=== PATIENT | female | born 1950 | race Caucasian/White ===

== ENCOUNTER 2021-07-14 11:27 | Outpatient (REF) | payer BC, SELFPAY ==
[2021-07-14 13:23] LABS: INTERNATIONAL NORM RATIO 1.2 (0.9-1.1); Prothrombin Time 13.7 SEC (9.9-13.0)
== END 2021-07-14 11:28 | disposition home or self-care (01) ==
LOC: HO.WFDLDS 11:27
PROVIDERS: Visit Provider Hospitalist
DX: D68.9 Coagulation defect, unspecified (principal)
CPT/HCPCS: 36415; 85610

== ENCOUNTER 2021-07-23 07:20 | Outpatient (REF) | payer BC, SELFPAY ==
[2021-07-23 11:43] LABS: INTERNATIONAL NORM RATIO 2.6 (0.9-1.1); Prothrombin Time 29.8 SEC (9.9-13.0)
== END 2021-07-23 07:21 | disposition home or self-care (01) ==
LOC: HO.WFDLDS 07:20
PROVIDERS: Visit Provider Hospitalist
DX: D68.9 Coagulation defect, unspecified (principal)
CPT/HCPCS: 36415; 85610

== ENCOUNTER → 2021-08-04 14:01 | Outpatient (BNVA) | payer MEDICARE, SELFPAY | PROVIDERS: PCP Hospitalist; Visit Provider Internal Medicine | DX: D68.9 Coagulation defect, unspecified (principal); Z79.01 Long term (current) use of anticoagulants; Z51.81 Encounter for therapeutic drug level monitoring | CPT/HCPCS: 85610; 99202 ==

== ENCOUNTER → 2021-08-07 10:29 | Outpatient (BNVA) | payer MEDICARE, SELFPAY | PROVIDERS: PCP Hospitalist; Visit Provider Internal Medicine | DX: D68.9 Coagulation defect, unspecified (principal); Z79.01 Long term (current) use of anticoagulants; Z51.81 Encounter for therapeutic drug level monitoring | CPT/HCPCS: 85610; 99211 ==

== ENCOUNTER → 2021-08-17 13:04 | Outpatient (BNVA) | payer MEDICARE, SELFPAY | PROVIDERS: PCP Hospitalist; Visit Provider Internal Medicine | DX: D68.9 Coagulation defect, unspecified (principal); Z79.01 Long term (current) use of anticoagulants; Z51.81 Encounter for therapeutic drug level monitoring | CPT/HCPCS: 85610; 99211 ==

== ENCOUNTER → 2021-08-28 13:07 | Outpatient (BNVA) | payer MEDICARE, SELFPAY | PROVIDERS: PCP Hospitalist; Visit Provider Internal Medicine | DX: D68.9 Coagulation defect, unspecified (principal); I74.10 Embolism and thrombosis of unspecified parts of aorta; Z79.01 Long term (current) use of anticoagulants; Z51.81 Encounter for therapeutic drug level monitoring | CPT/HCPCS: 85610; 99211 ==

== ENCOUNTER → 2021-09-11 13:04 | Outpatient (BNVA) | payer MEDICARE, SELFPAY | PROVIDERS: PCP Hospitalist; Visit Provider Internal Medicine | DX: D68.9 Coagulation defect, unspecified (principal); I74.10 Embolism and thrombosis of unspecified parts of aorta; Z79.01 Long term (current) use of anticoagulants; Z51.81 Encounter for therapeutic drug level monitoring | CPT/HCPCS: 85610; 99211 ==

== ENCOUNTER 2021-09-30 10:53 | Outpatient (REF) | payer MEDICARE, SELFPAY ==
[2021-09-30 12:44] LABS: Hematocrit 41.6 % (37.0-47.0); Hemoglobin 13.4 g/dl (12.0-16.0); Mean Corpuscular HGB Conc 32.2 g/dl (31.0-35.0); Mean Corpuscular Hemoglobin 27.5 pg (27.0-33.0); Mean Corpuscular Volume 85.4 fL (80.0-98.0); Mean Platelet Volume 11.8 fL (9.4-12.3); Platelet Count 414 X10*3/uL (160-400); Red Blood Count 4.87 X10*6/uL (4.20-5.50); Red Cell Distribution Width 14.6 % (11.0-16.0); White Blood Count 8.9 X10*3/uL (4.8-10.8)
[2021-09-30 12:49] LABS: Estimated Average Glucose 134 mg/dL; Hemoglobin A1c % 6.3 %
[2021-09-30 12:50] LABS: Alanine Aminotransferase 18 U/L (0-31); Albumin Level 4.2 g/dL (3.5-5.0); Alkaline Phosphatase 71 U/L (39-117); Anion Gap 15 (12-20); Aspartate Amino Transferase 17 U/L (5-31); Bilirubin Total 0.5 mg/dL (0.0-1.0); Blood Urea Nitrogen 13 mg/dL (9-16); Calcium 10.1 mg/dL (8.4-10.2); Carbon Dioxide 29 mmol/L (22-29); Chloride 100 mmol/L (96-108); Cholesterol 126 mg/dL; Estimated Glomerular Filt Rate > 60; Glucose Fasting 93 mg/dL (60-99); HDL Cholesterol 38 mg/dL; LDL Cholesterol Calculated 68 mg/dl; Potassium 3.8 mmol/L (3.3-5.1); Sodium 140 mmol/L (135-145); Total Protein 6.5 g/dL (6.5-8.0); Triglycerides 103 mg/dL
[2021-09-30 13:10] LABS: TSH reflex Free T4 1.54 uIU/mL (0.32-4.0)
== END 2021-09-30 10:54 | disposition home or self-care (01) ==
LOC: HO.WFDLDS 10:53
PROVIDERS: Visit Provider Hospitalist
DX: Z00.00 Encounter for general adult medical examination without abnormal findings (principal); E11.9 Type 2 diabetes mellitus without complications
CPT/HCPCS: 36415; 80053; 80061; 83036; 84443; 85027

== ENCOUNTER → 2021-10-02 13:03 | Outpatient (BNVA) | payer MEDICARE, SELFPAY | PROVIDERS: PCP Hospitalist; Visit Provider Internal Medicine | DX: D68.9 Coagulation defect, unspecified (principal); I74.10 Embolism and thrombosis of unspecified parts of aorta; Z51.81 Encounter for therapeutic drug level monitoring; Z79.01 Long term (current) use of anticoagulants | CPT/HCPCS: 85610; 99211 ==

== ENCOUNTER → 2021-10-16 13:01 | Outpatient (BNVA) | payer MEDICARE, SELFPAY | PROVIDERS: PCP Hospitalist; Visit Provider Internal Medicine | DX: D68.9 Coagulation defect, unspecified (principal); I74.10 Embolism and thrombosis of unspecified parts of aorta; Z51.81 Encounter for therapeutic drug level monitoring; Z79.01 Long term (current) use of anticoagulants | CPT/HCPCS: 85610; 99211 ==

== ENCOUNTER → 2021-10-30 13:03 | Outpatient (BNVA) | payer MEDICARE, SELFPAY | PROVIDERS: PCP Hospitalist; Visit Provider Internal Medicine | DX: I74.10 Embolism and thrombosis of unspecified parts of aorta (principal); D68.9 Coagulation defect, unspecified; Z79.01 Long term (current) use of anticoagulants; Z51.81 Encounter for therapeutic drug level monitoring | CPT/HCPCS: 85610; 99211 ==

== ENCOUNTER → 2021-11-20 12:24 | Outpatient (BNVA) | payer MEDICARE, SELFPAY | PROVIDERS: PCP Hospitalist; Visit Provider Internal Medicine | DX: D68.9 Coagulation defect, unspecified (principal); I74.10 Embolism and thrombosis of unspecified parts of aorta; Z79.01 Long term (current) use of anticoagulants; Z51.81 Encounter for therapeutic drug level monitoring | CPT/HCPCS: 85610; 99211 ==

== ENCOUNTER → 2021-12-09 13:07 | Outpatient (BNVA) | payer MEDICARE, SELFPAY | PROVIDERS: PCP Hospitalist; Visit Provider Internal Medicine | DX: D68.9 Coagulation defect, unspecified (principal); I74.10 Embolism and thrombosis of unspecified parts of aorta; Z51.81 Encounter for therapeutic drug level monitoring; Z79.01 Long term (current) use of anticoagulants | CPT/HCPCS: 85610; 99211 ==

== ENCOUNTER → 2021-12-25 13:05 | Outpatient (BNVA) | payer MEDICARE, SELFPAY | PROVIDERS: PCP Hospitalist; Visit Provider Internal Medicine | DX: I26.99 Other pulmonary embolism without acute cor pulmonale (principal); Z79.01 Long term (current) use of anticoagulants; Z51.81 Encounter for therapeutic drug level monitoring | CPT/HCPCS: 85610; 99211 ==

== ENCOUNTER 2021-12-31 08:12 | Outpatient (REF) | payer MEDICARE, SELFPAY ==
--- NOTE | ~2021-12-31 | US_ITS ---
EXAMINATION: MM DIAGNOSTIC DIGITAL BREAST TOMOSYNTHESIS, BILATERAL US DIAGNOSTIC ULTRASOUND BREAST, RIGHT CLINICAL INFORMATION: 71-year-old with palpable area lateral right breast noted by patient. Prior mammography 2010. TC score 3%. COMPARISON: Outside mammography 06/02/2010, 11/18/2008 ([facility]). TECHNIQUE: Digital breast tomosynthesis is performed in both the craniocaudal and mediolateral oblique views along with computer-aided detection (CAD). Synthesized 2D images are generated from the tomosynthesis. Additional spot right CC x2 and spot right ML views are obtained. Ultrasound right breast is targeted to the area of clinical concern outer right breast. Patient is able to point to the area at time of imaging. Grayscale imaging and color Doppler are performed without and with harmonics. FINDINGS: There are scattered areas of fibroglandular density (ACR BI-RADS breast composition Category b). There is fibronodular parenchymal pattern similar to prior studies. Left breast shows no interval mass or architectural abnormality. There are scattered bilateral benign round and coarse and a few ductal secretory and vascular calcifications. The bilateral axilla are unremarkable in the skin contours are smooth. The palpable area on right corresponds to a superficial oval mixed equal attenuation and fatty attenuation area approximately 1.5 cm in length. There is no skin thickening or retraction. No associated calcification. Ultrasound right breast targeted to the palpable concern demonstrates circumscribed oval hyperechoic lesion 1.6 x 0.9 x 1.1 cm. There is some irregular central internal hypoechogenicity. There is no skin thickening. No surrounding hyperemia or internal color flow. There is a focal area of marrow shadowing related to a benign coarse calcification and unrelated to the palpable concern. Results are discussed with the patient at time of visit. The features of the palpable concern on both mammography and ultrasound are most suggestive of benign fat necrosis. Patient does not recall prior injury or ecchymosis in this area. No other prior mammography since 2010. Management options were discussed including confirmation of benignity with ultrasound-guided core biopsy. Patient prefers serial follow-up at this time. US/US breast RT limited IMPRESSION: Right: -Suspect fat necrosis at site of palpable concern outer right breast 1.6 cm in greatest dimension. Left: -No mammographic evidence of malignancy. ASSESSMENT: BI-RADS 3: Probably Benign RECOMMENDATION: Diagnostic right mammography and right ultrasound in 6 months. This patient's information was entered into a reminder system with a target due date for their next mammogram.
== END 2021-12-31 08:13 | disposition home or self-care (01) ==
LOC: HO.MAMMO 08:12
PROVIDERS: PCP Hospitalist; Visit Provider Nurse Practitioner Family
DX: N63.15 Unspecified lump in the right breast, overlapping quadrants (principal)
CPT/HCPCS: 76642; 77062; 77066

== ENCOUNTER → 2022-01-12 13:03 | Outpatient (BNVA) | payer MEDICARE, SELFPAY | PROVIDERS: PCP Hospitalist; Visit Provider Internal Medicine | DX: D68.9 Coagulation defect, unspecified (principal); I74.10 Embolism and thrombosis of unspecified parts of aorta; Z79.01 Long term (current) use of anticoagulants; Z51.81 Encounter for therapeutic drug level monitoring | CPT/HCPCS: 85610; 99211 ==

== ENCOUNTER → 2022-01-26 13:03 | Outpatient (BNVA) | payer MEDICARE, SELFPAY | PROVIDERS: PCP Hospitalist; Visit Provider Internal Medicine | DX: I74.10 Embolism and thrombosis of unspecified parts of aorta (principal); D68.9 Coagulation defect, unspecified; Z79.01 Long term (current) use of anticoagulants; Z51.81 Encounter for therapeutic drug level monitoring | CPT/HCPCS: 85610; 99211 ==

== ENCOUNTER → 2022-02-04 13:05 | Outpatient (BNVA) | payer MEDICARE, SELFPAY | PROVIDERS: PCP Hospitalist; Visit Provider Internal Medicine | DX: I74.10 Embolism and thrombosis of unspecified parts of aorta (principal); D68.9 Coagulation defect, unspecified; Z79.01 Long term (current) use of anticoagulants; Z51.81 Encounter for therapeutic drug level monitoring | CPT/HCPCS: 85610; 99211 ==

== ENCOUNTER → 2022-02-09 11:25 | Outpatient (BNVA) | payer MEDICARE, SELFPAY | PROVIDERS: PCP Hospitalist; Visit Provider Physician Assistant | DX: K21.9 Gastro-esophageal reflux disease without esophagitis (principal); R06.6 Hiccough; R05.9 Cough, unspecified; R13.10 Dysphagia, unspecified; Z79.01 Long term (current) use of anticoagulants | CPT/HCPCS: 99202 ==

== ENCOUNTER → 2022-02-18 13:09 | Outpatient (BNVA) | payer MEDICARE, SELFPAY | PROVIDERS: PCP Hospitalist; Visit Provider Internal Medicine | DX: I74.10 Embolism and thrombosis of unspecified parts of aorta (principal); D68.9 Coagulation defect, unspecified; Z79.01 Long term (current) use of anticoagulants; Z51.81 Encounter for therapeutic drug level monitoring | CPT/HCPCS: 85610; 99211 ==

== ENCOUNTER → 2022-03-18 13:03 | Outpatient (BNVA) | payer MEDICARE, SELFPAY | PROVIDERS: PCP Hospitalist; Visit Provider Internal Medicine | DX: D68.9 Coagulation defect, unspecified (principal); I74.10 Embolism and thrombosis of unspecified parts of aorta; Z79.01 Long term (current) use of anticoagulants; Z51.81 Encounter for therapeutic drug level monitoring | CPT/HCPCS: 85610; 99211 ==

== ENCOUNTER → 2022-04-16 10:28 | Outpatient (BNVA) | payer MEDICARE, SELFPAY | PROVIDERS: PCP Hospitalist; Visit Provider Internal Medicine | DX: D68.9 Coagulation defect, unspecified (principal); I74.10 Embolism and thrombosis of unspecified parts of aorta; Z79.01 Long term (current) use of anticoagulants; Z51.81 Encounter for therapeutic drug level monitoring | CPT/HCPCS: 85610; 99211 ==

== ENCOUNTER 2022-04-20 10:30 | Outpatient (REF) | payer MEDICARE, SELFPAY ==
--- NOTE | ~2022-04-20 | FL_ITS ---
EXAMINATION: FL BARIUM SWALLOW CLINICAL INFORMATION: HICCUPS COMPARISON: None TECHNIQUE: Barium swallow examination is performed using fluoroscopic evaluation in addition to multiple fluoroscopic spot views. The patient is imaged both upright and prone and using both thick and thin sulfate along with effervescent granules. Fluoroscopy time: 1.7 minutes DAP: 11.456 Gycm2 Images: 21 FINDINGS: The patient initiated swallowing normally. There is ineffective primary peristalsis with occasional tertiary contractions. No fixed esophageal mucosal abnormality to suggest fracture or mass. No hiatal hernia. No gastroesophageal reflux observed spontaneously or elicited with provocative maneuvers. FL/FL barium swallow IMPRESSION: Ineffective primary peristalsis with occasional tertiary contractions, most notable with prone swallowing. Presbyesophagus can give this appearance.
== END 2022-04-20 10:31 | disposition home or self-care (01) ==
LOC: HO.XRAY 10:30
PROVIDERS: PCP Hospitalist; Visit Provider Physician Assistant
DX: R13.10 Dysphagia, unspecified (principal); K21.9 Gastro-esophageal reflux disease without esophagitis; R05.9 Cough, unspecified; R06.6 Hiccough; Z79.01 Long term (current) use of anticoagulants
CPT/HCPCS: 74220

== ENCOUNTER → 2022-05-18 13:01 | Outpatient (BNVA) | payer MEDICARE, SELFPAY | PROVIDERS: PCP Hospitalist; Visit Provider Internal Medicine | DX: I74.10 Embolism and thrombosis of unspecified parts of aorta (principal); D68.9 Coagulation defect, unspecified; Z51.81 Encounter for therapeutic drug level monitoring; Z79.01 Long term (current) use of anticoagulants | CPT/HCPCS: 85610; 99211 ==

== ENCOUNTER → 2022-06-07 12:59 | Outpatient (BNVA) | payer MEDICARE, SELFPAY | PROVIDERS: PCP Hospitalist; Visit Provider Internal Medicine | DX: I74.10 Embolism and thrombosis of unspecified parts of aorta (principal); Z79.01 Long term (current) use of anticoagulants; Z51.81 Encounter for therapeutic drug level monitoring | CPT/HCPCS: 85610; 99211 ==

== ENCOUNTER 2022-06-17 11:37 | Outpatient (REF) | payer MEDICARE, SELFPAY ==
[2022-06-17 14:32] LABS: Hematocrit 42.9 % (37.0-47.0); Hemoglobin 13.5 g/dl (12.0-16.0); Mean Corpuscular HGB Conc 31.5 g/dl (31.0-35.0); Mean Corpuscular Hemoglobin 27.4 pg (27.0-33.0); Mean Platelet Volume 11.9 fL (9.4-12.3); Platelet Count 465 X10*3/uL (160-400); Red Blood Count 4.93 X10*6/uL (4.20-5.50); Red Cell Distribution Width 14.5 % (11.0-16.0); White Blood Count 9.6 X10*3/uL (4.8-10.8)
[2022-06-17 15:07] LABS: Alanine Aminotransferase 14 U/L (0-31); Albumin Level 3.9 g/dL (3.5-5.0); Alkaline Phosphatase 67 U/L (39-117); Anion Gap 15 (12-20); Aspartate Amino Transferase 16 U/L (5-31); Bilirubin Total 0.5 mg/dL (0.0-1.0); Blood Urea Nitrogen 12 mg/dL (9-16); Calcium 9.6 mg/dL (8.4-10.2); Carbon Dioxide 29 mmol/L (22-29); Chloride 100 mmol/L (96-108); Cholesterol 129 mg/dL; Estimated Glomerular Filt Rate > 60; Glucose Fasting 111 mg/dL (60-99); HDL Cholesterol 39 mg/dL; LDL Cholesterol Calculated 72 mg/dl; Potassium 3.4 mmol/L (3.3-5.1); Sodium 141 mmol/L (135-145); Total Protein 6.1 g/dL (6.5-8.0); Triglycerides 94 mg/dL
[2022-06-17 15:11] LABS: TSH reflex Free T4 1.76 uIU/mL (0.32-4.0)
== END 2022-06-17 11:38 | disposition home or self-care (01) ==
LOC: HO.WFDLDS 11:37
PROVIDERS: Visit Provider Hospitalist
DX: Z00.00 Encounter for general adult medical examination without abnormal findings (principal); E66.9 Obesity, unspecified; Z79.01 Long term (current) use of anticoagulants; Z79.899 Other long term (current) drug therapy
CPT/HCPCS: 36415; 80053; 80061; 84443; 85027

== ENCOUNTER → 2022-07-05 13:12 | Outpatient (BNVA) | payer MEDICARE, SELFPAY | PROVIDERS: PCP Hospitalist; Visit Provider Internal Medicine | DX: I74.10 Embolism and thrombosis of unspecified parts of aorta (principal); Z79.01 Long term (current) use of anticoagulants; Z51.81 Encounter for therapeutic drug level monitoring | CPT/HCPCS: 85610; 99211 ==

== ENCOUNTER → 2022-07-27 14:09 | Outpatient (BNVA) | payer MEDICARE, SELFPAY | PROVIDERS: PCP Hospitalist; Visit Provider Surgery Vascular Surgery | DX: I73.9 Peripheral vascular disease, unspecified (principal); I65.23 Occlusion and stenosis of bilateral carotid arteries | CPT/HCPCS: 99202 ==

== ENCOUNTER → 2022-07-28 13:22 | Outpatient (BNVA) | payer MEDICARE, SELFPAY | PROVIDERS: PCP Hospitalist; Visit Provider Internal Medicine | DX: I74.10 Embolism and thrombosis of unspecified parts of aorta (principal); Z79.01 Long term (current) use of anticoagulants; Z51.81 Encounter for therapeutic drug level monitoring | CPT/HCPCS: 85610; 99211 ==

== ENCOUNTER → 2022-07-30 12:09 | Outpatient (BNVA) | payer MEDICARE, SELFPAY | PROVIDERS: PCP Hospitalist; Visit Provider Internal Medicine ==

== ENCOUNTER 2022-08-05 09:01 | Day surgery (SDC) | payer MEDICARE, SELFPAY ==
[2022-08-03 11:43] VITALS: BMI 31.1
[2022-08-03 12:14] VITALS: BMI 31.1
--- NOTE | 2022-08-04 09:47 | HO.ANESPROP2 ---
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) Current use of anticoagulant therapy (Acute) Normal physical exam (Acute) Hypothyroidism (acquired) (Acute) Breast lump on right side at 9 o'clock position (Acute) Chronic hiccups (Acute) Chronic GERD (Acute) Unintended weight loss (Acute) Cough (Acute) Dysphagia (Acute) Abnormal bone density screening (Acute) Peripheral arterial disease (Acute) Elevated platelet count (Acute) Bilateral carotid artery stenosis (Acute) Arthritis (Acute) Asthma (Acute) Type II diabetes mellitus (Acute) Past Medical History Medical History Arthritis Asthma Depression Essential tremor Hypertension Iron deficiency Osteoarthritis PND (post-nasal drip) Seasonal allergies Tremors of nervous system Type II diabetes mellitus Surgical History Surgical History H/O: hysterectomy History of cataract removal with insertion of prosthetic lens History of esophagogastroduodenoscopy (EGD) Hx laparoscopic cholecystectomy Social History Social History Household Members: Family Household Members Other:: brother Both parents involved: No Caregiver staying overnight: No Housing: House Housing Other:: mobile home 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 at 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: Yes (brother s/p CVA) Do you presently have visiting nurse or other home services: No (brother has services VNA,PT) Alcohol intake: never Patient Tobacco Use Status: Never used Tobacco e-Cigarette/Vaping Use: Never Used Second Hand Smoke Exposure: No service: No Current occupational status: retired Current occupational exposures/hazards: Yes Cognitive needs: No Hearing needs: No Vision needs: Yes Meds Allergies Allergy/AdvReac Type Severity Reaction Status Date / Time zolpidem [From Ambien] AdvReac Severe Hallucinati Verified 08/09/22 13:11 ons Home Medications Medication Instructions Recorded Confirmed Last Taken Type blood sugar diagnostic 07/02/21 07/30/22 Unknown History Exam Exam Date and Time: August 04, 2022 0947 Height,Weight and Vital Signs: Height 5 ft 5 in Weight 84.822 kg Pertinent Lab Results Pertinent Lab Results: Laboratory Tests 06/17/22 06/17/22 11:40 11:40 WBC 9.6 Hgb 13.5 Hct 42.9 Plt Count 465 H Sodium 141 Potassium 3.4 Chloride 100 Carbon Dioxide 29 BUN 12 Creatinine 0.77 Assessment and Plan Assessment Anesthesia Assessment: Chart Reviewed
--- NOTE | 2022-08-05 09:36 | P.HPSUR_ITS ---
Pre-Procedural Eval Section A Date of Service: 08/05/22 Section B Chief Complaint: Gastro-esophageal reflux disease without esophagit Details of Present Illness: dysphagia Relevant Family History (Specify if Yes): No Relevant Social History: None Present Medications: see Short Stay Collaborative assessment Medical History: Significant History (Arthritis Asthma Depression Hypertension Iron deficiency Osteoarthritis Tremors of nervous system Type II diabetes mellitus) History of Previous Operations: Relevant previous surgery/procedure and date(s) (H/O: hysterectomy History of cataract removal with insertion of prosthetic lens History of esophagogastroduodenoscopy (EGD) Hx laparoscopic cholecystectomy) Allergies: Allergies Allergy/AdvReac Type Severity Reaction Status Date / Time zolpidem [From Ambien] AdvReac Severe Hallucinati Verified 07/28/22 13:34 ons Review of Systems Sugical H&P ROS: Negative: Constitution, Cardiovascular, Respiratory, Neurological, Psychiatric, Hem-Onc, Allergic/Immunologic, Gastrointestinal, G enitourinary, Musculoskeletal, Integumentary, Endocrine and Eyes/Ears/Nose/Throat Exam Surgical H&P Exam: Normal: HEENT, Normal: Heart, Normal: Lungs, Normal: Extremities, Normal: Abdomen, Normal: Skin and Normal: Neurological Plan Diagnosis/Plan: Unchanged I have reviewed the history and physical and performed a pertinent physical examination on my patient. No changes have occurred unless specified. Time Spent With Patient Time: Total time managing care of this patient today ____ minutes.
[2022-08-05 10:04] LABS: Prothrombin Time 11.2 SEC (10.0-13.1)
--- NOTE | 2022-08-05 10:06 | HO.ANESPROP2 ---
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 (Acute) Current use of anticoagulant therapy (Acute) Normal physical exam (Acute) Hypothyroidism (acquired) (Acute) Breast lump on right side at 9 o'clock position (Acute) Chronic hiccups (Acute) Chronic GERD (Acute) Unintended weight loss (Acute) Cough (Acute) Dysphagia (Acute) Abnormal bone density screening (Acute) Peripheral arterial disease (Acute) Elevated platelet count (Acute) Bilateral carotid artery stenosis (Acute) Arthritis (Acute) Asthma (Acute) Type II diabetes mellitus (Acute) Past Medical History Medical History Arthritis Asthma Depression Essential tremor Hypertension Iron deficiency Osteoarthritis PND (post-nasal drip) Seasonal allergies Tremors of nervous system Type II diabetes mellitus Surgical History Surgical History H/O: hysterectomy History of cataract removal with insertion of prosthetic lens History of esophagogastroduodenoscopy (EGD) Hx laparoscopic cholecystectomy Social History Social History Household Members: Family Household Members Other:: brother Housing: House Housing Other:: mobile home 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 If so, by whom?: No Are you DNR?: No Advance Directives: No (will bring dos) Advance Directives Information Provided: Yes Advance Directives on File: No Nutrition Risks: No Nutritional Risk Poor oral hygiene: No service: No Current occupational status: retired Current occupational exposures/hazards: Yes Cognitive needs: No Hearing needs: No Vision needs: Yes Meds Allergies Allergy/AdvReac Type Severity Reaction Status Date / Time zolpidem [From Ambien] AdvReac Severe Hallucinati Verified 07/28/22 13:34 ons Active Medications: Current Medications Albuterol Sulfate (Albuterol Sulfate (0.083%) 2.5 Mg/3 Ml Vial.Neb) 2.5 mg INHALE ONCE PRN PRN Reason: Shortness of Breath/Wheezing Lactated Ringer's (Lr) 1,000 mls @ 100 mls/hr IVCONT .Q10H [facility] Home Medications Medication Instructions Recorded Confirmed Last Taken Type blood sugar diagnostic 07/02/21 07/30/22 Unknown History Exam Exam Date and Time: August 05, 2022 1006 Height,Weight and Vital Signs: Height 5 ft 5 in Weight 84.822 kg Pertinent Lab Results Pertinent Lab Results: Laboratory Tests 08/05/22 09:55 PT 11.2 INR 1.0 Airway Mallampati Class: II TM Dist: >3cm Neck ROM: Full Heart: RRR Lungs: CTA Assessment and Plan Final Anesthetic Review ASA Class: III Final Preanesthetic Review: Meds/Allgs Chart Reviewed, Consent Obtained/Reviewed and Anes Risks/Benef Reviewed Patient Risk: Intermediate Procedure Risk: Low Anesthetic Plan Anesthetic Plan: MAC: Disposition: Standard PACU
[2022-08-05 10:14] LABS: Glucose, Whole Blood 138 mg/dL (60-115)
[2022-08-05 10:25] VITALS: BP 143/83; PULSE 82; RESP 18; TEMP 36.3; O2SAT 98
[2022-08-05] MEDS: Lactated Ringers 1,000 ML 100 ML IVCONT (10:31)
--- NOTE | 2022-08-05 10:40 | W.PM.OPN ---
Operative Note Operative Note Date of Service: 08/05/22 Narrative: Procedure Description: EGD Indication: dysphagia Anesthesia: MAC FLEXIBLE TRANSORAL UPPER GASTROINTESTINAL ENDOSCOPY UPPER ENDOSCOPY Consent: Indications for the procedure and potential complications of bleeding, perforation, reaction to medications and missed diagnosis were discussed with the patient and informed consent was obtained. Instrument: Olympus GIF H 190 J mid size upper endoscope Monitoring: Vital signs and clinical assessment, continuous EKG monitoring, Pulse oximetry, Carbon Dioxide monitoring and blood pressure monitoring were done throughout the procedure. Procedure: The patient was placed in the left lateral decubitis position and pre-procedure medications were administered and a bite block was placed. The endoscope was inserted into the mouth and advanced under direct vision to the third part of duodenum. A careful inspection was made as the upper endoscope was withdrawn including a retroflexed examination of the proximal stomach; Findings and interventions are described below. Findings: Larynx:normal Esophagus: GE junction at 32 cm, diaphragm hiatus at 36 cm, consistent with 4 cm hiatal hernia. within the hiatal sac an inflammed pedunculated polyp lesion about 12 mm was noted and removed with cold snare and retrieved with a net. Bx taken from distal and proximal esophagus Stomach: Patchy gastric erythema. Biopsies were obtained. Grade 2 flap valve on retroflexed examination of the cardia. A 10 mm sessile polyp noted in antrum and removed with cold snare Duodenum: Normal bulb and descending duodenum, Intervention: Biopsies as noted above, cold snare polypectomy Impression/Findings: gastritis hiatal hernia gastric polyps PLAN: await pathology might consider manometry, may benefit from hiatal hernia repair and acid control with PPI restart coumadin today and lovenox tomorrow morning
[2022-08-05 11:04] VITALS: BP 86/47; PULSE 85; RESP 16; TEMP 36.4; O2SAT 95
[2022-08-05 11:10] VITALS: BP 103/58; PULSE 78; RESP 16; O2SAT 96
[2022-08-05 11:20] VITALS: BP 115/61; PULSE 76; RESP 16; TEMP 36.3; O2SAT 95
[2022-08-05 11:34] VITALS: BP 135/82; PULSE 76; RESP 16; TEMP 36.6; O2SAT 96
--- NOTE | 2022-08-05 12:22 | HO.POSTANES ---
Post Anesthesia Evaluation Post Anesthesia Evaluation Vital Signs: Vital Signs Temp Pulse Resp BP Pulse Ox O2 Del Method O2 Flow Rate 08/05/22 11:34 97.8 F 76 16 135/82 96 Room Air 08/05/22 11:20 97.3 F 76 16 115/61 95 Room Air 08/05/22 11:10 78 16 103/58 L 96 Simple Mask 5 08/05/22 11:04 97.5 F 85 16 86/47 L 95 Simple Mask 5 08/05/22 10:25 97.3 F 82 18 143/83 H 98 Room Air Anesthesia: Monitored Mental Status: Awake Pain Control: Satisfactory Nausea/Vomiting: None Hydration: Adequate Anesthesia-Related Issues: No Anes. Related Issues
== END 2022-08-05 12:03 | disposition home or self-care (01) ==
PROVIDERS: Nurse Practitioner; PCP Hospitalist; Visit Provider Internal Medicine Gastroenterology
PROC: 0DJ08ZZ Inspection of Upper Intestinal Tract, Via Natural or Artificial Opening Endoscopic (ICD-10-PCS; CPT 43235; principal; 2022-08-05 10:50)
DX: R13.10 Dysphagia, unspecified (principal); K21.9 Gastro-esophageal reflux disease without esophagitis; K44.9 Diaphragmatic hernia without obstruction or gangrene; K31.7 Polyp of stomach and duodenum; K29.50 Unspecified chronic gastritis without bleeding; I10 Essential (primary) hypertension; E61.1 Iron deficiency; G25.0 Essential tremor; J45.909 Unspecified asthma, uncomplicated; M19.90 Unspecified osteoarthritis, unspecified site; E11.9 Type 2 diabetes mellitus without complications; Z79.01 Long term (current) use of anticoagulants; Z79.82 Long term (current) use of aspirin; Z79.4 Long term (current) use of insulin; Z79.899 Other long term (current) drug therapy; Z88.8 Allergy status to other drugs, medicaments and biological substances; Z90.49 Acquired absence of other specified parts of digestive tract
CPT/HCPCS: 43251; 43239; 36415; 82947; 85610; 88305; 88342; C1726

== ENCOUNTER → 2022-08-09 13:07 | Outpatient (BNVA) | payer MEDICARE, SELFPAY | PROVIDERS: PCP Hospitalist; Visit Provider Internal Medicine | DX: I74.10 Embolism and thrombosis of unspecified parts of aorta (principal); Z79.01 Long term (current) use of anticoagulants; Z51.81 Encounter for therapeutic drug level monitoring | CPT/HCPCS: 85610; 99212 ==

== ENCOUNTER 2022-08-12 13:05 | Outpatient (REF) | payer MEDICARE, SELFPAY ==
--- NOTE | ~2022-08-12 | US_ITS ---
EXAMINATION: US EXTRACRANIAL CAROTID DUPLEX, BILATERAL CLINICAL INFORMATION: Carotid stenosis COMPARISON: None available. TECHNIQUE: Real-time ultrasound and Doppler techniques (integrating B-mode 2-D vascular images, Doppler spectral analysis and color-flow Doppler imaging) were utilized to interrogate the extracranial carotid arteries, the vertebral arteries and proximal subclavian arteries bilaterally. The degree of stenosis is determined by criteria similar to NASCET. FINDINGS: Right Side: 1. There is mild atherosclerotic plaque seen in the bifurcation/proximal ICA region. 2. The common carotid artery PSV proximally is 79.2 cm/s and distally 50.3 cm/s. 3. The proximal internal carotid artery velocities are 79.2 cm/s systolic and 24.0 cm/s diastolic. 4. The proximal external carotid artery PSV is 67.6 cm/s. 5. The vertebral artery shows antegrade flow. 6. The subclavian artery waveforms are normal. Left Side: 1. There is mild atherosclerotic plaque seen in the bifurcation/proximal ICA region. 2. The common carotid artery PSV proximally is 65.2 cm/s and distally 58.5 cm/s. 3. The proximal internal carotid artery velocities are 93.8 cm/s systolic and 31.1 cm/s diastolic. 4. The proximal external carotid artery PSV is 53.4 cm/s. 5. The vertebral artery shows antegrade flow. 6. The subclavian artery waveforms are normal. US/US carotid duplex BI IMPRESSION: 1. RIGHT: Minimal, non-hemodynamically significant stenosis of the proximal right internal carotid artery corresponding to a 0-49% stenosis by velocity criteria. 2. LEFT: Minimal, non-hemodynamically significant stenosis of the proximal left internal carotid artery corresponding to a 0-49% stenosis by velocity criteria.
== END 2022-08-12 13:06 | disposition home or self-care (01) ==
LOC: HO.US 13:05
PROVIDERS: PCP Hospitalist; Visit Provider Surgery Vascular Surgery
DX: I74.10 Embolism and thrombosis of unspecified parts of aorta (principal); I65.23 Occlusion and stenosis of bilateral carotid arteries; Z51.81 Encounter for therapeutic drug level monitoring; Z79.01 Long term (current) use of anticoagulants
CPT/HCPCS: 85610; 93880; 99211

== ENCOUNTER 2022-08-16 12:38 | Outpatient (REF) | payer MEDICARE, SELFPAY ==
--- NOTE | ~2022-08-16 | US_ITS ---
EXAMINATION: ANKLE-BRACHIAL INDICES SINGLE LEVEL PULSE VOLUME RECORDING ARTERIAL DUPLEX BILATERAL LEGS CLINICAL INFORMATION: Peripheral vascular disease. COMPARISON: None TECHNIQUE: Ankle-brachial indices and PVR at the ankle were obtained. Duplex Doppler of the bilateral lower extremity arterial systems was performed. FINDINGS: RIGHT: Ankle-brachial index: 1.09 PVR: Normal Common femoral: PSV 127 cm/s. Triphasic waveform. Deep femoral: PSV 63 cm/s. Biphasic waveform. Proximal superficial femoral: PSV 138 cm/s. Triphasic waveform. Mid superficial femoral: PSV 82 cm/s. Triphasic waveform. Distal superficial femoral: PSV 82 cm/s. Triphasic waveform. Popliteal: PSV 72 cm/s. Biphasic waveform. Posterior tibial: PSV 72 cm/s. Biphasic waveform. Peroneal: PSV 81 cm/s. Triphasic waveform. LEFT: Ankle-brachial index: 0.72 PVR: Abnormal Common femoral: PSV 64 cm/s. Triphasic waveform. Deep femoral: PSV 27 cm/s. Biphasic waveform. Proximal superficial femoral: PSV 55 cm/s. Biphasic waveform. Mid superficial femoral: PSV 32 cm/s. Biphasic waveform. Distal superficial femoral: PSV 27 cm/s. Biphasic waveform. Popliteal: PSV 37 cm/s. Biphasic waveform. Posterior tibial: PSV 34 cm/s. Biphasic waveform. Peroneal: PSV 35 cm/s. Monophasic waveform. US/US arterial duplex LE BI IMPRESSION: Right: Normal PETERSON and PVR. Diffuse atherosclerotic disease without evidence of hemodynamically significant stenosis. Left: PETERSON 0.72 consistent with moderate peripheral arterial disease. Abnormal PVR. Likely hemodynamically significant femoropopliteal disease.
--- NOTE | ~2022-08-16 | US_ITS ---
EXAMINATION: ANKLE-BRACHIAL INDICES SINGLE LEVEL PULSE VOLUME RECORDING ARTERIAL DUPLEX BILATERAL LEGS CLINICAL INFORMATION: Peripheral vascular disease. COMPARISON: None TECHNIQUE: Ankle-brachial indices and PVR at the ankle were obtained. Duplex Doppler of the bilateral lower extremity arterial systems was performed. FINDINGS: RIGHT: Ankle-brachial index: 1.09 PVR: Normal Common femoral: PSV 127 cm/s. Triphasic waveform. Deep femoral: PSV 63 cm/s. Biphasic waveform. Proximal superficial femoral: PSV 138 cm/s. Triphasic waveform. Mid superficial femoral: PSV 82 cm/s. Triphasic waveform. Distal superficial femoral: PSV 82 cm/s. Triphasic waveform. Popliteal: PSV 72 cm/s. Biphasic waveform. Posterior tibial: PSV 72 cm/s. Biphasic waveform. Peroneal: PSV 81 cm/s. Triphasic waveform. LEFT: Ankle-brachial index: 0.72 PVR: Abnormal Common femoral: PSV 64 cm/s. Triphasic waveform. Deep femoral: PSV 27 cm/s. Biphasic waveform. Proximal superficial femoral: PSV 55 cm/s. Biphasic waveform. Mid superficial femoral: PSV 32 cm/s. Biphasic waveform. Distal superficial femoral: PSV 27 cm/s. Biphasic waveform. Popliteal: PSV 37 cm/s. Biphasic waveform. Posterior tibial: PSV 34 cm/s. Biphasic waveform. Peroneal: PSV 35 cm/s. Monophasic waveform. US/US PETERSON complete IMPRESSION: Right: Normal PETERSON and PVR. Diffuse atherosclerotic disease without evidence of hemodynamically significant stenosis. Left: PETERSON 0.72 consistent with moderate peripheral arterial disease. Abnormal PVR. Likely hemodynamically significant femoropopliteal disease.
== END 2022-08-16 12:39 | disposition home or self-care (01) ==
LOC: HO.US 12:38
PROVIDERS: Visit Provider Surgery Vascular Surgery
DX: I73.9 Peripheral vascular disease, unspecified (principal)
CPT/HCPCS: 93923; 93925

== ENCOUNTER → 2022-08-20 13:38 | Outpatient (BNVA) | payer MEDICARE, SELFPAY | PROVIDERS: PCP Hospitalist; Visit Provider Internal Medicine | DX: I74.10 Embolism and thrombosis of unspecified parts of aorta (principal); Z79.01 Long term (current) use of anticoagulants; Z51.81 Encounter for therapeutic drug level monitoring | CPT/HCPCS: 85610; 99211 ==

== ENCOUNTER 2022-08-23 12:01 | Outpatient (REF) | payer MEDICARE, SELFPAY ==
[2022-08-23 14:25] LABS: Platelet Count 408 X10*3/uL (160-400)
== END 2022-08-23 12:02 | disposition home or self-care (01) ==
LOC: HO.WFDLDS 12:01
PROVIDERS: Visit Provider Hospitalist
DX: R79.89 Other specified abnormal findings of blood chemistry (principal)
CPT/HCPCS: 36415; 85049

== ENCOUNTER → 2022-08-26 10:41 | Outpatient (BNVA) | payer MEDICARE, SELFPAY | PROVIDERS: PCP Hospitalist; Visit Provider Surgery Vascular Surgery | DX: I73.9 Peripheral vascular disease, unspecified (principal); I65.23 Occlusion and stenosis of bilateral carotid arteries | CPT/HCPCS: 99212 ==

== ENCOUNTER → 2022-08-27 13:05 | Outpatient (BNVA) | payer MEDICARE, SELFPAY | PROVIDERS: PCP Hospitalist; Visit Provider Internal Medicine | DX: I74.10 Embolism and thrombosis of unspecified parts of aorta (principal); Z79.01 Long term (current) use of anticoagulants; Z51.81 Encounter for therapeutic drug level monitoring | CPT/HCPCS: 85610; 99211 ==

== ENCOUNTER → 2022-09-10 13:00 | Outpatient (BNVA) | payer MEDICARE, SELFPAY | PROVIDERS: PCP Hospitalist; Visit Provider Internal Medicine | DX: I74.10 Embolism and thrombosis of unspecified parts of aorta (principal); Z51.81 Encounter for therapeutic drug level monitoring; Z79.01 Long term (current) use of anticoagulants | CPT/HCPCS: 85610; 99211 ==

== ENCOUNTER → 2022-09-21 13:46 | Outpatient (BNVA) | payer MEDICARE, SELFPAY | PROVIDERS: Visit Provider Physician Assistant | DX: K21.9 Gastro-esophageal reflux disease without esophagitis (principal); K44.9 Diaphragmatic hernia without obstruction or gangrene; Z79.899 Other long term (current) drug therapy; Z98.890 Other specified postprocedural states | CPT/HCPCS: 99212 ==

== ENCOUNTER 2022-09-23 18:50 | Outpatient (REF) | payer MEDICARE, SELFPAY ==
[2022-09-27 11:38] LABS: H Pylori Breath Test Negative (Negative)
== END 2022-09-23 18:51 | disposition home or self-care (01) ==
LOC: HO.LNP 18:50
PROVIDERS: Visit Provider Physician Assistant
DX: A04.8 Other specified bacterial intestinal infections (principal)
CPT/HCPCS: 83013

== ENCOUNTER → 2022-10-01 13:07 | Outpatient (BNVA) | payer MEDICARE, SELFPAY | PROVIDERS: PCP Hospitalist; Visit Provider Internal Medicine | DX: I74.10 Embolism and thrombosis of unspecified parts of aorta (principal); Z79.01 Long term (current) use of anticoagulants; Z51.81 Encounter for therapeutic drug level monitoring | CPT/HCPCS: 85610; 99211 ==

== ENCOUNTER 2022-10-15 10:23 | Outpatient (AMB) | payer MEDICARE, SELFPAY ==
[2022-10-15 10:27] VITALS: BP 118/72; PULSE 101; RESP 12; TEMP 36.6; O2SAT 97; BMI 30.6
--- NOTE | 2022-10-15 10:27 | MHC.PC.OV ---
Vital Signs 10/15/22 10:27 Height 5 ft 4.5 in Weight 181 lb 2 oz BMI 30.6 BP 118/72 Blood Pressure Location Lt brachial Position Sitting Respiration 12 Pulse 101 H Pulse Source Pulse Oximeter Temp 97.8 F Temp Source Temporal Artery Scan Pulse Oximetry (%) 97 Oxygen Delivery Method Room Air Intake Visit Reasons: PE Automatic Print Developer Required: No Accompanied by: Self / Same As Patient Allergies Seasonal Allergies Allergy (Intermediate, Verified 10/15/22 13:24) Cough zolpidem [From Ambien] Adverse Reaction (Severe, Verified 10/15/22 13:24) Hallucinations Medication List - Last Reconciled 10/15/22 by Nisha Garcia CNP albuterol sulfate 90 mcg/actuation 2 puffs PO Q4-6H PRN amlodipine 10 mg PO DAILY ascorbic acid (vitamin C) 500 mg PO DAILY aspirin (Adult Low Dose Aspirin) 81 mg PO DAILY atorvastatin 80 mg PO DAILY blood sugar diagnostic ([employer] test strips) USE TO CHECK BLOOD SUGARS TWICE DAILY dulaglutide (Trulicity) 1.5 mg (0.5 mL) subcut QWEEK 1 month ferrous sulfate 325 mg PO DAILY fluoxetine TAKE 3 CAPSULES BY MOUTH EVERY DAY furosemide 20 mg PO DAILY insulin glargine (Lantus Solostar U-100 Insulin) 10 units (0.1 mL) subcut QPM 1 month lancets ([employer] Delica Lancets) As directed levothyroxine 50 mcg PO DAILY metformin ER 1,000 mg (2 x 500 mg) PO BID omeprazole 40 mg (2 x 20 mg) PO DAILY 30 days pen needle, diabetic (BD Liv 2nd Gen Pen Needle) As directed valsartan-hydrochlorothiazide 320-25 mg 1 tab PO DAILY warfarin 5 - 7.5 mg See Protocol PO DAILY Tobacco use date assessed: 06/14/22 Fall risk assessment: No Falls in past year Last assessed Fall Risk: 10/15/22 Dental Screening Dental Screen Date: 10/15/22 Did you have a dental visit in the last 12 months?: Yes Did you have a dental problem in the last 6 months where you did not have access to dental care?: No Was dental information given to patient?: Patient has dentist HPI HPI Comments History of Present Illness Details 72-year-old female presents for a complete physical exam She has past medical history significant for hypertension, diabetes, HLD, hypothyroidism, anxiety and depression. History of long-term anticoagulant (warfarin) use She notes that she takes her medications as prescribed She states that her fasting glucose is usually below 100. She does not check nonfasting glucose She states she had A1c was checked during a wellness check by her health insurance in August and was 6.0% She reports poorly control asthma with occasional dry cough. She denies wheezing. She notes that she uses her albuterol inhaler as prescribed. She reports bruising with a lump on her left upper abdomen which she noticed on the mirror a week ago; the lump is painful to touch. She denies fall, injury, or trauma. She reports tremors of the hands, partial blindness of the right eye, and unsteady gait following a stroke in 2013. She also had associated left sided weakness which resolved following PT. She uses a cane for ambulation. She was followed by neurology. She has history of murmurs and requests cardiology follow-up. She states that her last colonoscopy was 2 years ago: Benign polyps She states that she has never had bone density scan [facility] Medical History (Updated 10/15/22 @ 15:04 by Nisha Garcia CNP) Arthritis Asthma Depression Essential tremor Hypertension Iron deficiency Osteoarthritis PND (post-nasal drip) Seasonal allergies Tremors of nervous system Type II diabetes mellitus Surgical History H/O: hysterectomy History of cataract removal with insertion of prosthetic lens History of esophagogastroduodenoscopy (EGD) Hx laparoscopic cholecystectomy Hx of LASIK Family History Mother Diabetes Parkinsons Panic disorder/agoraphobia, agoraphobic avoidnc/panc attck full remssn Father Stroke Heart attack Brother Congestive heart failure Brother Stroke Other Substance abuse Social History Household Members: Family Household Members Other:: brother Both parents involved: No Caregiver staying overnight: No Housing: House Housing Other:: mobile home Are 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 1. Little interest or pleasure in doing things: nearly every day 2. Feeling down, depressed, or hopeless: more than half the days 3. Trouble falling or staying asleep, or sleeping too much: not at all 4. Feeling tired or having little energy: more than half the days 5. Poor appetite or overeating: not at all 6. Feeling bad about yourself - or that you are a failure or have let yourself or your family down: more than half the days 7. Trouble concentrating on things, such as reading the newspaper or watching television: several days 8. Moving or speaking so slowly that other people could have noticed. Or the opposite - being so fidgety or restless that you have been moving around a lot more than usual: not at all 9. Thoughts that you would be better off or of hurting yourself in some way: not at all Total score: 10 Depression Screening Interpretation: Positive Depression Screening Follow-up: Existing condition and In treatment Source: Developed by Drs. Meir Zarate, Elba Comer, Ethan Little and colleagues, with an educational leeanne from [employer]. Thrive Questionnaire Date Thrive assessed: 10/15/22 I am a: Patient What is your living situation today?: I have a steady place to live Within the past 12 months, did the food you bought not last and you didn't have the money to get more?: Never true Within the past 12 months, did you worry whether your food would run out before you got money to buy more?: Never true Do you have trouble paying for medicines?: No Do you have trouble getting transportation to medical appointments?: Yes Do you have trouble paying your heating and electricity bill?: No Do you have trouble taking care of your child, family member or friend?: No Do you have trouble with day-to-day activities such as bathing, preparing meals, shopping, managing finances, etc.?: Yes (shopping) Are you currently unemployed and looking for a job?: No Are you interested in more education?: No Please select the resources that you would like help with: Transportation and Daily support Currently or been in a relationship where the following occur: no concerns reported AUDIT C Alcohol Use Questionnaire (AUDIT-C) 1. How often do you have a drink containing alcohol?: Never 3. How often do you have six or more drinks on one occasion?: Never Total Score: 0 SUSHANT-7 AMB Questionnaire SUSHANT-7 Date SUSHANT - 7 assessed: 10/15/22 Feeling nervous, anxious, or on edge: 3 = Nearly every day Not being able to stop or control worryin = Nearly every day Worrying too much about different things: 3 = Nearly every day Trouble relaxin = Nearly every day Being so restless that it is hard to sit still: 2 = More than half the days Becoming easily annoyed or irritable: 1 = Several days Feeling afraid as if something awful might happen: 3 = Nearly every day Total SUSHANT-7 score (0-4 normal; 5-9 mild; 10-14 moderate; 15-21 severe): 18 Source: Developed by Drs. Meir Zarate, Elba Comer, Ethan Little and colleagues, with an educational leeanne from [employer]. ACT Questionnaire In the past 4 weeks, how much of the time did your asthma keep you from getting as much done at work, school or at home?: Some of the time During the past 4 weeks, how often have you had shortness of breath?: More than once a day During the past 4 weeks, how often did your asthma symptoms wake you up at night or earlier than usual in the morning?: Once or twice per week During the past 4 weeks, how often have you had to use your rescue inhaler or nebulizer medication?: More than 3 times per day How would you rate your asthma control during the past 4 weeks?: Somewhat controlled ACT Interpretation: Positive Score: 12 Review of Systems Const Details: Denies chills, Denies fatigue, Denies fever(s), Denies headache(s) and Denies weakness HEENT Denies change in vision, Denies dizziness, Denies headache(s), Denies hearing loss, Denies nasal congestion, Denies sinus pain, Denies sinus pressure and Denies sore throat Card Denies chest pain, Denies lightheadedness, Denies dyspnea and Denies other (palpitations) Resp Denies cough, Denies dyspnea and Denies wheezing GI Denies abdominal pain, Denies melena, Denies hematochezia, Denies change in bowel habits, Denies dyspepsia and Denies nausea Denies hematuria and Denies dysuria Musc Reports unsteady gait, Denies myalgias, Denies arthralgias, Denies numbness and Denies tingling Skin/Breast Reports as per HPI Neuro Denies abnormal gait, Denies dizziness, Denies headache(s), Denies memory loss, Denies numbness, Denies Sensory deficit (Neuro), Denies tingling and Denies weakness Psych Reports anxiety, Reports depression and Denies memory loss Endo Denies cold intolerance, Denies fatigue, Denies heat intolerance, Denies polydipsia and Denies polyuria Ganesh/Lymph Denies easy bleeding and Denies easy bruising Aller/Immun Denies wheezing Physical exam (Primary Care) Vital Signs: Last Vital Signs Temp 97.8 F 10/15/22 10:27 Pulse 101 H 10/15/22 10:27 Resp 12 10/15/22 10:27 BP 118/72 10/15/22 10:27 Pulse Ox 97 10/15/22 10:27 Oxygen Delivery Method Room Air 10/15/22 10:27 BMI result Body Mass Index 30.6 Tobacco/Smoking Status: Tobacco use Status Tobacco use date assessed 06/14/22 10/15/22 10:49 Patient Tobacco Use Status Never used Tobacco 10/15/22 10:49 e-Cigarette/Vaping Use Never Used 10/15/22 10:49 PHQ-9: PHQ-9 Score PHQ-9: Total score 10 10/15/22 14:46 Depression Screening Interpretation: Positive Depression Screening Follow-up: Existing condition and In treatment Thrive Assessment: Date of Thrive Assessment Date Thrive assessed 10/15/22 10/15/22 10:49 Currently or been in a relationship where the following occur: no concerns reported Const Other: General: no acute distress, well developed, alert and awake Nutritional Appearance: well nourished Orientation/consciousness: patient oriented x3 HENMT Head: Yes normocephalic and Yes atraumatic Ears: hearing grossly normal bilaterally and TM's normal bilaterally General nose exam: Normal external nose present and Normal nares present Mouth: Normal oral and palatal mucosa present and moist mucous membranes Teeth and gingiva: dentition normal Throat: Yes oropharynx normal Eyes Pupils: Equal, round and reactive pupils present and Pupil accommodation reflex normal EOM: EOMs intact bilaterally Neck Neck: Yes normal visual inspection, Yes no lymphadenopathy and Yes trachea midline Thyroid: Thyroid normal Carotids: no bruits Lymphatic: no lymphadenopathy noted Chest Chest palpation & inspection: normal inspection of the chest Resp Effort & Inspection: normal respiratory effort Auscultation: clear to auscultation bilaterally Cardio Rate: regular rate Rhythm: regular rhythm Heart sounds: S1 normal heart sound present, S2 normal heart sound present, no gallops, no murmurs and no rubs Bruits: no abdominal aortic bruits and no carotid bruits GI Palpation (GI): No Abdominal aortic bruit present, Soft to palpation, nontender, No hepatosplenomegaly present and No Rebound tenderness present Auscultation: normal bowel sounds General: Yes no CVA tenderness Back/Spine/Pelvis Back: no CVA tenderness Cervical Spine: cervical ROM normal and No Cervical spine tenderness Thoracic/Lumbar Spine: thoraco-lumbar ROM normal, No pain with thoraco-lumbar ROM, No thoracic spinal tenderness and No lumbar spinal tenderness Skin General: warm and dry. Normal skin color. Normal skin turgor Lesions: Skin tags to anterior neck Rashes: no rashes Trauma: Large bruising with tender lump to upper left abdomen Wounds: no wounds Nails: normal Neuro General: patient oriented x3, unsteady gait normal and CN's II-XI intact bilaterally Cranial nerves: Yes Equal, round and reactive pupils present Cognition (Neuro): normal cognition Gait exam (Neuro): Normal gait present Motor exam (neuro): 5/5 motor strength present throughout Sensory Exam: No Sensory deficit (Neuro) Deep tendon reflexes (DTR's): Right patellar reflex intensity grade: 2+ and Left patellar reflex intensity grade: 2+ Extrem General: Yes normal to inspection, No edema and No calf tenderness Psych Appearance: grossly normal Affect: normal affect Attitude: cooperative Thought process: Normal thought process present Assessment and Plan Assessment & Plan (1) Normal physical examination, routine: Code(s): Z00.00 - Encounter for general adult medical examination without abnormal findings Plan: Significant physical restrictions and limitations, tremors and unsteady gait, noted Follow-up with PCP in 3 months or return sooner with worsening or new symptoms Verbalized understanding and agreed with treatment plan. (2) Type II diabetes mellitus: Code(s): E11.9 - Type 2 diabetes mellitus without complications Plan: She states that her fasting glucose is usually below 100. She does not check nonfasting glucose She states she had A1c was checked during a wellness check by her health insurance in August and was 6.0% Metformin, Trulicity, and Lantus as prescribed ADA diet and routine exercise encouraged Monitor blood glucose 3 times daily and report hypoglycemia and hyperglycemia Follow-up with PCP in 3 months or return sooner with symptoms or concerns Verbalized understanding and agreed with treatment plan. (3) Hypertension, essential: Code(s): I10 - Essential (primary) hypertension Plan: Blood pressure is controlled, 118/72, within goal of less than 130/80 Continue take amlodipine, furosemide, valsartan-hydrochlorothiazide as prescribed Low-sodium diet and routine exercise encouraged Follow-up with PCP in 3 month or return sooner with symptoms or concerns Verbalized understanding and agreed with treatment plan. (4) Depression with anxiety: Code(s): F41.8 - Other specified anxiety disorders Plan: PHQ-9 and SUSHANT-7 scores revealed moderate depression and severe anxiety respectively Fluoxetine as prescribed Declines anxiolytic or therapy Routine exercise encouraged Follow-up with PCP in 3 months or return sooner with worsening or new symptoms Verbalized understanding and agreed with treatment plan. (5) Asthma: Code(s): J45.909 - Unspecified asthma, uncomplicated Plan: Reports poorly control asthma with occasional dry cough. She denies wheezing ACT score is 12, indicates poorly controlled asthma Albuterol inhaler as prescribed Fluticasone propionate inhaler ordered. Use twice daily as prescribed Follow-up in 3 months or return sooner with new or worsening symptoms Verbalized understanding and agreed with treatment plan. (6) Tremor of both hands: Code(s): R25.1 - Tremor, unspecified Plan: She reports tremors of the hands, partial blindness of the right eye, and unsteady gait following a stroke in 2013. She also had associated left sided weakness which resolved following PT. she uses a cane for ambulation. She was followed by neurology Instructed on safety to prevent fall and subsequent bleeding Continue to use assistive device for ambulation Follow-up with worsening symptoms Verbalized understanding and agreed with treatment plan. (7) Unsteady gait: Code(s): R26.81 - Unsteadiness on feet Plan: As above (8) Murmur: Code(s): R01.1 - Cardiac murmur, unspecified Plan: She has history of murmurs and requests cardiology follow-up Cardiology referral made Follow-up with symptoms or concerns Verbalized understanding and agreed with treatment plan (9) At risk of fracture due to osteoporosis: Code(s): M81.0 - Age-related osteoporosis without current pathological fracture; Z91.89 - Other specified personal risk factors, not elsewhere classified Plan: She states that she has never had bone density scan Bone scan ordered (10) Abdominal wall lump: Code(s): R22.2 - Localized swelling, mass and lump, trunk Plan: She reports bruising with a lump on her left upper abdomen which she noticed on the mirror a week ago; the lump is painful to touch. She denies fall, injury, or trauma. Large bruising with tender lump to upper left abdomen Ultrasound ordered Safety instructed to prevent fall, injury, or trauma Follow-up with worsening signs and symptoms Verbalized understanding and agreed with treatment plan. Orders: Orders XR DEXA axial skeleton Today M81.0 - Age-related osteoporosis without current pathological fracture, Z91.89 - Other specified personal risk factors, not elsewhere classified US abdomen limited Today R22.2 - Localized swelling, mass and lump, trunk Referrals Cardiology Referral M81.0 - Age-related osteoporosis without current pathological fracture, Z91.89 - Other specified personal risk factors, not elsewhere classified Medications: New fluticasone propionate 44 mcg/actuation administer with spacer 2 puffs inhalation BID 10.6 grams 4RF Coding Level of Care Code Est Pt Level 5 (36519) Est Pt Prev Care >65y(27273) Diagnoses Normal physical examination, routine Z00.00 Type II diabetes mellitus E11.9 Hypertension, essential I10 Depression with anxiety F41.8 Asthma J45.909 Tremor of both hands R25.1 Unsteady gait R26.81 Murmur R01.1 At risk of fracture due to osteoporosis M81.0; Z91.89 Abdominal wall lump R22.2 Time Spent (min) 50
== END 2022-10-15 11:41 | disposition home or self-care (01) ==
PROVIDERS: PCP Nurse Practitioner Family; Visit Provider Nurse Practitioner Family
DX: Z00.00 Encounter for general adult medical examination without abnormal findings (principal); I10 Essential (primary) hypertension; F41.8 Other specified anxiety disorders; Z91.89 Other specified personal risk factors, not elsewhere classified; J45.909 Unspecified asthma, uncomplicated; E11.9 Type 2 diabetes mellitus without complications; R25.1 Tremor, unspecified; R26.81 Unsteadiness on feet; R01.1 Cardiac murmur, unspecified; M81.0 Age-related osteoporosis without current pathological fracture; R22.2 Localized swelling, mass and lump, trunk
CPT/HCPCS: 99397

== ENCOUNTER 2022-10-15 13:17 | Outpatient (AMB) | payer MEDICARE, SELFPAY ==
[2022-10-15 13:29] LABS: Prothrombin Time Whole Bld POC 28.3 sec (11.1-13.5); ~PT, ~INR - Anti Coag Clinic 2.4 (0.9-1.1)
--- NOTE | 2022-10-15 13:35 | MHC.OFFVISCO ---
Intake Intake Visit Reasons: Anticoagulation Allergies Seasonal Allergies Allergy (Intermediate, Verified 10/15/22 13:24) Cough zolpidem [From Ambien] Adverse Reaction (Severe, Verified 10/15/22 13:24) Hallucinations Medication List - Last Reconciled 10/15/22 by Sonali Rm, RN albuterol sulfate 90 mcg/actuation 2 puffs PO Q4-6H PRN amlodipine 10 mg PO DAILY ascorbic acid (vitamin C) 500 mg PO DAILY aspirin (Adult Low Dose Aspirin) 81 mg PO DAILY atorvastatin 80 mg PO DAILY blood sugar diagnostic ([employer] Ver[employer] test strips) USE TO CHECK BLOOD SUGARS TWICE DAILY dulaglutide (Trulicity) 1.5 mg (0.5 mL) subcut QWEEK 1 month ferrous sulfate 325 mg PO DAILY fluoxetine TAKE 3 CAPSULES BY MOUTH EVERY DAY furosemide 20 mg PO DAILY insulin glargine (Lantus Solostar U-100 Insulin) 10 units (0.1 mL) subcut QPM 1 month lancets ([employer] Delica Lancets) As directed levothyroxine 50 mcg PO DAILY metformin ER 1,000 mg (2 x 500 mg) PO BID omeprazole 40 mg (2 x 20 mg) PO DAILY 30 days pen needle, diabetic (BD Liv 2nd Gen Pen Needle) As directed valsartan-hydrochlorothiazide 320-25 mg 1 tab PO DAILY warfarin 5 - 7.5 mg See Protocol PO DAILY Nursing Note NO CP,SOB,DIET/MED CHANGES,FALLS OR SX OF BLEEDING. CONTINUE PRESENT DOSE AND FOLLOW-UP IN B3 WEEKS. GOOD UNDERSTANDING OF DOSING INSTR. Anti-Coag Initial Assessment Social Hx Patient Tobacco Use Status: Never used Tobacco alcohol intake: never Alcohol intake frequency: does not drink Cardiovascular Hx: HTN and Other (MURMUR, AORTIC THROMBOEMBOLISM) Lung Disease HX: Asthma, DVT/PE and Other Endocrine Hx: Diabetes and Other (THYROID NODULE) Musculoskeletal Hx: Arthritis (ERROSIVE) Blood Disorder Hx: Anemia and Hyperlipidemia GI Hx: Hemorrhoids Neurological Hx: Stroke/TIA Cancer HX: No Psych. Illness/Depression: Yes (DEPRESSION) Coding Level of Care Code Est Patient Level 1 Diagnoses Current use of anticoagulant therapy Z79.01 Assessment & Plan Assessment & Plan (1) Current use of anticoagulant therapy: Code(s): Z79.01 - [facility] ([facility] use of [facility]agulants Category: Medical
== END 2022-10-15 13:37 | disposition home or self-care (01) ==
LOC: HO.ACS 13:17
PROVIDERS: PCP Hospitalist; Visit Provider Internal Medicine
DX: Z79.01 Long term (current) use of anticoagulants (principal)

== ENCOUNTER → 2022-10-15 13:17 | Outpatient (BNVA) | payer MEDICARE, SELFPAY | PROVIDERS: PCP Hospitalist; Visit Provider Internal Medicine | DX: I74.10 Embolism and thrombosis of unspecified parts of aorta (principal); Z79.01 Long term (current) use of anticoagulants; Z51.81 Encounter for therapeutic drug level monitoring | CPT/HCPCS: 85610; 99211 ==

== ENCOUNTER 2022-10-28 10:03 | Outpatient (REF) | payer MEDICARE, SELFPAY ==
--- NOTE | ~2022-10-28 | US_ITS ---
EXAMINATION: US ABDOMEN, LIMITED (ANTERIOR ABDOMINAL WALL) CLINICAL INFORMATION: Localized swelling, mass, and lump. COMPARISON: None available. TECHNIQUE: Real-time imaging of the right upper quadrant abdominal viscera. FINDINGS: Scanning over the region of concern, there is noted to be a subcutaneous 1.6 x 1.2 x 1.7 cm hypoechoic collection surrounded by hyperechoic tissue. There is some increased through sound transmission and no internal vascularity. Patient has a region of bruising in this area and this may represent a resolving hematoma without evidence of pseudoaneurysm. US/US abdomen limited IMPRESSION: Region of lump corresponds to a complex fluid collection without internal vascularity with the appearance of resolving hematoma.
== END 2022-10-28 10:04 | disposition home or self-care (01) ==
LOC: HO.US 10:03
PROVIDERS: PCP Hospitalist; Visit Provider Nurse Practitioner Family
DX: R22.2 Localized swelling, mass and lump, trunk (principal)
CPT/HCPCS: 76705

== ENCOUNTER 2022-11-03 12:31 | Outpatient (REF) | payer MEDICARE, SELFPAY ==
--- NOTE | ~2022-11-03 | MM_ITS ---
EXAMINATION: BONE DENSITOMETRY CLINICAL INDICATION: Osteoporosis. COMPARISON: This is the patient's baseline examination. TECHNIQUE: Using a [employer] DXA System (software version: 13.1) manufactured by [employer], dual-energy x-ray absorptiometry was performed of the lumbar spine and left hip. The images are of good technical quality. Summary results are attached. FINDINGS: LEFT FEMUR, NECK: BMD 1.035 g/cm2, Z-score 1.6, T-score 0.0, normal. LEFT FEMUR, TOTAL: BMD 1.049 g/cm2, Z-score 1.7, T-score 0.3, normal. AP SPINE L1-L4: BMD 1.471 g/cm2, Z-score 3.6, T-score 2.4, normal. IDENTIFIED RISK FACTORS: Early menopause, hysterectomy, low calcium intake, bilateral oophorectomy, secondary osteoporosis, thiazide. HISTORY OF FRACTURE: None listed. MEDICATIONS: None listed. MM/XR DEXA axial skeleton IMPRESSION: 1. DIAGNOSIS: Normal bone density based on the lowest T-score value of 0.0 in the femoral neck applying World Health Organization criteria. 2. 10-YEAR FRACTURE RISK PREDICTION, FRAX: According to the guidelines, FRAX calculation should only be performed on patients in the osteopenia bone density category. Therefore, FRAX was not performed on this patient. 3. Treatment Recommendations: NOF guidelines recommend consideration for treatment in postmenopausal women and men age 50 and older presenting with the following: -A hip or vertebral (clinical or morphometric) fracture. -T-score less than or equal to -2.5 at the femoral neck or spine after appropriate evaluation to exclude secondary causes. -Low bone mass at the hip or spine and a 10-year fracture probability by FRAX of greater than or equal to 3% for hip fracture or greater than or equal to 20% for major osteoporotic fracture based on the [place] adapted WHO algorithm. 4. Other Recommendations: All treatment decisions require clinical judgment and consideration of individual patient factors, including patient preferences, comorbidities, previous drug use, risk factors not captured in the FRAX model (e.g. frailty, falls, vitamin D deficiency, increased bone turnover, interval significant decline in bone density) and possible under or overestimation of fracture risk by FRAX. FUTURE SCAN RECOMMENDATION: People with diagnosed cases of osteoporosis or at high risk for fracture should have regular bone mineral density tests. For patients eligible for Medicare, routine testing is allowed once every 2 years. The testing frequency can be increased to one year for patients who have rapidly progressing disease, those who are receiving or discontinuing medical therapy to restore bone mass, or have additional risk factors.
== END 2022-11-03 12:32 | disposition home or self-care (01) ==
LOC: HO.MAMMO 12:31
PROVIDERS: PCP Nurse Practitioner Family; Visit Provider Nurse Practitioner Family
DX: M81.0 Age-related osteoporosis without current pathological fracture (principal); Z91.89 Other specified personal risk factors, not elsewhere classified; I75.89 Atheroembolism of other site; I74.10 Embolism and thrombosis of unspecified parts of aorta; Z51.81 Encounter for therapeutic drug level monitoring; Z79.01 Long term (current) use of anticoagulants; E89.40 Asymptomatic postprocedural ovarian failure
CPT/HCPCS: 77080; 85610; 99211

== ENCOUNTER → 2022-11-03 13:00 | Outpatient (BNV) | payer MEDICARE, SELFPAY | PROVIDERS: PCP Nurse Practitioner Family; Visit Provider Radiology Diagnostic Radiology | DX: M81.0 Age-related osteoporosis without current pathological fracture (principal) | CPT/HCPCS: 77080 ==

== ENCOUNTER 2022-11-03 13:39 | Outpatient (AMB) | payer MEDICARE, SELFPAY ==
[2022-11-03 13:44] LABS: Prothrombin Time Whole Bld POC 33.6 sec (11.1-13.5); ~PT, ~INR - Anti Coag Clinic 2.8 (0.9-1.1)
--- NOTE | 2022-11-03 13:53 | MHC.OFFVISCO ---
Intake Intake Visit Reasons: Anticoagulation Allergies Seasonal Allergies Allergy (Intermediate, Verified 11/03/22 13:40) Cough zolpidem [From Ambien] Adverse Reaction (Severe, Verified 11/03/22 13:40) Hallucinations Medication List - Last Reconciled 11/03/22 by Sonali Rm RN albuterol sulfate 90 mcg/actuation 2 puffs PO Q4-6H PRN amlodipine 10 mg PO DAILY ascorbic acid (vitamin C) 500 mg PO DAILY aspirin (Adult Low Dose Aspirin) 81 mg PO DAILY atorvastatin 80 mg PO DAILY blood sugar diagnostic ([employer] Verio test strips) USE TO CHECK BLOOD SUGARS TWICE DAILY dulaglutide (Trulicity) 1.5 mg (0.5 mL) subcut QWEEK 1 month ferrous sulfate 325 mg PO DAILY fluoxetine TAKE 3 CAPSULES BY MOUTH EVERY DAY fluticasone propionate 44 mcg/actuation 2 puffs inhalation BID furosemide 20 mg PO DAILY insulin glargine (Lantus Solostar U-100 Insulin) 10 units (0.1 mL) subcut QPM 1 month lancets ([email or web address] Lancets) As directed levothyroxine 50 mcg PO DAILY metformin ER 1,000 mg (2 x 500 mg) PO BID omeprazole 40 mg (2 x 20 mg) PO DAILY 30 days pen needle, diabetic (BD Liv 2nd Gen Pen Needle) As directed valsartan-hydrochlorothiazide 320-25 mg 1 tab PO DAILY warfarin 5 - 7.5 mg See Protocol PO DAILY Nursing Note PT.STATES THAT SHE FELL 3 WEEKS AGO AFTER PASSING OUT DURING THE NIGHT. PT. STATES THSDT SHE DID NOT HIT HER HEAD. SHE HAS SEVERAL RESOLVING BRUISES ON ARMS, BUT STATES THAT SHE DID NOT SEEK MEDICAL ATTENTION AT THE TIME. SHE HAS CARDI APPT.IN LATE NOVEMBER AND IS WAITING FOR ECHO APPT TO BE SCHEDULED. AN MRI IS ALSO SCHEDULED. PT.AGREES TO CALL [facility] IF ANY FURTHER QUESTIONS/CONCERNS ARISE. TO ER IF ANY FURTHER EPISODES OCCUR. Anti-Coag Initial Assessment Social Hx Patient Tobacco Use Status: Never used Tobacco alcohol intake: never Alcohol intake frequency: does not drink Cardiovascular Hx: HTN and Other (MURMUR, AORTIC THROMBOEMBOLISM) Lung Disease HX: Asthma, DVT/PE and Other Endocrine Hx: Diabetes and Other (THYROID NODULE) Musculoskeletal Hx: Arthritis (ERROSIVE) Blood Disorder Hx: Anemia and Hyperlipidemia GI Hx: Hemorrhoids Neurological Hx: Stroke/TIA Cancer HX: No Psych. Illness/Depression: Yes (DEPRESSION) Coding Level of Care Code Est Patient Level 1 Diagnoses Current use of anticoagulant therapy Z79.01 Assessment & Plan Assessment & Plan (1) Current use of anticoagulant therapy: Code(s): Z79.01 - [facility] (current) use of anticoagulants Category: Medical
== END 2022-11-03 14:56 | disposition home or self-care (01) ==
LOC: HO.ACS 13:39
PROVIDERS: PCP Nurse Practitioner Family; Visit Provider Internal Medicine
DX: Z79.01 Long term (current) use of anticoagulants (principal)

== ENCOUNTER → 2022-11-17 08:38 | Outpatient (REF) | payer MEDICARE, SELFPAY ==
--- NOTE | 2022-11-17 08:40 | CA_ITS ---
Transthoracic Echocardiogram Patient (Last, First, Middle): Carmelita Whitaker, Gender: Female Date of : 1950 Age: 72 Procedure Date: 11/17/2022 Procedure Type: Transthoracic Echocardiogram Location: OP Height: 165.1 cm Weight: 80.74 kg BSA: 1.88 m2 Heart Rate: 79 bpm BP: 160 / 75 mmHg Marketing Segment Manager: SUHAS Referring MD: Nisha Garcia CNP Railroad Inspector: Chris Guerra MD Symptoms: R01.1 - Cardiac murmur, unspecified Study Quality: Technically Difficult ECG Rhythm: Arrhythmia Conclusions: - 1. Normal LV ejection fraction 55-60% with mild LVH with impaired relaxation filling pattern 2. At least moderate aortic stenosis Findings Left Ventricle Normal left ventricular size and systolic function. There is mildly increased left ventricular wall thickness. The visually estimated ejection fraction is between 55-60%. Spectral Doppler is indicative of an impaired relaxation filling pattern. E/E prime ratio is between 8 and 15 consistent with indeterminate filling pressures. There is moderate septal asymmetric hypertrophy. Right Ventricle Normal right ventricular cavity size. Atria The left atrium is normal in size. Interatrial shunt cannot be excluded. The right atrium was not well visualized. Aortic Valve The aortic valve was not well visualized. There is moderate calcification of the aortic valve. There is moderate aortic valve stenosis. The peak aortic gradient is 36 mmHg.The mean gradient is 23 mmHg. There is no aortic valve regurgitation. Mitral Valve There is mild anterior and posterior mitral leaflet thickening. There is moderate mitral annular calcification. There is trace mitral valve regurgitation. There is no mitral valve stenosis. Pulmonic Valve The pulmonic valve was not well visualized. Tricuspid Valve The tricuspid valve was not well visualized. Tricuspid regurgitation envelope is inadequate for calculation of right ventricular systolic pressure. Great Vessels The aorta was not well visualized. The pulmonary artery was not well visualized. Venous The inferior vena cava is normal in size. Pericardium/Pleural The pericardium was not well visualized. Prior Study Comparison No prior study available for comparison. Measurements 2D Linear Measurements IVSd: 1.50 0.6-0.9/0.6-1.0 cm LVIDd: 2.90 3.9-5.3/4.2-5.9 cm LVIDd Index: 1.54 2.4-3.2/2.2-3.1 cm/m2 LVIDs: 1.90 2.0-3.6 cm LVPWd: 1.30 0.7-1.1 cm LA Diam: 3.60 2.7-3.8/3.0-4.0 cm LAIDs Index: 1.91 1.5-2.3 cm/m2 LV Mass: 167.24 67-162/88-224 g LV Mass Index: 88.96 43-95/49-115 g/m2 LVOT Diam: 1.80 3.0+(-)1.3 cm 2D Systolic Function EF 4C: 53.10 >55% EF 2C: 64.50 >55% EF BiP: 58.70 >55% Mitral Valve MV Pk E: 0.80 MV PK A: 1.25 MV Decel Time: 185.00 E/A: 0.60 E'Lateral: 4.68 E'Medial: 4.24 E/E' Med: 18.80 E/E' Lat: 17.00 PHT: 54.00 MVA PHT: 4.07 Decel Early: 4.30 Aortic Valve AoV Pk Souleymane: 2.99 AoV Mn Souleymane: 2.25 AoV VTI: 0.69 AoV Pk Grad: 36.00 Aov Mn Grad: 23.00 LEODAN Cont.VTI: 0.98 LVOT LVOT Pk Souleymane: 1.19 LVOT Mn Souleymane: 0.92 LVOT VTI: 0.27 LVOT Pk Grad: 6.00 LVOT Mn Grad: 4.00 LVOT Diam: 1.80 LVOT Area: 2.54 Diastolic Function MV Pk E: 0.80 MV Pk A: 1.25 E/A: 0.60 E'Medial: 4.24 E/E' Med: 18.80 E' Laterial: 4.68 E/E' Lat: 17.00 Right Ventricle TAPSE (mm): 18.20 TVS' Souleymane: 12.60 Great Vessels Aorta Sinus of Valsalva: 2.90 2.0-3.5 cm Ao Asc: 3.40 2.1-3.4 cm Pulmonary Valve PV Pk Souleymane: 1.41 Peak PV Grad: 8.00 Updated in Other Vendor System with Status of Final Chris Guerra MD electronically signed on 11/17/2022 2:48:04 PM with status of Final
== END ==
LOC: HO.CARD 08:38
PROVIDERS: PCP Nurse Practitioner Family; Visit Provider Nurse Practitioner Family
DX: R01.1 Cardiac murmur, unspecified (principal)
CPT/HCPCS: 93306

== ENCOUNTER → 2022-11-17 08:40 | Outpatient (BNV) | payer MEDICARE, SELFPAY | PROVIDERS: PCP Nurse Practitioner Family; Visit Provider Internal Medicine Cardiovascular Disease | DX: I35.0 Nonrheumatic aortic (valve) stenosis (principal) | CPT/HCPCS: 93306 ==

== ENCOUNTER 2022-11-30 10:07 | Outpatient (AMB) | payer MEDICARE, SELFPAY ==
--- NOTE | 2022-11-30 10:25 | MHC.OFFVIS ---
Intake Vital Signs 11/30/22 10:27 Height 5 ft 4.5 in Weight 175 lb 14.862 oz BMI 29.7 BP 142/82 H Blood Pressure Location Lt brachial Position Sitting Pulse 96 Intake Visit Reasons: GYN PHYSICIAN/JASMYNE/MURMUR + SYNCOPE Intake Note: NPV w/ EKG Loan Servicing Officer Required: No Accompanied by: Self / Same As Patient Allergies Seasonal Allergies Allergy (Intermediate, Verified 11/30/22 10:29) Cough zolpidem [From Ambien] Adverse Reaction (Severe, Verified 11/30/22 10:29) Hallucinations Medication List - Last Reconciled 11/30/22 by Alexander Troncoso MD albuterol sulfate 90 mcg/actuation 2 puffs PO Q4-6H PRN amlodipine 10 mg PO DAILY ascorbic acid (vitamin C) 500 mg PO DAILY aspirin (Adult Low Dose Aspirin) 81 mg PO DAILY atorvastatin 80 mg PO DAILY blood sugar diagnostic ([employer] Verio test strips) USE TO CHECK BLOOD SUGARS TWICE DAILY dulaglutide (Trulicity) 1.5 mg (0.5 mL) subcut QWEEK 1 month ferrous sulfate 325 mg PO DAILY fluoxetine TAKE 3 CAPSULES BY MOUTH EVERY DAY fluticasone propionate 44 mcg/actuation 2 puffs inhalation BID furosemide 20 mg PO DAILY insulin glargine (Lantus Solostar U-100 Insulin) 10 units (0.1 mL) subcut QPM 1 month lancets ([employer] Delica Lancets) As directed levothyroxine 50 mcg PO DAILY metformin ER 1,000 mg (2 x 500 mg) PO BID omeprazole 40 mg (2 x 20 mg) PO DAILY 30 days pen needle, diabetic (BD Liv 2nd Gen Pen Needle) As directed valsartan-hydrochlorothiazide 320-25 mg 1 tab PO DAILY warfarin 5 - 7.5 mg See Protocol PO DAILY HPI HPI Comments History of Present Illness Details Carmelita is here for consultation regarding syncopal episode. She states she has seen Dr. Ward in the past from [facility]. 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 Actual details are not clear. According to patient this happened around 2013 or so. She has apparently inpatient at [facility] at that time. Again records are not available. Does not look like she regularly goes to Cardiology beyond that. Any case records need to be reviewed. Couple months ago, she was apparently walking to the bathroom when she did not feel right. Then she sat on the commode when again things did not feel right. She feels as though everything around her was going too far away and then all of a sudden she was on the ground. She feels that she did have some chest fluttering or some atypical sensation but not able to describe that too much. She got out of that and then started walking but had 1 further fall. Not clear if it is orthostatic. Otherwise, no documented coronary disease. Does not have any anginal-type symptoms. Per documentation, she does have gait issues too. Hence that is also not excluded. [facility] Medical History (Updated 11/30/22 @ 10:51 by Alexander Troncoso MD) Arthritis Asthma Depression Essential tremor Hypertension Iron deficiency Osteoarthritis PND (post-nasal drip) Seasonal allergies Tremors of nervous system Type II diabetes mellitus Surgical History H/O: hysterectomy History of cataract removal with insertion of prosthetic lens History of esophagogastroduodenoscopy (EGD) Hx laparoscopic cholecystectomy Hx of LASIK Family History Mother Diabetes Parkinsons Panic disorder/agoraphobia, agoraphobic avoidnc/panc attck full remssn Father Stroke Heart attack Brother Congestive heart failure Brother Stroke Other Substance abuse Social History Household Members: Family Household Members Other:: brother Both parents involved: No Caregiver staying overnight: No Housing: House Housing Other:: mobile home Are you a primary care navigator to a significant other at home: Yes (brother s/p CVA) Do you presently have visiting nurse or other home services: No (brother has services VNA,PT) Alcohol intake: never Patient Tobacco Use Status: Never used Tobacco e-Cigarette/Vaping Use: Never Used Second Hand Smoke Exposure: No service: No Current occupational status: retired Current occupational exposures/hazards: Yes Cognitive needs: No Hearing needs: Yes Vision needs: Yes Review of Systems Const Denies chills, Denies daytime sleepiness, Denies fatigue, Denies fever(s), Denies frequent falls, Denies night sweats, Denies snoring, Denies weakness, Denies weight gain and Denies weight loss Eyes Denies loss of vision ENT Denies dizziness and Denies hearing loss Card Denies chest pain, Denies chest pain with activity, Denies syncope, Denies rapid heart rate, Denies edema, Denies claudication, Denies leg edema, Denies lightheadedness, Denies palpitations, Denies dyspnea, Denies dyspnea on exertion and Denies orthopnea Resp Denies cough, Denies excessive phlegm production, Denies dyspnea, Denies dyspnea on exertion, Denies snoring and Denies wheezing GI Denies abdominal pain, Denies hematochezia, Denies change in bowel habits, Denies change in stool character, Denies heartburn, Denies nausea and Denies vomiting Denies hematuria, Denies urinary frequency and Denies dysuria Musc Denies arthralgias, Denies muscle weakness, Denies numbness and Denies tingling Skin/Breast Denies nail changes and Denies rash Neuro Denies Abnormal speech present, Denies dizziness, Denies syncope, Denies frequent falls, Denies loss of vision, Denies memory loss, Denies numbness, Denies tingling and Denies weakness Psych Denies depression and Denies memory loss Endo Denies fatigue and Denies palpitations Aller/Immun Denies wheezing Physical Exam Vital Signs: Last Vital Signs Pulse 96 11/30/22 10:27 BP 142/82 H 11/30/22 10:27 BMI result Body Mass Index 29.7 Const General: comfortable and no acute distress Orientation/consciousness: patient oriented x3 HEENT Other: Unremarkable Head: Yes normal to inspection Neck Neck: Yes normal visual inspection Chest Chest palpation & inspection: normal inspection of the chest Resp Auscultation: clear to auscultation bilaterally Cardio Palpation: normal PMI Heart sounds: S1 normal heart sound present, S2 normal heart sound present, no gallops, Murmur heart sound present systolic II/ and at the right sternal border and no rubs GI Palpation (GI): Soft to palpation Back/Spine/Pelvis Other: unremarkable Skin General skin exam: no rashes or lesions noted Neuro General: patient oriented x3 Speech: No Abnormal speech present Extrem General: Yes normal to inspection Psych Mental Status: mental status grossly normal Office Procedures EKG Details: EKG with sinus rhythm at 96/Min; right bundle-branch block pattern. [id number], Complete Assessment & Plan Assessment & Plan (1) Syncope and collapse: Code(s): R55 - Syncope and collapse Plan: Etiology not clear. Possible orthostasis. Gait issues may play a role. Less likely arrhythmogenic but she did feel something wrong in her chest at that time. Baseline EKG has a right bundle-branch block pattern. We will get a 30 day monitor for further evaluation. (2) Non-rheumatic aortic stenosis: Code(s): I35.0 - Nonrheumatic aortic (valve) stenosis Plan: In the recent echocardiogram, peak gradient across aortic valve was 36 mm Hg with a mean of 23 mm Hg. Calculated valve area by VTI was 0.98 sq cm. Seems moderate to severe aortic stenosis. However, gradients do not support that. Does not sound severe on clinical exam either. We will need to continue to follow this. Other findings are echo include moderate asymmetric hypertrophy; LVEF 55-60%. 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 Actual details are not very clear. Will need to call [facility] as well as prior cardiology office for documentation. We may have to do a chest CTA to reassess aorta. To be decided. Orders: Orders ECG 30 day event monitor Today R55 - Syncope and collapse Coding Level of Care Code Est Pt Level 4 (12622) Diagnoses Syncope and collapse R55 Non-rheumatic aortic stenosis I35.0 Aortic thromboembolism I74.10 CPT Codes EKG - CPT: 66103-[id number], Complete ([id number])
[2022-11-30 10:27] VITALS: BP 142/82; PULSE 96; BMI 29.7
== END 2022-11-30 10:50 | disposition home or self-care (01) ==
PROVIDERS: PCP Nurse Practitioner Family; Referring Provider Nurse Practitioner Family; Visit Provider Internal Medicine
DX: R55 Syncope and collapse (principal); I35.0 Nonrheumatic aortic (valve) stenosis; I74.10 Embolism and thrombosis of unspecified parts of aorta
CPT/HCPCS: 93010; 99214

== ENCOUNTER → 2022-11-30 10:07 | Outpatient (BNVA) | payer MEDICARE, SELFPAY | PROVIDERS: PCP Nurse Practitioner Family; Referring Provider Nurse Practitioner Family; Visit Provider Internal Medicine | DX: R55 Syncope and collapse (principal); I35.0 Nonrheumatic aortic (valve) stenosis; I74.10 Embolism and thrombosis of unspecified parts of aorta; Z79.01 Long term (current) use of anticoagulants | CPT/HCPCS: 93005; 99212 ==

== ENCOUNTER 2022-12-01 13:04 | Outpatient (AMB) | payer MEDICARE, SELFPAY ==
[2022-12-01 13:10] LABS: Prothrombin Time Whole Bld POC 30.2 sec (11.1-13.5); ~PT, ~INR - Anti Coag Clinic 2.5 (0.9-1.1)
--- NOTE | 2022-12-01 13:16 | MHC.OFFVISCO ---
Intake Intake Visit Reasons: Anticoagulation Allergies Seasonal Allergies Allergy (Intermediate, Verified 12/01/22 13:05) Cough zolpidem [From Ambien] Adverse Reaction (Severe, Verified 12/01/22 13:05) Hallucinations Medication List - Last Reconciled 12/01/22 by Sonali Rm RN albuterol sulfate 90 mcg/actuation 2 puffs PO Q4-6H PRN amlodipine 10 mg PO DAILY ascorbic acid (vitamin C) 500 mg PO DAILY aspirin (Adult Low Dose Aspirin) 81 mg PO DAILY atorvastatin 80 mg PO DAILY blood sugar diagnostic ([employer] Verio test strips) USE TO CHECK BLOOD SUGARS TWICE DAILY dulaglutide (Trulicity) 1.5 mg (0.5 mL) subcut QWEEK 1 month ferrous sulfate 325 mg PO DAILY fluoxetine TAKE 3 CAPSULES BY MOUTH EVERY DAY fluticasone propionate 44 mcg/actuation 2 puffs inhalation BID furosemide 20 mg PO DAILY insulin glargine (Lantus Solostar U-100 Insulin) 10 units (0.1 mL) subcut QPM 1 month lancets (FilmBreak DelBABADU Lancets) As directed levothyroxine 50 mcg PO DAILY metformin ER 1,000 mg (2 x 500 mg) PO BID omeprazole 40 mg (2 x 20 mg) PO DAILY 30 days pen needle, diabetic (BD Liv 2nd Gen Pen Needle) As directed valsartan-hydrochlorothiazide 320-25 mg 1 tab PO DAILY warfarin 5 - 7.5 mg See Protocol PO DAILY Nursing Note PT. TO HAVE 30 DAY EVENT MONITOR TO BEGIN ON 12/03. PT.HAS HAD 2 SYNCOPAL EPISODES. SHE HAS HAD NO FURTHER SYNCOPE,,CP,SOB,MED CHANGES OR SX OF BLEEDING. WILL CONTINUYE PRESENT DOSE AND FOLLOW-UP IN 4 WEEKSD. TO INFORM ACS IF ANY MEDICATION CHANGES OR OTHER CONCERNS Anti-Coag Initial Assessment Social Hx Patient Tobacco Use Status: Never used Tobacco alcohol intake: never Alcohol intake frequency: does not drink Cardiovascular Hx: HTN and Other (MURMUR, AORTIC THROMBOEMBOLISM) Lung Disease HX: Asthma, DVT/PE and Other Endocrine Hx: Diabetes and Other (THYROID NODULE) Musculoskeletal Hx: Arthritis (ERROSIVE) Blood Disorder Hx: Anemia and Hyperlipidemia GI Hx: Hemorrhoids Neurological Hx: Stroke/TIA Cancer HX: No Psych. 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
== END 2022-12-01 13:24 | disposition home or self-care (01) ==
LOC: HO.ACS 13:04
PROVIDERS: PCP Nurse Practitioner Family; Visit Provider Internal Medicine
DX: Z79.01 Long term (current) use of anticoagulants (principal)

== ENCOUNTER → 2022-12-01 13:04 | Outpatient (BNVA) | payer MEDICARE, SELFPAY | PROVIDERS: PCP Nurse Practitioner Family; Visit Provider Internal Medicine | DX: I74.10 Embolism and thrombosis of unspecified parts of aorta (principal); Z79.01 Long term (current) use of anticoagulants; Z51.81 Encounter for therapeutic drug level monitoring | CPT/HCPCS: 85610; 99211 ==

== ENCOUNTER → 2022-12-03 13:40 | Outpatient (REF) | payer MEDICARE, SELFPAY ==
--- NOTE | 2022-12-03 13:42 | HM_ITS ---
Cardiac event monitor Indication: Syncope Technique: Patient was hooked up to cardiac event monitor on 12/03/2022 for total period of 30 days. Compliance rate was about 95% Findings: Baseline was normal sinus rhythm with lowest heart rate of 59 beats per minute and maximum heart rate 129 beats per minute. No significant pauses or av conduction abnormality were noted. Rare supraventricular and ventricular ectopy were noted. Rare episodes of supraventricular runs noted with maximum 3 beats in a row. Patient reported 1 event of chest pain that correlated with PAC and the another event of heart pounding that correlated with supraventricular triplet. There were no episodes of lightheadedness or syncope reported. Conclusion: 1. Baseline was normal sinus rhythm with no pauses or av conduction abnormality 2. Rare PACs and PVCs noted 3. Patient reported event of pounding in the chest correlated with supraventricular triplet with no other significant arrhythmias MTDD
== END ==
LOC: HO.CARD 13:40
PROVIDERS: PCP Nurse Practitioner Family; Visit Provider Internal Medicine
DX: R55 Syncope and collapse (principal)
CPT/HCPCS: 93270

== ENCOUNTER → 2022-12-03 13:42 | Outpatient (BNV) | payer MEDICARE, SELFPAY | PROVIDERS: PCP Nurse Practitioner Family; Visit Provider Internal Medicine Cardiovascular Disease | DX: I49.1 Atrial premature depolarization (principal) | CPT/HCPCS: 93272 ==

== ENCOUNTER 2022-12-29 12:57 | Outpatient (AMB) | payer MEDICARE, SELFPAY ==
--- NOTE | 2022-12-29 13:09 | MHC.OFFVISCO ---
Intake Intake Visit Reasons: Anticoagulation Allergies Seasonal Allergies Allergy (Intermediate, Verified 12/29/22 13:04) Cough zolpidem [From Ambien] Adverse Reaction (Severe, Verified 12/29/22 13:04) Hallucinations Medication List - Last Reconciled 12/29/22 by Greta Smith RN albuterol sulfate 90 mcg/actuation 2 puffs PO Q4-6H PRN amlodipine 10 mg PO DAILY ascorbic acid (vitamin C) 500 mg PO DAILY aspirin (Adult Low Dose Aspirin) 81 mg PO DAILY atorvastatin 80 mg PO DAILY blood sugar diagnostic ([employer] Verio test strips) USE TO CHECK BLOOD SUGARS TWICE DAILY dulaglutide (Trulicity) 1.5 mg (0.5 mL) subcut QWEEK 1 month ferrous sulfate 325 mg PO DAILY fluoxetine TAKE 3 CAPSULES BY MOUTH EVERY DAY fluticasone propionate 44 mcg/actuation 2 puffs inhalation BID furosemide 20 mg PO DAILY insulin glargine (Lantus Solostar U-100 Insulin) 10 units (0.1 mL) subcut QPM 1 month lancets (Spot[employer]ate DelXuba Lancets) As directed levothyroxine 50 mcg PO DAILY metformin ER 1,000 mg (2 x 500 mg) PO BID omeprazole 40 mg (2 x 20 mg) PO DAILY 30 days pen needle, diabetic (BD Liv 2nd Gen Pen Needle) As directed valsartan-hydrochlorothiazide 320-25 mg 1 tab PO DAILY warfarin 5 - 7.5 mg See Protocol PO DAILY Nursing Note INR 1.9-? out of therapeutic range- unsure why inr is low Medications and supplements reviewed Patient status: pt states has had holtor monitor for 30 days due to syncopal episodes x 2 -approx one month ago Medications or supplements: no changes Diet: no changes Denies any signs and symptoms of bleeding or clotting or unusual bruising Bleeding, bruising, clotting discussed Nutritional guidance given: no greens for 2 days , eat a red today Dose: 7.5mg today, then cont reg 5mg x 3, 7.5mg x 4 F/U INR Date : pt req 3 weeks? Patient verbalizing understanding of instructions given. Anti-Coag Initial Assessment Social Hx Patient Tobacco Use Status: Never used Tobacco alcohol intake: never Alcohol intake frequency: does not drink Cardiovascular Hx: HTN and Other (MURMUR, AORTIC THROMBOEMBOLISM) Lung Disease HX: Asthma, DVT/PE and Other Endocrine Hx: Diabetes and Other (THYROID NODULE) Musculoskeletal Hx: Arthritis (ERROSIVE) Blood Disorder Hx: Anemia and Hyperlipidemia GI Hx: Hemorrhoids Neurological Hx: Stroke/TIA Cancer HX: No Psych. Illness/Depression: Yes (DEPRESSION) Coding Level of Care Code Est Patient Level 1 Diagnoses Current use of anticoagulant therapy Z79.01 Assessment & Plan Assessment & Plan (1) Current use of anticoagulant therapy: Code(s): Z79.01 - nursing home (current) use of anticoagulants Category: Medical
[2022-12-29 13:10] LABS: Prothrombin Time Whole Bld POC 23.2 sec (11.1-13.5); ~PT, ~INR - Anti Coag Clinic 1.9 (0.9-1.1)
== END 2022-12-29 13:19 | disposition home or self-care (01) ==
LOC: HO.ACS 12:57
PROVIDERS: PCP Nurse Practitioner Family; Visit Provider Internal Medicine
DX: Z79.01 Long term (current) use of anticoagulants (principal)

== ENCOUNTER → 2022-12-29 12:57 | Outpatient (BNVA) | payer MEDICARE, SELFPAY | PROVIDERS: PCP Nurse Practitioner Family; Visit Provider Internal Medicine | DX: I74.10 Embolism and thrombosis of unspecified parts of aorta (principal); Z79.01 Long term (current) use of anticoagulants; Z51.81 Encounter for therapeutic drug level monitoring | CPT/HCPCS: 85610; 99211 ==

== ENCOUNTER 2023-01-13 11:57 | Outpatient (AMB) | payer MEDICARE, SELFPAY ==
[2023-01-13 12:05] VITALS: BP 126/80; PULSE 94; RESP 12; TEMP 36.6; O2SAT 98; BMI 30.3
--- NOTE | 2023-01-13 12:05 | MHC.PC.OV ---
Vital Signs 01/13/23 12:05 Height 5 ft 4.5 in Weight 179 lb 8 oz BMI 30.3 BP 126/80 Blood Pressure Location Lt brachial Position Sitting Respiration 12 Pulse 94 Pulse Source Pulse Oximeter Temp 97.8 F Temp Source Temporal Artery Scan Pulse Oximetry (%) 98 Oxygen Delivery Method Room Air Intake Visit Reasons: f/u HTN, DM, anxiety, depression Intake Note: Patient was given a list of shots she was recommended to get, she would like to know if she needs all of them and if she needs to space them out when getting them.Patient states that she was told she needs a spacer for Fluticasone inhaler and would need a script written. Campus Chaplain Required: No Accompanied by: Self / Same As Patient Allergies Seasonal Allergies Allergy (Intermediate, Verified 01/13/23 12:58) Cough zolpidem [From Ambien] Adverse Reaction (Severe, Verified 01/13/23 12:58) Hallucinations Medication List - Last Reconciled 01/13/23 by Nisha Garcia CNP albuterol sulfate 90 mcg/actuation 2 puffs PO Q4-6H PRN amlodipine 10 mg PO DAILY ascorbic acid (vitamin C) 500 mg PO DAILY aspirin (Adult Low Dose Aspirin) 81 mg PO DAILY atorvastatin 80 mg PO DAILY blood sugar diagnostic ([employer] Verio test strips) USE TO CHECK BLOOD SUGARS TWICE DAILY dulaglutide (Trulicity) 1.5 mg (0.5 mL) subcut QWEEK 1 month ferrous sulfate 325 mg PO DAILY fluoxetine TAKE 3 CAPSULES BY MOUTH EVERY DAY fluticasone propionate 44 mcg/actuation 2 puffs inhalation BID furosemide 20 mg PO DAILY insulin glargine (Lantus Solostar U-100 Insulin) 10 units (0.1 mL) subcut QPM 1 month lancets ([facility] Lancets) As directed levothyroxine 50 mcg PO DAILY metformin ER 1,000 mg (2 x 500 mg) PO BID omeprazole 40 mg (2 x 20 mg) PO DAILY 30 days pen needle, diabetic (BD Liv 2nd Gen Pen Needle) As directed valsartan-hydrochlorothiazide 320-25 mg 1 tab PO DAILY warfarin 5 - 7.5 mg See Protocol PO DAILY Tobacco use date assessed: 06/14/22 Fall risk assessment: 2 + Falls in past year Last assessed Fall Risk: 01/13/23 Dental Screening Dental Screen Date: 01/13/23 Did you have a dental visit in the last 12 months?: Yes Did you have a dental problem in the last 6 months where you did not have access to dental care?: No Was dental information given to patient?: Patient has dentist HPI HPI Comments History of Present Illness Details 72-year-old female presents for hypertension, diabetes, asthma, and anxiety and depression follow-up. She was last seen in the office in October. I A1c was 6.0%. She was advised to continue with current diabetic treatment regimen. She was prescribed fluticasone for poorly controlled asthma with an ACT score of 12. She admits to taking her medications as prescribed. She states that she has been depressed my whole life, and notes that her symptoms are no more that usual. She is willing to connect with a therapist and psychiatrist. She is followed by cardiology. She notes she had a syncopal episode and fell in her home, in November. She was evaluated by cardiology, placed on a holter monitor, and advised to refrain from driving until she is cleared by cardiology. She states she has been on ferrous sulfate for over 2 years for iron deficiency anemia without adverse reactions. She reports h/o blood transfusions for anemia. She was followed by hematology. [facility] Medical History Essential tremor Seasonal allergies PND (post-nasal drip) Iron deficiency Arthritis Osteoarthritis Depression Hypertension Asthma Tremors of nervous system Type II diabetes mellitus Surgical History Hx of LASIK History of esophagogastroduodenoscopy (EGD) H/O: hysterectomy History of cataract removal with insertion of prosthetic lens Hx laparoscopic cholecystectomy Family History Mother Diabetes Parkinsons Panic disorder/agoraphobia, agoraphobic avoidnc/panc attck full remssn Father Stroke Heart attack Brother Congestive heart failure Brother Stroke Other Substance abuse Social History Household Members: Family Household Members Other:: brother Both parents involved: No Caregiver staying overnight: No Housing: House Housing Other:: mobile home Are you a 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 1. Little interest or pleasure in doing things: more than half the days 2. Feeling down, depressed, or hopeless: more than half the days 3. Trouble falling or staying asleep, or sleeping too much: more than half the days 4. Feeling tired or having little energy: more than half the days 5. Poor appetite or overeating: several days 6. Feeling bad about yourself - or that you are a failure or have let yourself or your family down: more than half the days 7. Trouble concentrating on things, such as reading the newspaper or watching television: several days 8. Moving or speaking so slowly that other people could have noticed. Or the opposite - being so fidgety or restless that you have been moving around a lot more than usual: more than half the days 9. Thoughts that you would be better off or of hurting yourself in some way: not at all Total score: 14 Depression Screening Interpretation: Positive Depression Screening Follow-up: Existing condition and In treatment Depression Screening Done: Yes Source: Developed by Drs. Meir Zarate, Elba Comer, Ethan Little and colleagues, with an educational leeanne from [employer]. Thrive Questionnaire Date Thrive assessed: 10/15/22 SUSHANT-7 AMB Questionnaire SUSHANT-7 Date SUSHANT - 7 assessed: 01/13/23 Feeling nervous, anxious, or on edge: 3 = Nearly every day Not being able to stop or control worryin = Nearly every day Worrying too much about different things: 3 = Nearly every day Trouble relaxin = Nearly every day Being so restless that it is hard to sit still: 2 = More than half the days Becoming easily annoyed or irritable: 0 = Not at all Feeling afraid as if something awful might happen: 2 = More than half the days Total SUSHANT-7 score (0-4 normal; 5-9 mild; 10-14 moderate; 15-21 severe): 16 Source: Developed by Drs. Meir Zarate, Elba Comer, Ethan Little and colleagues, with an educational leeanne from [employer]. ACT Questionnaire In the past 4 weeks, how much of the time did your asthma keep you from getting as much done at work, school or at home?: A little of the time During the past 4 weeks, how often have you had shortness of breath?: 1-2 times a week During the past 4 weeks, how often did your asthma symptoms wake you up at night or earlier than usual in the morning?: Once or twice per week During the past 4 weeks, how often have you had to use your rescue inhaler or nebulizer medication?: 2-3 times a week How would you rate your asthma control during the past 4 weeks?: Well controlled ACT Interpretation: Positive Score: 19 Review of Systems Const Details: Const Denies chills, Denies fatigue, Denies fever(s), Denies headache(s) and Denies weakness ENT Denies dizziness and Denies headache(s) Card Denies chest pain, Denies lightheadedness, Denies dyspnea and Denies other (Palpitations) Resp Denies cough, Denies dyspnea, Denies wheezing and Denies other ( shortness of breath) GI Denies abdominal pain, Denies melena, Denies hematochezia, Denies change in bowel habits, Denies dyspepsia and Denies nausea Denies hematuria and Denies dysuria Musc Denies abnormal gait, Denies myalgias, Denies arthralgias, Denies numbness and Denies tingling Skin/Breast Denies rash, Denies unusual bruising and Denies wounds Neuro Denies abnormal gait, Denies dizziness, Denies headache(s), Denies memory loss, Denies numbness, Denies Sensory deficit (Neuro), Denies tingling and Denies weakness Psych Denies anxiety, Denies depression, Denies memory loss Endo Denies cold intolerance, Denies fatigue, Denies heat intolerance, Denies polydipsia and Denies polyuria Aller/Immun Denies wheezing Physical exam (Primary Care) Vital Signs: Last Vital Signs Temp 97.8 F 01/13/23 12:05 Pulse 94 01/13/23 12:05 Resp 12 01/13/23 12:05 BP 126/80 01/13/23 12:05 Pulse Ox 98 01/13/23 12:05 Oxygen Delivery Method Room Air 01/13/23 12:05 BMI result Body Mass Index 30.3 Tobacco/Smoking Status: Tobacco use Status Tobacco use date assessed 06/14/22 01/13/23 12:07 Patient Tobacco Use Status Never used Tobacco 01/13/23 12:07 e-Cigarette/Vaping Use Never Used 01/13/23 12:07 PHQ-9: PHQ-9 Score PHQ-9: Total score 14 01/13/23 12:37 Depression Screening Interpretation: Positive Depression Screening Follow-up: Existing condition and In treatment Thrive Assessment: Date of Thrive Assessment Date Thrive assessed 10/15/22 01/13/23 12:07 Const Other: General: no acute distress and well developed Nutritional Appearance: well nourished Orientation/consciousness: patient oriented x3 HENMT Head: Yes normocephalic and Yes atraumatic Eyes General: appearance normal, both eyes and all related structures Pupils: Equal, round and reactive pupils present EOM: EOMs intact bilaterally Resp Effort & Inspection: normal respiratory effort Auscultation: clear to auscultation bilaterally Cardio Rate: regular rate Rhythm: regular rhythm Heart sounds: S1 normal heart sound present, S2 normal heart sound present, no gallops, no murmurs and no rubs GI Palpation (GI): No Abdominal aortic bruit present, Soft to palpation, nontender, No hepatosplenomegaly present and No Rebound tenderness present Auscultation: normal bowel sounds General: Yes no CVA tenderness Back/Spine/Pelvis Back: no CVA tenderness Cervical Spine: cervical ROM normal and No Cervical spine tenderness Thoracic/Lumbar Spine: thoraco-lumbar ROM normal, No pain with thoraco-lumbar ROM, No thoracic spinal tenderness and No lumbar spinal tenderness Extrem General: Yes normal to inspection, No edema and No calf tenderness Skin General: warm and dry. Normal skin color. Normal skin turgor Neuro General: patient oriented x3, gait normal and no focal neuro deficit Cranial nerves: Yes Equal, round and reactive pupils present Cognition (Neuro): normal cognition Gait exam (Neuro): Normal gait present Sensory Exam: No Sensory deficit (Neuro) Psych Appearance: grossly normal Affect: normal affect Attitude: cooperative Thought process: Normal thought process present Results AMB Hemoglobin A1c AMB Hemoglobin A1c 5.9 % Last Edit by Betzaida Garces CMA on 01/13/23 13:04 Assessment and Plan Assessment & Plan (1) Type II diabetes mellitus: Code(s): E11.9 - Type 2 diabetes mellitus without complications Plan: A1c today is 5.9%, within goal of less than 7.0% Continue with current treatment regimen Healthy diet and routine exercise encouraged She is interested in the [employer] CGM device. Referred to the nurse navigator Follow-up in 3 months or return sooner with symptoms or concerns Verbalized understanding and agreed with treatment plan. (2) Hypertension, essential: Code(s): I10 - Essential (primary) hypertension Plan: Blood pressure is 126/80, within goal of less than 130/80 Continue with current treatment regimen Low-sodium diet encouraged Follow-up in 3 months Verbalized understanding and agreed with treatment plan. (3) Asthma: Code(s): J45.909 - Unspecified asthma, uncomplicated Plan: ACT score is 19, partially controlled asthma Asthma was poorly controlled at last visit Fluticasone inhaler was prescribed as an adjunct to albuterol inhaler Continue with current treatment regimen Return with worsening or new symptoms Verbalized understanding and agreed with treatment plan. (4) Anxiety and depression: Code(s): F41.9 - Anxiety disorder, unspecified; F32.A - Depression, unspecified Plan: PHQ-9 and SUSHANT-7 scores moderate depression and severe anxiety respectively Buspirone ordered. Take as prescribed Continue to take fluoxetine as prescribed Routine exercise encouraged Referred to the community navigator for referral to a therapist and psychiatrist Follow-up in 3 months or return sooner with worsening or new symptoms Verbalized understanding and agreed with treatment plan. (5) Iron deficiency anemia: Code(s): D50.9 - Iron deficiency anemia, unspecified Plan: She states she has been on ferrous sulfate for over 2 years for iron deficiency anemia with h/o blood transfusions. She was followed by hematology. Will check iron profile, ferritin levels, and recheck CBC to determine interruption of ferrous sulfate treatment. Advised to get blood work done before next visit. Verbalized understanding and agreed with the treatment plan. Orders: Orders AMB Hemoglobin A1c Today Z13.9 - Encounter for screening, unspecified Hemoglobin A1c Today E11.9 - Type 2 diabetes mellitus without complications Ferritin Today D50.9 - Iron deficiency anemia, unspecified IRON PROFILE Today D50.9 - Iron deficiency anemia, unspecified Complete Blood Count no Diff Today D50.9 - Iron deficiency anemia, unspecified Referrals Nurse Navigator Referral E11.9 - Type 2 diabetes mellitus without complications Nurse Navigator Referral F32.A - Depression, unspecified, F41.9 - Anxiety disorder, unspecified Medications: New inhalational spacing device (Aerochamber Plus Z Stat spacer) As directed 1 ea 2RF buspirone 7.5 mg PO BID 30 days 60 tabs 2RF Coding Level of Care Code Est Pt Level 4 (92210) Diagnoses Type II diabetes mellitus E11.9 Hypertension, essential I10 Asthma J45.909 Anxiety and depression F41.9; F32.A Iron deficiency anemia D50.9
== END 2023-01-13 13:40 | disposition home or self-care (01) ==
PROVIDERS: PCP Nurse Practitioner Family; Visit Provider Nurse Practitioner Family
DX: E11.9 Type 2 diabetes mellitus without complications (principal); I10 Essential (primary) hypertension; J45.909 Unspecified asthma, uncomplicated; F41.9 Anxiety disorder, unspecified; F32.A Depression, unspecified; D50.9 Iron deficiency anemia, unspecified
CPT/HCPCS: 83036; 99214

== ENCOUNTER 2023-01-19 13:06 | Outpatient (AMB) | payer MEDICARE, SELFPAY ==
[2023-01-19 13:15] LABS: Prothrombin Time Whole Bld POC 22.1 sec (11.1-13.5); ~PT, ~INR - Anti Coag Clinic 1.8 (0.9-1.1)
--- NOTE | 2023-01-19 13:15 | MHC.OFFVISCO ---
Intake Intake Visit Reasons: Anticoagulation Allergies Seasonal Allergies Allergy (Intermediate, Verified 01/19/23 13:07) Cough zolpidem [From Ambien] Adverse Reaction (Severe, Verified 01/19/23 13:07) Hallucinations Medication List - Last Reconciled 01/19/23 by Greta Smith RN albuterol sulfate 90 mcg/actuation 2 puffs PO Q4-6H PRN amlodipine 10 mg PO DAILY ascorbic acid (vitamin C) 500 mg PO DAILY aspirin (Adult Low Dose Aspirin) 81 mg PO DAILY atorvastatin 80 mg PO DAILY blood sugar diagnostic ([employer] Verio test strips) USE TO CHECK BLOOD SUGARS TWICE DAILY buspirone 7.5 mg PO BID 30 days dulaglutide (Trulicity) 1.5 mg (0.5 mL) subcut QWEEK 1 month ferrous sulfate 325 mg PO DAILY fluoxetine TAKE 3 CAPSULES BY MOUTH EVERY DAY fluticasone propionate 44 mcg/actuation 2 puffs inhalation BID furosemide 20 mg PO DAILY inhalational spacing device (Aerochamber Plus Z Stat spacer) As directed insulin glargine (Lantus Solostar U-100 Insulin) 10 units (0.1 mL) subcut QPM 1 month lancets ([employer] Delica Lancets) As directed levothyroxine 50 mcg PO DAILY metformin ER 1,000 mg (2 x 500 mg) PO BID omeprazole 40 mg (2 x 20 mg) PO DAILY 30 days pen needle, diabetic (BD Liv 2nd Gen Pen Needle) As directed valsartan-hydrochlorothiazide 320-25 mg 1 tab PO DAILY warfarin 5 - 7.5 mg See Protocol PO DAILY Nursing Note INR 1.8-?? out of therapeutic range- denies missed dose Medications and supplements reviewed Patient status: pt states sl gum bleeding this am, will monitor, pt instructed to call acs with any further bleeding Medications or supplements: buspirone 7.5mg bid Diet: same Denies any signs and symptoms of bleeding or clotting or unusual bruising Bleeding, bruising, clotting discussed Nutritional guidance given: no greens for 2 days, eat a red today Dose: 7.5mg today then cont reg dosing- 5mg x 3, 7.5mg x 4 F/U INR Date : 2 weeks? Patient verbalizing understanding of instructions given. Anti-Coag Initial Assessment Social Hx Patient Tobacco Use Status: Never used Tobacco alcohol intake: never Alcohol intake frequency: does not drink Cardiovascular Hx: HTN and Other (MURMUR, AORTIC THROMBOEMBOLISM) Lung Disease HX: Asthma, DVT/PE and Other Endocrine Hx: Diabetes and Other (THYROID NODULE) Musculoskeletal Hx: Arthritis (ERROSIVE) Blood Disorder Hx: Anemia and Hyperlipidemia GI Hx: Hemorrhoids Neurological Hx: Stroke/TIA Cancer HX: No Psych. Illness/Depression: Yes (DEPRESSION) Coding Level of Care Code Est Patient Level 1 Diagnoses Current use of anticoagulant therapy Z79.01 Assessment & Plan Assessment & Plan (1) Current use of anticoagulant therapy: Code(s): Z79.01 - manager terminal (current) use of anticoagulants Category: Medical
== END 2023-01-19 13:24 | disposition home or self-care (01) ==
LOC: HO.ACS 13:06
PROVIDERS: PCP Nurse Practitioner Family; Visit Provider Internal Medicine
DX: Z79.01 Long term (current) use of anticoagulants (principal)

== ENCOUNTER → 2023-01-19 13:06 | Outpatient (BNVA) | payer MEDICARE, SELFPAY | PROVIDERS: PCP Nurse Practitioner Family; Visit Provider Internal Medicine | DX: I74.10 Embolism and thrombosis of unspecified parts of aorta (principal); Z79.01 Long term (current) use of anticoagulants; Z51.81 Encounter for therapeutic drug level monitoring | CPT/HCPCS: 85610; 99211 ==

== ENCOUNTER 2023-02-01 12:02 | Outpatient (AMB) | payer MEDICARE, SELFPAY ==
[2023-02-01 12:31] VITALS: BP 142/70; PULSE 87; BMI 29.9
--- NOTE | 2023-02-01 12:31 | A.OFFVIS_ITS ---
Intake Vital Signs 02/01/23 12:31 Height 5 ft 4.5 in Weight 176 lb 12.972 oz BMI 29.9 BP 142/70 H Blood Pressure Location Lt brachial Position Sitting Pulse 87 Intake Visit Reasons: 6-8 WEEK FUP AFTER 30 DAY Intake Note: follow up Director Social Required: No Accompanied by: Self / Same As Patient Allergies Seasonal Allergies Allergy (Intermediate, Verified 01/19/23 13:07) Cough zolpidem [From Ambien] Adverse Reaction (Severe, Verified 01/19/23 13:07) Hallucinations Medication List - Last Reconciled 02/01/23 by Alexander Troncoso MD albuterol sulfate 90 mcg/actuation 2 puffs PO Q4-6H PRN amlodipine 10 mg PO DAILY ascorbic acid (vitamin C) 500 mg PO DAILY aspirin (Adult Low Dose Aspirin) 81 mg PO DAILY atorvastatin 80 mg PO DAILY blood sugar diagnostic ([employer] Verio test strips) USE TO CHECK BLOOD SUGARS TWICE DAILY buspirone 7.5 mg PO BID 30 days dulaglutide (Trulicity) 1.5 mg (0.5 mL) subcut QWEEK 1 month ferrous sulfate 325 mg PO DAILY flash glucose scanning reader ([employer] Samantha 2 [place]) As directed flash glucose sensor (FreeStyle Samantha 2 Sensor kit) As directed fluoxetine TAKE 3 CAPSULES BY MOUTH EVERY DAY fluticasone propionate 44 mcg/actuation 2 puffs inhalation BID furosemide 20 mg PO DAILY inhalational spacing device (Aerochamber Plus Z Stat spacer) As directed insulin glargine (Lantus Solostar U-100 Insulin) 10 units (0.1 mL) subcut QPM 1 month lancets (S[employer]i Delica Lancets) As directed levothyroxine 50 mcg PO DAILY metformin ER 1,000 mg (2 x 500 mg) PO BID omeprazole 40 mg (2 x 20 mg) PO DAILY pen needle, diabetic (BD Liv 2nd Gen Pen Needle) As directed valsartan-hydrochlorothiazide 320-25 mg 1 tab PO DAILY warfarin 5 - 7.5 mg See Protocol PO DAILY HPI HPI Comments History of Present Illness Details Carmelita returns for follow-up. Recently seen in consultation regarding syncopal episode. She states she has seen Dr. Ward in the past from [facility]. 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 According to patient this happened around 2013 or so. Couple months ago, she was apparently walking to the bathroom when she did not feel right. Then she sat on the commode when again things did not feel right. She feels as though everything around her was going too far away and then all of a sudden she was on the ground. She feels that she did have some chest fluttering or some atypical sensation but not able to describe that too much. She got out of that and then started walking but had 1 further fall. Not clear if it is orthostatic. Otherwise, no documented coronary disease. Does not have any anginal-type symptoms. Per documentation, she does have gait issues too. Hence that is also not excluded. [facility] Medical History Essential tremor Seasonal allergies PND (post-nasal drip) Iron deficiency Arthritis Osteoarthritis Depression Hypertension Asthma Tremors of nervous system Type II diabetes mellitus Surgical History Hx of LASIK History of esophagogastroduodenoscopy (EGD) H/O: hysterectomy History of cataract removal with insertion of prosthetic lens Hx laparoscopic cholecystectomy Family History Mother Diabetes Parkinsons Panic disorder/agoraphobia, agoraphobic avoidnc/panc attck full remssn Father Stroke Heart attack Brother Congestive heart failure Brother Stroke Other Substance abuse Social History Household Members: Family Household Members Other:: brother Both parents involved: No Caregiver staying overnight: No Housing: House Housing Other:: mobile home 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 other at 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: Yes (brother s/p CVA) Do you presently have visiting nurse or other home services: No (brother has services VNA,PT) Alcohol intake: never Patient Tobacco Use Status: Never used Tobacco e-Cigarette/Vaping Use: Never Used Second Hand Smoke Exposure: No service: No Current occupational status: retired Current occupational exposures/hazards: Yes Cognitive needs: No Hearing needs: Yes Vision needs: Yes Review of Systems Const All systems reviewed & are unremarkable except as noted in HPI and below Reports as per HPI and Reports no additional complaints Eyes Reports as per HPI and Denies no additional complaints ENT Denies no additional complaints and Reports as per HPI Card Reports as per HPI, Reports no additional complaints, Denies acrocyanosis, Denies chest pain, Denies leg edema, Denies lightheadedness, Denies palpitations and Denies dyspnea Resp Reports as per HPI, Denies no additional complaints and Denies dyspnea GI Reports as per HPI and Denies no additional complaints Reports as per HPI Musc Reports no additional complaints and Reports as per HPI Skin/Breast Reports system reviewed and no additional complaints, except as documented Neuro Reports no additional complaints, Reports as per HPI and Denies Abnormal speech present Psych Reports no additional complaints and Reports as per HPI Endo Reports no additional complaints, Reports as per HPI and Denies palpitations Ganesh/Lymph Reports no additional complaints and Reports as per HPI Aller/Immun Reports no additional complaints and Reports as per HPI Physical Exam Vital Signs: Last Vital Signs Pulse 87 02/01/23 12:31 BP 142/70 H 02/01/23 12:31 BMI result Body Mass Index 29.9 Const General: comfortable and no acute distress Orientation/consciousness: patient oriented x3 HEENT Other: Unremarkable Head: Yes normal to inspection Neck Neck: Yes normal visual inspection Chest Chest palpation & inspection: normal inspection of the chest Resp Auscultation: clear to auscultation bilaterally Cardio Palpation: normal PMI Heart sounds: S1 normal heart sound present, S2 normal heart sound present, no gallops, Murmur heart sound present systolic II/ and at the right sternal border and no rubs GI Palpation (GI): Soft to palpation Back/Spine/Pelvis Other: unremarkable Skin General skin exam: no rashes or lesions noted Neuro General: patient oriented x3 Speech: No Abnormal speech present Extrem General: Yes normal to inspection Psych Mental Status: mental status grossly normal Assessment & Plan Assessment & Plan (1) Syncope and collapse: Code(s): R55 - Syncope and collapse Plan: 30 day monitor unremarkable. Could be an orthostatic episode. Less likely from arrhythmias. Gait issues also may play a role but not clear. Will hold further workup at this time. (2) Non-rheumatic aortic stenosis: Code(s): I35.0 - Nonrheumatic aortic (valve) stenosis Plan: In the recent echocardiogram, peak gradient across aortic valve was 36 mm Hg with a mean of 23 mm Hg. Calculated valve area by VTI was 0.98 sq cm. Seems moderate to severe aortic stenosis. However, gradients do not support that. Does not sound severe on clinical exam either. We will need to continue to follow this. Other findings are echo include moderate asymmetric hypertrophy; LVEF 55-60%. Recheck echo in 6 months. 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 For that reason, she was apparently placed on aspirin Coumadin but her prior senior sales director had decided to continue Coumadin indefinitely. No changes made today. Orders: Orders CA echo transthoracic complete 6 Months I35.0 - Nonrheumatic aortic (valve) stenosis Coding Level of Care Code Est Pt Level 4 (16793) Diagnoses Syncope and collapse R55 Non-rheumatic aortic stenosis I35.0 Aortic thromboembolism I74.10
== END 2023-02-01 12:46 | disposition home or self-care (01) ==
PROVIDERS: PCP Nurse Practitioner Family; Visit Provider Internal Medicine
DX: R55 Syncope and collapse (principal); I35.0 Nonrheumatic aortic (valve) stenosis; I74.10 Embolism and thrombosis of unspecified parts of aorta
CPT/HCPCS: 99214

== ENCOUNTER → 2023-02-01 12:02 | Outpatient (BNVA) | payer MEDICARE, SELFPAY | PROVIDERS: PCP Nurse Practitioner Family; Visit Provider Internal Medicine | DX: I35.0 Nonrheumatic aortic (valve) stenosis (principal); I74.10 Embolism and thrombosis of unspecified parts of aorta; R55 Syncope and collapse | CPT/HCPCS: 99212 ==

== ENCOUNTER 2023-02-02 13:03 | Outpatient (AMB) | payer MEDICARE, SELFPAY ==
[2023-02-02 13:13] LABS: Prothrombin Time Whole Bld POC 24.4 sec (11.1-13.5)
--- NOTE | 2023-02-02 13:22 | MHC.OFFVISCO ---
Intake Intake Visit Reasons: Anticoagulation Allergies Seasonal Allergies Allergy (Intermediate, Verified 02/02/23 13:08) Cough zolpidem [From Ambien] Adverse Reaction (Severe, Verified 02/02/23 13:08) Hallucinations Medication List - Last Reconciled 02/02/23 by Sonali Rm RN albuterol sulfate 90 mcg/actuation 2 puffs PO Q4-6H PRN amlodipine 10 mg PO DAILY ascorbic acid (vitamin C) 500 mg PO DAILY aspirin (Adult Low Dose Aspirin) 81 mg PO DAILY atorvastatin 80 mg PO DAILY blood sugar diagnostic ([employer] Verio test strips) USE TO CHECK BLOOD SUGARS TWICE DAILY buspirone 7.5 mg PO BID 30 days dulaglutide (Trulicity) 1.5 mg (0.5 mL) subcut QWEEK 1 month ferrous sulfate 325 mg PO DAILY flash glucose scanning reader ([employer] Samantha 2 [place]) As directed flash glucose sensor (FreeStyle Samantha 2 Sensor kit) As directed fluoxetine TAKE 3 CAPSULES BY MOUTH EVERY DAY fluticasone propionate 44 mcg/actuation 2 puffs inhalation BID furosemide 20 mg PO DAILY inhalational spacing device (Aerochamber Plus Z Stat spacer) As directed insulin glargine (Lantus Solostar U-100 Insulin) 10 units (0.1 mL) subcut QPM 1 month lancets ([employer] Delica Lancets) As directed levothyroxine 50 mcg PO DAILY metformin ER 1,000 mg (2 x 500 mg) PO BID omeprazole 40 mg (2 x 20 mg) PO DAILY pen needle, diabetic (BD Liv 2nd Gen Pen Needle) As directed valsartan-hydrochlorothiazide 320-25 mg 1 tab PO DAILY warfarin 5 - 7.5 mg See Protocol PO DAILY Nursing Note NO CP,SOB,DIET/MED CHANGES,FALLS OR SX OF BLEEDING. INCREASE WEEKLY DOSE SLIGHTLY AND FOLLOW UP IN 2 WEEKS. GOOD UNDERSTANDING OF DOSING INSTR. Anti-Coag Initial Assessment Social Hx Patient Tobacco Use Status: Never used Tobacco alcohol intake: never Alcohol intake frequency: does not drink Cardiovascular Hx: HTN and Other (MURMUR, AORTIC THROMBOEMBOLISM) Lung Disease HX: Asthma, DVT/PE and Other Endocrine Hx: Diabetes and Other (THYROID NODULE) Musculoskeletal Hx: Arthritis (ERROSIVE) Blood Disorder Hx: Anemia and Hyperlipidemia GI Hx: Hemorrhoids Neurological Hx: Stroke/TIA Cancer HX: No Psych. Illness/Depression: Yes (DEPRESSION) Coding Level of Care Code Est Patient Level 1 Diagnoses Current use of anticoagulant therapy Z79.01 Assessment & Plan Assessment & Plan (1) Current use of anticoagulant therapy: Code(s): Z79.01 - halfway (current) use of anticoagulants Category: Medical
== END 2023-02-02 13:23 | disposition home or self-care (01) ==
LOC: HO.ACS 13:03
PROVIDERS: PCP Nurse Practitioner Family; Visit Provider Internal Medicine
DX: Z79.01 Long term (current) use of anticoagulants (principal)

== ENCOUNTER → 2023-02-02 13:03 | Outpatient (BNVA) | payer MEDICARE, SELFPAY | PROVIDERS: PCP Nurse Practitioner Family; Visit Provider Internal Medicine | DX: I74.10 Embolism and thrombosis of unspecified parts of aorta (principal); Z79.01 Long term (current) use of anticoagulants; Z51.81 Encounter for therapeutic drug level monitoring | CPT/HCPCS: 85610; 99211 ==

== ENCOUNTER 2023-02-17 12:13 | Outpatient (REF) | payer MEDICARE, SELFPAY ==
--- NOTE | ~2023-02-17 | US_ITS ---
EXAMINATION: Noninvasive assessment of the bilateral lower extremities with ARTERIAL DUPLEX and ANKLE BRACHIAL INDICES (ABIs). CLINICAL INFORMATION: Peripheral vascular disease TECHNIQUE: Duplex Doppler techniques with waveform analysis and measurement of velocities in the bilateral common femoral, profunda femoris, superficial femoral, popliteal and tibial arteries were performed. Additionally, ankle pulse volume recordings, ankle pressure measurements and ankle brachial indices were obtained of the lower extremity arterial system bilaterally. The study was performed only at rest. COMPARISON: 08/16/2022 FINDINGS: DIRECT DUPLEX DOPPLER FINDINGS: RIGHT LEG: Common femoral artery: 100 cm/s, phasicity: Biphasic. Mild calcified plaque Profunda femoris artery: 83.9 cm/s, phasicity: Biphasic Superficial femoral artery (proximal): 106 cm/s, phasicity: Biphasic. Mild diffuse calcified plaque Superficial femoral artery (mid): 98.8 cm/s, phasicity: Biphasic. Mild diffuse calcified plaque Superficial femoral artery (distal): 70.8 cm/s, phasicity: Biphasic. Mild calcified plaque Popliteal artery: 90.7 cm/s, phasicity: Biphasic. Mild calcified plaque Posterior tibial artery: 77.2 cm/s, phasicity: Triphasic Peroneal artery: 60.4 cm/s, phasicity: Biphasic Anterior tibial artery: 109 cm/s, phasicity: Triphasic Dorsalis pedis artery: 80.6 cm/s, phasicity:Triphasic LEFT LEG: Common femoral artery: 57.1 cm/s, phasicity: Triphasic. Mild to moderate calcified plaque Profunda femoris artery: 32.1 cm/s, phasicity: Monophasic Superficial femoral artery (proximal): 50.6 cm/s, phasicity: Biphasic. Mild calcified plaque Superficial femoral artery (mid): 41.9 cm/s, phasicity: Triphasic. Mild calcified plaque Superficial femoral artery (distal): 29.8 cm/s, phasicity: Biphasic Popliteal artery: 42.3 cm/s, phasicity: Triphasic Posterior tibial artery: 40.8 cm/s, phasicity: Monophasic Peroneal artery: 14.4 cm/s, phasicity: Monophasic Anterior tibial artery: 42.7 cm/s, phasicity: Triphasic Dorsalis pedis artery: 29.3 cm/s, phasicity: Biphasic ANKLE-BRACHIAL INDEX: Right: 1.06? Left: 1.4 ANKLE PRESSURES: Right: PT 201, DP 152 Left: PT?202, DP?200 ANKLE PVR WAVEFORMS: Right: Normal Left: Abnormal US/US arterial duplex LE BI IMPRESSION: Right leg: Normal ankle brachial index and PVR waveform. Calcified plaque is seen in the arterial vessels with otherwise normal arterial velocities and waveforms without significant stenosis Left leg: Supranormal ankle-brachial index with noncompressible vessels. Dampened PVR waveform. Scattered calcified plaque is seen in the arterial vessels with patent arterial flow. Dampened waveforms seen in the posterior tibial and peroneal artery consistent with small vessel disease PETERSON Reference: - >1.4 = calcified vessels - 0.9 - 1.4 = normal - no significant arterial disease - 0.7 - 0.89 = mild peripheral arterial disease - 0.51 - 0.69 = moderate peripheral arterial disease - ? 0.50 = severe peripheral arterial disease - < .30 = critical arterial disease
== END 2023-02-17 12:14 | disposition home or self-care (01) ==
LOC: HO.US 12:13
PROVIDERS: PCP Nurse Practitioner Family; Visit Provider Surgery Vascular Surgery
DX: I73.9 Peripheral vascular disease, unspecified (principal); I74.10 Embolism and thrombosis of unspecified parts of aorta; Z51.81 Encounter for therapeutic drug level monitoring; Z79.01 Long term (current) use of anticoagulants
CPT/HCPCS: 85610; 93923; 93925; 99211

== ENCOUNTER 2023-02-17 13:57 | Outpatient (AMB) | payer MEDICARE, SELFPAY ==
--- NOTE | 2023-02-17 14:05 | MHC.OFFVISCO ---
Intake Intake Visit Reasons: Anticoagulation Allergies Seasonal Allergies Allergy (Intermediate, Verified 02/17/23 14:00) Cough zolpidem [From Ambien] Adverse Reaction (Severe, Verified 02/17/23 14:00) Hallucinations Medication List - Last Reconciled 02/17/23 by Greta Smith, RN albuterol sulfate 90 mcg/actuation 2 puffs PO Q4-6H PRN amlodipine 10 mg PO DAILY ascorbic acid (vitamin C) 500 mg PO DAILY aspirin (Adult Low Dose Aspirin) 81 mg PO DAILY atorvastatin 80 mg PO DAILY blood sugar diagnostic ([employer] Verio test strips) USE TO CHECK BLOOD SUGARS TWICE DAILY buspirone 7.5 mg PO BID 30 days dulaglutide (Trulicity) 1.5 mg (0.5 mL) subcut QWEEK 1 month ferrous sulfate 325 mg PO DAILY flash glucose scanning reader ([employer] Samantha 2 [place]) As directed flash glucose sensor (FreeStyle Samantha 2 Sensor kit) As directed fluoxetine TAKE 3 CAPSULES BY MOUTH EVERY DAY fluticasone propionate 44 mcg/actuation 2 puffs inhalation BID furosemide 20 mg PO DAILY inhalational spacing device (Aerochamber Plus Z Stat spacer) As directed insulin glargine (Lantus Solostar U-100 Insulin) 10 units (0.1 mL) subcut QPM 1 month lancets ([employer] Delica Lancets) As directed levothyroxine 50 mcg PO DAILY metformin ER 1,000 mg (2 x 500 mg) PO BID omeprazole 40 mg (2 x 20 mg) PO DAILY pen needle, diabetic (BD Liv 2nd Gen Pen Needle) As directed valsartan-hydrochlorothiazide 320-25 mg 1 tab PO DAILY warfarin 5 - 7.5 mg See Protocol PO DAILY Nursing Note INR: 2.1- in therapeutic range of 2-3 Medications and supplements reviewed- no changes, had 2 vaccines 02/08/23 and 02/15/23 No changes in health, diet, medications, or supplements, Denies any signs and symptoms of bleeding or bruising or clotting. Bleeding, bruising, clotting discussed Nutritional guidance given Dose: 5mg x 2, 7.5mg x 5 F/U INR: pt req 3 weeks Patient verbalizes understanding of instructions given pt had u/s of bilat lower extrem due to PAD Anti-Coag Initial Assessment Social Hx Patient Tobacco Use Status: Never used Tobacco alcohol intake: never Alcohol intake frequency: does not drink Cardiovascular Hx: HTN and Other (MURMUR, AORTIC THROMBOEMBOLISM) Lung Disease HX: Asthma, DVT/PE and Other Endocrine Hx: Diabetes and Other (THYROID NODULE) Musculoskeletal Hx: Arthritis (ERROSIVE) Blood Disorder Hx: Anemia and Hyperlipidemia GI Hx: Hemorrhoids Neurological Hx: Stroke/TIA Cancer HX: No Psych. Illness/Depression: Yes (DEPRESSION) Coding Level of Care Code Est Patient Level 1 Diagnoses Current use of anticoagulant therapy Z79.01 Assessment & Plan Assessment & Plan (1) Current use of anticoagulant therapy: Code(s): Z79.01 - FDC (current) use of anticoagulants Category: Medical
[2023-02-17 14:06] LABS: Prothrombin Time Whole Bld POC 25.5 sec (11.1-13.5); ~PT, ~INR - Anti Coag Clinic 2.1 (0.9-1.1)
== END 2023-02-17 14:12 | disposition home or self-care (01) ==
LOC: HO.ACS 13:57
PROVIDERS: PCP Nurse Practitioner Family; Visit Provider Internal Medicine
DX: Z79.01 Long term (current) use of anticoagulants (principal)

== ENCOUNTER 2023-03-10 13:00 | Outpatient (AMB) | payer MEDICARE, SELFPAY ==
--- NOTE | 2023-03-10 13:19 | MHC.OFFVISCO ---
Intake Intake Visit Reasons: Anticoagulation Allergies Seasonal Allergies Allergy (Intermediate, Verified 03/10/23 13:25) Cough zolpidem [From Ambien] Adverse Reaction (Severe, Verified 03/10/23 13:25) Hallucinations Medication List - Last Reconciled 03/10/23 by Greta Smith, RN albuterol sulfate 90 mcg/actuation 2 puffs PO Q4-6H PRN amlodipine 10 mg PO DAILY ascorbic acid (vitamin C) 500 mg PO DAILY aspirin (Adult Low Dose Aspirin) 81 mg PO DAILY atorvastatin 80 mg PO DAILY blood sugar diagnostic ([employer] Verio test strips) USE TO CHECK BLOOD SUGARS TWICE DAILY buspirone 7.5 mg PO BID 30 days dulaglutide (Trulicity) 1.5 mg (0.5 mL) subcut QWEEK 1 month ferrous sulfate 325 mg PO DAILY flash glucose scanning reader ([employer] [place] 2 [place]) As directed flash glucose sensor (FreeStyle Samantha 2 Sensor kit) As directed fluoxetine TAKE 3 CAPSULES BY MOUTH EVERY DAY fluticasone propionate 44 mcg/actuation 2 puffs inhalation BID furosemide 20 mg PO DAILY inhalational spacing device (Aerochamber Plus Z Stat spacer) As directed insulin glargine (Lantus Solostar U-100 Insulin) 10 units (0.1 mL) subcut QPM 1 month lancets ([employer] Delica Lancets) As directed levothyroxine 50 mcg PO DAILY metformin ER 1,000 mg (2 x 500 mg) PO BID omeprazole 40 mg (2 x 20 mg) PO DAILY pen needle, diabetic (BD Liv 2nd Gen Pen Needle) As directed valsartan-hydrochlorothiazide 320-25 mg 1 tab PO DAILY warfarin 5 - 7.5 mg See Protocol PO DAILY Nursing Note INR: 2.4- in therapeutic range of 2-3 Medications and supplements reviewed- no changes No changes in health, diet, medications, or supplements, Denies any signs and symptoms of bleeding or bruising or clotting. Bleeding, bruising, clotting discussed Nutritional guidance given Dose: 5mg x 2, 7.5mg x 5 F/U INR: 4 weeks Patient verbalizes understanding of instructions given pt amb with cane. pt states has bilat hand tremors Anti-Coag Initial Assessment Social Hx Patient Tobacco Use Status: Never used Tobacco alcohol intake: never Alcohol intake frequency: does not drink Cardiovascular Hx: HTN and Other (MURMUR, AORTIC THROMBOEMBOLISM) Lung Disease HX: Asthma, DVT/PE and Other Endocrine Hx: Diabetes and Other (THYROID NODULE) Musculoskeletal Hx: Arthritis (ERROSIVE) Blood Disorder Hx: Anemia and Hyperlipidemia GI Hx: Hemorrhoids Neurological Hx: Stroke/TIA Cancer HX: No Psych. Illness/Depression: Yes (DEPRESSION) Coding Level of Care Code Est Patient Level 1 Diagnoses Current use of anticoagulant therapy Z79.01 Assessment & Plan Assessment & Plan (1) Current use of anticoagulant therapy: Code(s): Z79.01 - roasterman (current) use of anticoagulants Category: Medical
[2023-03-10 13:20] LABS: Prothrombin Time Whole Bld POC 29.3 sec (11.1-13.5); ~PT, ~INR - Anti Coag Clinic 2.4 (0.9-1.1)
== END 2023-03-10 13:27 | disposition home or self-care (01) ==
LOC: HO.ACS 13:00
PROVIDERS: PCP Nurse Practitioner Family; Visit Provider Internal Medicine
DX: Z79.01 Long term (current) use of anticoagulants (principal)

== ENCOUNTER → 2023-03-10 13:00 | Outpatient (BNVA) | payer MEDICARE, SELFPAY | PROVIDERS: PCP Nurse Practitioner Family; Visit Provider Internal Medicine | DX: I74.10 Embolism and thrombosis of unspecified parts of aorta (principal); Z79.01 Long term (current) use of anticoagulants; Z51.81 Encounter for therapeutic drug level monitoring | CPT/HCPCS: 85610; 99211 ==

== ENCOUNTER 2023-03-22 14:37 | Outpatient (AMB) | payer MEDICARE, SELFPAY ==
--- NOTE | 2023-03-22 14:47 | A.OFFVIS_ITS ---
Intake Vital Signs 03/22/23 14:48 Height 5 ft 4.5 in Weight 175 lb BMI 29.6 Intake Visit Reasons: 6 mo follow up Arterial US 02/17/2023 Intake Note: 6 mo follow up arterial US 02/17/23, pt states Left LE is painful w/ ambulation. Pt states its mostly pain in her thigh, also painful when rolling over in bed. Pt states she can walk about half a block, when she first wakes up, she cant walk to the bathroom. Even the sheet touching her leg can cause great discomfort. Accompanied by: Self / Same As Patient Allergies Seasonal Allergies Allergy (Intermediate, Verified 03/22/23 14:52) Cough zolpidem [From Ambien] Adverse Reaction (Severe, Verified 03/22/23 14:52) Hallucinations HPI 6 mo follow up Arterial US 02/17/2023 HPI Details very pleasant 73-year-old female presents for surveillance follow-up regarding peripheral vascular disease. At the current time her only complaint is right thigh pain which she attributes to sciatic nerve issues. She reports that she is doing fairly well. She has been able to ambulate reasonably well. Through diet and exercise she has actually lost nearly 40 lb. She is being maintained on aspirin and high-dose statin. She now presents for peripheral vascular disease follow-up with noninvasive arterial test [facility] Medical History Essential tremor Seasonal allergies PND (post-nasal drip) Iron deficiency Arthritis Osteoarthritis Depression Hypertension Asthma Tremors of nervous system Type II diabetes mellitus Surgical History Hx of LASIK History of esophagogastroduodenoscopy (EGD) H/O: hysterectomy History of cataract removal with insertion of prosthetic lens Hx laparoscopic cholecystectomy Family History Mother Diabetes Parkinsons Panic disorder/agoraphobia, agoraphobic avoidnc/panc attck full remssn Father Stroke Heart attack Brother Congestive heart failure Brother Stroke Other Substance abuse Social History Household Members: Family Household Members Other:: brother Both parents involved: No Caregiver staying overnight: No Housing: House Housing Other:: mobile home Are you a primary landcare facilitator to a significant other at home: Yes (brother s/p CVA) Do you presently have visiting nurse or other home services: No (brother has services VNA,PT) Alcohol intake: never Patient Tobacco Use Status: Never used Tobacco e-Cigarette/Vaping Use: Never Used Second Hand Smoke Exposure: No service: No Current occupational status: retired Current occupational exposures/hazards: Yes Cognitive needs: No Hearing needs: Yes Vision needs: Yes Review of Systems Const All systems reviewed & are unremarkable except as noted in HPI and below Reports no additional complaints ENT Reports Normal hearing present Card Denies chest pain, Denies chest pain at rest, Denies chest pain with activity and Denies pedal edema Resp Denies cough GI Denies abdominal pain Musc Denies abnormal gait, Denies muscle cramps and Denies radiating pain into limb Skin/Breast Denies skin ulcer and Denies wounds Neuro Reports Normal hearing present and Denies abnormal gait Psych Reports no additional complaints Physical Exam Vital Signs: BMI result Body Mass Index 29.6 Const General: cooperative, healthy appearing and comfortable Orientation/consciousness: oriented to person, oriented to place and oriented to time HEENT Head: Yes normal to inspection Neck Neck: Yes normal visual inspection Carotids: no bruits Chest Chest palpation & inspection: normal inspection of the chest Resp Effort & Inspection: normal respiratory effort and able to speak in complete sentences Auscultation: clear to auscultation bilaterally, no crackles, no rales, no rhonchi and no wheezes Cardio Rate: regular rate Rhythm: regular rhythm Heart sounds: S1 normal heart sound present and S2 normal heart sound present Bruits: no carotid bruits Peripheral pulses: Peripheral pulses 2+ throughout GI Inspection: Yes normal to inspection Skin Wounds: no wounds Hair: normal Neuro General: oriented to person, oriented to place and oriented to time Cranial nerves: Yes CN's II-XII intact bilaterally and Yes Normal hearing present Cognition (Neuro): normal cognition Motor exam (neuro): 5/5 motor strength present throughout Extrem Other: venous exam: No significant superficial varicosities or spider telangiectasias, minimal edema General: No clubbing, No cyanosis and No edema Psych Appearance: grossly normal Mental Status: mental status grossly normal Speech and movement: Normal speech and movement present Results Reviewed Results Reviewed: noninvasive testing dated 02/17/2023 demonstrates PETERSON on the right of 1.06 and on the left of 1.4 written report and images were reviewed. Assessment & Plan Assessment & Plan (1) Peripheral arterial disease: Code(s): I73.9 - Peripheral vascular disease, unspecified Plan: In short patient has stable claudication. I did review the pathophysiology of peripheral vascular disease with the patient. In addition we did discuss routine conservative measures including a healthy diet and the importance of ex ercise and ambulation. We did discuss risk factor modification. The patient will continue to to follow-up with surveillance follow-up in approximately One year. Thank you for allowing us to participate in this patient's care. If there are any questions or concerns please do not hesitate to contact us. Orders: Orders US arterial duplex LE BI 364 Days I73.9 - Peripheral vascular disease, unspecified Coding Level of Care Code Est Pt Level 4 (06749) Diagnoses Peripheral arterial disease I73.9
[2023-03-22 14:48] VITALS: BMI 29.6
== END 2023-03-22 15:13 | disposition home or self-care (01) ==
PROVIDERS: PCP Nurse Practitioner Family; Visit Provider Surgery Vascular Surgery
DX: I73.9 Peripheral vascular disease, unspecified (principal)
CPT/HCPCS: 99213

== ENCOUNTER → 2023-03-22 14:37 | Outpatient (BNVA) | payer MEDICARE, SELFPAY | PROVIDERS: PCP Nurse Practitioner Family; Visit Provider Surgery Vascular Surgery | DX: I73.9 Peripheral vascular disease, unspecified (principal) | CPT/HCPCS: 99212 ==

== ENCOUNTER 2023-04-07 12:59 | Outpatient (AMB) | payer MEDICARE, SELFPAY ==
--- NOTE | 2023-04-07 13:13 | MHC.OFFVISCO ---
Intake Intake Visit Reasons: Anticoagulation Allergies Seasonal Allergies Allergy (Intermediate, Verified 04/07/23 13:03) Cough zolpidem [From Ambien] Adverse Reaction (Severe, Verified 04/07/23 13:03) Hallucinations Medication List - Last Reconciled 04/07/23 by Sonali Rm RN albuterol sulfate 90 mcg/actuation 2 puffs PO Q4-6H PRN amlodipine 10 mg PO DAILY ascorbic acid (vitamin C) 500 mg PO DAILY aspirin (Adult Low Dose Aspirin) 81 mg PO DAILY atorvastatin 80 mg PO DAILY blood sugar diagnostic ([employer] Verio test strips) USE TO CHECK BLOOD SUGARS TWICE DAILY buspirone 7.5 mg PO BID 30 days dulaglutide (Trulicity) 1.5 mg (0.5 mL) subcut QWEEK 1 month ferrous sulfate 325 mg PO DAILY flash glucose scanning reader ([employer] Samantha 2 [place]) As directed flash glucose sensor (FreeStyle Samantha 2 Sensor kit) As directed fluoxetine TAKE 3 CAPSULES BY MOUTH EVERY DAY fluticasone propionate 44 mcg/actuation 2 puffs inhalation BID furosemide 20 mg PO DAILY inhalational spacing device (Aerochamber Plus Z Stat spacer) As directed lancets ([employer] Delica Lancets) As directed levothyroxine 50 mcg PO DAILY metformin ER 1,000 mg (2 x 500 mg) PO BID omeprazole 40 mg (2 x 20 mg) PO DAILY pen needle, diabetic (BD Liv 2nd Gen Pen Needle) As directed valsartan-hydrochlorothiazide 320-25 mg 1 tab PO DAILY warfarin 5 - 7.5 mg See Protocol PO DAILY Nursing Note NO CP,SOB,DIET/MED CHANGES,FALLS OR SX OF BLEEDING. CONTINUE PRESENT DOSE AND FOLLOW-UP IN 5 WEEKS GOOD UNDERSTANDING OF DOSING INSTR./ Anti-Coag Initial Assessment Social Hx Patient Tobacco Use Status: Never used Tobacco alcohol intake: never Alcohol intake frequency: does not drink Cardiovascular Hx: HTN and Other (MURMUR, AORTIC THROMBOEMBOLISM) Lung Disease HX: Asthma, DVT/PE and Other Endocrine Hx: Diabetes and Other (THYROID NODULE) Musculoskeletal Hx: Arthritis (ERROSIVE) Blood Disorder Hx: Anemia and Hyperlipidemia GI Hx: Hemorrhoids Neurological Hx: Stroke/TIA Cancer HX: No Psych. Illness/Depression: Yes (DEPRESSION) Coding Level of Care Code Est Patient Level 1 Diagnoses Current use of anticoagulant therapy Z79.01 Assessment & Plan Assessment & Plan (1) Current use of anticoagulant therapy: Code(s): Z79.01 - jail (current) use of anticoagulants Category: Medical
== END 2023-04-07 13:16 | disposition home or self-care (01) ==
LOC: HO.ACS 12:59
PROVIDERS: PCP Nurse Practitioner Family; Visit Provider Internal Medicine
DX: Z79.01 Long term (current) use of anticoagulants (principal)

== ENCOUNTER → 2023-04-07 12:59 | Outpatient (BNVA) | payer MEDICARE, SELFPAY | PROVIDERS: PCP Nurse Practitioner Family; Visit Provider Internal Medicine | DX: I74.10 Embolism and thrombosis of unspecified parts of aorta (principal); Z51.81 Encounter for therapeutic drug level monitoring; Z79.01 Long term (current) use of anticoagulants | CPT/HCPCS: 85610; 99211 ==

== ENCOUNTER 2023-04-29 10:56 | Outpatient (REF) | payer MEDICARE, SELFPAY ==
[2023-04-29 14:42] LABS: Estimated Average Glucose 126 mg/dL
[2023-04-29 14:51] LABS: Hematocrit 39.6 % (37.0-47.0); Hemoglobin 12.5 g/dl (12.0-16.0); Mean Corpuscular HGB Conc 31.6 g/dl (31.0-35.0); Mean Corpuscular Hemoglobin 26.7 pg (27.0-33.0); Mean Corpuscular Volume 84.4 fL (80.0-98.0); Platelet Count 444 X10*3/uL (160-400); Red Blood Count 4.69 X10*6/uL (4.20-5.50); Red Cell Distribution Width 14.5 % (11.0-16.0); White Blood Count 8.3 X10*3/uL (4.8-10.8)
[2023-04-29 15:14] LABS: Iron 61 mcg/dL (30-160); Percent Iron Saturation 19 % (15-50); Total Iron Binding Capacity 322 mcg/dL (228-428); Unsaturated Iron Binding 261 ug/dL
[2023-04-29 15:30] LABS: Ferritin 10 ng/mL (10-250)
== END 2023-04-29 10:57 | disposition home or self-care (01) ==
LOC: HO.WFDLDS 10:56
PROVIDERS: Visit Provider Nurse Practitioner Family
DX: E11.9 Type 2 diabetes mellitus without complications (principal); D50.9 Iron deficiency anemia, unspecified
CPT/HCPCS: 36415; 82728; 83036; 83540; 85027

== ENCOUNTER 2023-05-03 14:50 | Outpatient (AMB) | payer MEDICARE, SELFPAY ==
[2023-05-03 15:05] VITALS: BP 130/66; PULSE 105; RESP 13; TEMP 36.4; O2SAT 99; BMI 29.3
--- NOTE | 2023-05-03 15:05 | A.OFFPC_ITS ---
Vital Signs 05/03/23 15:05 05/03/23 15:34 Height 5 ft 4.5 in Weight 173 lb 8 oz BMI 29.3 BP 130/66 Blood Pressure Location Rt brachial Position Sitting Respiration 13 Pulse 105 H 92 Pulse Source Pulse Oximeter Auscultation Temp 97.6 F Temp Source Temporal Artery Scan Pulse Oximetry (%) 99 Oxygen Delivery Method Room Air Intake Visit Reasons: f/u HTN, DM, anxiety, depression Intake Note: Trulicity has been on back order and patient was told that pharmacy wont have it until end of year, alternative is needed. Emergency Medical Service Manager Required: No Accompanied by: Self / Same As Patient Allergies Seasonal Allergies Allergy (Intermediate, Verified 05/03/23 15:19) Cough zolpidem [From Ambien] Adverse Reaction (Severe, Verified 05/03/23 15:19) Hallucinations Medication List - Last Reconciled 05/03/23 by Nisha Garcia, KRISTY albuterol sulfate 90 mcg/actuation 2 puffs PO Q4-6H PRN amlodipine 10 mg PO DAILY ascorbic acid (vitamin C) 500 mg PO DAILY aspirin (Adult Low Dose Aspirin) 81 mg PO DAILY atorvastatin 80 mg PO DAILY blood sugar diagnostic ([employer] Verio test strips) USE TO CHECK BLOOD SUGARS TWICE DAILY buspirone 7.5 mg PO BID 30 days dulaglutide (Trulicity) 1.5 mg (0.5 mL) subcut QWEEK 1 month ferrous sulfate 325 mg PO DAILY flash glucose scanning reader ([employer] Samantha 2 [place]) As directed flash glucose sensor (FreeStyle Samantha 2 Sensor kit) As directed fluoxetine TAKE 3 CAPSULES BY MOUTH EVERY DAY fluticasone propionate 44 mcg/actuation 2 puffs inhalation BID furosemide 20 mg PO DAILY inhalational spacing device (Aerochamber Plus Z Stat spacer) As directed lancets ([employer] Delica Lancets) As directed levothyroxine 50 mcg PO DAILY metformin ER 1,000 mg (2 x 500 mg) PO BID omeprazole 40 mg (2 x 20 mg) PO DAILY pen needle, diabetic (BD Liv 2nd Gen Pen Needle) As directed valsartan-hydrochlorothiazide 320-25 mg 1 tab PO DAILY warfarin 5 - 7.5 mg See Protocol PO DAILY Tobacco use date assessed: 06/14/22 Fall risk assessment: No Falls in past year Last assessed Fall Risk: 05/03/23 Dental Screening Dental Screen Date: 05/03/23 Did you have a dental visit in the last 12 months?: Yes Did you have a dental problem in the last 6 months where you did not have access to dental care?: No Was dental information given to patient?: Patient has dentist HPI HPI Comments History of Present Illness Details 73-year-old female presents for hyperten naga, diabetes, anxiety, and depression follow-up She notes that Trulicity has been back ordered and has not been taking her medication for the past 1 week. She has been taking Metformin as prescribed She notes that she is always worried and anxious about everything since she was 16 years old. She notes minimal improvement with Buspirone. She was recently able to go to lunch with a friend she has not seen for several years; something has has not done in a while She denies acute symptoms at this time [facility] Medical History Essential tremor Seasonal allergies PND (post-nasal drip) Iron deficiency Arthritis Osteoarthritis Depression Hypertension Asthma Tremors of nervous system Type II diabetes mellitus Surgical History Hx of LASIK History of esophagogastroduodenoscopy (EGD) H/O: hysterectomy History of cataract removal with insertion of prosthetic lens Hx laparoscopic cholecystectomy Family History Mother Diabetes Parkinsons Panic disorder/agoraphobia, agoraphobic avoidnc/panc attck full remssn Father Stroke Heart attack Brother Congestive heart failure Brother Stroke Other Substance abuse Social History Household Members: Family Household Members Other:: brother Both parents involved: No Caregiver staying overnight: No Housing: Other Housing Other:: mobile home Are you a primary healthcare science specialist to a significant other at home: Yes (brother s/p CVA) Do you presently have visiting nurse or other home services: No (brother has services VNA,PT) Alcohol intake: never Patient Tobacco Use Status: Never used Tobacco e-Cigarette/Vaping Use: Never Used Second Hand Smoke Exposure: No service: No Current occupational status: retired Current occupational exposures/hazards: Yes Cognitive needs: No Hearing needs: Yes Vision needs: Yes Questionnaire PHQ-9 Over the last 2 weeks, how often have you been bothered by any of the following problems? 1. Little interest or pleasure in doing things: more than half the days 2. Feeling down, depressed, or hopeless: more than half the days 3. Trouble falling or staying asleep, or sleeping too much: nearly every day 4. Feeling tired or having little energy: nearly every day 5. Poor appetite or overeating: more than half the days 6. Feeling bad about yourself - or that you are a failure or have let yourself or your family down: nearly every day 7. Trouble concentrating on things, such as reading the newspaper or watching television: several days 8. Moving or speaking so slowly that other people could have noticed. Or the opposite - being so fidgety or restless that you have been moving around a lot more than usual: several days 9. Thoughts that you would be better off or of hurting yourself in some way: not at all Total score: 17 Depression Screening Interpretation: Positive Depression Screening Follow-up: Existing condition, In treatment and Change in Medication Depression Screening Done: Yes 90493 - PHQ-9 Billing: Yes Source: Developed by Drs. Meir Zarate, Elba Comer, Ethan Little and colleagues, with an educational leeanne from [employer]. Thrive Questionnaire Date Thrive assessed: 10/15/22 SUSHANT-7 AMB Questionnaire SUSHANT-7 Date SUSHANT - 7 assessed: 05/03/23 Feeling nervous, anxious, or on edge: 3 = Nearly every day Not being able to stop or control worryin = Nearly every day Worrying too much about different things: 3 = Nearly every day Trouble relaxin = More than half the days Being so restless that it is hard to sit still: 1 = Several days Becoming easily annoyed or irritable: 2 = More than half the days Feeling afraid as if something awful might happen: 3 = Nearly every day Total SUSHANT-7 score (0-4 normal; 5-9 mild; 10-14 moderate; 15-21 severe): 17 Source: Developed by Drs. Meir Zarate, Ethan Sinclair and colleagues, with an educational leeanne from [employer]. SUSHANT-7 Assessment Billing SUSHANT-7 Assessment Tool: SUSHANT-7 Assessment 56804 Review of Systems Const Details: Const Denies chills, Denies fatigue, Denies fever(s), Denies headache(s) and Denies weakness ENT Denies dizziness and Denies headache(s) Card Denies chest pain, Denies lightheadedness, Denies dyspnea and Denies other (Palpitations) Resp Denies cough, Denies dyspnea, Denies wheezing and Denies other ( shortness of breath) GI Denies abdominal pain, Denies melena, Denies hematochezia, Denies change in bowel habits, Denies dyspepsia and Denies nausea Denies hematuria and Denies dysuria Musc Denies abnormal gait, Denies myalgias, Denies arthralgias, Denies numbness and Denies tingling Skin/Breast Denies rash, Denies unusual bruising and Denies wounds Neuro Denies abnormal gait, Denies dizziness, Denies headache(s), Denies memory loss, Denies numbness, Denies Sensory deficit (Neuro), Denies tingling and Denies weakness Psych Reports anxiety, Reports depression, Denies memory loss Endo Denies cold intolerance, Denies fatigue, Denies heat intolerance, Denies polydipsia and Denies polyuria Aller/Immun Denies wheezing Physical exam (Primary Care) Vital Signs: Last Vital Signs Temp 97.6 F 05/03/23 15:05 Pulse 105 H 05/03/23 15:05 Resp 13 05/03/23 15:05 BP 130/66 05/03/23 15:05 Pulse Ox 99 05/03/23 15:05 Oxygen Delivery Method Room Air 05/03/23 15:05 BMI result Body Mass Index 29.3 Tobacco/Smoking Status: Tobacco use Status Tobacco use date assessed 06/14/22 05/03/23 15:17 Patient Tobacco Use Status Never used Tobacco 05/03/23 15:17 e-Cigarette/Vaping Use Never Used 05/03/23 15:17 PHQ-9: PHQ-9 Score PHQ-9: Total score 17 05/03/23 15:17 Depression Screening Interpretation: Positive Depression Screening Follow-up: Existing condition, In treatment and Change in Medication Thrive Assessment: Date of Thrive Assessment Date Thrive assessed 10/15/22 05/03/23 15:17 Const Other: General: no acute distress and well developed Nutritional Appearance: well nourished Orientation/consciousness: patient oriented x3 [facility] Head: Yes normocephalic and Yes atraumatic Eyes General: appearance normal, both eyes and all related structures Pupils: Equal, round and reactive pupils present EOM: EOMs intact bilaterally Resp Effort & Inspection: normal respiratory effort Auscultation: clear to auscultation bilaterally Cardio Rate: regular rate Rhythm: regular rhythm Heart sounds: S1 normal heart sound present, S2 normal heart sound present, no gallops, no murmurs and no rubs GI Palpation (GI): No Abdominal aortic bruit present, Soft to palpation, nontender, No hepatosplenomegaly present and No Rebound tenderness present Auscultation: normal bowel sounds General: Yes no CVA tenderness Back/Spine/Pelvis Back: no CVA tenderness Cervical Spine: cervical ROM normal and No Cervical spine tenderness Thoracic/Lumbar Spine: thoraco-lumbar ROM normal, No pain with thoraco-lumbar ROM, No thoracic spinal tenderness and No lumbar spinal tenderness Extrem General: Yes normal to inspection, No edema and No calf tenderness Skin General: warm and dry. Normal skin color. Normal skin turgor Lesions: no lesions Rashes: no rashes Trauma: no lacerations or abrasions Wounds: no wounds Nails: normal Neuro General: patient oriented x3, gait normal and no focal neuro deficit Cranial nerves: Yes Equal, round and reactive pupils present Cognition (Neuro): normal cognition Gait exam (Neuro): Normal gait present Sensory Exam: No Sensory deficit (Neuro) Psych Appearance: grossly normal Affect: normal affect Attitude: cooperative Thought process: Normal thought process present Assessment and Plan Assessment & Plan (1) Type II diabetes mellitus: Code(s): E11.9 - Type 2 diabetes mellitus without complications Plan: Recent A1c is 6.0%, within goal of less than 7.0% Ozempic ordered. Take as prescribed Continue to take metformin as prescribed ADA diet and routine exercise encouraged Follow-up in 3 months or return sooner with symptoms or concerns Verbalized understanding and agreed with treatment plan (2) Hypertension, essential: Code(s): I10 - Essential (primary) hypertension Plan: Blood pressure is 130/66, slightly above goal of less than 130/80 Continue current treatment regimen Low-sodium diet encouraged Follow-up in 3 months Verbalized understanding and agreed with the plan (3) Depression with anxiety: Code(s): F41.8 - Other specified anxiety disorders Plan: PHQ-9 and SUSHANT-7 scores revealed moderately severe depression and severe anxiety respectively Reports persistent anxiety responsive to buspirone Buspirone increased to 15 mg twice daily. Take as prescribed Continue to take fluoxetine as prescribed Routine exercise encouraged Follow-up in 3 months or return sooner with worsening or new symptoms Verbalized understanding and agreed with treatment plan (4) Iron deficiency anemia: Code(s): D50.9 - Iron deficiency anemia, unspecified Plan: Recent RBC, H&H, and iron profile is normal Continue current treatment regimen Will continue to monitor Verbalized understanding and agreed with treatment plan Orders: Orders Comprehensive [place]. Panel Fast Today E11.9 - Type 2 diabetes mellitus without complications Lipid Panel Today E11.9 - Type 2 diabetes mellitus without complications Medications: New buspirone 15 mg PO BID 30 days 60 tabs 3RF semaglutide (Ozempic) 1 mg (0.75 mL) subcut QWEEK 3.75 mL 6RF 30 days Discontinued dulaglutide (Trulicity) Discontinued Reason: Change Referral Type 1.5 mg (0.5 mL) subcut QWEEK 2.5 mL 7RF 1 month buspirone Discontinued Reason: Doctor's Order 7.5 mg PO BID 30 days 60 tabs 3RF Coding Level of Care Code Est Pt Level 4 (35374) Diagnoses Type II diabetes mellitus E11.9 Hypertension, essential I10 Depression with anxiety F41.8 Iron deficiency anemia D50.9 Additional Codes SUSHANT-7 Assessment Billing - SUSHANT-7 Assessment Tool: SUSHANT-7 Assessment 46344 ([id number])
[2023-05-03 15:34] VITALS: PULSE 92
== END 2023-05-03 15:46 | disposition home or self-care (01) ==
PROVIDERS: PCP Nurse Practitioner Family; Visit Provider Nurse Practitioner Family
DX: E11.9 Type 2 diabetes mellitus without complications (principal); I10 Essential (primary) hypertension; F41.8 Other specified anxiety disorders; D50.9 Iron deficiency anemia, unspecified
CPT/HCPCS: 96127; 99214

== ENCOUNTER 2023-05-12 13:00 | Outpatient (AMB) | payer MEDICARE, SELFPAY ==
[2023-05-12 13:14] LABS: Prothrombin Time Whole Bld POC 24.3 sec (11.1-13.5)
--- NOTE | 2023-05-12 13:22 | MHC.OFFVISCO ---
Intake Intake Visit Reasons: Anticoagulation Allergies Seasonal Allergies Allergy (Intermediate, Verified 05/12/23 13:05) Cough zolpidem [From Ambien] Adverse Reaction (Severe, Verified 05/12/23 13:05) Hallucinations Medication List - Last Reconciled 05/12/23 by Marleni Davalos, RN albuterol sulfate 90 mcg/actuation 2 puffs PO Q4-6H PRN amlodipine 10 mg PO DAILY ascorbic acid (vitamin C) 500 mg PO DAILY aspirin (Adult Low Dose Aspirin) 81 mg PO DAILY atorvastatin 80 mg PO DAILY blood sugar diagnostic ([employer] Verio test strips) USE TO CHECK BLOOD SUGARS TWICE DAILY buspirone 15 mg PO BID 30 days ferrous sulfate 325 mg PO DAILY flash glucose scanning reader ([employer] Samantha 2 [place]) As directed flash glucose sensor ([employer] Samantha 2 Sensor kit) As directed fluoxetine TAKE 3 CAPSULES BY MOUTH EVERY DAY fluticasone propionate 44 mcg/actuation 2 puffs inhalation BID furosemide 20 mg PO DAILY inhalational spacing device (Aerochamber Plus Z Stat spacer) As directed lancets ([employer] Delica Lancets) As directed levothyroxine 50 mcg PO DAILY metformin ER 1,000 mg (2 x 500 mg) PO BID omeprazole 40 mg (2 x 20 mg) PO DAILY pen needle, diabetic (BD Liv 2nd Gen Pen Needle) As directed semaglutide (Ozempic) 1 mg (0.75 mL) subcut QWEEK 30 days valsartan-hydrochlorothiazide 320-25 mg 1 tab PO DAILY warfarin 5 - 7.5 mg See Protocol PO DAILY Nursing Note INR: 2.0 in therapeutic range of 2-3 Medications and supplements reviewed changes in health, diet, medications, or supplements noted, [facility] feels well. Denies any signs and symptoms of bleeding or bruising or clotting. Bleeding, bruising, clotting discussed Nutritional guidance given Dose: continue usual dos of 7.5 X 5 days and 5 mg X 2 days F/U INR: 10 days Patient verbalizes understanding of instructions given Anti-Coag Initial Assessment Social Hx Patient Tobacco Use Status: Never used Tobacco alcohol intake: never Alcohol intake frequency: does not drink Cardiovascular Hx: HTN and Other (MURMUR, AORTIC THROMBOEMBOLISM) Lung Disease HX: Asthma, DVT/PE and Other Endocrine Hx: Diabetes and Other (THYROID NODULE) Musculoskeletal Hx: Arthritis (ERROSIVE) Blood Disorder Hx: Anemia and Hyperlipidemia GI Hx: Hemorrhoids Neurological Hx: Stroke/TIA Cancer HX: No Psych. Illness/Depression: Yes (DEPRESSION) Coding Level of Care Code Est Patient Level 1 Diagnoses Current use of anticoagulant therapy Z79.01 Assessment & Plan Assessment & Plan (1) Current use of anticoagulant therapy: Code(s): Z79.01 - manager terminal (current) use of anticoagulants Category: Medical
== END 2023-05-12 13:25 | disposition home or self-care (01) ==
LOC: HO.ACS 13:00
PROVIDERS: PCP Nurse Practitioner Family; Visit Provider Internal Medicine
DX: Z79.01 Long term (current) use of anticoagulants (principal)

== ENCOUNTER → 2023-05-12 13:00 | Outpatient (BNVA) | payer MEDICARE, SELFPAY | PROVIDERS: PCP Nurse Practitioner Family; Visit Provider Internal Medicine | DX: I74.10 Embolism and thrombosis of unspecified parts of aorta (principal); Z79.01 Long term (current) use of anticoagulants; Z51.81 Encounter for therapeutic drug level monitoring | CPT/HCPCS: 85610; 99211 ==

== ENCOUNTER 2023-05-25 13:00 | Outpatient (AMB) | payer MEDICARE, SELFPAY ==
--- NOTE | 2023-05-25 13:21 | MHC.OFFVISCO ---
Intake Intake Visit Reasons: Anticoagulation Allergies Seasonal Allergies Allergy (Intermediate, Verified 05/25/23 13:17) Cough zolpidem [From Ambien] Adverse Reaction (Severe, Verified 05/25/23 13:17) Hallucinations Medication List - Last Reconciled 05/25/23 by Greta Smith RN albuterol sulfate 90 mcg/actuation 2 puffs PO Q4-6H PRN amlodipine 10 mg PO DAILY ascorbic acid (vitamin C) 500 mg PO DAILY aspirin (Adult Low Dose Aspirin) 81 mg PO DAILY atorvastatin 80 mg PO DAILY blood sugar diagnostic (Orad Verio test strips) USE TO CHECK BLOOD SUGARS TWICE DAILY buspirone 15 mg PO BID 30 days ferrous sulfate 325 mg PO DAILY flash glucose scanning reader ([employer] Samantha 2 [place]) As directed flash glucose sensor (CPUsageStyle Samantha 2 Sensor kit) As directed fluoxetine TAKE 3 CAPSULES BY MOUTH EVERY DAY fluticasone propionate 44 mcg/actuation 2 puffs inhalation BID furosemide 20 mg PO DAILY inhalational spacing device (Aerochamber Plus Z Stat spacer) As directed lancets (Orad Delica Lancets) As directed levothyroxine 50 mcg PO DAILY metformin ER 1,000 mg (2 x 500 mg) PO BID omeprazole 40 mg (2 x 20 mg) PO DAILY pen needle, diabetic (BD Liv 2nd Gen Pen Needle) As directed semaglutide (Ozempic) 1 mg (0.75 mL) subcut QWEEK 30 days valsartan-hydrochlorothiazide 320-25 mg 1 tab PO DAILY warfarin 5 - 7.5 mg See Protocol PO DAILY Nursing Note INR: 2.6- in therapeutic range of 2-3 Medications and supplements reviewed- on ozempic No changes in health, diet, medications, or supplements, Denies any signs and symptoms of bleeding or bruising or clotting. Bleeding, bruising, clotting discussed Nutritional guidance given Dose: 5mg x 2, 7.5mg x 5 F/U INR: 2 weeks Patient verbalizes understanding of instructions given Anti-Coag Initial Assessment Social Hx Patient Tobacco Use Status: Never used Tobacco alcohol intake: never Alcohol intake frequency: does not drink Cardiovascular Hx: HTN and Other (MURMUR, AORTIC THROMBOEMBOLISM) Lung Disease HX: Asthma, DVT/PE and Other Endocrine Hx: Diabetes and Other (THYROID NODULE) Musculoskeletal Hx: Arthritis (ERROSIVE) Blood Disorder Hx: Anemia and Hyperlipidemia GI Hx: Hemorrhoids Neurological Hx: Stroke/TIA Cancer HX: No Psych. Illness/Depression: Yes (DEPRESSION) Coding Level of Care Code Est Patient Level 1 Diagnoses Current use of anticoagulant therapy Z79.01 Assessment & Plan Assessment & Plan (1) Current use of anticoagulant therapy: Code(s): Z79.01 - superintendent container terminal (current) use of anticoagulants Category: Medical
[2023-05-25 13:23] LABS: Prothrombin Time Whole Bld POC 31.4 sec (11.1-13.5); ~PT, ~INR - Anti Coag Clinic 2.6 (0.9-1.1)
== END 2023-05-25 14:18 | disposition home or self-care (01) ==
LOC: HO.ACS 13:00
PROVIDERS: PCP Nurse Practitioner Family; Visit Provider Internal Medicine
DX: Z79.01 Long term (current) use of anticoagulants (principal)

== ENCOUNTER → 2023-05-25 13:00 | Outpatient (BNVA) | payer MEDICARE, SELFPAY | PROVIDERS: PCP Nurse Practitioner Family; Visit Provider Internal Medicine | DX: I74.10 Embolism and thrombosis of unspecified parts of aorta (principal); Z79.01 Long term (current) use of anticoagulants; Z51.81 Encounter for therapeutic drug level monitoring | CPT/HCPCS: 85610; 99211 ==

== ENCOUNTER 2023-06-08 13:14 | Outpatient (AMB) | payer MEDICARE, SELFPAY ==
[2023-06-08 13:26] LABS: Prothrombin Time Whole Bld POC 33.2 sec (11.1-13.5); ~PT, ~INR - Anti Coag Clinic 2.8 (0.9-1.1)
--- NOTE | 2023-06-08 13:32 | MHC.OFFVISCO ---
Intake Intake Visit Reasons: Anticoagulation Allergies Seasonal Allergies Allergy (Intermediate, Verified 06/08/23 13:21) Cough zolpidem [From Ambien] Adverse Reaction (Severe, Verified 06/08/23 13:21) Hallucinations Medication List - Last Reconciled 06/08/23 by Sonali Rm RN albuterol sulfate 90 mcg/actuation 2 puffs PO Q4-6H PRN amlodipine 10 mg PO DAILY ascorbic acid (vitamin C) 500 mg PO DAILY aspirin (Adult Low Dose Aspirin) 81 mg PO DAILY atorvastatin 80 mg PO DAILY blood sugar diagnostic (nPario Verio test strips) USE TO CHECK BLOOD SUGARS TWICE DAILY buspirone 15 mg PO BID 30 days ferrous sulfate 325 mg PO DAILY flash glucose scanning reader ([employer] Samantha 2 [place]) As directed flash glucose sensor (Danotek Motion TechnologiesStyle Samantha 2 Sensor kit) As directed fluoxetine TAKE 3 CAPSULES BY MOUTH EVERY DAY fluticasone propionate 44 mcg/actuation 2 puffs inhalation BID furosemide 20 mg PO DAILY inhalational spacing device (Aerochamber Plus Z Stat spacer) As directed lancets (nPario Delica Lancets) As directed levothyroxine 50 mcg PO DAILY metformin ER 1,000 mg (2 x 500 mg) PO BID omeprazole 40 mg (2 x 20 mg) PO DAILY pen needle, diabetic (BD Liv 2nd Gen Pen Needle) As directed semaglutide (Ozempic) 1 mg (0.75 mL) subcut QWEEK 30 days valsartan-hydrochlorothiazide 320-25 mg 1 tab PO DAILY warfarin 5 - 7.5 mg See Protocol PO DAILY Nursing Note NO CP,SOB,DIET/MED CHANGES,FALLS OR SX OF BLEEDING. CONTINUE PRESENT DOSE AND FOLLOW-UP IN 4 WEEKS. GOOD UNDERSTANDING OF DOSING INSTR. Anti-Coag Initial Assessment Social Hx Patient Tobacco Use Status: Never used Tobacco alcohol intake: never Alcohol intake frequency: does not drink Cardiovascular Hx: HTN and Other (MURMUR, AORTIC THROMBOEMBOLISM) Lung Disease HX: Asthma, DVT/PE and Other Endocrine Hx: Diabetes and Other (THYROID NODULE) Musculoskeletal Hx: Arthritis (ERROSIVE) Blood Disorder Hx: Anemia and Hyperlipidemia GI Hx: Hemorrhoids Neurological Hx: Stroke/TIA Cancer HX: No Psych. Illness/Depression: Yes (DEPRESSION) Coding Level of Care Code Est Patient Level 1 Diagnoses Current use of anticoagulant therapy Z79.01 Assessment & Plan Assessment & Plan (1) Current use of anticoagulant therapy: Code(s): Z79.01 - quality improvement coordinator (current) use of anticoagulants Category: Medical
== END 2023-06-08 13:33 | disposition home or self-care (01) ==
LOC: HO.ACS 13:14
PROVIDERS: PCP Nurse Practitioner Family; Visit Provider Internal Medicine
DX: Z79.01 Long term (current) use of anticoagulants (principal)

== ENCOUNTER → 2023-06-08 13:14 | Outpatient (BNVA) | payer MEDICARE, SELFPAY | PROVIDERS: PCP Nurse Practitioner Family; Visit Provider Internal Medicine | DX: I74.10 Embolism and thrombosis of unspecified parts of aorta (principal); Z79.01 Long term (current) use of anticoagulants; Z51.81 Encounter for therapeutic drug level monitoring | CPT/HCPCS: 85610; 99211 ==

== ENCOUNTER → 2023-06-21 13:34 | Outpatient (REF) | payer MEDICARE, SELFPAY ==
--- NOTE | 2023-06-21 13:37 | CA_ITS ---
Transthoracic Echocardiogram Patient (Last, First, Middle): Carmelita Whitaker, Gender: Female Date of : 1950 Age: 73 Procedure Date: 06/21/2023 Procedure Type: Transthoracic Echocardiogram Location: OP Height: 165.1 cm Weight: 77.11 kg BSA: 1.85 m2 Heart Rate: bpm BP: 116 / 60 mmHg Kitchen Operator: Referring MD: Alexander Troncoso MD Symptoms: I35.0 - Nonrheumatic aortic (valve) stenosis Study Quality: Adequate ECG Rhythm: Sinus Conclusions: - The left ventricular systolic function is normal. The calculated ejection fraction is 65% by biplane method. - There is mildly increased left ventricular wall thickness. - There is moderate aortic valve stenosis. Findings Left Ventricle Normal left ventricular cavity size. There is mildly increased left ventricular wall thickness. The left ventricular systolic function is normal. The calculated ejection fraction is 65% by biplane method. There is no evidence of regional wall motion abnormalities. Evidence suggests grade I (mild) diastolic dysfunction. Right Ventricle Normal right ventricular cavity size and systolic function. Atria Both atria are normal in size. Aortic Valve There is moderate calcification of the aortic valve. There is moderate aortic valve stenosis. The peak aortic velocity is 3.38 m/s with a calculated peak gradient of 46 mmHg. The mean gradient is 24 mmHg. The aortic valve area is 1.18 cm2. There is no aortic valve regurgitation. Mitral Valve There is mild mitral annular calcification. There is trace mitral valve regurgitation. There is no mitral valve stenosis. Pulmonic Valve The pulmonic valve is likely normal. Tricuspid Valve Normal tricuspid valve structure. There is trace tricuspid valve regurgitation. There is no evidence of pulmonary hypertension. Great Vessels The asc aorta is normal in size. Venous The inferior vena cava was not well visualized. The inferior vena cava is normal in size. Pericardium/Pleural There is no evidence of pericardial effusion. Prior Study Comparison No significant change compared to prior study dated: 11/17/2022. Measurements 2D Linear Measurements IVSd: 1.22 0.6-0.9/0.6-1.0 cm LVIDd: 2.90 3.9-5.3/4.2-5.9 cm LVIDd Index: 1.57 2.4-3.2/2.2-3.1 cm/m2 LVIDs: 1.87 2.0-3.6 cm LVPWd: 1.24 0.7-1.1 cm Ao Root: 2.50 2.1-3.5 cm LA Diam: 4.20 2.7-3.8/3.0-4.0 cm LAIDs Index: 2.27 1.5-2.3 cm/m2 LV Mass: 134.79 67-162/88-224 g LV Mass Index: 72.86 43-95/49-115 g/m2 LVOT Diam: 2.00 3.0+(-)1.3 cm 2D Systolic Function EF 4C: 60.20 >55% EF 2C: 66.90 >55% EF BiP: 64.90 >55% Mitral Valve MV VTI: 0.33 MV Pk Souleymane: 1.51 MV Mn Souleymane: 0.83 MV Pk Grad: 9.00 MV Mn Grad: 3.00 MV Pk E: 0.75 MV PK A: 1.34 MV Decel Time: 190.00 E/A: 0.60 E'Lateral: 3.48 E'Medial: 3.37 E/E' Med: 22.30 E/E' Lat: 21.60 PHT: 56.00 MVA PHT: 3.93 MVA Continuity: 2.51 Decel [place]: 3.95 Aortic Valve AoV Pk Soule[place]ane: 3.38 AoV Mn Souleymane: 2.22 AoV VTI: 0.71 AoV Pk Grad: 46.00 Aov Mn Grad: 24.00 LEODAN Cont.VTI: 1.18 LVOT LVOT Pk Souleymane: 1.13 LVOT Mn Souleymane: 0.77 LVOT VTI: 0.27 LVOT Pk Grad: 5.00 LVOT Mn Grad: 3.00 LVOT Diam: 2.00 LVOT Area: 3.14 Diastolic Function MV Pk E: 0.75 MV Pk A: 1.34 E/A: 0.60 E'Medial: 3.37 E/E' Med: 22.30 E' Laterial: 3.48 E/E' Lat: 21.60 Right Ventricle TAPSE (mm): 22.80 TVS' Souleymane: 11.50 Tricuspid Valve TR Pk Souleymane: 1.95 TR Pk Grad: 15.00 Great Vessels Aorta Ao Root-2D: 2.50 2.0-3.7 cm Ao Asc: 2.50 2.1-3.4 cm Pulmonary Valve PV Pk Souleymane: 1.56 Peak PV Grad: 10.00 Updated in Other Vendor System with Status of Final Alexander Troncoso MD electronically signed on 06/23/2023 11:06:14 AM with status of Final
== END ==
LOC: HO.CARD 13:34
PROVIDERS: PCP Nurse Practitioner Family; Visit Provider Internal Medicine
DX: I35.0 Nonrheumatic aortic (valve) stenosis (principal)
CPT/HCPCS: 93306

== ENCOUNTER → 2023-06-21 13:37 | Outpatient (BNV) | payer MEDICARE, SELFPAY | PROVIDERS: PCP Nurse Practitioner Family; Visit Provider Internal Medicine | DX: I35.0 Nonrheumatic aortic (valve) stenosis (principal) | CPT/HCPCS: 93306 ==

== ENCOUNTER 2023-07-05 16:23 | Outpatient (AMB) | payer MEDICARE, SELFPAY ==
--- NOTE | 2023-07-05 16:25 | MHC.PC.OV ---
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 Required: No Accompanied by: Self / Same As Patient Allergies Seasonal Allergies Allergy (Intermediate, Verified 07/05/23 16:35) Cough zolpidem [From Ambien] Adverse Reaction (Severe, Verified 07/05/23 16:35) Hallucinations Medication List - Last Reconciled 07/05/23 by Nisha Garcia CNP acetaminophen (Tylenol Extra Strength) 500 mg PO Q6H PRN albuterol sulfate 90 mcg/actuation 2 puffs PO Q4-6H PRN amlodipine 10 mg PO DAILY ascorbic acid (vitamin C) 500 mg PO DAILY aspirin (Adult Low Dose Aspirin) 81 mg PO DAILY atorvastatin 80 mg PO DAILY beclomethasone dipropionate 40 mcg/actuation (Qvar RediHaler) 2 inhalations inhalation BID 30 days blood sugar diagnostic ([employer] Verio test strips) USE TO CHECK BLOOD SUGARS TWICE DAILY buspirone 15 mg PO BID 30 days ferrous sulfate 325 mg PO DAILY flash glucose scanning reader ([employer] Samantha 2 [place]) As directed flash glucose sensor (FreeStyle Samantha 2 Sensor kit) As directed fluoxetine TAKE 3 CAPSULES BY MOUTH EVERY DAY furosemide 20 mg PO DAILY inhalational spacing device (Aerochamber Plus Z Stat spacer) As directed lancets ([employer] Delica Lancets) As directed levothyroxine 50 mcg PO DAILY metformin ER 1,000 mg (2 x 500 mg) PO BID omeprazole 40 mg (2 x 20 mg) PO DAILY pen needle, diabetic (BD Liv 2nd Gen Pen Needle) As directed semaglutide (Ozempic) 1 mg (0.75 mL) subcut QWEEK 30 days valsartan-hydrochlorothiazide 320-25 mg 1 tab PO DAILY warfarin 5 - 7.5 mg See Protocol PO DAILY Tobacco use date assessed: 07/05/23 Fall risk assessment: No Falls in past year Last assessed Fall Risk: 07/05/23 Dental Screening Dental Screen Date: 05/03/23 HPI HPI Comments History of Present Illness Details 73-year-old female presents with complaints of impaired left hearing, with her hearing aid, for the past 1 week. She reports crackling and sounds like geese in the left ear. No pain in the ear. She is concerned she learned from the [facility] website that she may have sensorineural hearing loss and is requesting to be evaluated by ENT. She was followed by ear, nose and throat surgeons of [facility]. Her last year exam was in 04/26/2026. She had acoustic neuroma of the right ear. [facility] Medical History Essential tremor Seasonal allergies PND (post-nasal drip) Iron deficiency Arthritis Osteoarthritis Depression Hypertension Asthma Tremors of nervous system Type II diabetes mellitus Surgical History Hx of LASIK History of esophagogastroduodenoscopy (EGD) H/O: hysterectomy History of cataract removal with insertion of prosthetic lens Hx laparoscopic cholecystectomy Family History Mother Diabetes Parkinsons Panic disorder/agoraphobia, agoraphobic avoidnc/panc attck full remssn Father Stroke Heart attack Brother Congestive heart failure Brother Stroke Other Substance abuse Social History Household Members: Family Household Members Other:: brother Both parents involved: No Caregiver staying overnight: No Housing: Other Housing Other:: mobile home Are you a primary long term care phlebotomist to a significant other at home: Yes (brother s/p CVA) Do you presently have visiting nurse or other home services: No (brother has services VNA,PT) Alcohol intake: never Patient Tobacco Use Status: Never used Tobacco e-Cigarette/Vaping Use: Never Used Second Hand Smoke Exposure: No service: No Current occupational status: retired Current occupational exposures/hazards: Yes Cognitive needs: No Hearing needs: Yes Vision needs: No Questionnaire Thrive Questionnaire Date Thrive assessed: 10/15/22 SUSHANT-7 AMB Questionnaire SUSHANT-7 Date SUSHANT - 7 assessed: 05/03/23 Source: Developed by Drs. Meir Zarate, Elba Comer, Ethan Little and colleagues, with an educational leeanne from [employer]. Review of Systems Const Details: Const Denies chills, Denies fatigue, Denies fever(s), Denies headache(s) and Denies weakness ENT Reports as per HPI Card Denies chest pain, Denies lightheadedness, Denies dyspnea and Denies other (Palpitations) Resp Denies cough, Denies dyspnea, Denies wheezing and Denies other ( shortness of breath) GI Denies abdominal pain, Denies melena, Denies hematochezia, Denies change in bowel habits, Denies dyspepsia and Denies nausea Denies hematuria and Denies dysuria Musc Denies abnormal gait, Denies myalgias, Denies arthralgias, Denies numbness and Denies tingling Skin/Breast Denies rash, Denies unusual bruising and Denies wounds Neuro Denies abnormal gait, Denies dizziness, Denies headache(s), Denies memory loss, Denies numbness, Denies Sensory deficit (Neuro), Denies tingling and Denies weakness Psych Denies anxiety, Denies depression, Denies memory loss Endo Denies cold intolerance, Denies fatigue, Denies heat intolerance, Denies polydipsia and Denies polyuria Aller/Immun Denies wheezing Physical exam (Primary Care) Tobacco/Smoking Status: Tobacco use Status Tobacco use date assessed 06/14/22 05/03/23 15:17 Patient Tobacco Use Status Never used Tobacco 06/08/23 13:33 e-Cigarette/Vaping Use Never Used 05/03/23 15:17 Thrive Assessment: Date of Thrive Assessment Date Thrive assessed 10/15/22 05/03/23 15:17 Const Other: General: no acute distress and well developed Nutritional Appearance: well nourished Orientation/consciousness: patient oriented x3 HENMT Head is normocephalic Bilateral ear canal and TM are normal Nasal turbinates and oropharynx are pink and moist Sinuses are nontender with palpation No auricular or cervical lymphadenopathy Eyes General: appearance normal, both eyes and all related structures Pupils: Equal, round and reactive pupils present EOM: EOMs intact bilaterally Resp Effort & Inspection: normal respiratory effort Auscultation: clear to auscultation bilaterally Cardio Rate: regular rate Rhythm: regular rhythm Heart sounds: S1 normal heart sound present, S2 normal heart sound present, no gallops, no murmurs and no rubs GI Palpation (GI): No Abdominal aortic bruit present, Soft to palpation, nontender, No hepatosplenomegaly present and No Rebound tenderness present Auscultation: normal bowel sounds General: Yes no CVA tenderness Back/Spine/Pelvis Back: no CVA tenderness Cervical Spine: cervical ROM normal and No Cervical spine tenderness Thoracic/Lumbar Spine: thoraco-lumbar ROM normal, No pain with thoraco-lumbar ROM, No thoracic spinal tenderness and No lumbar spinal tenderness Extrem General: Yes normal to inspection, No edema and No calf tenderness Skin General: warm and dry. Normal skin color. Normal skin turgor Neuro General: patient oriented x3, gait normal and no focal neuro deficit Cranial nerves: Yes Equal, round and reactive pupils present Cognition (Neuro): normal cognition Gait exam (Neuro): Normal gait present Sensory Exam: No Sensory deficit (Neuro) Psych Appearance: grossly normal Affect: normal affect Attitude: cooperative Thought process: Normal thought process present Assessment and Plan Assessment & Plan (1) Left ear hearing loss: Code(s): H91.92 - Unspecified hearing loss, left ear Plan: Left hearing loss Bilateral ear canal and TM are normal Referred to ENT Follow-up with worsening or new symptoms Verbalized understanding and agreed with treatment plan Orders: Referrals Ear/Nose/Throat Referral H91.92 - Unspecified hearing loss, left ear Coding Level of Care Code Est Pt Level 3 (75163) Diagnoses Left ear hearing loss H91.92
[2023-07-05 16:26] VITALS: BP 134/74; PULSE 105; RESP 14; TEMP 36.6; O2SAT 98; BMI 28.7
== END 2023-07-05 17:01 | disposition home or self-care (01) ==
PROVIDERS: PCP Nurse Practitioner Family; Visit Provider Nurse Practitioner Family
DX: H91.92 Unspecified hearing loss, left ear (principal)
CPT/HCPCS: 99213

== ENCOUNTER 2023-07-06 13:02 | Outpatient (AMB) | payer MEDICARE, SELFPAY ==
[2023-07-06 13:14] LABS: Prothrombin Time Whole Bld POC 70.4 sec (11.1-13.5); ~PT, ~INR - Anti Coag Clinic 5.9 (0.9-1.1)
--- NOTE | 2023-07-06 13:25 | MHC.OFFVISCO ---
Intake Intake Visit Reasons: Anticoagulation Allergies Seasonal Allergies Allergy (Intermediate, Verified 07/06/23 13:09) Cough zolpidem [From Ambien] Adverse Reaction (Severe, Verified 07/06/23 13:09) Hallucinations Medication List - Last Reconciled 07/06/23 by Sonali Rm RN acetaminophen (Tylenol Extra Strength) 500 mg PO Q6H PRN albuterol sulfate 90 mcg/actuation 2 puffs PO Q4-6H PRN amlodipine 10 mg PO DAILY ascorbic acid (vitamin C) 500 mg PO DAILY aspirin (Adult Low Dose Aspirin) 81 mg PO DAILY atorvastatin 80 mg PO DAILY beclomethasone dipropionate 40 mcg/actuation (Qvar RediHaler) 2 inhalations inhalation BID 30 days blood sugar diagnostic ([employer] Interactive Verio test strips) USE TO CHECK BLOOD SUGARS TWICE DAILY buspirone 15 mg PO BID 30 days ferrous sulfate 325 mg PO DAILY flash glucose scanning reader ([employer]Style Samantha 2 [place]) As directed flash glucose sensor (FreeStyle Samantha 2 Sensor kit) As directed fluoxetine TAKE 3 CAPSULES BY MOUTH EVERY DAY furosemide 20 mg PO DAILY inhalational spacing device (Aerochamber Plus Z Stat spacer) As directed lancets ([employer] Interactive Delica Lancets) As directed levothyroxine 50 mcg PO DAILY metformin ER 1,000 mg (2 x 500 mg) PO BID omeprazole 40 mg (2 x 20 mg) PO DAILY pen needle, diabetic (BD Liv 2nd Gen Pen Needle) As directed semaglutide (Ozempic) 1 mg (0.75 mL) subcut QWEEK 30 days valsartan-hydrochlorothiazide 320-25 mg 1 tab PO DAILY warfarin 5 - 7.5 mg See Protocol PO DAILY Nursing Note TO LAB FOR VENIPUNCTURE AFTER INR OF 5.9 IN [facility]. LAB INR= 5.5.([facility]) PT.HAS BEEN TAKING LARGER AMTS OF TYLENOL FOR LEG PAIN AND HAS SIGNIFICANT INCREASED STRESS WITH HOME SITUATIONS. APPETITE AND FLUID INTAKE LESS THAN DESIRABLE WELL. SHE HAS HAD NO CP,SOB OR SX OF BLEEDING. HOLD WARFARIN 2 DAYS AND RECHECK HERE ON 07/07. BLEEDING RISKS DISCUSSED WITH PT AND GOOD UNDERSTANDING VERB. INR AND PLAN OF CARE REPORTED TO PCP(ASTER) AT 4PM ALSO MESSAGE IN EMR TO PROVIDER Anti-Coag Initial Assessment Social Hx Patient Tobacco Use Status: Never used Tobacco alcohol intake: never Alcohol intake frequency: does not drink Cardiovascular Hx: HTN and Other (MURMUR, AORTIC THROMBOEMBOLISM) Lung Disease HX: Asthma, DVT/PE and Other Endocrine Hx: Diabetes and Other (THYROID NODULE) Musculoskeletal Hx: Arthritis (ERROSIVE) Blood Disorder Hx: Anemia and Hyperlipidemia GI Hx: Hemorrhoids Neurological Hx: Stroke/TIA Cancer HX: No Psych. Illness/Depression: Yes (DEPRESSION) Coding Level of Care Code Est Patient Level 2 Diagnoses Current use of anticoagulant therapy Z79.01 Assessment & Plan Assessment & Plan (1) Current use of anticoagulant therapy: Code(s): Z79.01 - terminal manager (current) use of anticoagulants Category: Medical Orders: Orders Prothrombin Time INR Today Z79.01 - terminal manager (current) use of anticoagulants
== END 2023-07-06 16:25 | disposition home or self-care (01) ==
LOC: HO.ACS 13:02
PROVIDERS: PCP Nurse Practitioner Family; Visit Provider Internal Medicine
DX: Z79.01 Long term (current) use of anticoagulants (principal)

== ENCOUNTER 2023-07-06 13:02 | Outpatient (REF) | payer MEDICARE, SELFPAY ==
[2023-07-06 13:57] LABS: INTERNATIONAL NORM RATIO 5.5 (0.9-1.1)
== END 2023-07-06 13:03 | disposition home or self-care (01) ==
LOC: HO.LAB 13:02
PROVIDERS: PCP Nurse Practitioner Family; Visit Provider Internal Medicine
DX: I74.10 Embolism and thrombosis of unspecified parts of aorta (principal); Z51.81 Encounter for therapeutic drug level monitoring; Z79.01 Long term (current) use of anticoagulants
CPT/HCPCS: 36415; 85610; 99212

== ENCOUNTER 2023-07-08 14:01 | Outpatient (AMB) | payer MEDICARE, SELFPAY ==
--- NOTE | 2023-07-08 14:22 | MHC.OFFVISCO ---
Intake Intake Visit Reasons: Anticoagulation Allergies Seasonal Allergies Allergy (Intermediate, Verified 07/08/23 14:16) Cough zolpidem [From Ambien] Adverse Reaction (Severe, Verified 07/08/23 14:16) Hallucinations Medication List - Last Reconciled 07/08/23 by Lorelei Dugan RN acetaminophen (Tylenol Extra Strength) 500 mg PO Q6H PRN albuterol sulfate 90 mcg/actuation 2 puffs PO Q4-6H PRN amlodipine 10 mg PO DAILY ascorbic acid (vitamin C) 500 mg PO DAILY aspirin (Adult Low Dose Aspirin) 81 mg PO DAILY atorvastatin 80 mg PO DAILY beclomethasone dipropionate 40 mcg/actuation (Qvar RediHaler) 2 inhalations inhalation BID 30 days blood sugar diagnostic (Fire[employer] Verio test strips) USE TO CHECK BLOOD SUGARS TWICE DAILY buspirone 15 mg PO BID 30 days buspirone 7.5 mg PO BID ferrous sulfate 325 mg PO DAILY flash glucose scanning reader ([employer] Samantha 2 [place]) As directed flash glucose sensor (Polar OLEDStyle Samantha 2 Sensor kit) As directed fluoxetine TAKE 3 CAPSULES BY MOUTH EVERY DAY furosemide 20 mg PO DAILY inhalational spacing device (Aerochamber Plus Z Stat spacer) As directed lancets ([employer] Delica Lancets) As directed levothyroxine 50 mcg PO DAILY metformin ER 1,000 mg (2 x 500 mg) PO BID omeprazole 40 mg (2 x 20 mg) PO DAILY pen needle, diabetic (BD Liv 2nd Gen Pen Needle) As directed semaglutide (Ozempic) 1 mg (0.75 mL) subcut QWEEK 30 days valsartan-hydrochlorothiazide 320-25 mg 1 tab PO DAILY warfarin 5 - 7.5 mg See Protocol PO DAILY Nursing Note INR - may have been elevated from stress, tylenol and ozempic. Has lost about 3-4 lbs, blood sugars are better INR 1.9? out of therapeutic range Medications and supplements reviewed Patient status: no bleeding or bruising Medications or supplements: ozempoc started end of May, taking tyelnol bid for her chronic leg pain Diet:appetite is good, ate peas, has a decreased appetite with ozempic Denies any signs and symptoms of bleeding or clotting or unusual bruising Bleeding, bruising, clotting discussed Nutritional guidance given: keep eating a mix of fruits and vegetables Dose: 7,5mg today and tomorrow then next week 5mg x 3 days ( SUN TUE THUR ? if sat needed) then 7.5mg 3 or 4 days per INR next week F/U INR Date : 1 week ? Patient verbalizing understanding of instructions given. Anti-Coag Initial Assessment Social Hx Patient Tobacco Use Status: Never used Tobacco alcohol intake: never Alcohol intake frequency: does not drink Cardiovascular Hx: HTN and Other (MURMUR, AORTIC THROMBOEMBOLISM) Lung Disease HX: Asthma, DVT/PE and Other Endocrine Hx: Diabetes and Other (THYROID NODULE) Musculoskeletal Hx: Arthritis (ERROSIVE) Blood Disorder Hx: Anemia and Hyperlipidemia GI Hx: Hemorrhoids Neurological Hx: Stroke/TIA Cancer HX: No Psych. Illness/Depression: Yes (DEPRESSION) Coding Level of Care Code Est Patient Level 1 Diagnoses Current use of anticoagulant therapy Z79.01 Results AMB INR Fingerstick AMB INR Fingerstick 1.9 Last Edit by Lorelei Dugan RN on 07/08/23 14:28 manual entry Assessment & Plan Assessment & Plan (1) Current use of anticoagulant therapy: Code(s): Z79.01 - retirement (current) use of anticoagulants Category: Medical
[2023-07-08 14:23] LABS: Prothrombin Time Whole Bld POC 23.1 sec (11.1-13.5); ~PT, ~INR - Anti Coag Clinic 1.9 (0.9-1.1)
== END 2023-07-08 14:41 | disposition home or self-care (01) ==
LOC: HO.ACS 14:01
PROVIDERS: PCP Nurse Practitioner Family; Visit Provider Internal Medicine
DX: Z79.01 Long term (current) use of anticoagulants (principal)

== ENCOUNTER → 2023-07-08 14:01 | Outpatient (BNVA) | payer MEDICARE, SELFPAY | PROVIDERS: PCP Nurse Practitioner Family; Visit Provider Internal Medicine | DX: I74.10 Embolism and thrombosis of unspecified parts of aorta (principal); Z79.01 Long term (current) use of anticoagulants; Z51.81 Encounter for therapeutic drug level monitoring | CPT/HCPCS: 85610; 99211 ==

== ENCOUNTER 2023-07-15 13:46 | Outpatient (AMB) | payer MEDICARE, SELFPAY ==
[2023-07-15 14:05] LABS: Prothrombin Time Whole Bld POC 28.3 sec (11.1-13.5); ~PT, ~INR - Anti Coag Clinic 2.4 (0.9-1.1)
--- NOTE | 2023-07-15 14:13 | MHC.OFFVISCO ---
Intake Intake Visit Reasons: Anticoagulation Allergies Seasonal Allergies Allergy (Intermediate, Verified 07/15/23 13:59) Cough zolpidem [From Ambien] Adverse Reaction (Severe, Verified 07/15/23 13:59) Hallucinations Medication List - Last Reconciled 07/15/23 by Lorelei Dugan RN acetaminophen (Tylenol Extra Strength) 500 mg PO Q6H PRN albuterol sulfate 90 mcg/actuation 2 puffs PO Q4-6H PRN amlodipine 10 mg PO DAILY ascorbic acid (vitamin C) 500 mg PO DAILY aspirin (Adult Low Dose Aspirin) 81 mg PO DAILY atorvastatin 80 mg PO DAILY beclomethasone dipropionate 40 mcg/actuation (Qvar RediHaler) 2 inhalations inhalation BID 30 days blood sugar diagnostic (avolution Verio test strips) USE TO CHECK BLOOD SUGARS TWICE DAILY buspirone 15 mg PO BID 30 days buspirone 7.5 mg PO BID ferrous sulfate 325 mg PO DAILY flash glucose scanning reader (Shoulder TapStNayatek Samantha 2 [place]) As directed flash glucose sensor (Shoulder TapStyle Samantha 2 Sensor kit) As directed fluoxetine TAKE 3 CAPSULES BY MOUTH EVERY DAY furosemide 20 mg PO DAILY inhalational spacing device (Aerochamber Plus Z Stat spacer) As directed lancets (avolution Delica Lancets) As directed levothyroxine 50 mcg PO DAILY metformin ER 1,000 mg (2 x 500 mg) PO BID omeprazole 40 mg (2 x 20 mg) PO DAILY pen needle, diabetic (BD Liv 2nd Gen Pen Needle) As directed semaglutide (Ozempic) 1 mg (0.75 mL) subcut QWEEK 30 days valsartan-hydrochlorothiazide 320-25 mg 1 tab PO DAILY warfarin 5 - 7.5 mg See Protocol PO DAILY Nursing Note INR: 2.5 in therapeutic range- COVID 02/2023 Medications and supplements reviewed- SHE HAS BEEN ON OZEMPIC ANDTYLENOL FOR HER LEG PAIN No changes in health, diet, or supplements, Denies any signs and symptoms of bleeding or bruising or clotting. Bleeding, bruising, clotting discussed Nutritional guidance given - EAT A MIX OF FRUITS AND VEGETABLES Dose: 7.5MG X 3 DAYS/ 5MG X 4 DAYS F/U INR: 2 WEEKS Patient verbalizes understanding of instructions given Anti-Coag Initial Assessment Social Hx Patient Tobacco Use Status: Never used Tobacco alcohol intake: never Alcohol intake frequency: does not drink Cardiovascular Hx: HTN and Other (MURMUR, AORTIC THROMBOEMBOLISM) Lung Disease HX: Asthma, DVT/PE and Other Endocrine Hx: Diabetes and Other (THYROID NODULE) Musculoskeletal Hx: Arthritis (ERROSIVE) Blood Disorder Hx: Anemia and Hyperlipidemia GI Hx: Hemorrhoids Neurological Hx: Stroke/TIA Cancer HX: No Psych. Illness/Depression: Yes (DEPRESSION) Coding Level of Care Code Est Patient Level 1 Diagnoses Current use of anticoagulant therapy Z79.01 Results AMB INR Fingerstick AMB INR Fingerstick 2.5 Last Edit by Lorelei Dugan RN on 07/15/23 14:09 MANUAL ENTRY Assessment & Plan Assessment & Plan (1) Current use of anticoagulant therapy: Code(s): Z79.01 - retirement (current) use of anticoagulants Category: Medical
== END 2023-07-15 14:18 | disposition home or self-care (01) ==
LOC: HO.ACS 13:46
PROVIDERS: PCP Nurse Practitioner Family; Visit Provider Internal Medicine
DX: Z79.01 Long term (current) use of anticoagulants (principal)

== ENCOUNTER → 2023-07-15 13:46 | Outpatient (BNVA) | payer MEDICARE, SELFPAY | PROVIDERS: PCP Nurse Practitioner Family; Visit Provider Internal Medicine | DX: I74.10 Embolism and thrombosis of unspecified parts of aorta (principal); Z79.01 Long term (current) use of anticoagulants; Z51.81 Encounter for therapeutic drug level monitoring | CPT/HCPCS: 85610; 99211 ==

== ENCOUNTER 2023-07-29 14:02 | Outpatient (AMB) | payer MEDICARE, SELFPAY ==
[2023-07-29 14:21] LABS: Prothrombin Time Whole Bld POC 49.7 sec (11.1-13.5); ~PT, ~INR - Anti Coag Clinic 4.1 (0.9-1.1)
--- NOTE | 2023-07-29 14:24 | MHC.OFFVISCO ---
Intake Intake Visit Reasons: Anticoagulation Allergies Seasonal Allergies Allergy (Intermediate, Verified 07/29/23 14:14) Cough zolpidem [From Ambien] Adverse Reaction (Severe, Verified 07/29/23 14:14) Hallucinations Medication List - Last Reconciled 07/29/23 by Greta Smith RN acetaminophen (Tylenol Extra Strength) 500 mg PO Q6H PRN albuterol sulfate 90 mcg/actuation 2 puffs PO Q4-6H PRN amlodipine 10 mg PO DAILY ascorbic acid (vitamin C) 500 mg PO DAILY aspirin (Adult Low Dose Aspirin) 81 mg PO DAILY atorvastatin 80 mg PO DAILY beclomethasone dipropionate 40 mcg/actuation (Qvar RediHaler) 2 inhalations inhalation BID 30 days blood sugar diagnostic ([employer] Verio test strips) USE TO CHECK BLOOD SUGARS TWICE DAILY buspirone 15 mg PO BID 30 days buspirone 7.5 mg PO BID ferrous sulfate 325 mg PO DAILY flash glucose scanning reader (Qlik[employer]StPath.To Samantha 2 [place]) As directed flash glucose sensor (QlikTechStyle Samantha 2 Sensor kit) As directed fluoxetine TAKE 3 CAPSULES BY MOUTH EVERY DAY furosemide 20 mg PO DAILY inhalational spacing device (Aerochamber Plus Z Stat spacer) As directed lancets ([employer] Delica Lancets) As directed levothyroxine 50 mcg PO DAILY metformin ER 1,000 mg (2 x 500 mg) PO BID omeprazole 40 mg (2 x 20 mg) PO DAILY pen needle, diabetic (BD Liv 2nd Gen Pen Needle) As directed semaglutide (Ozempic) 1 mg (0.75 mL) subcut QWEEK 30 days valsartan-hydrochlorothiazide 320-25 mg 1 tab PO DAILY warfarin 5 - 7.5 mg See Protocol PO DAILY Nursing Note INR 4.1-? 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 Patient verbalizing understanding of instructions given. pt with cardiology appt next week and may req doac, composed note to dr medina that pt is questioning a doac Anti-Coag Initial Assessment Social Hx Patient Tobacco Use Status: Never used Tobacco alcohol intake: never Alcohol intake frequency: does not drink Cardiovascular Hx: HTN and Other (MURMUR, AORTIC THROMBOEMBOLISM) Lung Disease HX: Asthma, DVT/PE and Other Endocrine Hx: Diabetes and Other (THYROID NODULE) Musculoskeletal Hx: Arthritis (ERROSIVE) Blood Disorder Hx: Anemia and Hyperlipidemia GI Hx: Hemorrhoids Neurological Hx: Stroke/TIA Cancer HX: No Psych. 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
== END 2023-07-29 14:44 | disposition home or self-care (01) ==
LOC: HO.ACS 14:02
PROVIDERS: PCP Nurse Practitioner Family; Visit Provider Internal Medicine
DX: Z79.01 Long term (current) use of anticoagulants (principal)

== ENCOUNTER → 2023-07-29 14:02 | Outpatient (BNVA) | payer MEDICARE, SELFPAY | PROVIDERS: PCP Nurse Practitioner Family; Visit Provider Internal Medicine | DX: I74.10 Embolism and thrombosis of unspecified parts of aorta (principal); Z51.81 Encounter for therapeutic drug level monitoring; Z79.01 Long term (current) use of anticoagulants | CPT/HCPCS: 85610; 99211 ==

== ENCOUNTER 2023-08-02 14:00 | Outpatient (AMB) | payer MEDICARE, SELFPAY ==
--- NOTE | 2023-08-02 14:01 | A.OFFVIS_ITS ---
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 Required: No Accompanied by: Self / Same As Patient Allergies Seasonal Allergies Allergy (Intermediate, Verified 07/29/23 14:14) Cough zolpidem [From Ambien] Adverse Reaction (Severe, Verified 07/29/23 14:14) Hallucinations Medication List - Last Reconciled 08/02/23 by Alexander Troncoso MD acetaminophen (Tylenol Extra Strength) 500 mg PO Q6H PRN albuterol sulfate 90 mcg/actuation 2 puffs PO Q4-6H PRN amlodipine 10 mg PO DAILY ascorbic acid (vitamin C) 500 mg PO DAILY aspirin (Adult Low Dose Aspirin) 81 mg PO DAILY atorvastatin 80 mg PO DAILY beclomethasone dipropionate 40 mcg/actuation (Qvar RediHaler) 2 inhalations inhalation BID 30 days blood sugar diagnostic ([employer] Verio test strips) USE TO CHECK BLOOD SUGARS TWICE DAILY buspirone 7.5 mg PO BID ferrous sulfate 325 mg PO DAILY flash glucose scanning reader (Gammastar Medical GroupStyle Samantha 2 [place]) As directed flash glucose sensor (FreeStyle Samantha 2 Sensor kit) As directed fluoxetine TAKE 3 CAPSULES BY MOUTH EVERY DAY furosemide 20 mg PO DAILY inhalational spacing device (Aerochamber Plus Z Stat spacer) As directed lancets ([employer] Delica Lancets) As directed levothyroxine 50 mcg PO DAILY metformin ER 1,000 mg (2 x 500 mg) PO BID omeprazole 40 mg (2 x 20 mg) PO DAILY pen needle, diabetic (BD Liv 2nd Gen Pen Needle) As directed semaglutide (Ozempic) 1 mg (0.75 mL) subcut QWEEK 30 days valsartan-hydrochlorothiazide 320-25 mg 1 tab PO DAILY warfarin 5 - 7.5 mg See Protocol PO DAILY HPI Comments Details: Carmelita returns for follow-up. Previously seemed at [facility] but has switched to us. 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 More recently, having labile INRs and hence she would like to switch to Eliquis. Otherwise, from a cardiac, no specific symptoms. She did have a syncopal episode in the past but nothing recurrent. Otherwise, no specific cardiac symptoms. [facility] Medical History Essential tremor Seasonal allergies PND (post-nasal drip) Iron deficiency Arthritis Osteoarthritis Depression Hypertension Asthma Tremors of nervous system Type II diabetes mellitus Surgical History Hx of LASIK History of esophagogastroduodenoscopy (EGD) H/O: hysterectomy History of cataract removal with insertion of prosthetic lens Hx laparoscopic cholecystectomy Family History Mother Diabetes Parkinsons Panic disorder/agoraphobia, agoraphobic avoidnc/panc attck full remssn Father Stroke Heart attack Brother Congestive heart failure Brother Stroke Other Substance abuse Social History Household Members: Family Household Members Other:: brother Both parents involved: No Caregiver staying overnight: No Housing: Other Housing Other:: mobile home Are you a primary youth care professional to a significant other at home: Yes (brother s/p CVA) Do you presently have visiting nurse or other home services: No (brother has services VNA,PT) Alcohol intake: never Patient Tobacco Use Status: Never used Tobacco e-Cigarette/Vaping Use: Never Used Second Hand Smoke Exposure: No service: No Current occupational status: retired Current occupational exposures/hazards: Yes Cognitive needs: No Hearing needs: Yes Vision needs: No Review of Systems Const Denies chills, Denies fatigue, Denies fever(s), Denies frequent falls, Denies weakness, Denies weight gain and Denies weight loss ENT Denies dizziness Card Denies chest pain, Denies leg edema, Denies lightheadedness, Denies palpitations, Denies dyspnea and Denies dyspnea on exertion Resp Denies cough, Denies dyspnea and Denies dyspnea on exertion GI Denies hematochezia Musc Denies abnormal gait, Denies muscle weakness, Denies numbness, Denies radiating pain into limb and Denies tingling Neuro Denies abnormal gait, Denies dizziness, Denies frequent falls, Denies numbness, Denies tingling and Denies weakness Endo Denies fatigue and Denies palpitations Physical Exam Vital Signs: Last Vital Signs Pulse 85 08/02/23 14:02 BP 130/80 08/02/23 14:02 BMI result Body Mass Index 28.6 Const General: comfortable and no acute distress Orientation/consciousness: patient oriented x3 HEENT Other: Unremarkable Head: Yes normal to inspection Neck Neck: Yes normal visual inspection Chest Chest palpation & inspection: normal inspection of the chest Resp Auscultation: clear to auscultation bilaterally Cardio Palpation: normal PMI Heart sounds: S1 normal heart sound present, S2 normal heart sound present, no gallops, Murmur heart sound present systolic III/ and at the right sternal border and no rubs GI Palpation (GI): Soft to palpation Back/Spine/Pelvis Other: unremarkable Skin General skin exam: no rashes or lesions noted Neuro General: patient oriented x3 Extrem General: Yes normal to inspection Psych Mental Status: mental status grossly normal Assessment & Plan Assessment & Plan (1) Non-rheumatic aortic stenosis: Code(s): I35.0 - Nonrheumatic aortic (valve) stenosis Category: Medical Plan: In the most recent echocardiogram, mean gradient across aortic valve was 24 mm Hg with a peak of 46 mm Hg. Calculated valve area of 1.1 sq cm. Preserved LVEF at 65%. Overall, moderate aortic stenosis. We can recheck echocardiogram in 1 year. 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 For that reason, she was apparently placed on aspirin and Coumadin. The indication is somewhat borderline but patient would like to continue without major changes. Due to labile INR, switching to Eliquis. If cost is acceptable, she will collected from the pharmacy. In that case, to inform us for advice on switching. She can also stop aspirin and just stay on Eliquis and that case. Also advised to do labs before switching. Medications: New apixaban (Eliquis) 5 mg PO BID 180 tabs 3RF 90 days Coding Level of Care Code Est Pt Level 4 (49798) Diagnoses Non-rheumatic aortic stenosis I35.0 Aortic thromboembolism I74.10
[2023-08-02 14:02] VITALS: BP 130/80; PULSE 85; BMI 28.6
== END 2023-08-02 14:21 | disposition home or self-care (01) ==
PROVIDERS: PCP Nurse Practitioner Family; Visit Provider Internal Medicine
DX: I35.0 Nonrheumatic aortic (valve) stenosis (principal); I74.10 Embolism and thrombosis of unspecified parts of aorta
CPT/HCPCS: 99214

== ENCOUNTER → 2023-08-02 14:00 | Outpatient (BNVA) | payer MEDICARE, SELFPAY | PROVIDERS: PCP Nurse Practitioner Family; Visit Provider Internal Medicine | DX: I35.0 Nonrheumatic aortic (valve) stenosis (principal); I74.10 Embolism and thrombosis of unspecified parts of aorta | CPT/HCPCS: 99212 ==

== ENCOUNTER 2023-08-04 13:06 | Outpatient (AMB) | payer MEDICARE, SELFPAY ==
[2023-08-04 13:18] LABS: Prothrombin Time Whole Bld POC 32.3 sec (11.1-13.5); ~PT, ~INR - Anti Coag Clinic 2.7 (0.9-1.1)
--- NOTE | 2023-08-04 13:28 | MHC.OFFVISCO ---
Intake Intake Visit Reasons: Anticoagulation Allergies Seasonal Allergies Allergy (Intermediate, Verified 08/04/23 13:12) Cough zolpidem [From Ambien] Adverse Reaction (Severe, Verified 08/04/23 13:12) Hallucinations Medication List - Last Reconciled 08/04/23 by Sonali Rm, RN acetaminophen (Tylenol Extra Strength) 500 mg PO Q6H PRN albuterol sulfate 90 mcg/actuation 2 puffs PO Q4-6H PRN amlodipine 10 mg PO DAILY apixaban (Eliquis) 5 mg PO BID 90 days ascorbic acid (vitamin C) 500 mg PO DAILY aspirin (Adult Low Dose Aspirin) 81 mg PO DAILY atorvastatin 80 mg PO DAILY beclomethasone dipropionate 40 mcg/actuation (Qvar RediHaler) 2 inhalations inhalation BID 30 days blood sugar diagnostic ([place] Verio test strips) USE TO CHECK BLOOD SUGARS TWICE DAILY buspirone 7.5 mg PO BID ferrous sulfate 325 mg PO DAILY flash glucose scanning reader ([employer] Samantha 2 [place]) As directed flash glucose sensor (ProU[employer]Care MedicalStyle Samantha 2 Sensor kit) As directed fluoxetine TAKE 3 CAPSULES BY MOUTH EVERY DAY furosemide 20 mg PO DAILY inhalational spacing device (Aerochamber Plus Z Stat spacer) As directed lancets ([place] Delica Lancets) As directed levothyroxine 50 mcg PO DAILY metformin ER 1,000 mg (2 x 500 mg) PO BID omeprazole 40 mg (2 x 20 mg) PO DAILY pen needle, diabetic (BD Liv 2nd Gen Pen Needle) As directed semaglutide (Ozempic) 1 mg (0.75 mL) subcut QWEEK 30 days valsartan-hydrochlorothiazide 320-25 mg 1 tab PO DAILY warfarin 5 - 7.5 mg See Protocol PO DAILY Nursing Note PT.STATES THAT SHE WILL BE SWITCHING TO ELOQUIS SOON. TO VIDEOTAPE EDITOR SCRIPT TODAY, AND HOLD UNTIL OK WITH . TO HAVE LABS AND MD APPT. PRIOR TO STARTING ELOQUIS. APPT.HERE ON 08/17, BUT PT.TO CALL IF SOONER APPT.NEEDED. IN MEANTIME WILL CONTINUE PRESENT WARFARIN DOSE AND FOLLOW-UP ON 08/17. PT.DENIES ANY CP,SOB OR SX OF BLEEDING. GOOD UNDERSTANDING OF INSTR.VERB. PT.AGREES TO CALL [facility] IF ANY QUESTIONS/CONCERNS ARISE. Anti-Coag Initial Assessment Social Hx Patient Tobacco Use Status: Never used Tobacco alcohol intake: never Alcohol intake frequency: does not drink Cardiovascular Hx: HTN and Other Lung Disease HX: Asthma, DVT/PE and Other Endocrine Hx: Diabetes and Other Musculoskeletal Hx: Arthritis Blood Disorder Hx: Anemia and Hyperlipidemia GI Hx: Hemorrhoids Neurological Hx: Stroke/TIA Cancer HX: No Psych. Illness/Depression: Yes (DEPRESSION) Coding Level of Care Code Est Patient Level 1 Diagnoses Current use of anticoagulant therapy Z79.01 Assessment & Plan Assessment & Plan (1) Current use of anticoagulant therapy: Code(s): Z79.01 - snf (current) use of anticoagulants Category: Medical
== END 2023-08-04 13:33 | disposition home or self-care (01) ==
LOC: HO.ACS 13:06
PROVIDERS: PCP Nurse Practitioner Family; Visit Provider Internal Medicine
DX: Z79.01 Long term (current) use of anticoagulants (principal)

== ENCOUNTER → 2023-08-04 13:06 | Outpatient (BNVA) | payer MEDICARE, SELFPAY | PROVIDERS: PCP Nurse Practitioner Family; Visit Provider Internal Medicine | DX: I74.10 Embolism and thrombosis of unspecified parts of aorta (principal); Z51.81 Encounter for therapeutic drug level monitoring; Z79.01 Long term (current) use of anticoagulants | CPT/HCPCS: 85610; 99211 ==

== ENCOUNTER 2023-08-10 10:24 | Outpatient (REF) | payer MEDICARE, SELFPAY ==
[2023-08-10 12:09] LABS: Alanine Aminotransferase 15 U/L (0-31); Alkaline Phosphatase 55 U/L (39-117); Anion Gap 17 (12-20); Aspartate Amino Transferase 17 U/L (5-31); Bilirubin Total 0.4 mg/dL (0.0-1.0); Blood Urea Nitrogen 9 mg/dL (9-16); Calcium 10.4 mg/dL (8.4-10.2); Carbon Dioxide 28 mmol/L (22-29); Chloride 101 mmol/L (96-108); Cholesterol 131 mg/dL (<200); Estimated Glomerular Filt Rate > 60; Glucose Fasting 118 mg/dL (60-99); HDL Cholesterol 46 mg/dL (>40); LDL Cholesterol Calculated 68 mg/dL (<100); Potassium 3.5 mmol/L (3.3-5.1); Sodium 142 mmol/L (135-145); Total Protein 6.7 g/dL (6.5-8.0); Triglycerides 86 mg/dL (<150)
== END 2023-08-10 10:25 | disposition home or self-care (01) ==
LOC: HO.WFDLDS 10:24
PROVIDERS: Visit Provider Nurse Practitioner Family
DX: E11.9 Type 2 diabetes mellitus without complications (principal)
CPT/HCPCS: 36415; 80053; 80061

== ENCOUNTER 2023-08-15 14:02 | Outpatient (AMB) | payer MEDICARE, SELFPAY ==
--- NOTE | 2023-08-15 14:11 | MHC.OFFVISCO ---
Intake Intake Visit Reasons: Anticoagulation Allergies Seasonal Allergies Allergy (Intermediate, Verified 08/15/23 14:04) Cough zolpidem [From Ambien] Adverse Reaction (Severe, Verified 08/15/23 14:04) Hallucinations Medication List - Last Reconciled 08/15/23 by Lorelei Dugan RN acetaminophen (Tylenol Extra Strength) 500 mg PO Q6H PRN albuterol sulfate 90 mcg/actuation 2 puffs PO Q4-6H PRN amlodipine 10 mg PO DAILY apixaban (Eliquis) 5 mg PO BID 90 days ascorbic acid (vitamin C) 500 mg PO DAILY aspirin (Adult Low Dose Aspirin) 81 mg PO DAILY atorvastatin 80 mg PO DAILY beclomethasone dipropionate 40 mcg/actuation (Qvar RediHaler) 2 inhalations inhalation BID 30 days blood sugar diagnostic (XVionics Verio test strips) USE TO CHECK BLOOD SUGARS TWICE DAILY buspirone 7.5 mg PO BID buspirone 15 mg PO BID ferrous sulfate 325 mg PO DAILY flash glucose scanning reader ([employer] Samantha 2 [place]) As directed flash glucose sensor (MaxCDNStyle Samantha 2 Sensor kit) As directed fluoxetine TAKE 3 CAPSULES BY MOUTH EVERY DAY furosemide 20 mg PO DAILY inhalational spacing device (Aerochamber Plus Z Stat spacer) As directed lancets (XVionics Delica Lancets) As directed levothyroxine 50 mcg PO DAILY metformin ER 1,000 mg (2 x 500 mg) PO BID omeprazole 40 mg (2 x 20 mg) PO DAILY pen needle, diabetic (BD Liv 2nd Gen Pen Needle) As directed semaglutide (Ozempic) 1 mg (0.75 mL) subcut QWEEK 30 days valsartan-hydrochlorothiazide 320-25 mg 1 tab PO DAILY warfarin 5 - 7.5 mg See Protocol PO DAILY Nursing Note INR: 1.5 out therapeutic range was off warfarin per md to transition to Eliquis Medications and supplements reviewed No changes in health, diet, medications, or supplements, started on buspirone and md is aware of pt . Denies any signs and symptoms of bleeding or bruising or clotting. Bleeding, bruising, clotting discussed Nutritional guidance given still eat a balanced diet Dose: start eliquis per md orders today due INR below 2.0 F/U INR: only if resumes warfarin Patient verbalizes understanding of instructions given Eliquis instructions given with handouts and reviewed - pt knows to take med 12 hours apart. Anti-Coag Initial Assessment Social Hx Patient Tobacco Use Status: Never used Tobacco alcohol intake: never Alcohol intake frequency: does not drink Cardiovascular Hx: HTN and Other Lung Disease HX: Asthma, DVT/PE and Other Endocrine Hx: Diabetes and Other Musculoskeletal Hx: Arthritis Blood Disorder Hx: Anemia and Hyperlipidemia GI Hx: Hemorrhoids Neurological Hx: Stroke/TIA Cancer HX: No Psych. 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
[2023-08-15 14:12] LABS: Prothrombin Time Whole Bld POC 17.7 sec (11.1-13.5); ~PT, ~INR - Anti Coag Clinic 1.5 (0.9-1.1)
== END 2023-08-15 14:27 | disposition home or self-care (01) ==
LOC: HO.ACS 14:02
PROVIDERS: PCP Nurse Practitioner Family; Visit Provider Internal Medicine
DX: Z79.01 Long term (current) use of anticoagulants (principal)

== ENCOUNTER → 2023-08-15 14:02 | Outpatient (BNVA) | payer MEDICARE, SELFPAY | PROVIDERS: PCP Nurse Practitioner Family; Visit Provider Internal Medicine | DX: I74.10 Embolism and thrombosis of unspecified parts of aorta (principal); Z79.01 Long term (current) use of anticoagulants; Z51.81 Encounter for therapeutic drug level monitoring | CPT/HCPCS: 85610; 99211 ==

== ENCOUNTER 2023-08-16 16:10 | Outpatient (AMB) | payer MEDICARE, SELFPAY ==
--- NOTE | 2023-08-16 13:52 | MHC.PC.OV ---
Vital Signs 08/16/23 16:21 Height 5 ft 4.5 in Weight 170 lb BMI 28.7 BP 130/70 Blood Pressure Location Lt brachial Position Sitting Respiration 14 Pulse 95 Pulse Source Pulse Oximeter Temp 97.5 F Temp Source Temporal Artery Scan Pulse Oximetry (%) 99 Oxygen Delivery Method Room Air Intake Visit Reasons: Anxiety, Depression,HTN & Diabetes Junior [employer] Administrator Required: No Accompanied by: Self / Same As Patient Allergies Seasonal Allergies Allergy (Intermediate, Verified 08/16/23 16:34) Cough zolpidem [From Ambien] Adverse Reaction (Severe, Verified 08/16/23 16:34) Hallucinations Tobacco use date assessed: 07/05/23 Fall risk assessment: No Falls in past year Last assessed Fall Risk: 08/16/23 Dental Screening Dental Screen Date: 05/03/23 HPI HPI Comments History of Present Illness Details 73-year-old female presents for hypertension, diabetes, anxiety, and depression follow-up She admits to taking her medications as prescribed without adverse reactions She notes that her anxiety and depression symptoms have improved since her last visit. However, she continues to worry a lot She was evaluated by Cardiology on 08/02/2023. Warfarin was discontinued. She is now on Eliquis. [facility] Medical History Essential tremor Seasonal allergies PND (post-nasal drip) Iron deficiency Arthritis Osteoarthritis Depression Hypertension Asthma Tremors of nervous system Type II diabetes mellitus Surgical History Hx of LASIK History of esophagogastroduodenoscopy (EGD) H/O: hysterectomy History of cataract removal with insertion of prosthetic lens Hx laparoscopic cholecystectomy Family History Mother Diabetes Parkinsons Panic disorder/agoraphobia, agoraphobic avoidnc/panc attck full remssn Father Stroke Heart attack Brother Congestive heart failure Brother Stroke Other Substance abuse Social History Household Members: Family Household Members Other:: brother Both parents involved: No Caregiver staying overnight: No Housing: Other Housing Other:: mobile home Are you a primary day care home provider to a significant other at home: Yes (brother s/p CVA) Do you presently have visiting nurse or other home services: No (brother has services VNA,PT) Alcohol intake: never Patient Tobacco Use Status: Never used Tobacco e-Cigarette/Vaping Use: Never Used Second Hand Smoke Exposure: No service: No Current occupational status: retired Current occupational exposures/hazards: Yes Cognitive needs: No Hearing needs: Yes Vision needs: No Questionnaire PHQ-9 Over the last 2 weeks, how often have you been bothered by any of the following problems? 1. Little interest or pleasure in doing things: more than half the days 2. Feeling down, depressed, or hopeless: more than half the days 3. Trouble falling or staying asleep, or sleeping too much: nearly every day 4. Feeling tired or having little energy: more than half the days 5. Poor appetite or overeating: several days 6. Feeling bad about yourself - or that you are a failure or have let yourself or your family down: nearly every day 7. Trouble concentrating on things, such as reading the newspaper or watching television: not at all 8. Moving or speaking so slowly that other people could have noticed. Or the opposite - being so fidgety or restless that you have been moving around a lot more than usual: not at all 9. Thoughts that you would be better off or of hurting yourself in some way: not at all Total score: 13 Depression Screening Interpretation: Positive Depression Screening Follow-up: Existing condition and In treatment Depression Screening Done: Yes 72715 - PHQ-9 Billing: Yes Source: Developed by Drs. Meir Zarate, Elba Comer, Ethan Little and colleagues, with an educational leeanne from [employer] Thrive Questionnaire Date Thrive assessed: 10/15/22 SUSHANT-7 AMB Questionnaire SUSHANT-7 Date SUSHANT - 7 assessed: 08/16/23 Feeling nervous, anxious, or on edge: 2 = More than half the days Not being able to stop or control worryin = Nearly every day Worrying too much about different things: 3 = Nearly every day Trouble relaxin = More than half the days Being so restless that it is hard to sit still: 1 = Several days Becoming easily annoyed or irritable: 1 = Several days Feeling afraid as if something awful might happen: 3 = Nearly every day Total SUSHANT-7 score (0-4 normal; 5-9 mild; 10-14 moderate; 15-21 severe): 15 Source: Developed by Drs. Meir Zarate, Elba Comer, Ethan Little and colleagues, with an educational leeanne from [employer] SUSHANT-7 Assessment Billing SUSHANT-7 Assessment Tool: SUSHANT-7 Assessment 36198 Review of Systems Const Details: Const Denies chills, Denies fatigue, Denies fever(s), Denies headache(s) and Denies weakness ENT Denies dizziness and Denies headache(s) Card Denies chest pain, Denies lightheadedness, Denies dyspnea and Denies other (Palpitations) Resp Denies cough, Denies dyspnea, Denies wheezing and Denies other ( shortness of breath) GI Denies abdominal pain, Denies melena, Denies hematochezia, Denies change in bowel habits, Denies dyspepsia and Denies nausea Denies hematuria and Denies dysuria Musc Denies abnormal gait, Denies myalgias, Denies arthralgias, Denies numbness and Denies tingling Skin/Breast Denies rash, Denies unusual bruising and Denies wounds Neuro Denies abnormal gait, Denies dizziness, Denies headache(s), Denies memory loss, Denies numbness, Denies Sensory deficit (Neuro), Denies tingling and Denies weakness Psych Denies anxiety, Denies depression, Denies memory loss Endo Denies cold intolerance, Denies fatigue, Denies heat intolerance, Denies polydipsia and Denies polyuria Aller/Immun Denies wheezing Physical exam (Primary Care) Vital Signs: Last Vital Signs Temp 97.5 F 08/16/23 16:21 Pulse 95 08/16/23 16:21 Resp 14 08/16/23 16:21 BP 130/70 08/16/23 16:21 Pulse Ox 99 08/16/23 16:21 Oxygen Delivery Method Room Air 08/16/23 16:21 BMI result Body Mass Index 28.7 Tobacco/Smoking Status: Tobacco use Status Tobacco use date assessed 07/05/23 08/16/23 13:54 Patient Tobacco Use Status Never used Tobacco 08/16/23 13:54 e-Cigarette/Vaping Use Never Used 08/16/23 13:54 PHQ-9: PHQ-9 Score PHQ-9: Total score 13 08/16/23 16:52 Depression Screening Interpretation: Positive Depression Screening Follow-up: Existing condition and In treatment Thrive Assessment: Date of Thrive Assessment Date Thrive assessed 10/15/22 08/16/23 13:54 Const Other: General: no acute distress and well developed Nutritional Appearance: well nourished Orientation/consciousness: patient oriented x3 HENMT Head: Yes normocephalic and Yes atraumatic Eyes General: appearance normal, both eyes and all related structures Pupils: Equal, round and reactive pupils present EOM: EOMs intact bilaterally Resp Effort & Inspection: normal respiratory effort Auscultation: clear to auscultation bilaterally Cardio Rate: regular rate Rhythm: regular rhythm Heart sounds: S1 normal heart sound present, S2 normal heart sound present, no gallops, positive murmurs and no rubs GI Palpation (GI): No Abdominal aortic bruit present, Soft to palpation, nontender, No hepatosplenomegaly present and No Rebound tenderness present Auscultation: normal bowel sounds General: Yes no CVA tenderness Back/Spine/Pelvis Back: no CVA tenderness Cervical Spine: cervical ROM normal and No Cervical spine tenderness Thoracic/Lumbar Spine: thoraco-lumbar ROM normal, No pain with thoraco-lumbar ROM, No thoracic spinal tenderness and No lumbar spinal tenderness Extrem General: Yes normal to inspection, No edema and No calf tenderness Skin General: warm and dry. Normal skin color. Normal skin turgor Neuro General: patient oriented x3, gait normal and no focal neuro deficit Cranial nerves: Yes Equal, round and reactive pupils present Cognition (Neuro): normal cognition Gait exam (Neuro): Normal gait present Sensory Exam: No Sensory deficit (Neuro) Psych Appearance: grossly normal Affect: normal affect Attitude: cooperative Thought process: Normal thought process present Results AMB Hemoglobin A1c AMB Hemoglobin A1c 6.1 % Last Edit by MELISSA Guthrie on 08/16/23 16:48 Results Reviewed Results Reviewed: Laboratory Last Values Hgb A1c (Clinic) 6.1 % (4.0-6.0) H 08/16/23 16:45 Assessment and Plan Assessment & Plan (1) Type II diabetes mellitus: Code(s): E11.9 - Type 2 diabetes mellitus without complications Plan: A1c today is 6.1%, within goal of less than 7.0%. Previous A1c was 6.0% Continue current treatment regimen ADA diet and routine exercise encouraged Follow-up in 2 months for an extended physical exam, anxiety, and depression or return sooner with symptoms or concerns Verbalized understanding and agreed with treatment plan (2) Hypertension, essential: Code(s): I10 - Essential (primary) hypertension Plan: Blood pressure is 130/70, slightly about goal of less than 130/80 Continue current tx Low sodium diet encouraged Verbalized understanding and agreed with the plan (3) Anxiety and depression: Code(s): F41.9 - Anxiety disorder, unspecified; F32.A - Depression, unspecified Plan: Reports improved anxiety and depression symptoms. However, she continues to worry a lot PHQ-9 and SUSHANT-7 scores revealed moderate depression and severe anxiety respectively Continue to take fluoxetine 60 mg daily Will increase buspirone to 15 mg 3 times daily Routine exercise encouraged Follow-up with worsening or new symptoms Verbalized understanding and agreed with treatment plan Orders: Orders Microalbumin, Random (w Creat) 08/16/23 E11.9 - Type 2 diabetes mellitus without complications AMB Hemoglobin A1c 08/16/23 E11.9 - Type 2 diabetes mellitus without complications Medications: Changed From buspirone 15 mg PO BID To buspirone 15 mg PO TID 90 tabs 3RF 30 days Coding Level of Care Code Est Pt Level 4 (23086) Complex EM visit Add On G2211 Diagnoses Type II diabetes mellitus E11.9 Hypertension, essential I10 Anxiety and depression F41.9; F32.A Additional Codes SUSHANT-7 Assessment Billing - SUSHANT-7 Assessment Tool: SUSHANT-7 Assessment [id number] ([id number])
[2023-08-16 16:21] VITALS: BP 130/70; PULSE 95; RESP 14; TEMP 36.4; O2SAT 99; BMI 28.7
== END 2023-08-16 17:04 | disposition home or self-care (01) ==
PROVIDERS: PCP Nurse Practitioner Family; Visit Provider Nurse Practitioner Family
DX: E11.9 Type 2 diabetes mellitus without complications (principal); I10 Essential (primary) hypertension; F41.9 Anxiety disorder, unspecified; F32.A Depression, unspecified
CPT/HCPCS: 83036; 99214; G2211

== ENCOUNTER 2023-10-17 10:31 | Outpatient (AMB) | payer MEDICARE, SELFPAY ==
--- NOTE | 2023-10-17 10:34 | A.OFFPC_ITS ---
Vital Signs 10/17/23 10:45 10/17/23 11:14 Height 5 ft 4.5 in Weight 167 lb BMI 28.2 BP 144/72 H 128/70 Blood Pressure Location Lt brachial Lt brachial Position Sitting Sitting Respiration 16 Pulse 91 Pulse Source Pulse Oximeter Temp 97.5 F Temp Source Temporal Artery Scan Pulse Oximetry (%) 97 Oxygen Delivery Method Room Air Intake Visit Reasons: 2 mos CPE - see comments Intake Note: patient here for CPE. Assistant Scientist Required: No Is last menstrual period known: No Post menopausal: No Patient : No Allergies Seasonal Allergies Allergy (Intermediate, Verified 10/17/23 11:02) Cough zolpidem [From Ambien] Adverse Reaction (Severe, Verified 10/17/23 11:02) Hallucinations Medication List - Last Reconciled 10/17/23 by Nisha Garcia CNP acetaminophen (Tylenol Extra Strength) 500 mg PO Q6H PRN albuterol sulfate 90 mcg/actuation 2 puffs PO Q4-6H PRN amlodipine 10 mg PO DAILY apixaban (Eliquis) 5 mg PO BID 90 days atorvastatin 80 mg PO DAILY beclomethasone dipropionate 40 mcg/actuation (Qvar RediHaler) 2 inhalations inhalation BID 30 days blood sugar diagnostic (Instant Opinion Verio test strips) USE TO CHECK BLOOD SUGARS TWICE DAILY buspirone 15 mg PO TID 30 days flash glucose scanning reader (FreeStyle Samantha 2 Lengby) As directed flash glucose sensor (FreeStyle Samantha 2 Sensor kit) As directed fluoxetine TAKE 3 CAPSULES BY MOUTH EVERY DAY furosemide 20 mg PO DAILY inhalational spacing device (Aerochamber Plus Z Stat spacer) As directed lancets (Instant Opinion Delica Lancets) As directed levothyroxine 50 mcg PO DAILY metformin ER 1,000 mg (2 x 500 mg) PO BID omeprazole 40 mg (2 x 20 mg) PO DAILY pen needle, diabetic (BD Liv 2nd Gen Pen Needle) As directed semaglutide (Ozempic) 1 mg (0.75 mL) subcut QWEEK 30 days valsartan-hydrochlorothiazide 320-25 mg 1 tab PO DAILY Tobacco use date assessed: 10/17/23 Fall risk assessment: No Falls in past year Last assessed Fall Risk: 10/17/23 Dental Screening Dental Screen Date: 10/17/23 Did you have a dental visit in the last 12 months?: Yes Did you have a dental problem in the last 6 months where you did not have access to dental care?: No Was dental information given to patient?: Patient has dentist HPI HPI Comments History of Present Illness Details 73-year-old female presents for an exten ded physical exam She has past medical history significant for hypertension, diabetes, bilateral carotid artery stenosis, PVD, HLD, hypothyroidism, GERD, asthma, partial blindness OD, unsteady gait s/p CVA in 2013, anxiety, and depression She admits to taking her medications as prescribed without adverse reactions She reports controlled anxiety symptoms. She notes that she is always depressed. She denies SI/HI She notes that her asthma symptoms are much improved with Qvar and rescue inhalers Nonsmoker, nondrinker, no recreational drug use Last DEXA scan was on 11/04/2022: Normal Last diabetic eye exam was on 07/14/2023: No retinopathy Last mammogram was on 12/31/2021: No malignancy She notes that she has never been vaccinated for shingles; she does not want to be vaccinated. She was vaccinated for pneumonia She has h/o total hysterectomy She does not recall when and where she had a last colonoscopy but notes it was normal and within the past 10 years She is followed by [facility] cardiology and Gastroenterology [facility] Medical History Essential tremor Seasonal allergies PND (post-nasal drip) Iron deficiency Arthritis Osteoarthritis Depression Hypertension Asthma Tremors of nervous system Type II diabetes mellitus Surgical History Hx of LASIK History of esophagogastroduodenoscopy (EGD) H/O: hysterectomy History of cataract removal with insertion of prosthetic lens Hx laparoscopic cholecystectomy Family History Mother Diabetes Parkinsons Panic disorder/agoraphobia, agoraphobic avoidnc/panc attck full remssn Father Stroke Heart attack Brother Congestive heart failure Brother Stroke Other Substance abuse Social History Household Members: Family Household Members Other:: brother Housing: Other Housing Other:: mobile home Are you a primary career manager to a significant other at home: Yes (brother s/p CVA) Do you presently have visiting nurse or other home services: No (brother has services VNA,PT) Alcohol intake: never Patient Tobacco Use Status: Never used Tobacco e-Cigarette/Vaping Use: Never Used Second Hand Smoke Exposure: No service: No Current occupational status: retired Current occupational exposures/hazards: Yes Cognitive needs: No Hearing needs: Yes Vision needs: No Questionnaire PHQ-9 Over the last 2 weeks, how often have you been bothered by any of the following problems? 1. Little interest or pleasure in doing things: several days 2. Feeling down, depressed, or hopeless: several days 3. Trouble falling or staying asleep, or sleeping too much: more than half the days 4. Feeling tired or having little energy: not at all 5. Poor appetite or overeating: not at all 6. Feeling bad about yourself - or that you are a failure or have let yourself or your family down: more than half the days 7. Trouble concentrating on things, such as reading the newspaper or watching television: several days 8. Moving or speaking so slowly that other people could have noticed. Or the opposite - being so fidgety or restless that you have been moving around a lot more than usual: more than half the days 9. Thoughts that you would be better off or of hurting yourself in some way: not at all Total score: 9 Depression Screening Interpretation: Positive Depression Screening Follow-up: Existing condition and In treatment Depression Screening Done: Yes 76122 - PHQ-9 Billing: Yes Source: Developed by Drs. Meir Zarate, Elba Comer, Ethan Little and colleagues, with an educational leeanne from [employer]. Thrive Questionnaire Date Thrive assessed: 10/17/23 I am a: Patient What is your living situation today?: I have a steady place to live Within the past 12 months, did the food you bought not last and you didn't have the money to get more?: Never true Within the past 12 months, did you worry whether your food would run out before you got money to buy more?: Never true Do you have trouble paying for medicines?: No Do you have trouble getting transportation to medical appointments?: No Do you have trouble paying your heating and electricity bill?: No Do you have trouble taking care of your child, family member or friend?: No Do you have trouble with day-to-day activities such as bathing, preparing meals, shopping, managing finances, etc.?: No Are you currently unemployed and looking for a job?: No Are you interested in more education?: No Please select the resources that you would like help with: None Currently or been in a relationship where the following occur: No concerns reported THRIVE Score: 0 AUDIT C Alcohol Use Questionnaire (AUDIT-C) 1. How often do you have a drink containing alcohol?: Never Total Score: 0 SUSHANT-7 AMB Questionnaire SUSHANT-7 Date SUSHANT - 7 assessed: 10/17/23 Feeling nervous, anxious, or on edge: 2 = More than half the days Not being able to stop or control worryin = More than half the days Worrying too much about different things: 2 = More than half the days Trouble relaxin = More than half the days Being so restless that it is hard to sit still: 2 = More than half the days Becoming easily annoyed or irritable: 1 = Several days Feeling afraid as if something awful might happen: 1 = Several days Total SUSHANT-7 score (0-4 normal; 5-9 mild; 10-14 moderate; 15-21 severe): 12 Source: Developed by Drs. Meir Zarate, Elba Comer, Ethan Little and colleagues, with an educational leeanne from [employer]. SUSHANT-7 Assessment Billing SUSHANT-7 Assessment Tool: SUSHANT-7 Assessment 92941 ACT Questionnaire In the past 4 weeks, how much of the time did your asthma keep you from getting as much done at work, school or at home?: None of the time During the past 4 weeks, how often did your asthma symptoms wake you up at night or earlier than usual in the morning?: 2-3 nights a week During the past 4 weeks, how often have you had to use your rescue inhaler or nebulizer medication?: 1-2 times a week How would you rate your asthma control during the past 4 weeks?: Well controlled ACT Interpretation: Negative Score: 13 Review of Systems Const Details: Denies chills, Denies fatigue, Denies fever(s), Denies headache(s) and Denies weakness HEENT Denies change in vision, Denies dizziness, Denies headache(s), Denies hearing loss, Denies nasal congestion, Denies sinus pain, Denies sinus pressure and Denies sore throat Card Denies chest pain, Denies lightheadedness, Denies dyspnea and Denies other (pa lpitations) Resp Denies cough, Denies dyspnea and Denies wheezing GI Denies abdominal pain, Denies melena, Denies hematochezia, Denies change in bowel habits, Denies dyspepsia and Denies nausea Denies hematuria and Denies dysuria Musc Denies abnormal gait, Denies myalgias, Denies arthralgias, Denies numbness and Denies tingling Skin/Breast Denies rash, Denies unusual bruising and Denies wounds Neuro Denies abnormal gait, Denies dizziness, Denies headache(s), Denies memory loss, Denies numbness, Denies Sensory deficit (Neuro), Denies tingling and Denies weakness Psych Denies anxiety, Denies depression and Denies memory loss Endo Denies cold intolerance, Denies fatigue, Denies heat intolerance, Denies polydipsia and Denies polyuria Ganesh/Lymph Denies easy bleeding and Denies easy bruising Aller/Immun Denies wheezing Physical exam (Primary Care) Vital Signs: Last Vital Signs Temp 97.5 F 10/17/23 10:45 Pulse 91 10/17/23 10:45 Resp 16 10/17/23 10:45 BP 144/72 H 10/17/23 10:45 Pulse Ox 97 10/17/23 10:45 Oxygen Delivery Method Room Air 10/17/23 10:45 BMI result Body Mass Index 28.2 Tobacco/Smoking Status: Tobacco use Status Tobacco use date assessed 10/17/23 10/17/23 10:51 Patient Tobacco Use Status Never used Tobacco 10/17/23 10:38 e-Cigarette/Vaping Use Never Used 10/17/23 10:38 Depression Screening Interpretation: Positive Depression Screening Follow-up: Existing condition and In treatment Thrive Assessment: Date of Thrive Assessment Date Thrive assessed 10/17/23 10/17/23 10:55 Currently or been in a relationship where the following occur: No concerns reported Const Other: General: no acute distress, well developed, alert and awake Nutritional Appearance: well nourished Orientation/consciousness: patient oriented x3 [facility] Head: Yes normocephalic and Yes atraumatic Ears: LUMBEE bilaterally and TM's normal bilaterally General nose exam: Normal external nose present and Normal nares present Mouth: Normal oral and palatal mucosa present and moist mucous membranes Teeth and gingiva: dentition normal Throat: Yes oropharynx normal Eyes Pupils: Equal, round and reactive pupils present and Pupil accommodation reflex normal EOM: EOMs intact bilaterally Neck Neck: Yes normal visual inspection, Yes no lymphadenopathy and Yes trachea midline Thyroid: Thyroid normal Carotids: no bruits Lymphatic: no lymphadenopathy noted Chest Chest palpation & inspection: normal inspection of the chest Resp Effort & Inspection: normal respiratory effort Auscultation: clear to auscultation bilaterally Cardio Rate: regular rate Rhythm: regular rhythm Heart sounds: S1 normal heart sound present, S2 normal heart sound present, no gallops, murmurs present and no rubs Bruits: no abdominal aortic bruits and no carotid bruits GI Palpation (GI): No Abdominal aortic bruit present, Soft to palpation, nontender, No hepatosplenomegaly present and No Rebound tenderness present Auscultation: normal bowel sounds General: Yes no CVA tenderness Back/Spine/Pelvis Back: no CVA tenderness Cervical Spine: cervical ROM normal and No Cervical spine tenderness Thoracic/Lumbar Spine: thoraco-lumbar ROM normal, No pain with thoraco-lumbar ROM, No thoracic spinal tenderness and No lumbar spinal tenderness Skin General: warm and dry. Normal skin color. Normal skin turgor Lesions: Skin tags to neck and torso Rashes: no rashes Trauma: no lacerations or abrasions Wounds: no wounds Nails: normal Neuro General: patient oriented x3, gait normal and CN's II-XI intact bilaterally Cranial nerves: Yes Equal, round and reactive pupils present Cognition (Neuro): normal cognition Gait exam (Neuro): Normal gait present Motor exam (neuro): 5/5 motor strength present throughout Sensory Exam: No Sensory deficit (Neuro) Deep tendon reflexes (DTR's): Right patellar reflex intensity grade: 2+ and Left patellar reflex intensity grade: 2+ Extrem General: Yes normal to inspection, No edema and No calf tenderness Psych Appearance: grossly normal Affect: normal affect Attitude: cooperative Thought process: Normal thought process present Assessment and Plan Assessment & Plan (1) Normal physical examination, routine: Code(s): Z00.00 - Encounter for general adult medical examination without abnormal findings Plan: No significant physical restrictions or limitations noted Continue current treatment regimen Healthy diet and routine exercise encouraged Continue follow-up with Cardiology and Gastroenterology as planned Instructed on safety and encouraged to use her cane for ambulation at all times Return in 1 month for diabetes and hypertension or sooner with symptoms or concerns Verbalized understanding and agreed with treatment plan (2) Anxiety and depression: Code(s): F41.9 - Anxiety disorder, unspecified; F32.A - Depression, unspecified Plan: Controlled anxiety symptoms. She is always depressed. No SI/HI PHQ-9 and SUSHANT-7 scores revealed mild depression and moderate anxiety respectively Continue current treatment regimen Routine exercise encouraged Follow-up with worsening or new symptoms Verbalized understanding and agreed with treatment plan (3) Hypertension, essential: Code(s): I10 - Essential (primary) hypertension Plan: Resting blood pressure is 128/70, within goal of less than 130/80 Continue current treatment regimen Low-sodium diet encouraged Follow-up in 1 month Verbalized understanding and agreed with the plan (4) Chronic GERD: Code(s): K21.9 - Gastro-esophageal reflux disease without esophagitis Plan: No acute symptoms Continue current treatment regimen Continue follow-up with Gastroenterology as planned (5) Poorly controlled intermittent asthma: Code(s): J45.20 - Mild intermittent asthma, uncomplicated Plan: She notes that her asthma symptoms are much improved with Qvar and rescue inhalers However, ACT score is 13, poorly control asthma Advised to continue current treatment regimen Referred to pulmonology Follow-up with symptoms or concerns Verbalized understanding and agreed with treatment plan (6) Hearing difficulty of both ears: Code(s): H91.93 - Unspecified hearing loss, bilateral Plan: Use of her hearing aids encouraged (7) Breast cancer screening by mammogram: Code(s): Z12.31 - Encounter for screening mammogram for malignant neoplasm of breast Plan: Last mammogram was on 12/31/2021: No malignancy Mammogram ordered (8) Vaccine counseling: Code(s): Z71.85 - Encounter for immunization safety counseling Plan: She has never been vaccinated for shingles and does not want to be vaccinated Instructed on the importance of vaccination and encouraged to get vaccinated for shingles. She may get the vaccines for her local pharmacy (9) Colon cancer screening: Code(s): Z12.11 - Encounter for screening for malignant neoplasm of colon Plan: She does not recall when and where she had a last colonoscopy but notes it was normal and within the past 10 years Referred to [facility] gastroenterology for a colonoscopy Orders: Orders TSH reflex Free T4 Today Z00.00 - Encounter for general adult medical examination without abnormal findings Referrals Pulmonology Referral J45.20 - Mild intermittent asthma, uncomplicated Gastroenterology Referral Z12.11 - Encounter for screening for malignant neoplasm of colon Coding Level of Care Code Est Pt Prev Care >65y(56993) Diagnoses Normal physical examination, routine Z00.00 Anxiety and depression F41.9; F32.A Hypertension, essential I10 Chronic GERD K21.9 Poorly controlled intermittent asthma J45.20 Hearing difficulty of both ears H91.93 Breast cancer screening by mammogram Z12.31 Vaccine counseling Z71.85 Colon cancer screening Z12.11 Additional Codes SUSHANT-7 Assessment Billing - SUSHANT-7 Assessment Tool: SUSHANT-7 Assessment 93268 ([id number])
[2023-10-17 10:45] VITALS: BP 144/72; PULSE 91; RESP 16; TEMP 36.4; O2SAT 97; BMI 28.2
[2023-10-17 11:14] VITALS: BP 128/70
== END 2023-10-17 11:42 | disposition home or self-care (01) ==
PROVIDERS: PCP Nurse Practitioner Family; Visit Provider Nurse Practitioner Family
DX: Z00.00 Encounter for general adult medical examination without abnormal findings (principal); F41.9 Anxiety disorder, unspecified; F32.A Depression, unspecified; I10 Essential (primary) hypertension; K21.9 Gastro-esophageal reflux disease without esophagitis; J45.20 Mild intermittent asthma, uncomplicated; H91.93 Unspecified hearing loss, bilateral; Z12.31 Encounter for screening mammogram for malignant neoplasm of breast; Z71.85 Encounter for immunization safety counseling; Z12.11 Encounter for screening for malignant neoplasm of colon
CPT/HCPCS: 99397

== ENCOUNTER 2023-10-17 11:33 | Outpatient (REF) | payer MEDICARE, SELFPAY ==
[2023-10-17 15:07] LABS: TSH reflex Free T4 1.54 uIU/mL (0.32-4.0)
[2023-10-17 15:27] LABS: Microalbum/Creatinine Ratio Ur 7.3 ug/mg cr (<30)
== END 2023-10-17 11:34 | disposition home or self-care (01) ==
LOC: HO.WFDLDS 11:33
PROVIDERS: Visit Provider Nurse Practitioner Family
DX: Z00.00 Encounter for general adult medical examination without abnormal findings (principal); E11.9 Type 2 diabetes mellitus without complications
CPT/HCPCS: 36415; 82043; 82570; 84443

== ENCOUNTER 2023-10-21 13:34 | Outpatient (AMB) | payer MEDICARE, SELFPAY ==
--- NOTE | 2023-10-21 13:40 | MHC.OFFVIS ---
Vital Signs 10/21/23 13:41 Height 5 ft 4.5 in Weight 166 lb 4 oz BMI 28.1 BP 138/86 Blood Pressure Location Rt brachial Position Sitting Pulse 88 Pulse Source Pulse Oximeter Pulse Oximetry (%) 98 Oxygen Delivery Method Room Air Intake Visit Reasons: asthma Allergies Seasonal Allergies Allergy (Intermediate, Verified 10/21/23 13:44) Cough zolpidem [From Ambien] Adverse Reaction (Severe, Verified 10/21/23 13:44) Hallucinations HPI HPI asthma: Details: Carmelita is a pleasant 73 year old , never smoker, with underlying asthma, hypertension, diabetes, bilateral carotid artery stenosis, PVD, HLD, hypothyroidism, GERD, CVA in 2014 on eliquis, anxiety, and depression. She was referred by PCP for pulmonary evaluation. She reports asthma diagnosed as an adult, never requiring intubation. Denies prior PFT. She reports dyspnea on exertion, wheezing and dry cough, despite QVAR, using albuterol frequently. Recent echo revealed mild diastolic dysfunction, maintained on lasix 20 mg. Denies BLE edema, orthopnea or PND. She endorses post nasal drip and prior allergy reported revealed multiple environmental allergies. No recent allergy testing. She reports brother with KATE and asthma, otherwise no pertinent family history. She denies any occupational exposures. She reports elevated right hemidiaphragm with abnormal sniff test. Report not available today. [facility] Medical History Essential tremor Seasonal allergies PND (post-nasal drip) Iron deficiency Arthritis Osteoarthritis Depression Hypertension Asthma Tremors of nervous system Type II diabetes mellitus Surgical History Hx of LASIK History of esophagogastroduodenoscopy (EGD) H/O: hysterectomy History of cataract removal with insertion of prosthetic lens Hx laparoscopic cholecystectomy Family History Mother Diabetes Parkinsons Panic disorder/agoraphobia, agoraphobic avoidnc/panc attck full remssn Father Stroke Heart attack Brother Congestive heart failure Brother Stroke Other Substance abuse Social History Household Members: Family Household Members Other:: brother Both parents involved: No Caregiver staying overnight: No Housing: Other Housing Other:: mobile home Are you a primary palliative care coordinator to a significant other at home: Yes (brother s/p CVA) Do you presently have visiting nurse or other home services: No (brother has services VNA,PT) Alcohol intake: never Patient Tobacco Use Status: Never used Tobacco e-Cigarette/Vaping Use: Never Used Second Hand Smoke Exposure: No service: No Current occupational status: retired Current occupational exposures/hazards: Yes Cognitive needs: No Hearing needs: Yes Vision needs: No Review of Systems Const Denies chills, Denies excessive sweating, Denies fever(s), Denies headache(s) and Denies night sweats Eyes Denies dry eyes, Denies irritation and Denies itchy eyes ENT Reports Normal hearing present, Denies headache(s), Denies nasal congestion, Denies nasal discharge and Denies sore throat Card Denies chest pain, Denies chest pain at rest, Denies chest pain with activity, Denies claudication, Denies leg edema, Denies orthopnea and Denies paroxysmal nocturnal dyspnea Resp Denies chest congestion, Denies excessive phlegm production, Denies pain on inspiration, Denies pain with cough and Denies stridor Musc Denies myalgias Neuro Reports Normal hearing present and Denies headache(s) Endo Denies excessive sweating Ganesh/Lymph Denies lymphadenopathy Aller/Immun Denies itchy eyes and Denies seasonal rhinorrhea Physical Exam Vital Signs: Last Vital Signs Pulse 88 10/21/23 13:41 BP 138/86 10/21/23 13:41 Pulse Ox 98 10/21/23 13:41 Oxygen Delivery Method Room Air 10/21/23 13:41 BMI result Body Mass Index 28.1 Const General: cooperative, healthy appearing, comfortable, no acute distress, well developed and alert Orientation/consciousness: patient oriented x3 Limitations: no limitations HEENT Head: Yes normal to inspection, Yes normocephalic and Yes atraumatic Ears: hearing grossly normal bilaterally and external ears normal Eyes General: appearance normal, both eyes and all related structures Eyelids: Yes eyelids normal Sclerae: sclerae normal EOM: EOMs intact bilaterally Neck Neck: Yes normal visual inspection and Yes no lymphadenopathy Lymphatic: no lymphadenopathy noted Chest Chest palpation & inspection: normal inspection of the chest Resp Effort & Inspection: normal respiratory effort, able to speak in complete sentences, no audible wheezes, no cough, no stridor, not tachypneic, no tripod positioning and no use of accessory muscles Auscultation: clear to auscultation bilaterally Cardio Jugular venous distension: no JVD Rate: regular rate Rhythm: regular rhythm Skin Other: warm, dry General skin exam: no rashes or lesions noted Neuro General: patient oriented x3 Cranial nerves: Yes Normal hearing present Cognition (Neuro): normal cognition Gait exam (Neuro): Normal gait present Extrem General: Yes normal to inspection, Yes capillary refill normal, Yes no clubbing, cyanosis or edema and Yes no pedal edema Psych Appearance: grossly normal and well kempt Speech and movement: Normal speech and movement present and Clear speech present Affect: normal affect Attitude: cooperative Thought process: Normal thought process present Thought content: Normal thought content present Insight: Good insight present (Psych) Judgement: Good judgement present (Psych) Assessment & Plan Assessment & Plan (1) Asthma: Code(s): J45.909 - Unspecified asthma, uncomplicated Category: Medical (2) Environmental allergies: Code(s): Z91.09 - Other allergy status, other than to drugs and biological substances Category: Medical Plan Carmelita's symptoms are likely related to underlying asthma and possible allergic component, will send for PFT and RAST to assess. Will reassess medication regimen at next visit. Will also send for CXR, patient reported prior diagnosis of right hemidiaphragm elevation with abnormal SNIFF test. All questions were answered and patient is in agreement of plan. Will follow up to review results or sooner if needed. Orders: Orders Complete Blood Count Auto Diff 10/24/23 Z91.09 - Other allergy status, other than to drugs and biological substances Immunoglobulin E 10/24/23 Z91.09 - Other allergy status, other than to drugs and biological substances Resp Allergy Profile Region I 10/24/23 Z91.09 - Other allergy status, other than to drugs and biological substances XR chest 2V 10/21/23 R05.9 - Cough, unspecified PFT pulmonary function test Today J45.909 - Unspecified asthma, uncomplicated Coding Level of Care Code New Pt Level 4 (10638) Diagnoses Asthma J45.909 Environmental allergies Z91.09
[2023-10-21 13:41] VITALS: BP 138/86; PULSE 88; O2SAT 98; BMI 28.1
== END 2023-10-21 14:21 | disposition home or self-care (01) ==
PROVIDERS: PCP Nurse Practitioner Family; Visit Provider Nurse Practitioner Family
DX: J45.909 Unspecified asthma, uncomplicated (principal); Z91.09 Other allergy status, other than to drugs and biological substances
CPT/HCPCS: 99204; 99214

== ENCOUNTER → 2023-10-21 13:34 | Outpatient (BNVA) | payer MEDICARE, SELFPAY | PROVIDERS: PCP Nurse Practitioner Family; Visit Provider Nurse Practitioner Family | DX: J45.909 Unspecified asthma, uncomplicated (principal); Z91.09 Other allergy status, other than to drugs and biological substances | CPT/HCPCS: 99202 ==

== ENCOUNTER 2023-10-24 10:17 | Outpatient (REF) | payer MEDICARE, SELFPAY ==
[2023-10-24 11:10] LABS: MANUAL DIFF FLAG NO
[2023-10-24 11:17] LABS: Basophils Absolute Auto 0.1 X10*3/uL (0.0-0.2); Basophils Percent Auto 0.8 % (0-2); Eosinophils Absolute Auto 0.1 X10*3/uL (0.0-0.4); Eosinophils Percent Auto 1.1 % (0-4); Hematocrit 40.1 % (37.0-47.0); Hemoglobin 13.1 g/dl (12.0-16.0); Imm Gran Abs Auto 0.03 X10*3/uL (0.00-0.03); Imm Gran Pct Auto 0.5 % (0.0-0.4); Lymphocytes Absolute Auto 2.4 X10*3/uL (1.2-4.9); Lymphocytes Percent Auto 37.4 % (20-40); Mean Corpuscular HGB Conc 32.7 g/dl (31.0-35.0); Mean Corpuscular Hemoglobin 27.9 pg (27.0-33.0); Mean Corpuscular Volume 85.3 fL (80.0-98.0); Mean Platelet Volume 11.1 fL (9.4-12.3); Monocytes Absolute Auto 0.4 X10*3/uL (0.1-1.2); Monocytes Percent Auto 6.1 % (2-11); Neutrophils Absolute Auto 3.5 x10*3/uL (2.0-8.3); Neutrophils Percent Auto 54.1 % (45-73); Platelet Count 443 X10*3/uL (160-400); Red Cell Distribution Width 14.2 % (11.0-16.0); White Blood Count 6.4 X10*3/uL (4.8-10.8)
[2023-10-25 14:24] LABS: Class Alternaria alternata 0; Class Aspergillus fumigatus 0; Class Bermuda Grass 0; Class Birch 0; Class Cat Dander 0; Class Cladosporium herbarum 0; Class Cockroach 0; Class Common Ragweed 0; Class Cottonwood 0; Class Derm. pterony 0; Class Dermatophagoides farinae 0; Class Dog Dander 0; Class Elm 0; Class Maple Box Elder 0; Class Mountain Cedar 0; Class Mouse Urine Protein 0; Class Mugwort 0; Class Oak 0; Class Penicillium crysogenum 0; Class Rough Pigweed 0; Class Sheep Sorrel 0; Class Sycamore 0; Class Timothy Grass 0; Class Walnut Tree 0; Class White Ash 0; Class White Mulberry 0; D001 IgE D pteronyssinus <0.10 kU/L; D002 - IgE D farinae <0.10 kU/L; E001 - IgE Cat Dander <0.10 kU/L; E005 - IgE Dog Dander <0.10 kU/L; E072-IgE Mouse Urine <0.10 kU/L; G002 IgE Bermuda Grass <0.10 kU/L; G006 - IgE Timothy Grass <0.10 kU/L; I006-IgE Cockroach, German <0.10 kU/L; Immunoglobulin E 10 kU/L (<OR=114); M001 IgE Penicillium chrysogen <0.10 kU/L; M002 - IgE Cladosporium herbar <0.10 kU/L; M003 - IgE Aspergillus fumigat <0.10 kU/L; M006 - IgE Alternaria alternat <0.10 kU/L; T001 IgE Maple/Box Elder <0.10 kU/L; T003 IgE Common Silver Birch <0.10 kU/L; T006 - IgE Cedar, Mountain <0.10 kU/L; T007 - IgE Oak, White <0.10 kU/L; T008 IgE Elm, American <0.10 kU/L; T010 - IgE Walnut <0.10 kU/L; T011 - IgE Maple Leaf Sycamore <0.10 kU/L; T014 - IgE Cottonwood <0.10 kU/L; T015 - IgE Ash, White <0.10 kU/L; T070 - IgE White Mulberry <0.10 kU/L; W001 - IgE Ragweed, Short <0.10 kU/L; W006 - IgE Mugwort <0.10 kU/L; W014 IgE Pigweed, Common <0.10 kU/L; W018 IgE Sheep Sorrel <0.10 kU/L
== END 2023-10-24 10:18 | disposition home or self-care (01) ==
LOC: HO.WFDLDS 10:17
PROVIDERS: Visit Provider Nurse Practitioner Family
DX: Z91.09 Other allergy status, other than to drugs and biological substances (principal)
CPT/HCPCS: 36415; 82785; 85025; 86003

== ENCOUNTER 2023-10-31 08:33 | Outpatient (REF) | payer MEDICARE, SELFPAY ==
--- NOTE | ~2023-10-31 | FL_ITS ---
EXAMINATION: XR FLUOROSCOPY UPPER GI WITH AIR CLINICAL INFORMATION: Dysphagia COMPARISON: 04/20/2022. TECHNIQUE: Fluoroscopic air contrast upper GI examination was performed utilizing standard techniques with thin and thick barium and effervescent granules. Numerous spot images were obtained. FINDINGS: Lateral cine images of the oropharynx and hypopharynx demonstrate normal swallow mechanism with normal epiglottic inversion and soft palate elevation. No tracheal penetration, glottic or subglottic aspiration identified. Minimal nasopharyngeal reflux present. Hypopharyngeal structures appear normal without evidence of mass or diverticulum. No cricopharyngeal achalasia is present. Dual and single contrast images of the esophagus demonstrate a normal caliber and contour. There is felinization of the mid and lower esophageal mucosa. No evidence of stricture, mass, or ulcerations identified. Esophageal peristalsis was normal. The patient swallowed the barium tablet without any difficulty. The tablet passes freely into the stomach without any stasis. A very small type I hiatal hernia is present. Gastroesophageal reflux is seen up to the midesophagus. Dual contrast and single contrast images of the stomach demonstrated a normal contour. Evaluation of the gastric mucosa is limited due to lack of distention of the stomach from poor tolerance of the effervescent granules. The gastric rugal folds have a thickened appearance, which suggests gastritis, however, this may be also due to underdistention of the stomach. No masses are seen. Contrast freely passed into the gastric antrum and duodenal bulb without delay. Single and air-contrast images of the duodenal bulb demonstrate no abnormality. The duodenal sweep has a normal appearance, course, and mucosal fold appearance. There is a small to moderate size diverticulum noted arising from the second portion of the duodenum. The imaged proximal jejunum demonstrates mildly thickened folds. FLUOROSCOPY TIME: 4 minutes 27 seconds Number of Spot Images: 6 Number of Cine: 19 DOSE AREA PRODUCT: 2775 uGy-m2 (microgray-meter squared) FL/FL barium swallow with air IMPRESSION: 1. Felinization of the mid and lower esophageal mucosa. This is a benign finding which can be associated with chronic gastroesophageal reflux. 2. Very small type I hiatal hernia. 3. Moderate gastroesophageal reflux. 4. Limited evaluation of the gastric mucosa from under distention of the stomach due to poor tolerance of the effervescent granules. The gastric rugal folds have a thickened appearance, which suggests gastritis, however, this may be also due to underdistention of the stomach. 5. Small to moderate size diverticulum in the second portion of the duodenum. 6. Mildly thickened folds of the proximal jejunum, possibly suggesting underlying jejunitis. This procedure was performed by Robert Remy PA-C, and supervised by Dr. Fam
--- NOTE | ~2023-10-31 | XR_ITS ---
EXAMINATION: XR CHEST CLINICAL INFORMATION: Cough. COMPARISON: None available. TECHNIQUE: Frontal and lateral views of the chest were obtained. FINDINGS: The heart, great vessels, pulmonary vasculature and mediastinum are stable. There is atherosclerotic calcification and tortuosity of the thoracic aorta. There is moderate elevation of the right hemidiaphragm. There is a small focus of linear scar/subsegmental atelectasis at the lateral right base. No infiltrate, effusion or pneumothorax is seen. There is no acute osseous abnormality. There is a mild thoracic dextroscoliosis. XR/XR chest 2V IMPRESSION: 1. No focal infiltrate, effusion or pneumothorax is seen. There is no congestive heart failure. 2. There is moderate elevation of the right hemidiaphragm. There is mild lateral right base linear scar/subsegmental atelectasis. The absence of outside comparison radiographs documenting long-term stability, recommend short-term follow-up chest radiographs to ensure stability/clearance and exclude the possibility of underlying obstructive process.
== END 2023-10-31 08:34 | disposition home or self-care (01) ==
LOC: HO.XRAY 08:33
PROVIDERS: Visit Provider Internal Medicine Gastroenterology
DX: R13.10 Dysphagia, unspecified (principal); R05.9 Cough, unspecified
CPT/HCPCS: 71046; 74221

== ENCOUNTER → 2023-10-31 08:34 | Outpatient (BNV) | payer MEDICARE, SELFPAY | PROVIDERS: Visit Provider Physician Assistant Surgical | DX: R13.10 Dysphagia, unspecified (principal) | CPT/HCPCS: 74246 ==

== ENCOUNTER 2023-11-22 11:33 | Outpatient (AMB) | payer MEDICARE, SELFPAY ==
--- NOTE | 2023-11-22 11:36 | A.OFFPC_ITS ---
Vital Signs 11/22/23 11:47 11/22/23 11:58 Height 5 ft 4.2 in Weight 163 lb 2 oz BMI 27.8 BP 130/64 116/60 Blood Pressure Location Rt brachial Lt brachial Position Sitting Sitting Respiration 16 Pulse 76 Pulse Source Pulse Oximeter Temp 97.5 F Temp Source Oral Pulse Oximetry (%) 96 Oxygen Delivery Method Room Air Intake Visit Reasons: 1 mos HTN, DM Intake Note: patient here for 1 month visit for HTN and DM. 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 Is last menstrual period known: No Post menopausal: No Patient : No Allergies Seasonal Allergies Allergy (Intermediate, Verified 11/22/23 11:53) Cough zolpidem [From Ambien] Adverse Reaction (Severe, Verified 11/22/23 11:53) Hallucinations Medication List - Last Reconciled 11/22/23 by Nihsa Garcia CNP acetaminophen (Tylenol Extra Strength) 500 mg PO Q6H PRN albuterol sulfate 90 mcg/actuation 2 puffs PO Q4-6H PRN amlodipine 10 mg PO DAILY apixaban (Eliquis) 5 mg PO BID 90 days atorvastatin 80 mg PO DAILY beclomethasone dipropionate 40 mcg/actuation (Qvar RediHaler) 2 inhalations inhalation BID 30 days blood sugar diagnostic (Betfair Verio test strips) USE TO CHECK BLOOD SUGARS TWICE DAILY buspirone 15 mg PO TID 30 days flash glucose scanning reader (REDWAVE ENERGYStyle Samantha 2 [place]) As directed flash glucose sensor (FreeStyle Samantha 2 Sensor kit) As directed fluoxetine TAKE 3 CAPSULES BY MOUTH EVERY DAY furosemide 20 mg PO DAILY inhalational spacing device (Aerochamber Plus Z Stat spacer) As directed lancets (Betfair Delica Lancets) As directed levothyroxine 50 mcg PO DAILY metformin ER 1,000 mg (2 x 500 mg) PO BID omeprazole 40 mg (2 x 20 mg) PO DAILY pen needle, diabetic (BD Liv 2nd Gen Pen Needle) As directed semaglutide (Ozempic) 1 mg (0.75 mL) subcut QWEEK 30 days valsartan-hydrochlorothiazide 320-25 mg 1 tab PO DAILY Tobacco use date assessed: 11/22/23 Fall risk assessment: No Falls in past year Last assessed Fall Risk: 11/22/23 Dental Screening Dental Screen Date: 07/15/24 HPI HPI Comments History of Present Illness Details 73-year-old female presents for hyperten naga and diabetes follow-up She admits to taking her medications as prescribed without adverse reactions She reports controlled anxiety and depressive symptoms She offers no complaints and denies acute symptoms at this time [facility] Medical History Essential tremor Seasonal allergies PND (post-nasal drip) Iron deficiency Arthritis Osteoarthritis Depression Hypertension Asthma Tremors of nervous system Type II diabetes mellitus Surgical History Hx of LASIK History of esophagogastroduodenoscopy (EGD) H/O: hysterectomy History of cataract removal with insertion of prosthetic lens Hx laparoscopic cholecystectomy Family History Mother Diabetes Parkinsons Panic disorder/agoraphobia, agoraphobic avoidnc/panc attck full remssn Father Stroke Heart attack Brother Congestive heart failure Brother Stroke Other Substance abuse Social History (Reviewed 10/21/23 @ 13:44 by Yasmin Hare [facility]) Household Members: Family Household Members Other:: brother Both parents involved: No Caregiver staying overnight: No Housing: Other Housing Other:: mobile home 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 Meir Zarate, Elba Comer, Ethan Little and colleagues, with an educational leeanne from [employer]. Review of Systems Const Details: Const Denies chills, Denies fatigue, Denies fever(s), Denies headache(s) and Denies weakness ENT Denies dizziness and Denies headache(s) Card Denies chest pain, Denies lightheadedness, Denies dyspnea and Denies other (Palpitations) Resp Denies cough, Denies dyspnea, Denies wheezing and Denies other ( shortness of breath) GI Denies abdominal pain, Denies melena, Denies hematochezia, Denies change in bowel habits, Denies dyspepsia and Denies nausea Denies hematuria and Denies dysuria Musc Denies abnormal gait, Denies myalgias, Denies arthralgias, Denies numbness and Denies tingling Skin/Breast Denies rash, Denies unusual bruising and Denies wounds Neuro Denies abnormal gait, Denies dizziness, Denies headache(s), Denies memory loss, Denies numbness, Denies Sensory deficit (Neuro), Denies tingling and Denies weakness Psych Denies anxiety, Denies depression, Denies memory loss Endo Denies cold intolerance, Denies fatigue, Denies heat intolerance, Denies polydipsia and Denies polyuria Aller/Immun Denies wheezing Physical exam (Primary Care) Vital Signs: Last Vital Signs Temp 97.5 F 11/22/23 11:47 Pulse 76 11/22/23 11:47 Resp 16 11/22/23 11:47 BP 116/60 11/22/23 11:58 Pulse Ox 96 11/22/23 11:47 Oxygen Delivery Method Room Air 11/22/23 11:47 BMI result Body Mass Index 27.8 Tobacco/Smoking Status: Tobacco use Status Tobacco use date assessed 11/22/23 11/22/23 11:46 Patient Tobacco Use Status Never used Tobacco 11/22/23 11:38 e-Cigarette/Vaping Use Never Used 11/22/23 11:38 Thrive Assessment: Date of Thrive Assessment Date Thrive assessed 10/17/23 11/22/23 11:38 Const Other: General: no acute distress and well developed Nutritional Appearance: well nourished Orientation/consciousness: patient oriented x3 HENMT Head: Yes normocephalic and Yes atraumatic Eyes General: appearance normal, both eyes and all related structures Pupils: Equal, round and reactive pupils present EOM: EOMs intact bilaterally Resp Effort & Inspection: normal respiratory effort Auscultation: clear to auscultation bilaterally Cardio Rate: regular rate Rhythm: regular rhythm Heart sounds: S1 normal heart sound present, S2 normal heart sound present, no gallops, murmurs present and no rubs GI Palpation (GI): No Abdominal aortic bruit present, Soft to palpation, nontender, No hepatosplenomegaly present and No Rebound tenderness present Auscultation: normal bowel sounds General: Yes no CVA tenderness Back/Spine/Pelvis Back: no CVA tenderness Cervical Spine: cervical ROM normal and No Cervical spine tenderness Thoracic/Lumbar Spine: thoraco-lumbar ROM normal, No pain with thoraco-lumbar ROM, No thoracic spinal tenderness and No lumbar spinal tenderness Extrem General: Yes normal to inspection, No edema and No calf tenderness Skin General: warm and dry. Normal skin color. Normal skin turgor Neuro General: patient oriented x3, gait normal and no focal neuro deficit Cranial nerves: Yes Equal, round and reactive pupils present Cognition (Neuro): normal cognition Gait exam (Neuro): Normal gait present Sensory Exam: No Sensory deficit (Neuro) Psych Appearance: grossly normal Affect: normal affect Attitude: cooperative Thought process: Normal thought process present Results AMB Hemoglobin A1c AMB Hemoglobin A1c 6.4 % Last Edit by Queenie Issa on 11/22/23 12:11 Results Reviewed Results Reviewed: Laboratory Last Values Hgb A1c (Clinic) 6.4 % (4.0-6.0) H 11/22/23 11:54 Assessment and Plan Assessment & Plan (1) Hypertension, essential: Code(s): I10 - Essential (primary) hypertension Plan: Blood pressure today is 116/60, within goal of less than 130/80 Continue current treatment regimen Low-sodium diet encouraged Follow-up in 3 months for hypertension, diabetes, anxiety, and depression Return sooner with symptoms or concerns Verbalized understanding and agreed with the treatment plan (2) Type II diabetes mellitus: Code(s): E11.9 - Type 2 diabetes mellitus without complications Plan: A1c today 6.4%, within goal of less than 7.0%. Previous A1c was 6.1% Continue current treatment regimen ADA diet and routine exercise encouraged Follow-up in 3 months Verbalized understanding and agreed with the treatment plan Orders: Orders AMB Hemoglobin A1c Today Z13.9 - Encounter for screening, unspecified Coding Level of Care Code Est Pt Level 4 (86117) Diagnoses Hypertension, essential I10 Type II diabetes mellitus E11.9
[2023-11-22 11:47] VITALS: BP 130/64; PULSE 76; RESP 16; TEMP 36.4; O2SAT 96; BMI 27.8
[2023-11-22 11:58] VITALS: BP 116/60
== END 2023-11-22 12:07 | disposition home or self-care (01) ==
PROVIDERS: PCP Nurse Practitioner Family; Visit Provider Nurse Practitioner Family
DX: I10 Essential (primary) hypertension (principal); E11.9 Type 2 diabetes mellitus without complications; Z13.9 Encounter for screening, unspecified
CPT/HCPCS: 83036; 99214

== ENCOUNTER 2023-12-07 13:40 | Outpatient (AMB) | payer MEDICARE, SELFPAY ==
--- NOTE | 2023-12-07 14:06 | A.OFFVIS_ITS ---
Vital Signs 12/07/23 14:07 Height 5 ft 4.2 in Weight 159 lb 2 oz BMI 27.1 BP 140/76 H Blood Pressure Location Rt brachial Position Sitting Pulse 101 H Pulse Source Pulse Oximeter Pulse Oximetry (%) 98 Oxygen Delivery Method Room Air Intake Visit Reasons: asthma Allergies Seasonal Allergies Allergy (Intermediate, Verified 12/07/23 14:11) Cough zolpidem [From Ambien] Adverse Reaction (Severe, Verified 12/07/23 14:11) Hallucinations HPI HPI asthma: Details: Carmelita is a pleasant 73 year old , never smoker, with underlying asthma, hypertension, diabetes, bilateral carotid artery stenosis, PVD, HLD, hypothyroidism, GERD, CVA in 2013 on eliquis, anxiety, and depression. She reported suboptimal effect with QVAR continuing with dyspnea on exertion, wheezing and dry cough, using albuterol frequently. She was started on symbicort however can not tolerate DPI as it results in throat irritation and continues with dyspnea. She is interested in trialing a mist inhaler. She also reports post nasal drip, not using any nasal sprays. Prior CXR revealed persistent atelectasis of RLL, likely from elevated hemidiaphragm. Prior SNIFF test revealed mild paralysis on right. PFT order placed at last visit, however not scheduled. Patient would like to wait until this is scheduled through [facility] Medical History Essential tremor Seasonal allergies PND (post-nasal drip) Iron deficiency Arthritis Osteoarthritis Depression Hypertension Asthma Tremors of nervous system Type II diabetes mellitus Surgical History Hx of LASIK History of esophagogastroduodenoscopy (EGD) H/O: hysterectomy History of cataract removal with insertion of prosthetic lens Hx laparoscopic cholecystectomy Family History Mother Diabetes Parkinsons Panic disorder/agoraphobia, agoraphobic avoidnc/panc attck full remssn Father Stroke Heart attack Brother Congestive heart failure Brother Stroke Other Substance abuse Social History Household Members: Family Household Members Other:: brother Both parents involved: No Caregiver staying overnight: No Housing: Other Housing Other:: mobile home 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 at home: Yes (brother s/p CVA) Do you presently have visiting nurse or other home services: No (brother has services VNA,PT) Alcohol intake: never Patient Tobacco Use Status: Never used Tobacco e-Cigarette/Vaping Use: Never Used Second Hand Smoke Exposure: No service: No Current occupational status: retired Current occupational exposures/hazards: Yes Cognitive needs: No Hearing needs: Yes Vision needs: No Review of Systems Const Denies chills, Denies excessive sweating, Denies fever(s), Denies headache(s) and Denies night sweats Eyes Denies dry eyes, Denies irritation and Denies itchy eyes ENT Reports Normal hearing present, Denies headache(s), Denies nasal congestion, Denies nasal discharge and Denies sore throat Card Denies chest pain, Denies chest pain at rest, Denies chest pain with activity, Denies claudication, Denies leg edema, Denies orthopnea and Denies paroxysmal nocturnal dyspnea Resp Denies chest congestion, Denies excessive phlegm production, Denies pain on inspiration, Denies pain with cough and Denies stridor Musc Denies myalgias Neuro Reports Normal hearing present and Denies headache(s) Endo Denies excessive sweating Ganesh/Lymph Denies lymphadenopathy Aller/Immun Denies itchy eyes and Denies seasonal rhinorrhea Physical Exam Vital Signs: Last Vital Signs Pulse 101 H 12/07/23 14:07 BP 140/76 H 12/07/23 14:07 Pulse Ox 98 12/07/23 14:07 Oxygen Delivery Method Room Air 12/07/23 14:07 BMI result Body Mass Index 27.1 Const General: cooperative, healthy appearing, comfortable, no acute distress, well developed and alert Orientation/consciousness: patient oriented x3 Limitations: no limitations HEENT Head: Yes normal to inspection, Yes normocephalic and Yes atraumatic Ears: hearing grossly normal bilaterally and external ears normal Eyes General: appearance normal, both eyes and all related structures Eyelids: Yes eyelids normal Sclerae: sclerae normal EOM: EOMs intact bilaterally Neck Neck: Yes normal visual inspection and Yes no lymphadenopathy Lymphatic: no lymphadenopathy noted Chest Chest palpation & inspection: normal inspection of the chest Resp Effort & Inspection: normal respiratory effort, able to speak in complete sentences, no audible wheezes, no cough, no stridor, not tachypneic, no tripod positioning and no use of accessory muscles Auscultation: clear to auscultation bilaterally Cardio Jugular venous distension: no JVD Rate: regular rate Rhythm: regular rhythm Skin Other: warm, dry General skin exam: no rashes or lesions noted Neuro General: patient oriented x3 Cranial nerves: Yes Normal hearing present Cognition (Neuro): normal cognition Gait exam (Neuro): Normal gait present Extrem General: Yes normal to inspection, Yes capillary refill normal, Yes no clubbing, cyanosis or edema and Yes no pedal edema Psych Appearance: grossly normal and well kempt Speech and movement: Normal speech and movement present and Clear speech present Affect: normal affect Attitude: cooperative Thought process: Normal thought process present Thought content: Normal thought content present Insight: Good insight present (Psych) Judgement: Good judgement present (Psych) Results Reviewed Results Reviewed: [address] [place] [address] XRay Report Signed Patient: Carmelita Whitaker MR#: [id number] : 1950 Acct:[id number] Age/Sex: 73 / F ADM Date: 10/31/23 Loc: [facility] Attending Dr: Mati Sommer MD Ordering Physician: Aleisha Childers NP Date of Service: 10/31/23 Procedure(s): XR chest 2V Accession Number(s): [id number] cc: Aleisha Childers NP~ EXAMINATION: XR CHEST CLINICAL INFORMATION: Cough. COMPARISON: None available. TECHNIQUE: Frontal and lateral views of the chest were obtained. FINDINGS: The heart, great vessels, pulmonary vasculature and mediastinum are stable. There is atherosclerotic calcification and tortuosity of the thoracic aorta. There is moderate elevation of the right hemidiaphragm. There is a small focus of linear scar/subsegmental atelectasis at the lateral right base. No infiltrate, effusion or pneumothorax is seen. There is no acute osseous abnormality. There is a mild thoracic dextroscoliosis. XR/XR chest 2V IMPRESSION: 1. No focal infiltrate, effusion or pneumothorax is seen. There is no congestive heart failure. 2. There is moderate elevation of the right hemidiaphragm. There is mild lateral right base linear scar/subsegmental atelectasis. The absence of outside comparison radiographs documenting long-term stability, recommend short-term follow-up chest radiographs to ensure stability/clearance and exclude the possibility of underlying obstructive process. Dictated By: Bulmaro Cisneros MD Signed By: <Electronically signed by Bulmaro Cisneros MD in OV> 11/18/23 1927 DD/ 0842 TD/TT: Computer Security Coordinator: CAITLIN Assessment & Plan Assessment & Plan (1) Asthma: Code(s): J45.909 - Unspecified asthma, uncomplicated Category: Medical (2) Environmental allergies: Code(s): Z91.09 - Other allergy status, other than to drugs and biological substances Category: Medical (3) Hemidiaphragm paralysis: Comment: right Code(s): J98.6 - Disorders of diaphragm Category: Medical (4) Atelectasis of right lung: Code(s): J98.11 - Atelectasis Category: Medical Plan Carmelita reported suboptimal effect with symbicort as well as intolerace of DPI. Will trial Dulera. Encouraged patient to trial saline nasal rinse for PND. Offered ipratropium, pt declined. We also discussed adding singulair but she would like to hold off at this time. Reviewed CXR which revealed moderate elevation of right hemidiaphragm and RLL atelectasis. Suggestion for chest CT to assess for alternate cause of persistent atelectasis. Will enter this. All questions were answered and patient is in agreement of plan. Will follow up in 8-10 weeks or sooner if needed. Orders: Orders CT chest wo IV con Today J98.11 - Atelectasis, J98.6 - Disorders of diaphragm Medications: New mometasone-formoterol 100-5 mcg/actuation (Dulera) 2 puffs inhalation BID 13 grams 3RF Discontinued budesonide-formoterol 80-4.5 mcg/actuation (Symbicort) Discontinued Reason: Patient Completed Course 2 puffs inhalation Q12H 10.2 grams 3RF Coding Level of Care Code Est Pt Level 4 (54925) Diagnoses Asthma J45.909 Environmental allergies Z91.09 Hemidiaphragm paralysis J98.6 Atelectasis of right lung J98.11
[2023-12-07 14:07] VITALS: BP 140/76; PULSE 101; O2SAT 98; BMI 27.1
== END 2023-12-07 15:05 | disposition home or self-care (01) ==
PROVIDERS: PCP Nurse Practitioner Family; Referring Provider Nurse Practitioner Family; Visit Provider Nurse Practitioner Family
DX: J45.909 Unspecified asthma, uncomplicated (principal); Z91.09 Other allergy status, other than to drugs and biological substances; J98.6 Disorders of diaphragm; J98.11 Atelectasis
CPT/HCPCS: 99214

== ENCOUNTER → 2023-12-07 13:40 | Outpatient (BNVA) | payer MEDICARE, SELFPAY | PROVIDERS: PCP Nurse Practitioner Family; Referring Provider Nurse Practitioner Family; Visit Provider Nurse Practitioner Family | DX: J45.909 Unspecified asthma, uncomplicated (principal); J98.6 Disorders of diaphragm; J98.11 Atelectasis; Z91.09 Other allergy status, other than to drugs and biological substances | CPT/HCPCS: 99212 ==

== ENCOUNTER 2023-12-16 13:37 | Outpatient (REF) | payer MEDICARE, SELFPAY ==
--- NOTE | ~2023-12-16 | MM_ITS ---
EXAMINATION: MM SCREENING DIGITAL BREAST TOMOSYNTHESIS, BILATERAL CLINICAL INFORMATION: Screening. Asymptomatic. COMPARISON: Mammography: Comparison is made with available priors TECHNIQUE: Digital breast mammography with tomosynthesis is performed in both the craniocaudal and mediolateral oblique views along with computer-aided detection (CAD). FINDINGS: The breasts are heterogeneously dense, which may obscure small masses (ACR BI-RADS breast composition Category c). There are no significant masses, abnormal calcifications, or other abnormalities. MM/MM tomosynthesis screening BI IMPRESSION: Ultrasound follow-up was recommended for hypoechoic masses at 10:00 7 cm from the nipple on the right breast and 9:00 8 cm from the nipple in the right breast previous palpable abnormalities. Additional imaging is recommended ASSESSMENT: BI-RADS BI-RADS 0 - Incomplete: Needs additional Imaging. RECOMMENDATION: Additional views of the right breast with ultrasound at 10:00 7 cm from the nipple and 9:00 8 cm from the nipple. . Radiology department staff will contact the patient for additional imaging. Additional Imaging required This examination should not preclude the clinical evaluation of a suspicious palpable abnormality. This patient's information was entered into a reminder system with a target due date for their next mammogram. Electronically signed by: Paulette Ramsey DO 01/03/2024 06:05 PM [facility]
== END 2023-12-16 13:38 | disposition home or self-care (01) ==
LOC: HO.MAMMO 13:37
PROVIDERS: PCP Nurse Practitioner Family; Visit Provider Nurse Practitioner Family
DX: Z12.31 Encounter for screening mammogram for malignant neoplasm of breast (principal)
CPT/HCPCS: 77063; 77067

== ENCOUNTER → 2023-12-16 14:00 | Outpatient (BNV) | payer MEDICARE, SELFPAY | PROVIDERS: PCP Nurse Practitioner Family; Visit Provider Internal Medicine | DX: Z12.31 Encounter for screening mammogram for malignant neoplasm of breast (principal) | CPT/HCPCS: 77063; 77067 ==

== ENCOUNTER 2024-01-13 14:35 | Outpatient (REF) | payer MEDICARE, SELFPAY ==
--- NOTE | ~2024-01-13 | CT_ITS ---
EXAMINATION: CT CHEST WITHOUT CONTRAST CLINICAL INFORMATION: Elevated right hemidiaphragm. COMPARISON: None available. TECHNIQUE: Multidetector volumetric CT imaging of the chest was done. Axial MIP volume rendering provided. Sagittal and coronal reformatted images were obtained. This CT examination was performed using dose optimization techniques as appropriate, variously including the following: *Automated exposure control *Adjustment of mA and/or kV according to patient size (this includes techniques or standardized protocols for targeted exams where dose is matched to indication/reason for exam; i.e. extremities or head) *Use of iterative reconstruction technique DLP: 142 mGy-cm FINDINGS: Submitted for interpretation on March 13, 2024. Subsegmental atelectasis, right lung base. No consolidation, pleural effusion or pneumothorax. No gross pulmonary nodule. No bronchiectasis. No honeycombing. No lymphadenopathy, mediastinum. Calcified plaques throughout the thoracic aorta wall extending branches and the coronary arteries. No aneurysm in the thoracic aorta. No gross pericardial effusion. There is a 1 cm low density nodule measuring 10 Hounsfield units, right adrenal gland. Status post cholecystectomy likely laparoscopic. Multilevel cervical thoracic spondylosis more conspicuous at T6-7 and C5-6. No acute fracture or listhesis. No lytic or blastic lesions. Osteopenia versus osteoporosis. The thyroid gland is not enlarged. Punctate calcifications in both breasts. No gross axillary lymphadenopathy. CT/CT chest wo IV con IMPRESSION: Elevated right hemidiaphragm without gross masses in the mediastinum. Right phrenic paralysis versus paresia cannot be excluded. No acute airspace disease. Coronary artery disease and atherosclerosis disease. 1 cm lipid rich adenoma, right adrenal gland. Multilevel spondylosis. . Fleischner guidelines were followed. Electronically signed by: Junior Seo MD 03/13/2024 03:47 PM MICHAEL
== END 2024-01-13 14:36 | disposition home or self-care (01) ==
LOC: HO.CT 14:35
PROVIDERS: PCP Nurse Practitioner Family; Visit Provider Nurse Practitioner Family
DX: J98.6 Disorders of diaphragm (principal); J98.11 Atelectasis
CPT/HCPCS: 71250

== ENCOUNTER → 2024-01-13 14:37 | Outpatient (BNV) | payer MEDICARE, SELFPAY | PROVIDERS: PCP Nurse Practitioner Family; Visit Provider Radiology Diagnostic Radiology | DX: J98.6 Disorders of diaphragm (principal); J98.11 Atelectasis | CPT/HCPCS: 71250 ==

== ENCOUNTER 2024-01-31 12:21 | Outpatient (AMB) | payer MEDICARE, SELFPAY ==
[2024-01-31 13:01] VITALS: BP 128/62; PULSE 86; BMI 27.2
--- NOTE | 2024-01-31 13:01 | MHC.OFFVIS ---
Vital Signs 01/31/24 13:01 Height 5 ft 4 in Weight 158 lb 11.725 oz BMI 27.2 BP 128/62 Blood Pressure Location Lt brachial Position Sitting Pulse 86 Pulse Source Monitor Intake Visit Reasons: 6 mth f/up Allergies Seasonal Allergies Allergy (Intermediate, Verified 12/07/23 14:11) Cough zolpidem [From Ambien] Adverse Reaction (Severe, Verified 12/07/23 14:11) Hallucinations Medication List - Last Reconciled 01/31/24 by Alexander Troncoso MD acetaminophen (Tylenol Extra Strength) 500 mg PO Q6H PRN albuterol sulfate 90 mcg/actuation 2 puffs PO Q4-6H PRN amlodipine 10 mg PO DAILY apixaban (Eliquis) 5 mg PO BID 90 days atorvastatin 80 mg PO DAILY blood sugar diagnostic (Wangdaizhijia Verio test strips) USE TO CHECK BLOOD SUGARS TWICE DAILY buspirone 15 mg PO TID 30 days flash glucose scanning reader ([employer] Samantha 2 [place]) As directed flash glucose sensor (Interview Master[employer] Samantha 2 Sensor kit) As directed fluoxetine TAKE 3 CAPSULES BY MOUTH EVERY DAY furosemide 20 mg PO DAILY inhalational spacing device (Aerochamber Plus Z Stat spacer) As directed lancets (Wangdaizhijia Delica Lancets) As directed levothyroxine 50 mcg PO DAILY metformin ER 1,000 mg (2 x 500 mg) PO BID 90 days mometasone-formoterol 100-5 mcg/actuation (Dulera) 2 puffs inhalation BID omeprazole 40 mg (2 x 20 mg) PO DAILY pen needle, diabetic (BD Liv 2nd Gen Pen Needle) As directed semaglutide (Ozempic) 1 mg (0.75 mL) subcut QWEEK 30 days valsartan-hydrochlorothiazide 320-25 mg 1 tab PO DAILY HPI Comments Details: Carmelita returns for follow-up. Previously seen at [facility] but has switched to us. 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 More recently, having labile INRs and hence switched to Eliquis. She has moderate aortic stenosis. From cardiac, no specific symptoms of concern. FORMERLY [facility] Medical History Essential tremor Seasonal allergies PND (post-nasal drip) Iron deficiency Arthritis Osteoarthritis Depression Hypertension Asthma Tremors of nervous system Type II diabetes mellitus Surgical History Hx of LASIK History of esophagogastroduodenoscopy (EGD) H/O: hysterectomy History of cataract removal with insertion of prosthetic lens Hx laparoscopic cholecystectomy Family History Mother Diabetes Parkinsons Panic disorder/agoraphobia, agoraphobic avoidnc/panc attck full remssn Father Stroke Heart attack Brother Congestive heart failure Brother Stroke Other Substance abuse Social History Household Members: Family Household Members Other:: brother Both parents involved: No Caregiver staying overnight: No Housing: Other Housing Other:: mobile home Are you a primary career guidance counselor to a significant other at home: Yes (brother s/p CVA) Do you presently have visiting nurse or other home services: No (brother has services VNA,PT) Alcohol intake: never Patient Tobacco Use Status: Never used Tobacco e-Cigarette/Vaping Use: Never Used Second Hand Smoke Exposure: No service: No Current occupational status: retired Current occupational exposures/hazards: Yes Cognitive needs: No Hearing needs: Yes Vision needs: No Review of Systems Const Denies weakness ENT Denies dizziness Card Reports chest pain, Reports chest pain at rest, Denies chest pain with activity, Denies syncope, Denies rapid heart rate, Denies pedal edema, Denies edema, Denies leg edema, Denies lightheadedness, Denies palpitations, Denies dyspnea, Denies dyspnea on exertion and Denies orthopnea Resp Denies cough, Denies dyspnea and Denies dyspnea on exertion GI Denies hematochezia and Denies change in stool character Musc Denies abnormal gait, Denies muscle cramps, Denies muscle weakness, Denies numbness, Denies radiating pain into limb and Denies tingling Neuro Denies abnormal gait, Denies dizziness, Denies syncope, Denies numbness, Denies tingling and Denies weakness Endo Denies palpitations Physical Exam Vital Signs: Last Vital Signs Pulse 86 01/31/24 13:01 BP 128/62 01/31/24 13:01 BMI result Body Mass Index 27.2 Const General: comfortable and no acute distress Orientation/consciousness: patient oriented x3 HEENT Other: Unremarkable Head: Yes normal to inspection Neck Neck: Yes normal visual inspection Chest Chest palpation & inspection: normal inspection of the chest Resp Auscultation: clear to auscultation bilaterally Cardio Palpation: normal PMI Heart sounds: S1 normal heart sound present, S2 normal heart sound present, no gallops, Murmur heart sound present systolic III/ and at the right sternal border and no rubs GI Palpation (GI): Soft to palpation Back/Spine/Pelvis Other: unremarkable Skin General skin exam: no rashes or lesions noted Neuro General: patient oriented x3 Extrem General: Yes normal to inspection Psych Mental Status: mental status grossly normal Office Procedures EKG Details: EKG with underlying sinus rhythm at 86/Min; right bundle-branch block pattern; voltage criteria for LVH versus normal variant; cannot exclude old inferior/anterolateral infarct versus from body habitus; normal NH. Borderline prolongation of corrected QT which could be related to widened QRS. [id number], Complete Assessment & Plan Assessment & Plan (1) Non-rheumatic aortic stenosis: Code(s): I35.0 - Nonrheumatic aortic (valve) stenosis Category: Medical Plan: In the last echocardiogram, mean gradient across aortic valve was 24 mm Hg with a peak of 46 mm Hg. Calculated valve area of 1.1 sq cm. Preserved LVEF at 65%. Overall, moderate aortic stenosis. Currently, she has got no clear symptoms. We will recheck echocardiogram in 6 months to assess for progression of aortic stenosis. Eventually, TAVR candidate. Discussed. 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 More recently, switched to Eliquis because of labile INRs. Bleeding risks discussed. She would definitely like to stay on this long-term. No changes made. Orders: Orders CA echo transthoracic complete 6 Months I35.0 - Nonrheumatic aortic (valve) stenosis Coding Level of Care Code Est Pt Level 4 (07787) Diagnoses Non-rheumatic aortic stenosis I35.0 Aortic thromboembolism I74.10 CPT Codes EKG - CPT: [id number], Complete ([id number])
== END 2024-01-31 13:21 | disposition home or self-care (01) ==
LOC: HO.HCS 12:21
PROVIDERS: PCP Nurse Practitioner Family; Visit Provider Internal Medicine
DX: I35.0 Nonrheumatic aortic (valve) stenosis (principal); I74.10 Embolism and thrombosis of unspecified parts of aorta
CPT/HCPCS: 93010; 99214

== ENCOUNTER → 2024-01-31 12:21 | Outpatient (BNVA) | payer MEDICARE, SELFPAY | PROVIDERS: PCP Nurse Practitioner Family; Visit Provider Internal Medicine | DX: I44.7 Left bundle-branch block, unspecified (principal); I35.0 Nonrheumatic aortic (valve) stenosis; I74.10 Embolism and thrombosis of unspecified parts of aorta | CPT/HCPCS: 93005; 99212 ==

== ENCOUNTER 2024-02-14 14:18 | Outpatient (AMB) | payer MEDICARE, SELFPAY ==
--- NOTE | 2024-02-14 13:35 | A.OFFVIS_ITS ---
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 She has been moderately controlled on Dulera and albuterol MDI. Prior CXR revealed persistent atelectasis of RLL, likely from elevated hemidiaphragm. Prior SNIFF test revealed mild paralysis on right. PFT order placed at last visit, however not scheduled yet. Today's visit was conducted via telephone to review chest ct results, however not officially read by radiology. Of note, patient reports significant lower extremity pain restricting her from any activity. Denies swelling or erythema. Advised to seek emergent care to follow up. [facility] Medical History Essential tremor Seasonal allergies PND (post-nasal drip) Iron deficiency Arthritis Osteoarthritis Depression Hypertension Asthma Tremors of nervous system Type II diabetes mellitus Surgical History Hx of LASIK History of esophagogastroduodenoscopy (EGD) H/O: hysterectomy History of cataract removal with insertion of prosthetic lens Hx laparoscopic cholecystectomy Family History Mother Diabetes Parkinsons Panic disorder/agoraphobia, agoraphobic avoidnc/panc attck full remssn Father Stroke Heart attack Brother Congestive heart failure Brother Stroke Other Substance abuse Social History Household Members: Family Household Members Other:: brother Both parents involved: No Caregiver staying overnight: No Housing: Other Housing Other:: mobile home Are you a primary family day carer to a significant other at home: Yes (brother s/p CVA) Do you presently have visiting nurse or other home services: No (brother has services VNA,PT) Alcohol intake: never Patient Tobacco Use Status: Never used Tobacco e-Cigarette/Vaping Use: Never Used Second Hand Smoke Exposure: No service: No Current occupational status: retired Current occupational exposures/hazards: Yes Cognitive needs: No Hearing needs: Yes Vision needs: No Review of Systems Const All systems reviewed & are unremarkable except as noted in HPI and below Physical Exam Const General: cooperative and no acute distress Orientation/consciousness: patient oriented x3 Resp Effort & Inspection: normal respiratory effort, able to speak in complete sentences and no audible wheezes Neuro General: patient oriented x3 Psych Mental Status: mental status grossly normal Speech and movement: Clear speech present Attitude: cooperative Thought process: Normal thought process present Thought content: Normal thought content present Insight: Good insight present (Psych) Judgement: Good judgement present (Psych) Telehealth Telehealth Telehealth Platform: Telephone Location of provider rendering services: practice address Location of patient: address on file Patient Identification confirmed using: Name, : Yes Telehealth method: voice only Patient verbally consented to treatment: Yes Patient verbally consented to billing insurance company: Yes Patient informed of any privacy concerns related to visit: Yes Assessment & Plan Assessment & Plan (1) Asthma: Code(s): J45.909 - Unspecified asthma, uncomplicated Category: Medical (2) Environmental allergies: Code(s): Z91.09 - Other allergy status, other than to drugs and biological substances Category: Medical (3) Hemidiaphragm paralysis: Comment: right Code(s): J98.6 - Disorders of diaphragm Category: Medical (4) Atelectasis of right lung: Code(s): J98.11 - Atelectasis Category: Medical Plan Carmelita reports moderate effect on current regimen advised to continue. Encouraged her to trial OTC nasal spray for persistent post nasal drip. Chest CT not officially read will call patient when results available. All questions were answered and patient is in agreement of plan. Will follow up in 8-10 weeks or sooner if needed. I spent 15 minutes speaking with the patient on the phone plus an additional 8 minutes reviewing and updating records for a total of 22 minutes Coding Level of Care Code Tele Est Pt Level 4 (57763) Diagnoses Asthma J45.909 Environmental allergies Z91.09 Hemidiaphragm paralysis J98.6 Atelectasis of right lung J98.11
== END 2024-02-14 14:41 | disposition home or self-care (01) ==
LOC: HO.HPSW 14:18
PROVIDERS: PCP Nurse Practitioner Family; Visit Provider Nurse Practitioner Family
DX: J45.909 Unspecified asthma, uncomplicated (principal); J98.6 Disorders of diaphragm; J98.11 Atelectasis
CPT/HCPCS: G2252

== ENCOUNTER 2024-02-16 12:53 | Outpatient (REF) | payer MEDICARE, SELFPAY ==
--- NOTE | ~2024-02-16 | MM_ITS ---
EXAMINATION: MM DIAGNOSTIC DIGITAL BREAST TOMOSYNTHESIS, RIGHT US BREAST LIMITED, RIGHT MAMMOGRAPHY: CLINICAL INFORMATION: Diagnostic exam, evaluate focal asymmetries previously identified upper outer right breast, suspected to represent fat necrosis. Patient was recommended 12/31/2021 to return for ultrasound follow-up, however did not return until 12/16/2023 for routine screening mammography. COMPARISON: Mammography: 12/16/2023, 12/31/2021, 06/02/2010. Ultrasound left breast 12/31/2021 (BI-RADS 3). TECHNIQUE: Digital breast tomosynthesis is performed in both the following views: Full field 3-D right mediolateral view, as well as 3-D spot compression right CC and right MLO views. Computer-aided diagnosis was used for this study. This is followed by targeted right breast ultrasound to the upper outer quadrant of the right breast. FINDINGS: There are scattered areas of fibroglandular density (ACR BI-RADS breast composition Category b). Mammography demonstrates stable appearance of focal asymmetric densities in the upper outer right breast, palpable to the patient, felt previously to represent fat necrosis, and entirely unchanged from prior examinations suggesting benignity. We will reexamine this region with ultrasound. ULTRASOUND: CLINICAL INFORMATION: As above. COMPARISON: 12/31/2021. TECHNIQUE: Targeted sonographic evaluation right breast was performed using a high frequency linear transducer. Attention was given to the 9:00 in the 10:00 axes of the right breast in the previously seen suspected fat necrosis. Selected archived documentation. FINDINGS: RIGHT BREAST: At the 10:00 axis, 7 cm from the nipple, there is a stable shadowing focus without internal color Doppler flow, markedly hypoechoic, and unchanged in size and appearance when compared with 12/31/2021. Again this measures approximately 3 x 8 x 3 mm. This is consistent with a stable focus of fat necrosis. 2 years of stability is consistent with benignity. The echogenic nodule at the 9:00 axis of the right breast is no longer seen on today's examination and has resolved. There is no additional abnormality in the upper outer quadrant of the right breast. MM/MM tomosynthesis added views R IMPRESSION: -There are no findings suspicious for malignancy right breast. -There are stable right breast asymmetric densities correlating with previously described palpable foci (9:00 and 10:00 axes), which on ultrasound is again consistent with a stable focus of fat necrosis at the 10:00 axis. This is benign. The at the 9:00 axis abnormalities have resolved. -Recommend the patient resume routine annual screening in one year. OVERALL ASSESSMENT: Mammography: BI-RADS 1 - Negative Ultrasound: BI-RADS 1 - Negative RECOMMENDATION: 1 year F/U This patient's information was entered into a reminder system with a target due date for their next mammogram. Electronically signed by: Praveen Fam MD 02/16/2024 02:37 PM MICHAEL [facility]UD[facility]
== END 2024-02-16 12:54 | disposition home or self-care (01) ==
LOC: HO.MAMMO 12:53
PROVIDERS: PCP Nurse Practitioner Family; Visit Provider Nurse Practitioner Family
DX: N63.15 Unspecified lump in the right breast, overlapping quadrants (principal)
CPT/HCPCS: 76642; 77061; 77065

== ENCOUNTER → 2024-02-16 13:30 | Outpatient (BNV) | payer MEDICARE, SELFPAY | PROVIDERS: PCP Nurse Practitioner Family; Visit Provider Radiology Diagnostic Radiology | DX: R92.8 Other abnormal and inconclusive findings on diagnostic imaging of breast (principal) | CPT/HCPCS: 76642; 77065; G0279 ==

== ENCOUNTER 2024-02-19 13:56 | Emergency (ER) | payer MEDICARE, SELFPAY ==
--- NOTE | ~2024-02-19 | XR_ITS ---
EXAMINATION: XR KNEE, LEFT CLINICAL INFORMATION: Pain. COMPARISON: None available. TECHNIQUE: Four views of the left knee. FINDINGS: No acute fracture or dislocation. Moderate medial compartment joint space narrowing with small marginal osteophytes. No osseous erosion. Small superior and inferior patellar enthesophytes. Trace joint effusion. Atherosclerotic calcifications. XR/XR knee LT 4V IMPRESSION: Moderate medial compartment osteoarthritis. Trace joint effusion. Electronically signed by: Albert Villalobos MD 02/19/2024 04:06 PM [facility]
--- NOTE | ~2024-02-19 | XR_ITS ---
EXAMINATION: XR KNEE, RIGHT CLINICAL INFORMATION: Right knee pain COMPARISON: None available. TECHNIQUE: Four views of the right knee. FINDINGS: Severe narrowing of the medial and lateral knee joint spaces is noted. There is chondrocalcinosis. Mild subarticular sclerosis is noted in the medial compartment. No marginal osteophytic changes are noted. Prominent patellar enthesophyte is noted at the insertion of quadriceps tendon. Scattered vascular calcifications. No significant suprapatellar joint effusion. No soft tissue air or radiopaque foreign body. Mild osteopenia. XR/XR knee RT 4V IMPRESSION: No evidence of acute fracture or dislocation in the right knee. Moderate to severe degenerative changes in the right knee. Chondrocalcinosis. Electronically signed by: Naomi Sadelr MD 02/19/2024 04:03 PM [facility]
--- NOTE | ~2024-02-19 | XR_ITS ---
EXAMINATION: XR BILATERAL HIPS WITH AP PELVIS CLINICAL INFORMATION: Status post fall. Bilateral hip pain. COMPARISON: None available. TECHNIQUE: AP view of the pelvis as well as AP and frog lateral views of each hip were obtained. FINDINGS: Bilateral femoral heads are well-seated in their expected acetabula. Mild narrowing of the bilateral hip joint spaces. Symphysis pubis and sacroiliac joints are intact. A 0.9 cm sclerotic focus is noted in the right inferior acetabulum/ischial bone. No evidence of acute fracture or dislocation. Mild lower lumbar spondylosis. Vascular calcifications. XR/XR hip BI w PEL1V IMPRESSION: 1. No evidence of acute fracture or dislocation in the pelvis and bilateral hips. 2. A 0.9 cm sclerotic focus in the right inferior acetabulum/ischial bone is nonspecific. Finding may represent a bone island however sclerotic metastasis can have similar appearance. There are no pertinent prior studies available for comparison. Recommend correlation with clinical history and if clinically deemed necessary, correlation with bone scan may be considered. Electronically signed by: Naomi Sadler MD 02/19/2024 04:10 PM [facility]
--- NOTE | ~2024-02-19 | XR_ITS ---
EXAMINATION: XR ANKLE, LEFT XR FOOT, LEFT CLINICAL INFORMATION: Status post fall. Left foot and ankle pain. COMPARISON: None available. TECHNIQUE: 3 views of the left ankle and 2 views of the left foot. FINDINGS: There is no evidence of acute fracture or dislocation in the left foot and left ankle. Ankle mortise is intact. Bones in the foot are in normal alignment. No focal erosion. No soft tissue air or radiopaque foreign body are seen. Vascular calcifications are noted. Small plantar and posterior calcaneal spurs. Mild degenerative changes are noted at the mid foot anteriorly as seen on the lateral view. XR/XR foot LT 2V IMPRESSION: No evidence of acute fracture or dislocation in the left foot and left ankle. Vascular calcifications. Electronically signed by: Naomi Sadler MD 02/19/2024 03:59 PM [facility]
--- NOTE | ~2024-02-19 | XR_ITS ---
EXAMINATION: XR ANKLE, LEFT XR FOOT, LEFT CLINICAL INFORMATION: Status post fall. Left foot and ankle pain. COMPARISON: None available. TECHNIQUE: 3 views of the left ankle and 2 views of the left foot. FINDINGS: There is no evidence of acute fracture or dislocation in the left foot and left ankle. Ankle mortise is intact. Bones in the foot are in normal alignment. No focal erosion. No soft tissue air or radiopaque foreign body are seen. Vascular calcifications are noted. Small plantar and posterior calcaneal spurs. Mild degenerative changes are noted at the mid foot anteriorly as seen on the lateral view. XR/XR ankle LT min 3V IMPRESSION: No evidence of acute fracture or dislocation in the left foot and left ankle. Vascular calcifications. Electronically signed by: Naomi Sadler MD 02/19/2024 03:59 PM [facility]
--- NOTE | ~2024-02-19 | XR_ITS ---
EXAMINATION: XR SACRUM AND COCCYX CLINICAL INFORMATION: Status post fall. COMPARISON: None available. TECHNIQUE: 2 views of the sacrum and 2 views of the coccyx were obtained. FINDINGS: Small anterior portion of the S1 body is not completely included in the field of view on the lateral view . Otherwise, no acute fracture or dislocation is noted in the sacrum and coccyx. Lower lumbar spondylosis. Sacroiliac joint alignments are maintained. XR/XR sacrum coccyx min 2V IMPRESSION: No radiographic evidence of acute fracture or dislocation in the visualized sacrum and coccyx. If clinically deemed necessary, correlation with CT scan or MRI may be considered for further evaluation. Electronically signed by: Naomi Sadler MD 02/19/2024 04:13 PM [facility]
[2024-02-19 14:23] VITALS: BP 154/95; PULSE 100; RESP 19; TEMP 36.6; O2SAT 99; BMI 26.1
--- NOTE | 2024-02-19 14:30 | ED.GENADULT ---
HPI - General Adult General Chief complaint: Fall Stated complaint: Fall +thinners Time Seen by Provider: 02/19/24 16:54 Source: patient Mode of arrival: ambulatory Limitations: physical limitation History of Present Illness ED Provider: Matilde JEAN narrative: Patient is a 74-year-old female presenting to the emergency department with complaint of lower back pain as well as bilateral leg pain after a fall yesterday. States that she typically uses a cane when ambulating at home and she was going onto her porch to draft roller picker package that was just delivered. States as she crossed the threshold, she had a mechanical trip and fall, landing onto her bottom. She denies head strike or loss of consciousness. States that she was able to get up on her own. This morning when she woke pain had increased. Took Tylenol but still having pain. Denies any headache, blurred vision, double vision or other visual changes. Denies any dizziness or lightheadedness prior to the fall, states she tripped. Denies any neck pain. Denies any hematuria. States she is unable to take NSAIDs as she is on Eliquis. complaint: back and leg pain Onset (ago): day(s) Location: back and lower extremity Severity: moderate Quality: aching Treatments prior to arrival: other (tylenol) Related Data Home Medications ?Medication ?Instructions ?Recorded ?Confirmed acetaminophen 500 mg tablet 500 mg PO Q6H PRN 07/05/23 01/31/24 (Tylenol Extra Strength) Previous Rx's ?Medication ?Instructions ?Recorded lancets 33 gauge (OneTouch Delica #100 ea 02/01/22 Lancets) inhalational spacing device #1 ea 01/13/23 (Aerochamber Plus Z Stat spacer) flash glucose scanning reader #1 ea 01/27/23 (FreeStyle Samantha 2 [place]) flash glucose sensor (FreeStyle #1 ea 01/27/23 Samantha 2 Sensor kit) pen needle, diabetic 32 gauge x #100 ea 04/26/23 (BD Liv 2nd Gen Pen Needle) albuterol sulfate 90 mcg/actuation 2 puff PO Q4-6H PRN for wheezing 05/31/23 aerosol inhaler #8.5 ea apixaban 5 mg tablet (Eliquis) 5 mg PO BID 90 days #180 tabs 04/30/24 buspirone 15 mg tablet 15 mg PO TID 30 days #90 tabs 08/16/23 furosemide 20 mg tablet 20 mg PO DAILY #90 tabs 10/04/23 fluoxetine 20 mg capsule See Rx Instructions .Route 10/11/23 .COMPLEX #270 caps semaglutide 1 mg/dose (4 mg/3 mL) 1 mg (0.75 mL) subcut QWEEK 30 10/28/23 subcutaneous pen injector (Ozempic) days #3.75 mL atorvastatin 80 mg tablet 80 mg PO DAILY #90 tabs 11/02/23 amlodipine 10 mg tablet 10 mg PO DAILY #90 tabs 11/23/23 levothyroxine 50 mcg tablet 50 mcg PO DAILY #90 tabs 11/23/23 metformin 500 mg tablet,extended 1,000 mg (2 x 500 mg) PO BID 90 11/23/23 release 24 hr days #360 tabs mometasone-formoterol HFA 100 2 puff inhalation BID #13 grams 12/07/23 mcg-5 mcg/actuation aerosol inhaler (Dulera) valsartan 320 1 tab PO DAILY #90 tabs 12/26/23 mg-hydrochlorothiazide 25 mg tablet blood sugar diagnostic (OneTouch #200 strips 01/05/24 Verio test strips) omeprazole 20 mg capsule,delayed 40 mg (2 x 20 mg) PO DAILY #180 01/11/24 release caps diclofenac sodium 1 % topical gel 2 g topical QID #100 grams 02/19/24 lidocaine 5 % topical patch 1 patch topical DAILY #15 ea 02/19/24 Allergies Allergy/AdvReac Type Severity Reaction Status Date / Time Seasonal Allergies Allergy Intermediate Cough Verified 02/19/24 14:26 zolpidem [From Ambien] AdvReac Severe Hallucinati Verified 02/19/24 14:26 ons Review of Systems Review of Systems: As per HPI. Yes all other systems are reviewed and are negative Constitutional: Constitutional: Reports as per HPI [facility] Past Medical History Medical History Essential tremor Seasonal allergies PND (post-nasal drip) Iron deficiency Arthritis Osteoarthritis Depression Hypertension Asthma Tremors of nervous system Type II diabetes mellitus Surgical History Hx of LASIK History of esophagogastroduodenoscopy (EGD) H/O: hysterectomy History of cataract removal with insertion of prosthetic lens Hx laparoscopic cholecystectomy Family History Family History Mother Diabetes Parkinsons Panic disorder/agoraphobia, agoraphobic avoidnc/panc attck full remssn Father Stroke Heart attack Brother Congestive heart failure Brother Stroke Other Substance abuse Social History Social History Household Members: Family Household Members Other:: brother Housing: Other Housing Other:: mobile home Are you a primary critical care clinical nurse specialist to a significant other at home: Yes (brother s/p CVA) Do you presently have visiting nurse or other home services: No (brother has services VNA,PT) Alcohol intake: never Patient Tobacco Use Status: Never used Tobacco e-Cigarette/Vaping Use: Never Used Second Hand Smoke Exposure: No Advance Directives: No Advance Directives Information Provided: No Do you have a plan to hurt others: No Plan service: No Current occupational status: retired Current occupational exposures/hazards: Yes Cognitive needs: No Hearing needs: Yes Vision needs: No Physical Exam ED Vital Signs: Vital Signs - 24 hr 02/19/24 14:23 02/19/24 18:25 Temperature 98 F 98 F Pulse Rate 100 100 Respiratory Rate 19 19 Blood Pressure 154/95 H 154/95 H Pulse Oximetry 99 99 Oxygen Delivery Method Room Air Room Air BMI result Body Mass Index 26.1 Vital signs have been reviewed and appear to be correct. Blood pressure normal. Heart rate normal. Respiratory rate normal. Temperature normal. Oxygen saturation normal. Const General: cooperative, healthy appearing and no acute distress Orientation/consciousness: oriented to person, oriented to place, oriented to time and patient oriented x3 Limitations: no limitations HENMT Head: Yes normal to inspection, Yes normocephalic and Yes atraumatic Ears: external ears normal and TM's normal bilaterally General nose exam: Normal external nose present Face and sinus: Yes face symmetric Mouth: oropharynx normal and moist mucous membranes Throat: Yes uvula midline Eyes Pupils: Equal, round and reactive pupils present Neck Neck: Yes normal visual inspection and Yes supple Resp Effort & Inspection: normal respiratory effort and able to speak in complete sentences Auscultation: clear to auscultation bilaterally Cardio Rate: regular rate Rhythm: regular rhythm Heart sounds: S1 normal heart sound present and S2 normal heart sound present GI Palpation (GI): Soft to palpation and nontender Auscultation: normoactive bowel sounds General: Yes no CVA tenderness Back/Spine/Pelvis Back: no CVA tenderness Cervical Spine: normal cervical lordosis, cervical ROM normal, No cervical muscular tenderness, No Cervical spine tenderness and No step off deformity Thoracic/Lumbar Spine: thoracic and lumbar spine normal to inspection, thoraco-lumbar ROM normal, straight leg raise negative bilaterally, pain with thoraco-lumbar ROM, paraspinal muscle tenderness bilaterally in the mid lumbar, No thoracic spinal tenderness and No lumbar spinal tenderness Pelvis: no pain with anterior-posterior compression and no pain with lateral compression Skin General skin exam: elasticity normal and turgor normal Neuro General: oriented to person, oriented to place, oriented to time, patient oriented x3, tone normal, moves all extremities, Normal light touch and pain sensation, no focal motor deficits and CN's II-XI intact bilaterally Cranial nerves: Yes Equal, round and reactive pupils present Cognition (Neuro): normal cognition Extrem General: Yes full ROM, Yes no pedal edema and Yes no calf tenderness Right lower extremity: normal to inspection, full ROM and normal capillary refill Left lower extremity: normal to inspection, full ROM and normal capillary refill Psych Mental Status: mental status grossly normal Affect: normal affect Thought process: Normal thought process present Course Course Course Narrative: RME: 74-year-old female presents to ED for fall. Patient fell onto her motor. Patient states she tripped. Patient denies hitting head or loss of consciousness. Patient is on blood thinner. No obvious signs of head trauma. No bruising and back. Images ordered. Medical Decision Making Medical Decision Making MDM Narrative: Patient is a 74-year-old female presenting to the emergency department with complaint of lower back pain as well as bilateral leg pain after a fall yesterday. On exam patient is awake, A+Ox3, VS WNL, afebrile, normal neurological exam without focal deficits, physical exam findings as above. Given reported symptoms and physical exam findings, initial differential includes lumbar strain, vertebral fracture, knee contusion vs fracture. Do not suspect ICH, skull or cervical vertebral fracture or subluxation. X-rays notable for no acute fractures. My interpretation is in agreement with the radiologist's interpretation. Urinalysis is without evidence of hematuria or infection. Results discussed with patient and all questions answered. Will send prescription for diclofenac gel and topical lidocaine patches. Discussed with patient that these are safe to use with Tylenol as well as Eliquis. Return precautions discussed at bedside. Follow-up with PCP. Patient verbalized understanding of and agreement with plan. Differential Diagnosis Differential Diagnoses: The differential diagnosis associated with the presentation includes As per [facility]. Lab Data [facility] Lab Attestation statement: I reviewed the patient's lab results. As per [facility]. Labs: Lab Results 02/19/24 Range/Units 17:26 Urine Color Yellow Urine Appearance Clear Urine pH 7.0 (5.0-9.0) Ur Specific [place] 1.010 (1.005-1.025) Urine Protein Negative (Neg-Trace) mg/dL Urine Glucose (UA) Negative (Negative) mg/dL Urine Ketones Negative (Negative) mg/dL Urine Blood Negative (Negative) Urine Nitrite Negative (Negative) Ur Leukocyte Esterase Negative (Negative) Independent Interpretation I performed an independent interpretation of an: Plain X-Ray Interpretation: I have independently reviewed the x-ray imaging and agree with the radiologist's interpretation. Radiology Impression Discussion of test interpretation with radiology: I have reviewed the radiologist's reading. Radiologist Impression: XR/XR knee RT 4V IMPRESSION: No evidence of acute fracture or dislocation in the right knee. Moderate to severe degenerative changes in the right knee. Chondrocalcinosis. XR/XR knee LT 4V IMPRESSION: Moderate medial compartment osteoarthritis. Trace joint effusion. XR/XR sacrum coccyx min 2V IMPRESSION: No radiographic evidence of acute fracture or dislocation in the visualized sacrum and coccyx. If clinically deemed necessary, correlation with CT scan or MRI may be considered for further evaluation. XR/XR hip BI w PEL1V IMPRESSION: 1. No evidence of acute fracture or dislocation in the pelvis and bilateral hips. 2. A 0.9 cm sclerotic focus in the right inferior acetabulum/ischial bone is nonspecific. Finding may represent a bone island however sclerotic metastasis can have similar appearance. There are no pertinent prior studies available for comparison. Recommend correlation with clinical history and if clinically deemed necessary, correlation with bone scan may be considered. XR/XR foot LT 2V IMPRESSION: No evidence of acute fracture or dislocation in the left foot and left ankle. Vascular calcifications. XR/XR ankle LT min 3V IMPRESSION: No evidence of acute fracture or dislocation in the left foot and left ankle. Vascular calcifications. External Record Review External record reviewed: Inpatient record, Office record and Outpatient record Prescription Management I considered prescription management with: Pain Medication Discharge Plan Discharge Clinical Impression: Contusion of knee, left, Contusion of knee, right, Lumbar strain Patient Disposition: Home, Self-Care Instructions: Low Back Strain (ED), Contusion in Adults (ED), R.I.C.E. Treatment (ED) Additional Instructions: You were evaluated in the emergency department today for injuries after a fall. Your evaluation including x-rays did not show evidence of acute injuries requiring emergency medical treatment at this time. You are being prescribed diclofenac gel which you can apply as prescribed for pain. You are also being prescribed topical lidocaine patches which you can apply to the affected area for up to 12 hours in a 24 hour period. Do not apply heat directly over the patches. We also recommend that you continue to take 650 mg of Tylenol every 6 hours as needed for pain. Follow-up with your primary care provider. Return to the emergency department new or concerning symptoms. Prescriptions: New diclofenac sodium 1 % gel 2 g topical QID Qty: 100 0RF Rx Instructions: apply to single elbow, wrist or hand; for hand includes palm/fingers/back of hand lidocaine 5 % adhesive patch,medicated 1 patch topical DAILY Qty: 15 0RF Rx Instructions: leave on most painful area for up to 12 hrs No Action (DME) pen needle, diabetic [BD Liv 2nd Gen Pen Needle] 32 gauge x 5/32 needle See Rx Instructions .Route Qty: 100 11RF Rx Instructions: As directed albuterol sulfate 90 mcg/actuation HFA aerosol inhaler 2 puff PO Q4-6H PRN (Reason: for wheezing) Qty: 8.5 5RF furosemide 20 mg tablet 20 mg PO DAILY Qty: 90 3RF fluoxetine 20 mg capsule See Rx Instructions .ROUTE .COMPLEX Qty: 270 2RF Dose Instruction: TAKE 3 CAPSULES BY MOUTH EVERY DAY Rx Instructions: TAKE 3 CAPSULES BY MOUTH EVERY DAY Ozempic 1 mg/dose (4 mg/3 mL) pen injector 1 mg subcut QWEEK 30 Days Qty: 3.75 6RF atorvastatin 80 mg tablet 80 mg PO DAILY Qty: 90 3RF amlodipine 10 mg tablet 10 mg PO DAILY Qty: 90 1RF levothyroxine 50 mcg tablet 50 mcg PO DAILY Qty: 90 1RF metformin 500 mg tablet extended release 24 hr 1,000 mg PO BID 90 Days Qty: 360 1RF valsartan-hydrochlorothiazide 320-25 mg tablet 1 tab PO DAILY Qty: 90 1RF (DME) OneTouch Verio test strips Strip See Rx Instructions .ROUTE .COMPLEX Qty: 200 1RF Dose Instruction: USE TO CHECK BLOOD SUGARS TWICE DAILY Rx Instructions: USE TO CHECK BLOOD SUGARS TWICE DAILY omeprazole 20 mg capsule,delayed release(DR/EC) 40 mg PO DAILY Qty: 180 1RF (DME) Aerochamber Plus Z Stat Spacer See Rx Instructions .Route Qty: 1 2RF Rx Instructions: As directed (DME) FreeStyle Samantha 2 Sensor Kit See Rx Instructions .Route Qty: 1 2RF Rx Instructions: As directed (DME) FreeStyle Samantha 2 [place] Misc See Rx Instructions .Route Qty: 1 0RF Rx Instructions: As directed acetaminophen [Tylenol Extra Strength] 500 mg tablet 500 mg PO Q6H PRN (DME) lancets [OneTouch Delica Lancets] 33 gauge misc See Rx Instructions topical .MEDSUPPLY Qty: 100 11RF Rx Instructions: As directed buspirone 15 mg tablet 15 mg PO TID 30 Days Qty: 90 3RF Eliquis 5 mg tablet 5 mg PO BID 90 Days Qty: 180 3RF Dulera 100-5 mcg/actuation HFA aerosol inhaler 2 puff inhalation BID Qty: 13 3RF Interventions: ED Discharge Assessment Last Done: 02/19/24 18:25 Discharge Date/Time: 02/19/24 18:25 Print Language: Mauritanian
[2024-02-19 17:40] LABS: Appearance Urine Clear; Color Urine Yellow; Glucose Urine UA Negative (Negative); Leukocyte Esterase Urine Negative (Negative); Nitrite Urine Negative (Negative); Urine Blood Negative (Negative); Urine Ketones Negative (Negative); Urine Protein Negative (Neg-Trace)
[2024-02-19 18:25] VITALS: BP 154/95; PULSE 100; RESP 19; TEMP 36.6; O2SAT 99
== END 2024-02-19 18:25 | disposition home or self-care (01) ==
PROVIDERS: Registered Nurse Emergency; Emergency Provider Emergency Medicine Emergency Medical Services; PCP Nurse Practitioner Family
DX: S80.02XA Contusion of left knee, initial encounter (principal); S39.012A Strain of muscle, fascia and tendon of lower back, initial encounter; M79.672 Pain in left foot; M25.562 Pain in left knee; M25.561 Pain in right knee; M25.552 Pain in left hip; M25.551 Pain in right hip; W19.XXXA Unspecified fall, initial encounter; Y93.89 Activity, other specified; Y92.098 Other place in other non-institutional residence as the place of occurrence of the external cause; Y99.8 Other external cause status; Z79.01 Long term (current) use of anticoagulants; Z79.899 Other long term (current) drug therapy
CPT/HCPCS: 72220; 73521; 73564; 73610; 73620; 81003; 99282; 99283

== ENCOUNTER 2024-02-23 10:56 | Outpatient (AMB) | payer MEDICARE, SELFPAY ==
--- NOTE | 2024-02-23 11:42 | MHC.PC.OV ---
Vital Signs 02/23/24 11:51 Height 5 ft 5 in Weight 154 lb 4 oz BMI 25.7 BP 130/70 Blood Pressure Location Lt brachial Position Sitting Respiration 14 Pulse 103 H Pulse Source Pulse Oximeter Temp 96.9 F Temp Source Oral Pulse Oximetry (%) 98 Oxygen Delivery Method Room Air Intake Visit Reasons: 3 mos HTN, DM, anxiety, depression Intake Note: dm ,htn and anxiety and depression f/u Allergies Seasonal Allergies Allergy (Intermediate, Verified 02/23/24 11:50) Cough zolpidem [From Ambien] Adverse Reaction (Severe, Verified 02/23/24 11:50) Hallucinations Tobacco use date assessed: 11/22/23 Dental Screening Dental Screen Date: 10/17/23 HPI HPI Comments History of Present Illness Details The patient is a 74-year-old female presenting with a recent fall and follow-up for existing medical conditions. On Tuesday, the patient fell while stepping out to retrieve a package. She missed the last step, resulting in a fall onto her buttocks. She experienced significant pain by Tuesday and was taken to the hospital, where she underwent multiple X-rays. The evaluations confirmed the absence of fractures, but she has sustained a bruise to the coccyx region, causing persistent discomfort. The patient's history includes Essential Hypertension, with current readings stable at 130/70 mmHg. She is on medication without side effects. Type 2 Diabetes Mellitus is controlled, with an A1c of 6.0%, down from 6.4% previously. She has experienced a weight loss of 3 pounds despite feeling that her appetite remains substantial. Anxiety and depression are ongoing concerns, the latter being perceived as exacerbated on a recent screening, though attributed primarily to a stressful week. She reports difficulty sleeping due to pain but otherwise feels her mood is stable. Past attempts to manage coccygeal pain include using Voltaren gel, which provides limited relief. She's unable to use a lidocaine patch due to insurance constraints. The patient uses Tylenol for pain management, as recommended. She applies Voltaren at night on the affected area. Social History - Lives with her younger brother, who is handicapped. - Uses a walker when leaving the house and a cane indoors. - Recent fall occurred while using a cane. - Recent events have been stressful, leading to increased nervous eating. - Relative in [place] suggested measures for safety at home, like bubble wrap for added protection. [facility] Medical History Essential tremor Seasonal allergies PND (post-nasal drip) Iron deficiency Arthritis Osteoarthritis Depression Hypertension Asthma Tremors of nervous system Type II diabetes mellitus Surgical History Hx of LASIK History of esophagogastroduodenoscopy (EGD) H/O: hysterectomy History of cataract removal with insertion of prosthetic lens Hx laparoscopic cholecystectomy Family History Mother Diabetes Parkinsons Panic disorder/agoraphobia, agoraphobic avoidnc/panc attck full remssn Father Stroke Heart attack Brother Congestive heart failure Brother Stroke Other Substance abuse Social History Household Members: Family Household Members Other:: brother Both parents involved: No Caregiver staying overnight: No Housing: Other Housing Other:: mobile home Are you a primary lpn care manager to a significant other at home: Yes (brother s/p CVA) Do you presently have visiting nurse or other home services: No (brother has services VNA,PT) Alcohol intake: never Patient Tobacco Use Status: Never used Tobacco e-Cigarette/Vaping Use: Never Used Second Hand Smoke Exposure: No service: No Current occupational status: retired Current occupational exposures/hazards: Yes Cognitive needs: No Hearing needs: Yes Vision needs: No Questionnaire PHQ-9 Over the last 2 weeks, how often have you been bothered by any of the following problems? 1. Little interest or pleasure in doing things: nearly every day 2. Feeling down, depressed, or hopeless: more than half the days 3. Trouble falling or staying asleep, or sleeping too much: more than half the days 4. Feeling tired or having little energy: more than half the days 5. Poor appetite or overeating: not at all 6. Feeling bad about yourself - or that you are a failure or have let yourself or your family down: several days 7. Trouble concentrating on things, such as reading the newspaper or watching television: not at all 8. Moving or speaking so slowly that other people could have noticed. Or the opposite - being so fidgety or restless that you have been moving around a lot more than usual: several days 9. Thoughts that you would be better off or of hurting yourself in some way: not at all Total score: 11 Depression Screening Interpretation: Positive Depression Screening Follow-up: Existing condition and In treatment Depression Screening Done: Yes Source: Developed by Drs. Meir Zarate, Elba Comer, Ethan Little and colleagues, with an educational leeanne from [employer] Thrive Questionnaire Date Thrive assessed: 10/17/23 I am a: Patient What is your living situation today?: I have a steady place to live Within the past 12 months, did the food you bought not last and you didn't have the money to get more?: Never true Within the past 12 months, did you worry whether your food would run out before you got money to buy more?: Never true Do you have trouble paying for medicines?: No Do you have trouble getting transportation to medical appointments?: Yes Do you have trouble paying your heating and electricity bill?: No Do you have trouble taking care of your child, family member or friend?: No Do you have trouble with day-to-day activities such as bathing, preparing meals, shopping, managing finances, etc.?: No Are you currently unemployed and looking for a job?: No Are you interested in more education?: No Please select the resources that you would like help with: None Currently or been in a relationship where the following occur: No concerns reported THRIVE Score: 1 AUDIT C Alcohol Use Questionnaire (AUDIT-C) 1. How often do you have a drink containing alcohol?: Never Total Score: 0 SUSHANT-7 AMB Questionnaire SUSHANT-7 Date SUSHANT - 7 assessed: 10/17/23 Feeling nervous, anxious, or on edge: 2 = More than half the days Not being able to stop or control worryin = More than half the days Worrying too much about different things: 2 = More than half the days Trouble relaxin = More than half the days Being so restless that it is hard to sit still: 1 = Several days Becoming easily annoyed or irritable: 0 = Not at all Feeling afraid as if something awful might happen: 2 = More than half the days Total SUSHANT-7 score (0-4 normal; 5-9 mild; 10-14 moderate; 15-21 severe): 11 Source: Developed by Drs. Meir Zarate, Elba Comer, Ethan Little and colleagues, with an educational leeanne from [employer] Review of Systems Const Details: Const Denies chills, Denies fatigue, Denies fever(s), Denies headache(s) and Denies weakness ENT Denies dizziness and Denies headache(s) Card Denies chest pain, Denies lightheadedness, Denies dyspnea and Denies other (Palpitations) Resp Denies cough, Denies dyspnea, Denies wheezing and Denies other ( shortness of breath) GI Denies abdominal pain, Denies melena, Denies hematochezia, Denies change in bowel habits, Denies dyspepsia and Denies nausea Denies hematuria and Denies dysuria Musc Reports as per HPI Skin/Breast Denies rash, Denies unusual bruising and Denies wounds Neuro Denies abnormal gait, Denies dizziness, Denies headache(s), Denies memory loss, Denies numbness, Denies Sensory deficit (Neuro), Denies tingling and Denies weakness Psych Reports anxiety, Reports depression, Denies memory loss Endo Denies cold intolerance, Denies fatigue, Denies heat intolerance, Denies polydipsia and Denies polyuria Aller/Immun Denies wheezing Physical exam (Primary Care) Vital Signs: Last Vital Signs Temp 96.9 F 02/23/24 11:51 Pulse 103 H 02/23/24 11:51 Resp 14 02/23/24 11:51 BP 130/70 02/23/24 11:51 Pulse Ox 98 02/23/24 11:51 Oxygen Delivery Method Room Air 02/23/24 11:51 BMI result Body Mass Index 25.7 Tobacco/Smoking Status: Tobacco use Status Tobacco use date assessed 11/22/23 02/23/24 11:43 Patient Tobacco Use Status Never used Tobacco 02/23/24 11:43 e-Cigarette/Vaping Use Never Used 02/23/24 11:43 PHQ-9: PHQ-9 Score PHQ-9: Total score 11 02/23/24 11:43 Depression Screening Interpretation: Positive Depression Screening Follow-up: Existing condition and In treatment Thrive Assessment: Date of Thrive Assessment Date Thrive assessed 10/17/23 02/23/24 11:43 Currently or been in a relationship where the following occur: No concerns reported Const Other: General: no acute distress and well developed Nutritional Appearance: well nourished Orientation/consciousness: patient oriented x3 HENMT Head: Yes normocephalic and Yes atraumatic Eyes General: appearance normal, both eyes and all related structures Pupils: Equal, round and reactive pupils present EOM: EOMs intact bilaterally Resp Effort & Inspection: normal respiratory effort Auscultation: clear to auscultation bilaterally Cardio Rate: regular rate Rhythm: regular rhythm Heart sounds: S1 normal heart sound present, S2 normal heart sound present, no gallops, no murmurs and no rubs GI Palpation (GI): No Abdominal aortic bruit present, Soft to palpation, nontender, No hepatosplenomegaly present and No Rebound tenderness present Auscultation: normal bowel sounds General: Yes no CVA tenderness Back/Spine/Pelvis Back: no CVA tenderness Extrem General: Yes normal to inspection, No edema and No calf tenderness Skin General: warm and dry. Normal skin color. Normal skin turgor Neuro General: patient oriented x3, gait normal and no focal neuro deficit Cranial nerves: Yes Equal, round and reactive pupils present Cognition (Neuro): normal cognition Gait exam (Neuro): Normal gait present Sensory Exam: No Sensory deficit (Neuro) Psych Appearance: grossly normal Affect: normal affect Attitude: cooperative Thought process: Normal thought process present Results AMB Hemoglobin A1c AMB Hemoglobin A1c 6.0 % Last Edit by MELISSA Hernandez on 02/23/24 12:46 Coding Level of Care Code Est Pt Level 4 (15100) Diagnoses Type II diabetes mellitus E11.9 Hypertension, essential I10 Anxiety and depression F41.9; F32.A Coccygeal contusion S30.0XXA Assessment & Plan Assessment & Plan (1) Type II diabetes mellitus: Code(s): E11.9 - Type 2 diabetes mellitus without complications Category: Medical Plan: Maintain current management strategies due to well-controlled A1c; monitor regularly. (2) Hypertension, essential: Code(s): I10 - Essential (primary) hypertension Category: Medical Plan: Continue current medication regimen; no changes as blood pressure is stable. (3) Anxiety and depression: Code(s): F41.9 - Anxiety disorder, unspecified; F32.A - Depression, unspecified Category: Medical Plan: Monitor symptoms and reassess at follow-up; encourage reporting of any significant mood fluctuations. (4) Coccygeal contusion: Code(s): S30.0XXA - Contusion of lower back and pelvis, initial encounter Category: Medical Plan: Continue using Voltaren gel and Tylenol; apply warm or cold compresses as needed for pain relief. Exercise caution in daily activities to prevent further falls. Plan During the visit, I reviewed the patient's current medical conditions, successfully controlled hypertension, and diabetes. Her mood and anxiety disorders appear stable, with recent exacerbation in depression attributed to transitory circumstances. I discussed pain management following her recent fall, emphasizing the use of Voltaren gel, Tylenol, and compress methods to alleviate coccygeal pain. The absence of severe injury post-fall was reassuring, though I advised caution in ambulation. I encouraged the continuation of her healthy dietary practices and routine monitoring of blood pressure and glucose levels. Orders: Orders AMB Hemoglobin A1c Today Z13.9 - Encounter for screening, unspecified Lipid Panel 3 Months E11.9 - Type 2 diabetes mellitus without complications Patient Instructions: - Continue current medications for hypertension and diabetes as prescribed. - Use Voltaren gel and Tylenol as needed for coccygeal pain; apply compresses for relief. - Monitor blood glucose and blood pressure regularly. - Engage in physical activities as comfort allows once pain subsides. - Follow up in three months or sooner if new symptoms develop or existing ones worsen. - Arrange for lipid panel before the next appointment, fasting for 10-12 hours prior.
[2024-02-23 11:51] VITALS: BP 130/70; PULSE 103; RESP 14; TEMP 36.1; O2SAT 98; BMI 25.7
== END 2024-02-23 12:31 | disposition home or self-care (01) ==
PROVIDERS: PCP Nurse Practitioner Family; Visit Provider Nurse Practitioner Family
DX: E11.9 Type 2 diabetes mellitus without complications (principal); I10 Essential (primary) hypertension; F41.9 Anxiety disorder, unspecified; F32.A Depression, unspecified; S30.0XXA Contusion of lower back and pelvis, initial encounter; Z13.9 Encounter for screening, unspecified

== ENCOUNTER → 2024-02-23 10:56 | Outpatient (BNVA) | payer MEDICARE, SELFPAY | PROVIDERS: PCP Nurse Practitioner Family; Visit Provider Nurse Practitioner Family | DX: E11.9 Type 2 diabetes mellitus without complications (principal); I10 Essential (primary) hypertension; F41.9 Anxiety disorder, unspecified; F32.A Depression, unspecified; S30.0XXA Contusion of lower back and pelvis, initial encounter | CPT/HCPCS: 83036; 96127; 99212 ==

== ENCOUNTER 2024-03-13 13:34 | Outpatient (REF) | payer MEDICARE, SELFPAY ==
--- OUTSIDE RECORDS SUMMARY | 2024-03-14 21:42 | XMS_ITS | Data Portability ---
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 Plan of Treatment Reminders Order Date Submit Date Provider Last Modified By Organization Details Last Modified Time Details Appointments None recorded. Lab None recorded. Referral None recorded. Procedures None recorded. Surgeries None recorded. Imaging MRI, brain + internal auditory canal, w/wo contrast - MRI, BRAIN + INTERNAL AUDITORY CANAL, W/WO CONTRAST 2023 024 [facility], [address] [place] [address], [id number], 10:57:28 Medication Orders None recorded. Patient TargetsNo targets recorded. Patient InstructionsNo instructions recorded. Reason for Referral None Reported. Results Created Date Observation Date Name Description Value Unit Range Abnormal Flag Note LastModifiedBy Organization Detail LastModifiedTime 01/27/20 24 audio gram No observ ation record ed. [email or web address] Not Available 01/03 11:00:41 03/09/20 24 03/07/2024 MRI, brain + inter nal audit ory canal , w/wo contr ast No observ ation record ed. [facility] [address] [place], [address], 03/09/2024 10:57:28 Result Notes None recorded. 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 Not Available [facility] 4 02:12:59 Sensorine ural hearing loss of bilateral ears 438387560 Active 2016 Sensorine ural hearing loss, bilateral ; Note: Date Diagnosed : 04/26/2016 9:36 AM (H90.3) Not Available [facility] 4 02:12:59 Impacted cerumen in right ear 07476802156 22706 Active 2023 TASHA FLYNN MD [address] [place] [address], [place], [phone] , [facility] - [facility] 4 15:37:11 Acoustic neuroma 926518906 Active 2023 TASHA FLYNN MD [address] [place] [address], [place], [address] , [facility] - [facility] 4 15:37:46 Problem Notes None recorded. Procedures Surgical History Date Name Laterality Status Provider Name and Address Organization Details Recorded Time 4 Cerumen removal without microscope right completed TASHA FLYNN MD [address] [place] [address], [place], [phone], [facility] - [facility] 01/25/2024 15:37:32 4 Air & Speech Audio with Tymps ([id number], [id number] & [id number]) completed SHELBIE MARKS [address] [place] [address],[place] [address], [place], [phone], [facility] - [facility] 01/25/2024 14:51:01 Imaging Results Imaging Date Name Status LastModified by Organiz ation Details LastModified Time 01/27/2024 audiogram completed [email or web address] Information n ot available 01/27/2024 11:00:41 03/07/2024 MRI, brain + internal auditory canal, w/wo contrast active [facility] [address] [facility], [place], [address], 03/09/2024 10:57:28 Procedure Notes None recorded. Medical Equipment None Reported. Medications Name Sig Start Date Stop Date Status Note LastModified by Organization Details LastModified Time atorvastat in 80 mg tablet TAKE 1 TABLET BY MOUTH EVERY DAY active Not Available Not Available No t Available valacyclov ir 1 gram tablet 2017 active Medicatio n ID: [id number] Du ration Value: 7 Brand Name: valacyclo vir Send Method: E-Prescri bed Subs Allowed: subs OK Medica tionGener icName: valacyclo vir Not Available Not Available Not Available aspirin 81 mg tablet,del ayed release TAKE 1 TABLET BY MOUTH EVERY DAY active Not Available Not Available No t Available amlodipine 10 mg tablet TAKE 1 TABLET BY MOUTH EVERY DAY active Not Available Not Available No t Available levothyrox ine 50 mcg tablet TAKE 1 TABLET BY MOUTH EVERY DAY active Not Available Not Available No t Available ferrous sulfate 325 mg (65 mg iron) tablet TAKE 1 TABLET BY MOUTH EVERY DAY active Not Available Not Available No t Available warfarin 5 mg tablet TAKE 1 TO 1.5 TABLETS BY MOUTH ONCE DAILY DIRECTED PER CLINIC active Not Available Not Available No t Available fluticason e propionate 44 mcg/actuat ion HFA aerosol inhaler INHALE 2 PUFFS BY MOUTH 2 TIMES A DAY - ADMINISTE R WITH SPACER active Not Available Not Available No t Available gabapentin 300 mg capsule 2017 active Medicatio n ID: [id number] Du ration Value: 30 Brand Name: gabapenti n Send Method: E-Prescri bed Subs Allowed: subs OK Medica tionGener icName: gabapenti n Not Available Not Available Not Available buspirone 7.5 mg tablet TAKE 1 TABLET 2 TIMES A DAY FOR 30 DAYS active Not Available Not Available No t Available omeprazole 20 mg capsule,de layed release TAKE 2 CAPSULES BY MOUTH DAILY active Not Available Not Available No t Available furosemide 20 mg tablet TAKE 1 TABLET BY MOUTH EVERY DAY active Not Available Not Available No t Available albuterol sulfate HFA 90 mcg/actuat ion aerosol inhaler INHALE 2 PUFFS BY MOUTH EVERY 4 TO 6 HOUS NEEDED FOR WHEEZING active Not Available Not Available No t Available fluoxetine 20 mg capsule TAKE 3 CAPSULES BY MOUTH EVERY DAY active Not Available Not Available No t Available metformin ER 500 mg tablet,ext ended release 24 hr TAKE 2 TABLETS BY MOUTH TWICE A DAY active Not Available Not Available No t Available buspirone 15 mg tablet TAKE 1 TABLET BY MOUTH THREE TIMES A DAY active Not Available Not Available No t Available iron 18 mg tablet 2016 active Medicatio n ID: [id number] Br and Name: iron Send Method: E-Prescri bed Subs Allowed: subs OK Medica tionGener icName: iron Not Available Not Available Not Available valsartan 320 mg-hydroch lorothiazi de 25 mg tablet TAKE 1 TABLET BY MOUTH EVERY DAY active Not Available Not Available No t Available Symbicort 80 mcg-4.5 mcg/actuat ion HFA aerosol inhaler INHALE 2 PUFFS EVERY 12 HOURS active Not Available Not Available No t Available Lantus Solostar U-100 Insulin 100 unit/mL (3 mL) subcutaneo us pen INJECT 10 UNITS SUBCUTANE OUSLY EVERY EVENING FOR 1 MONTH active Not Available Not Available No t Available Dulera 100 mcg-5 mcg/actuat ion HFA aerosol inhaler INHALE 2 PUFFS BY MOUTH TWICE A DAY active Not Available Not Available No t Available OneTouch Verio test strips USE TO CHECK BLOOD SUGARS TWICE DAILY active Not Available Not Available No t Available OptiChambe r [facility] spacer USE DIRECTED WITH INHALER active Not Available Not Available No t Available Eliquis 5 mg tablet TAKE 1 TABLET BY MOUTH TWICE A DAY active Not Available Not Available No t Available Trulicity 1.5 mg/0.5 mL subcutaneo us pen injector INJECT 1.5 MG (0.5ML) SUBCUTANE OUSLY EVERY WEEK FOR 1 MONTH active Not Available Not Available No t Available Qvar RediHaler 40 mcg/actuat ion HFA breath activated aerosol INHALE 2 PUFFS BY MOUTH TWICE A DAY FOR 30 DAYS active Not Available Not Available No t Available BD Liv 2nd Gen Pen Needle 32 gauge x /32 DIRECTED active Not Available Not Available No t Available OneTouch Delica Plus Lancet 33 gauge USE DIRECTED active Not Available Not Available No t Available Ozempic 1 mg/dose (4 mg/3 mL) subcutaneo us pen injector INJECT 1 MG (0.75 ML) SUBCUTANE OUSLY EVERY WEEK FOR 30 DAYS active Not Available Not Available No t Available Vitals Date Recorded Body height Body mass index (BMI) Body weight Provider Name and Address Organization Details Last Updated DateTime 01/25/2024 165.1 cm 26.3 kg/m2 13462.59 g Keven Wyman [place] - [facility] 01/25/2024 15:07:24 Social History None recorded. Functional Status None recorded. Mental Status None recorded. Family History Nothing Reported. Medical History No medical history recorded. Gynecological HistoryNo gynecological history recorded. Obstetrics History GPAL:G 0 P 0 0 0 0 Past Encounters Encounter ID Performer Location Encounter Start Date Encounter Closed Date Diagnosis/Indication Diagnosis SNOMED-CT Code Diagnosis ICD10 Code [id number] TASHA FLYNN MD [facility] [address] [phone] 01/25/2024 14:09:52 01/25/2024 15:37:36 Sensorineural hearing loss of bilateral ears 927863872 H90.3 Impacted c erumen in right ear 3809167295 307481 H61.21 Acoustic neuroma 1178556 07 D33.3 Health Concerns Section Related Observation LastModified by Organization Detai ls LastModified Time None Recorded Concern Status LastModified by Organization Details LastModified Time None Recorded Advance Directives Directive None Recorded Payers Encounter Date Sequence Insurance Name Policy Number Policy Pablo Covered Member ID Pablo Member ID Guarantor Name 01/25/2024 1 [facility] (MEDICARE REPLACEMENT/A DVANTAGE - PPO) [id number] Carmelita Whitaker [id number] Carmelita Whitaker Notes Date Note Type Note Provider Name and Address Organization Details Recorded Time 01/25/2024 text/html Hx of AD acousti c neuroma. Used to see Dr. Patel but was lost to follow up. Last MRI 2018 showed a 6x8mm AD intracanalicular acoustic neuroma. Audio today shows improved hearing and WRS compared to last tested (09/2018). TASHA FLYNN MD [address] [place] [address], [phone], [facility] - [facility] 01/25/2024 15:39:51 OBGyn Episode No OBEpisode recorded.
--- OUTSIDE RECORDS SUMMARY | 2024-03-14 21:42 | XMS_ITS | Continuity of Care Document ---
Author Organization [place] - [facility], [facility] Address [address] [place] [address] Care Team Providers Care Knitting Inspector Name Role Phone ALDO ASHER MD Primary [...] INTERNAL AUDITORY CANAL, W/WO CONTRAST 2023 024 [facility], [address] [place] [address], [address], 10:57:28 Medication Orders None recorded. Patient TargetsNo targets recorded. Patient InstructionsNo instructions recorded. Reason for Referral None Reported. Results Created Date Observation Date Name Description Value Unit Range Abnormal Flag Note LastModifiedBy Organization Detail LastModifiedTime 01/27/20 24 audio gram No observ ation record ed. [email or web address] Not Available 01/03 11:00:41 03/09/20 24 03/07/2024 MRI, brain + inter nal audit ory canal , w/wo contr ast No observ ation record ed. [facility] [address] [place], [address], 03/09/2024 10:57:28 Result Notes None recorded. Problems Name Problem SNOMED Code Status Onset Date Resolution Date Notes Provider Name and Address Organization Details Recorded Time Pain of right temporoma ndibular joint 57551904141 859202 Active 2017 Arthralgi a of right temporoma ndibular joint; Note: Date Diagnosed : 08/22/2017 11:54 AM (M26.621) Not Available [facility] 4 02:13:27 Benign neoplasm of cranial nerve 02022180 Active 2016 Benign neoplasm of cranial nerves; Note: Date Diagnosed : 04/26/2016 9:45 AM (D33.3) , right sided acoustic neuroma 6 x 8 x 6mm Not Available [facility] 4 02:12:59 Sensorine ural hearing loss of bilateral ears 535218313 Active 2016 Sensorine ural hearing loss, bilateral ; Note: Date Diagnosed : 04/26/2016 9:36 AM (H90.3) Not Available [facility] 4 02:12:59 Impacted cerumen in right ear 33307135553 81409 Active 2023 TASHA FLYNN MD [address] [place] [address], [facility] [place], [address] , [facility] - [facility] 4 15:37:11 Acoustic neuroma 222112177 Active 2023 TASHA FLYNN MD [address] [place] [address], [place], [address] , [facility] 4 15:37:46 Problem Notes None recorded. Procedures Surgical History Date Name Laterality Status Provider Name and Address Organization Details Recorded Time 4 Cerumen removal without microscope right completed TASHA FLYNN MD [address] [place] [address], [phone], [facility] - [facility] 01/25/2024 15:37:32 4 Air & Speech Audio with Tymps (88817, 35826 & 80371) completed SHELBIE MARKS [address] [place] [address],[address], [address], [facility] - [facility] 01/25/2024 14:51:01 Imaging Results None recorded. Procedure Notes None recorded. Medical Equipment None Reported. Medications Name Sig Start Date Stop Date Status Note LastModified by Organization Details LastModified Time atorvastat in 80 mg tablet TAKE 1 TABLET BY MOUTH EVERY DAY active Not Available Not Available No t Available valacyclov ir 1 gram tablet 2017 active Medicatio n ID: [id number] Du ration Value: 7 Brand Name: teddy alonso Send Method: E-Prescri bed [facility]s Allowed: [facility] anio [facility] Not Available Not Available Not Available [...] mg capsule 2017 active Medicatio n ID: [id number] Du ration Value: 30 Brand Name: gabapenti n Send Method: E-Prescri bed Subs Allowed: subs [facility] icName: gabapenti n Not Available Not Available [...] mg tablet 2016 active Medicatio n ID: [id number] Br and Name: iron Send Method: E-Prescri [...] Not Available Not Available No t Available [facility] spacer USE DIRECTED WITH INHALER active Not [...] 2nd Gen Pen Needle 32 gauge x DIRECTED active Not Available Not Available No [...] Updated DateTime 01/25/2024 165.1 cm 26.3 kg/m2 18935.59 g Keven Wyman [place] - [facility] 01/25/2024 15:07:24 Social History None recorded. Functional Status None recorded. Mental Status None recorded. Family History Nothing Reported. Medical History No medical history recorded. Gynecological HistoryNo gynecological history recorded. Obstetrics History GPAL:G 0 P 0 0 0 0 Past Encounters Encounter ID Performer Location Encounter Start Date Encounter Closed Date Diagnosis/Indication Diagnosis SNOMED-CT Code Diagnosis ICD10 Code [id number] TASHA FLYNN MD [facility] of [address] [address] 01/25/2024 14:09:52 01/25/2024 15:37:36 Sensorineural hearing loss of bilateral ears 454533469 H90.3 Impacted c erumen in right ear 6835375398 418199 H61.21 Acoustic neuroma 6961363 07 D33.3 Health Concerns Section Related Observation LastModified by Organization Detai ls LastModified Time None Recorded Concern Status LastModified by Organization Details LastModified Time None Recorded Payers Encounter Date Sequence Insurance Name Policy Number Policy Pablo Covered Member ID Pablo Member ID Guarantor Name 01/25/2024 1 [id number] (MEDICARE REPLACEMENT/A DVANTAGE - PPO) [id number] Carmelita Whitaker [id number] Carmelita Whitaker Notes Date Note Type Note Provider Name and Address Organization Details Recorded Time 01/25/2024 text/html Hx of AD acousti c neuroma. Used to see Dr. Patel but was lost to follow up. Last MRI 2018 showed a 6x8mm AD intracanalicular acoustic neuroma. Audio today shows improved hearing and WRS compared to last tested (09/2018). TASHA FLYNN MD [address] [place] [address], [place], [address], [place] - [facility] 01/25/2024 15:39:51 OBGyn Episode No OBEpisode recorded.
== END 2024-03-13 13:35 | disposition home or self-care (01) ==
LOC: HO.US 13:34
PROVIDERS: PCP Nurse Practitioner Family; Visit Provider Surgery Vascular Surgery
DX: I73.9 Peripheral vascular disease, unspecified (principal)
CPT/HCPCS: 93922; 93925

== ENCOUNTER 2024-04-05 13:56 | Outpatient (AMB) | payer MEDICARE, SELFPAY ==
--- NOTE | 2024-04-05 13:57 | MHC.OFFVIS ---
Intake Visit Reasons: 6 month follow up s/p Arterial US 03/13/24 Intake Note: Patient presents for follow up arterial US performed on 03/13/24. Patient states she has really bad leg pain , left only. She states it always hurts, has trouble sleeping and can never get comfortable States her ankle and gates hurt to the touch. Accompanied by: Self / Same As Patient Allergies Seasonal Allergies Allergy (Intermediate, Verified 04/05/24 14:00) Cough zolpidem [From Ambien] Adverse Reaction (Severe, Verified 04/05/24 14:00) Hallucinations HPI HPI 6 month follow up s/p Arterial US 03/13/24: Details: Very pleasant 74-year-old female presents for routine arterial follow-up. She has right and left thigh pain. She attributes some of this to sciatic nerve issues. Of note she did have a fall on February 17. She was actually seen in our emergency room. X-ray demonstrated no acute injury. At the current time she continues to complain of lower extremity pain and discomfort. She is able to ambulate but notes that it is left more so than right. She is being maintained on Eliquis and high-dose statin. She now presents for routine follow-up with noninvasive testing. [facility] Medical History Essential tremor Seasonal allergies PND (post-nasal drip) Iron deficiency Arthritis Osteoarthritis Depression Hypertension Asthma Tremors of nervous system Type II diabetes mellitus Surgical History Hx of LASIK History of esophagogastroduodenoscopy (EGD) H/O: hysterectomy History of cataract removal with insertion of prosthetic lens Hx laparoscopic cholecystectomy Family History Mother Diabetes Parkinsons Panic disorder/agoraphobia, agoraphobic avoidnc/panc attck full remssn Father Stroke Heart attack Brother Congestive heart failure Brother Stroke Other Substance abuse Social History Household Members: Family Household Members Other:: brother Both parents involved: No Caregiver staying overnight: No Housing: Other Housing Other:: mobile home Are you a primary dialysis patient care technician to a significant other at home: Yes (brother s/p CVA) Do you presently have visiting nurse or other home services: No (brother has services VNA,PT) Alcohol intake: never Patient Tobacco Use Status: Never used Tobacco e-Cigarette/Vaping Use: Never Used Second Hand Smoke Exposure: No service: No Current occupational status: retired Current occupational exposures/hazards: Yes Cognitive needs: No Hearing needs: Yes Vision needs: No Review of Systems Const All systems reviewed & are unremarkable except as noted in HPI and below Reports no additional complaints ENT Reports Normal hearing present Card Denies chest pain, Denies chest pain at rest, Denies chest pain with activity and Denies pedal edema Resp Denies cough GI Denies abdominal pain Musc Denies abnormal gait, Denies muscle cramps and Denies radiating pain into limb Skin/Breast Denies skin ulcer and Denies wounds Neuro Reports Normal hearing present and Denies abnormal gait Psych Reports no additional complaints Physical Exam Const General: cooperative, healthy appearing and comfortable Orientation/consciousness: oriented to person, oriented to place and oriented to time HEENT Head: Yes normal to inspection Neck Neck: Yes normal visual inspection Carotids: no bruits Chest Chest palpation & inspection: normal inspection of the chest Resp Effort & Inspection: normal respiratory effort and able to speak in complete sentences Auscultation: clear to auscultation bilaterally, no crackles, no rales, no rhonchi and no wheezes Cardio Other: Faintly palpable bilateral DP Rate: regular rate Rhythm: regular rhythm Heart sounds: S1 normal heart sound present and S2 normal heart sound present Bruits: no carotid bruits Peripheral pulses: Peripheral pulses 2+ throughout GI Inspection: Yes normal to inspection Skin Wounds: no wounds Hair: normal Neuro General: oriented to person, oriented to place and oriented to time Cranial nerves: Yes CN's II-XII intact bilaterally and Yes Normal hearing present Cognition (Neuro): normal cognition Motor exam (neuro): 5/5 motor strength present throughout Extrem Other: venous exam: No significant superficial varicosities or spider telangiectasias, minimal edema General: No clubbing, No cyanosis and No edema Psych Appearance: grossly normal Mental Status: mental status grossly normal Speech and movement: Normal speech and movement present Results Reviewed Results Reviewed: Noninvasive arterial testing dated 03/13/2024 demonstrates PETERSON on the left of 0.87 and on the right was non calculable. On direct ultrasound no flow-limiting stenosis. It does appear to be similar to prior study. Assessment & Plan Assessment & Plan (1) Peripheral arterial disease: Code(s): I73.9 - Peripheral vascular disease, unspecified Category: Medical Plan: In short patient has stable claudication. I do believe a lot of her pain is neurogenic in nature and I have taken the liberty of requesting a pain management consult I did review the pathophysiology of peripheral vascular disease with the patient. In addition we did discuss routine conservative measures including a healthy diet and the importance of exercise and ambulation. We did discuss risk factor modification. The patient will continue to to follow-up with surveillance follow-up in approximately 1 year. Thank you for allowing us to participate in this patient's care. If there are any questions or concerns please do not hesitate to contact us. (2) Bilateral carotid artery stenosis: Code(s): I65.23 - Occlusion and stenosis of bilateral carotid arteries Category: Medical Plan: Last carotid testing performed was on 08/12/2022. At that time it was bilateral 0-49% stenosis. Due to her overall history of diabetes and peripheral vascular disease I have taken the liberty of repeating her carotid ultrasound in 1 year's time as well. Thank you for allowing us to assist in her care. (3) Lower extremity pain: Code(s): M79.606 - Pain in leg, unspecified Category: Medical Qualifiers: Laterality: bilateral Qualified Code(s): M79.604 - Pain in right leg; M79.605 - Pain in left leg Plan: Lower extremity pain appears to be more neurogenic in origin. May benefit from a workup and evaluation by pain management. After her fall she has used Voltaren gel Tylenol and compresses to alleviate some of her coccygeal pain. I do believe there is more a back sciatic component to this as well. Once again we will refer to pain management for further evaluation. Thank you for allowing us to assist in her care. Orders: Orders US arterial duplex LE BI 1 Year I73.9 - Peripheral vascular disease, unspecified US carotid duplex BI 1 Year I65.23 - Occlusion and stenosis of bilateral carotid arteries Referrals Pain Management Referral M79.604 - Pain in right leg, M79.605 - Pain in left leg Coding Level of Care Code Est Pt Level 4 (92521) Complex EM visit Add On G2211 Diagnoses Peripheral arterial disease I73.9 Bilateral carotid artery stenosis I65.23 Pain in both lower extremities M79.604; M79.605 Laterality: bilateral
--- OUTSIDE RECORDS SUMMARY | 2024-04-05 15:20 | XMS_ITS | Continuity of Care Document ---
Author Organization [place] - [facility], [facility] Address [address] [place] [address] Care Team Providers Care Purse Seiner Name Role Phone ALDO ASHER MD Primary [...] INTERNAL AUDITORY CANAL, W/WO CONTRAST 2023 024 [facility], [address] [place] [address], [address], 10:57:28 Medication Orders None recorded. Patient TargetsNo targets recorded. Patient InstructionsNo instructions recorded. Reason for Referral None Reported. Results Created Date Observation Date Name Description Value Unit Range Abnormal Flag Note LastModifiedBy Organization Detail LastModifiedTime 01/27/20 24 audio gram No observ ation record ed. [email or web address] Not Available 01/03 11:00:41 03/09/20 24 03/07/2024 MRI, brain + inter nal audit ory canal , w/wo contr ast No observ ation record ed. [facility] [address] [place], [address], 03/16/2024 09:57:52 Result Notes None recorded. Problems Name Problem SNOMED Code Status Onset Date Resolution Date Notes Provider Name and Address Organization Details Recorded Time Pain of right temporoma ndibular joint 68968705329 095187 Active 2017 Arthralgi a of right temporoma ndibular joint; Note: Date Diagnosed : 08/22/2017 11:54 AM (M26.621) Not Available [facility] 4 02:13:27 Benign neoplasm of cranial nerve 47323360 Active 2016 Benign neoplasm of cranial nerves; Note: Date Diagnosed : 04/26/2016 9:45 AM (D33.3) , right sided acoustic neuroma 6 x 8 x 6mm Not Available [facility] 4 02:12:59 Sensorine ural hearing loss of bilateral ears 339932068 Active 2016 Sensorine ural hearing loss, bilateral ; Note: Date Diagnosed : 04/26/2016 9:36 AM (H90.3) Not Available [facility] 4 02:12:59 Impacted cerumen in right ear 42133026391 23117 Active 2023 TASHA FLYNN MD [address] [place] [address], [facility] [place], [address] , [facility] - [facility] 4 15:37:11 Acoustic neuroma 983198139 Active 2023 TASHA FLYNN MD [address] [place] [address], [place], [address] , [facility] - [facility] 4 15:37:46 Problem Notes None recorded. Procedures Surgical History Date Name Laterality Status Provider Name and Address Organization Details Recorded Time 4 Cerumen removal without microscope right completed TASHA FLYNN MD [address] [place] [address], [address], [facility] - [facility] 01/25/2024 15:37:32 4 Air & Speech Audio with Tymps (20[address], 01146 & 48156) completed SHELBIE MARKS [address] [place] [address],[address], [address], [facility] - [facility] 01/25/2024 14:51:01 Imaging Results None recorded. Procedure Notes None recorded. Medical Equipment None Reported. Medications Name Sig Start Date Stop Date Status Note LastModified by Organization Details LastModified Time atorvastat in 80 mg tablet TAKE 1 TABLET BY MOUTH EVERY DAY active Not Available Not Available No t Available valacyclov ir 1 gram tablet 2017 active Medicatio n ID: [id number] Du ration Value: 7 Brand Name: teddy alonso Send Method: E-Prescri bed [facility]s All[facility] ic[facility]: teddy alonso Not Available Not Available Not Available aspirin [...] mg capsule 2017 active Medicatio n ID: [id number] Du ration Value: 30 Brand Name: gabapenti n Send Method: E-Prescri bed Subs Allowed: subs [facility] icName: gabapenti n Not Available [...] mg tablet 2016 active Medicatio n ID: [id number] Br and Name: iron Send Method: E-Prescri [...] Not Available Not Available No t Available Suzanne Tinsley [facility] spacer USE DIRECTED WITH INHALER active Not [...] Updated DateTime 01/25/2024 165.1 cm 26.3 kg/m2 81710.59 g Keven Wyman [place] - [facility] 01/25/2024 15:07:24 Social History None recorded. Functional Status None recorded. Mental Status None recorded. Family History Nothing Reported. Medical History No medical history recorded. Gynecological HistoryNo gynecological history recorded. Obstetrics History GPAL:G 0 P 0 0 0 0 Past Encounters Encounter ID Performer Location Encounter Start Date Encounter Closed Date Diagnosis/Indication Diagnosis SNOMED-CT Code Diagnosis ICD10 Code [id number] TASHA FLYNN MD [facility] [address] [address] 01/25/2024 14:09:52 01/25/2024 15:37:36 Sensorineural hearing loss of bilateral ears 714241751 H90.3 Impacted c erumen in right ear 7650648681 082066 H61.21 Acoustic neuroma 7783617 07 D33.3 Health Concerns Section Related Observation LastModified by Organization Detai ls LastModified Time None Recorded Concern Status LastModified by Organization Details LastModified Time None Recorded Payers Encounter Date Sequence Insurance Name Policy Number Policy Pablo Covered Member ID Pablo Member ID Guarantor Name 01/25/2024 1 [facility] (MEDICARE REPLACEMENT/A DVANTAGE - PPO) [id number] Carmelita Whitaker [id number] Carmelita Whitaker Notes Date Note Type Note Provider Name and Address Organization Details Recorded Time 01/25/2024 text/html Hx of AD acousti c neuroma. Used to see Dr. Patel but was lost to follow up. Last MRI 2018 showed a 6x8mm AD intracanalicular acoustic neuroma. Audio today shows improved hearing and WRS compared to last tested (09/2018). TASHA FLYNN MD [address] [place] [address], [address], [place] - [facility] 01/25/2024 15:39:51 OBGyn Episode No OBEpisode recorded.
--- OUTSIDE RECORDS SUMMARY | 2024-04-05 15:20 | XMS_ITS | Data Portability ---
Author Organization [place] - [facility], Allergy Address [address] [facility] [address] [place] [id number] Care Team Providers Care Director Sales And Marketing Name Role Phone ALDO ASHER MD Primary [...] INTERNAL AUDITORY CANAL, W/WO CONTRAST 2023 024 [facility], [address] [place] [address], [address], 10:57:28 Medication Orders None recorded. Patient TargetsNo targets recorded. Patient InstructionsNo instructions recorded. Reason for Referral None Reported. Results Created Date Observation Date Name Description Value Unit Range Abnormal Flag Note LastModifiedBy Organization Detail LastModifiedTime 01/27/20 24 audio gram No observ ation record ed. [email or web address] Not Available 01/03 11:00:41 03/09/20 24 03/07/2024 MRI, brain + inter nal audit ory canal , w/wo contr ast No observ ation record ed. [email or web address] [address] [place], [address], 03/16/2024 09:57:52 Result Notes None recorded. Problems Name Problem SNOMED Code Status Onset Date Resolution Date Notes Provider Name and Address Organization Details Recorded Time Pain of right temporoma ndibular joint 40538827864 161910 Active 2017 Arthralgi a of right temporoma ndibular joint; Note: Date Diagnosed : 08/22/2017 11:54 AM (M26.621) Not Available [facility] 4 02:13:27 Benign neoplasm of cranial nerve 80999283 Active 2016 Benign neoplasm of cranial nerves; Note: Date Diagnosed : 04/26/2016 9:45 AM (D33.3) , right sided acoustic neuroma 6 x 8 x 6mm Not Available [facility] 4 02:12:59 Sensorine ural hearing loss of bilateral ears 265625805 Active 2016 Sensorine ural hearing loss, bilateral ; Note: Date Diagnosed : 04/26/2016 9:36 AM (H90.3) Not Available [facility] 4 02:12:59 Impacted cerumen in right ear 83501802325 20572 Active 2023 TASHA FLYNN MD [address] [place] [address], [facility] [place], [address] , [facility] - [facility] 4 15:37:11 Acoustic neuroma 511220905 Active 2023 TASHA FLYNN MD [address] [place] [address], [place], [address] , [facility] - [facility] 4 15:37:46 Problem Notes None recorded. Procedures Surgical History Date Name Laterality Status Provider Name and Address Organization Details Recorded Time 4 Cerumen removal without microscope right completed TASHA FLYNN MD [address] [place] [address], [phone], [facility] - [facility] 01/25/2024 15:37:32 4 Air & Speech Audio with Tymps (99163, 97261 & 43654) completed SHELBIE MARKS [address] [place] [address],[place] [address], [place], [address], [facility] - [facility] 01/25/2024 14:51:01 Imaging Results Imaging Date Name Status LastModified by Organiz ation Details LastModified Time 01/27/2024 audiogram completed Information n ot available 01/27/2024 11:00:41 03/07/2024 MRI, brain + internal auditory canal, w/wo contrast completed [facility] [address] [facility], [place], [address], 03/16/2024 09:57:52 Procedure Notes None recorded. Medical Equipment None Reported. Medications Name Sig Start Date Stop Date Status Note LastModified by Organization Details LastModified Time atorvastat in 80 mg tablet TAKE 1 TABLET BY MOUTH EVERY DAY active Not Available Not Available No t Available valacyclov ir 1 gram tablet 2017 active Medicatio n ID: [id number] Du ration Value: 7 Brand Name: valacyclo [...] mg capsule 2017 active Medicatio n ID: [id number] Du ration Value: 30 Brand Name: gabapenti [...] mg tablet 2016 active Medicatio n ID: [id number] Br and Name: iron Send Method: E-Prescri [...] Not Available Not Available No t Available OptiCamanbe r Alvina [facility] spacer USE DIRECTED WITH INHALER active [...] 2nd Gen Pen Needle 32 gauge x 5/32 DIRECTED active Not Available Not Available No [...] Updated DateTime 01/25/2024 165.1 cm 26.3 kg/m2 26441.59 g Keven Wyman [place] - [facility] 01/25/2024 15:07:24 Social History None recorded. Functional Status None recorded. Mental Status None recorded. Family History Nothing Reported. Medical History No medical history recorded. Gynecological HistoryNo gynecological history recorded. Obstetrics History GPAL:G 0 P 0 0 0 0 Past Encounters Encounter ID Performer Location Encounter Start Date Encounter Closed Date Diagnosis/Indication Diagnosis SNOMED-CT Code Diagnosis ICD10 Code [id number] TASHA FLYNN MD [facility] [address] [address] 01/25/2024 14:09:52 01/25/2024 15:37:36 Sensorineural hearing loss of bilateral ears 355153192 H90.3 Impacted c erumen in right ear 8285779708 357607 H61.21 Acoustic neuroma 3992804 07 D33.3 Health Concerns Section Related Observation LastModified by Organization Detai ls LastModified Time None Recorded Concern Status LastModified by Organization Details LastModified Time None Recorded Advance Directives Directive None Recorded Payers Encounter Date Sequence Insurance Name Policy Number Policy Pablo Covered Member ID Pablo Member ID Guarantor Name 01/25/2024 1 [facility] (MEDICARE REPLACEMENT/A DVANTAGE - PPO) [id number] Carmelita Whitaker [id number] Carmelita Whitaker Notes Date Note Type Note Provider Name and Address Organization Details Recorded Time 01/25/2024 text/html Hx of AD acousti c neuroma. Used to see Dr. Patel but was lost to follow up. Last MRI 2018 showed a 6x8mm AD intracanalicular acoustic neuroma. Audio today shows improved hearing and WRS compared to last tested (09/2018). TASHA FLYNN MD [address] [place] [address], [place], [address], [facility] - [facility] 01/25/2024 15:39:51 OBGyn Episode No OBEpisode recorded.
== END 2024-04-05 14:26 | disposition home or self-care (01) ==
PROVIDERS: PCP Nurse Practitioner Family; Visit Provider Surgery Vascular Surgery
DX: I73.9 Peripheral vascular disease, unspecified (principal); I65.23 Occlusion and stenosis of bilateral carotid arteries; M79.604 Pain in right leg; M79.605 Pain in left leg
CPT/HCPCS: 99214; G2211

== ENCOUNTER → 2024-04-05 13:56 | Outpatient (BNVA) | payer MEDICARE, SELFPAY | PROVIDERS: PCP Nurse Practitioner Family; Visit Provider Surgery Vascular Surgery | DX: I73.9 Peripheral vascular disease, unspecified (principal); I65.23 Occlusion and stenosis of bilateral carotid arteries; M79.604 Pain in right leg; M79.605 Pain in left leg | CPT/HCPCS: 99212 ==

== ENCOUNTER → 2024-05-09 14:10 | Outpatient (BNVA) | payer MEDICARE, SELFPAY | PROVIDERS: PCP Nurse Practitioner Family; Visit Provider Anesthesiology | DX: M79.604 Pain in right leg (principal); M79.605 Pain in left leg; M70.62 Trochanteric bursitis, left hip; M76.32 Iliotibial band syndrome, left leg; I73.9 Peripheral vascular disease, unspecified | CPT/HCPCS: 99202 ==

== ENCOUNTER 2024-05-28 12:27 | Outpatient (AMB) | payer MEDICARE, SELFPAY ==
--- NOTE | 2024-05-28 12:31 | MHC.PC.OV ---
Vital Signs 05/28/24 12:38 05/28/24 13:05 Height 5 ft 5 in Weight 153 lb 6 oz BMI 25.5 BP 147/78 H 122/64 Blood Pressure Location Rt brachial Rt brachial Position Sitting Sitting Respiration 16 Pulse 100 Pulse Source Pulse Oximeter Temp 97.6 F Temp Source Oral Pulse Oximetry (%) 97 Oxygen Delivery Method Room Air Intake Visit Reasons: HTN, DM, anxiety, depression Intake Note: patient here for follow up on HTN, DM, anxiety and depression Motion Study Technician Required: No Is last menstrual period known: No Post menopausal: No Patient : No Allergies Seasonal Allergies Allergy (Intermediate, Verified 05/28/24 12:36) Cough zolpidem [From Ambien] Adverse Reaction (Severe, Verified 05/28/24 12:36) Hallucinations Tobacco use date assessed: 05/28/24 Fall risk assessment: 1 Fall in past year Last assessed Fall Risk: 05/28/24 Dental Screening Dental Screen Date: 05/28/24 Did you have a dental visit in the last 12 months?: No Did you have a dental problem in the last 6 months where you did not have access to dental care?: No Was dental information given to patient?: Patient has dentist HPI HPI Comments History of Present Illness Details 74-year-old female presents for hypertension, diabetes, anxiety, and depression follow-up. She admits to taking her medications as prescribed without adverse reactions. She notes that she has been making healthy dietary choices and exercising routinely. She notes that her anxiety and depressive symptoms are generally well controlled. Her sleep is interrupted every 2 hours due to urinary incontinence. Reports left hip and lateral thigh pain with has been ongoing for the past 6 months, progressively worsened in the past few months. She was referred by her vascular specialist to [facility] pain management. Pain management referred her to physical therapy and she is waiting to be contacted to schedule an appointment to start PT. She notes that she been incontinence of urine for the past 2 years. She has had worsening symptoms the past one year. She is not on medication for urinary incontinence and has not been evaluated by urology. She has been fasting for at least 10 hours and will have lipid pain blood work after this visit. [facility] Medical History Essential tremor Seasonal allergies PND (post-nasal drip) Iron deficiency Arthritis Osteoarthritis Depression Hypertension Asthma Tremors of nervous system Type II diabetes mellitus Surgical History Hx of LASIK History of esophagogastroduodenoscopy (EGD) H/O: hysterectomy History of cataract removal with insertion of prosthetic lens Hx laparoscopic cholecystectomy Family History Mother Diabetes Parkinsons Panic disorder/agoraphobia, agoraphobic avoidnc/panc attck full remssn Father Stroke Heart attack Brother Congestive heart failure Brother Stroke Other Substance abuse Social History Household Members: Family Household Members Other:: brother Housing: Other Housing Other:: mobile home Are you a primary acute care nurse to a significant other at home: Yes (brother s/p CVA) Do you presently have visiting nurse or other home services: No (brother has services VNA,PT) Alcohol intake: never Patient Tobacco Use Status: Never used Tobacco e-Cigarette/Vaping Use: Never Used Second Hand Smoke Exposure: No service: No Current occupational status: retired Current occupational exposures/hazards: Yes Cognitive needs: No Hearing needs: Yes Vision needs: No Questionnaire PHQ-9 Over the last 2 weeks, how often have you been bothered by any of the following problems? 1. Little interest or pleasure in doing things: several days 2. Feeling down, depressed, or hopeless: more than half the days 3. Trouble falling or staying asleep, or sleeping too much: more than half the days 4. Feeling tired or having little energy: several days 5. Poor appetite or overeating: not at all 6. Feeling bad about yourself - or that you are a failure or have let yourself or your family down: several days 7. Trouble concentrating on things, such as reading the newspaper or watching television: several days 8. Moving or speaking so slowly that other people could have noticed. Or the opposite - being so fidgety or restless that you have been moving around a lot more than usual: more than half the days 9. Thoughts that you would be better off or of hurting yourself in some way: not at all Total score: 10 Depression Screening Interpretation: Positive Depression Screening Follow-up: Existing condition and In treatment Depression Screening Done: Yes 37967 - PHQ-9 Billing: Yes Source: Developed by Drs. Meir Zarate, Ethan Sinclair and colleagues, with an educational leeanne from [employer]. Thrive Questionnaire Date Thrive assessed: 05/28/24 I am a: Patient What is your living situation today?: I have a steady place to live Within the past 12 months, did the food you bought not last and you didn't have the money to get more?: Never true Within the past 12 months, did you worry whether your food would run out before you got money to buy more?: Sometimes True Do you have trouble paying for medicines?: No Do you have trouble getting transportation to medical appointments?: No Do you have trouble paying your heating and electricity bill?: Yes Do you have trouble taking care of your child, family member or friend?: No Do you have trouble with day-to-day activities such as bathing, preparing meals, shopping, managing finances, etc.?: No Are you currently unemployed and looking for a job?: No Are you interested in more education?: No Please select the resources that you would like help with: None Currently or been in a relationship where the following occur: No concerns reported THRIVE Score: 2 AUDIT C Alcohol Use Questionnaire (AUDIT-C) 1. How often do you have a drink containing alcohol?: Never Total Score: 0 SUSHANT-7 AMB Questionnaire SUSHANT-7 Date SUSHANT - 7 assessed: 05/28/24 Feeling nervous, anxious, or on edge: 2 = More than half the days Not being able to stop or control worryin = Nearly every day Worrying too much about different things: 1 = Several days Trouble relaxin = Several days Being so restless that it is hard to sit still: 1 = Several days Becoming easily annoyed or irritable: 1 = Several days Feeling afraid as if something awful might happen: 2 = More than half the days Total SUSHANT-7 score (0-4 normal; 5-9 mild; 10-14 moderate; 15-21 severe): 11 Source: Developed by Elba Montgomery Kurt Kroenke and colleagues, with an educational leeanne from [employer]. SUSHANT-7 Assessment Billing SUSHANT-7 Assessment Tool: SUSHANT-7 Assessment 02399 Review of Systems Const Details: Const Denies chills, Denies fatigue, Denies fever(s), Denies headache(s) and Denies weakness ENT Denies dizziness and Denies headache(s) Card Denies chest pain, Denies lightheadedness, Denies dyspnea and Denies other (Palpitations) Resp Denies cough, Denies dyspnea, Denies wheezing and Denies other ( shortness of breath) GI Denies abdominal pain, Denies melena, Denies hematochezia, Denies change in bowel habits, Denies dyspepsia and Denies nausea Reports as per HPI Musc Reports as per HPI Skin/Breast Denies rash, Denies unusual bruising and Denies wounds Neuro Denies abnormal gait, Denies dizziness, Denies headache(s), Denies memory loss, Denies numbness, Denies Sensory deficit (Neuro), Denies tingling and Denies weakness Psych Denies anxiety, Denies depression, Denies memory loss Endo Denies cold intolerance, Denies fatigue, Denies heat intolerance, Denies polydipsia and Denies polyuria Aller/Immun Denies wheezing Physical exam (Primary Care) Tobacco/Smoking Status: Tobacco use Status Tobacco use date assessed 11/22/23 05/28/24 12:34 Patient Tobacco Use Status Never used Tobacco 05/28/24 12:34 e-Cigarette/Vaping Use Never Used 05/28/24 12:34 PHQ-9: PHQ-9 Score PHQ-9: Total score 10 05/28/24 12:34 Depression Screening Interpretation: Positive Depression Screening Follow-up: Existing condition and In treatment Thrive Assessment: Date of Thrive Assessment Date Thrive assessed 05/21/24 05/28/24 12:34 Currently or been in a relationship where the following occur: No concerns reported Const Other: General: no acute distress and well developed Nutritional Appearance: well nourished Orientation/consciousness: patient oriented x3 HENMT Head: Yes normocephalic and Yes atraumatic Eyes General: appearance normal, both eyes and all related structures Pupils: Equal, round and reactive pupils present EOM: EOMs intact bilaterally Resp Effort & Inspection: normal respiratory effort Auscultation: clear to auscultation bilaterally Cardio Rate: regular rate Rhythm: regular rhythm Heart sounds: S1 normal heart sound present, S2 normal heart sound present, no gallops, +murmurs and no rubs GI Palpation (GI): No Abdominal aortic bruit present, Soft to palpation, nontender, No hepatosplenomegaly present and No Rebound tenderness present Auscultation: normal bowel sounds General: Yes no CVA tenderness Back/Spine/Pelvis Back: no CVA tenderness Cervical Spine: cervical ROM normal and No Cervical spine tenderness Thoracic/Lumbar Spine: thoraco-lumbar ROM normal, No pain with thoraco-lumbar ROM, No thoracic spinal tenderness and No lumbar spinal tenderness Extrem General: Yes normal to inspection, No edema and No calf tenderness Skin General: warm and dry. Normal skin color. Normal skin turgor Neuro General: patient oriented x3, gait normal and no focal neuro deficit Cranial nerves: Yes Equal, round and reactive pupils present Cognition (Neuro): normal cognition Gait exam (Neuro): Normal gait present Sensory Exam: No Sensory deficit (Neuro) Psych Appearance: grossly normal Affect: normal affect Attitude: cooperative Thought process: Normal thought process present Results AMB Hemoglobin A1c AMB Hemoglobin A1c 5.8 % Last Edit by Queenie Issa on 05/28/24 12:59 Coding Level of Care Code Est Pt Level 4 (69555) Diagnoses Hypertension, essential I10 Type II diabetes mellitus E11.9 Anxiety and depression F41.9; F32.A Insomnia G47.00 Urinary incontinence R32 Pain in both lower extremities M79.604; M79.605 Laterality: bilateral Additional Codes SUSHANT-7 Assessment Billing - SUSHANT-7 Assessment Tool: SUSHANT-7 Assessment 07347 ([id number]) PHQ-9 - 20262 - PHQ-9 Billing: Yes ([id number]) Assessment & Plan Assessment & Plan (1) Hypertension, essential: Code(s): I10 - Essential (primary) hypertension Category: Medical Plan: Resting blood pressure is 122/64, within goal of less than 130/80. Continue current treatment regimen. Follow-up in 3 months or sooner with symptoms or concerns. Verbalized understanding and agreed with treatment plan. (2) Type II diabetes mellitus: Code(s): E11.9 - Type 2 diabetes mellitus without complications Category: Medical Plan: A1c today is 5.8, within goal of less than 7.0%. Previous A1c was 6.0%. Continue current treatment regimen. Follow-up in 3 months. Verbalized understanding and agreed with treatment plan. (3) Anxiety and depression: Code(s): F41.9 - Anxiety disorder, unspecified; F32.A - Depression, unspecified Category: Medical Plan: Controlled anxiety and depressive symptoms. PHQ-9 and SUSHANT-7 scores revealed moderate depression and anxiety respectively. Continue current treatment regimen. Follow-up with worsening or new symptoms. Verbalized understanding and agreed with treatment plan. (4) Insomnia: Code(s): G47.00 - Insomnia, unspecified Category: Medical Plan: Urinary incontinence for the past 2 years. She has had worsening symptoms the past one year. She is not on medication for urinary incontinence and has not been evaluated by urology. Her sleep is interrupted by urinary incontinence. Instructed on sleep hygiene. She does not want to start medication at this time for urinary incontinence. Referred to [facility] urology. (5) Urinary incontinence: Code(s): R32 - Unspecified urinary incontinence Category: Medical Plan: Plan as above. (6) Lower extremity pain: Code(s): M79.606 - Pain in leg, unspecified Category: Medical Qualifiers: Laterality: bilateral Qualified Code(s): M79.604 - Pain in right leg; M79.605 - Pain in left leg Plan: Left hip and lateral thigh pain for the past 6 months, progressively worsened in the past few months. Followed by pain management and awaiting an appointment to start PT. No overt injury or trauma. Ambulatory with slow but steady gait. Continue current treatment regimen. Follow-up with pain management and PT as planned. Orders: Orders AMB Hemoglobin A1c Today Z13.9 - Encounter for screening, unspecified Referrals Urology Referral R32 - Unspecified urinary incontinence
[2024-05-28 12:38] VITALS: BP 147/78; PULSE 100; RESP 16; TEMP 36.4; O2SAT 97; BMI 25.5
[2024-05-28 13:05] VITALS: BP 122/64
--- OUTSIDE RECORDS SUMMARY | 2024-05-28 14:10 | XMS_ITS | Data Portability ---
Author Organization [place] [facility], Allergy Address [address] [facility] [address] [place] [phone] Care Team Providers Care Senior Sales Manager Name Role Phone ALDO ASHER MD Primary [...] INTERNAL AUDITORY CANAL, W/WO CONTRAST 2023 024 [facility], [address] [place] [address], [address], 10:57:28 Medication Orders None recorded. Patient TargetsNo targets recorded. Patient InstructionsNo instructions recorded. Reason for Referral None Reported. Results Created Date Observation Date Name Description Value Unit Range Abnormal Flag Note LastModifiedBy Organization Detail LastModifiedTime 01/27/20 24 audio gram No observ ation record ed. [email or web address] Not Available 01/03 11:00:41 03/09/2003/07/2024 MRI, brain + inter nal audit ory canal , w/wo contr ast No observ ation record ed. [email or web address] [address] [place], [address], 03/16/2024 09:57:52 Result Notes None recorded. 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 Not Available [facility] 4 02:12:59 Sensorine ural hearing loss of bilateral ears 704814867 Active 2016 Sensorine ural hearing loss, bilateral ; Note: Date Diagnosed : 04/26/2016 9:36 AM (H90.3) Not Available [facility] 4 02:12:59 Impacted cerumen in right ear 22053049325 97280 Active 2023 TASHA FLYNN MD [address] [place] [address], [place], [address] , [facility] - [facility] 4 15:37:11 Acoustic neuroma 674227603 Active 2023 TASHA FLYNN MD [address] [place] [address], [place], [address] , [facility] - [facility] 4 15:37:46 Problem Notes None recorded. Procedures Surgical History Date Name Laterality Status Provider Name and Address Organization Details Recorded Time 4 Cerumen removal without microscope right completed TASHA FLYNN MD [address] [place] [address], [phone], [facility] - [facility] 01/25/2024 15:37:32 4 Air & Speech Audio with Tymps (53113, 94258 & 25895) completed SHELBIE MARKS [address] [place] [address],[place] [address], [place], [address], [facility] - [facility] 01/25/2024 14:51:01 Imaging Results Imaging Date Name Status LastModified by Organiz ation Details LastModified Time 01/27/2024 audiogram completed Information n ot available 01/27/2024 11:00:41 03/07/2024 MRI, brain + internal auditory canal, w/wo contrast completed [facility] [address] [facility], [place], [address], 03/16/2024 09:57:52 Procedure Notes None recorded. Medical Equipment None Reported. Medications Name Sig Start Date Stop Date Status Note LastModified by Organization Details LastModified Time atorvastat in 80 mg tablet TAKE 1 TABLET BY MOUTH EVERY DAY active Not Available Not Available No t Available valacyclov ir 1 gram tablet 2017 active Medicatio n ID: [id number] Du ration Value: 7 Brand Name: valacyclo [...] mg capsule 2017 active Medicatio n ID: [id number] Du ration Value: 30 Brand Name: gabapenti [...] mg tablet 2016 active Medicatio n ID: [id number] Br and Name: iron Send Method: E-Prescri [...] Available No t Available OptiCamanbe r Alvina [facility] spacer USE DIRECTED WITH INHALER active Not [...] Updated DateTime 01/25/2024 165.1 cm 26.3 kg/m2 02974.59 g Keven Wyman [place] - [facility] 01/25/2024 15:07:24 Social History None recorded. Functional Status None recorded. Mental Status None recorded. Family History Nothing Reported. Medical History No medical history recorded. Gynecological HistoryNo gynecological history recorded. Obstetrics History GPAL:G 0 P 0 0 0 0 Past Encounters Encounter ID Performer Location Encounter Start Date Encounter Closed Date Diagnosis/Indication Diagnosis SNOMED-CT Code Diagnosis ICD10 Code Diagnosis Note [id number] TASHA FLYNN MD [facility] [address] [address] 01/25/2024 14:09:52 01/25/2024 15:37:36 Sensorineural hearing loss of bilateral ears 853724749 H90.3 Right Ear:Mild sloping to a profound SNHL with good speech discrimina tion.Type A tympanogra m.Left Ear:Mild sloping to a severe SNHL with excellent speech discrimina tion.Type A tympanogra m. Impacted c erumen in right ear [id number] 497666 H61.21 Recurrent Cerumen Impactions : Ears were meticulous ly cleaned bilaterall y today with a curette and suction. The patient tolerated this well and will follow up for repeat debridemen t per routine. Acoustic neuroma 8254815 07 D33.3 has been 5 years since imaging was done. Will order an updated MRI. Hearing has been stable or improved. I reviewed her prior images. Health Concerns Section Related Observation LastModified by Organization Detai ls LastModified Time None Recorded Concern Status LastModified by Organization Details LastModified Time None Recorded Advance Directives Directive None Recorded Payers Encounter Date Sequence Insurance Name Policy Number Policy Pablo Covered Member ID Pablo Member ID Guarantor Name 01/25/2024 1 [facility] (MEDICARE REPLACEMENT/A DVANTAGE - PPO) [id number] Carmelita Whitaker [id number] Carmelita Whitaker Notes Date Note Type Note Provider Name and Address Organization Details Recorded Time 01/25/2024 text/html Hx of AD acousti c neuroma. Used to see Dr. Patel but was lost to follow up. Last MRI 2018 showed a 6x8mm AD intracanalicular acoustic neuroma. Audio today shows improved hearing and WRS compared to last tested (09/2018). TASHA FLYNN MD [address] [place] [address], [place], [address], [facility] - [facility] 01/25/2024 15:39:51 OBGyn Episode No OBEpisode recorded.
--- OUTSIDE RECORDS SUMMARY | 2024-05-28 14:10 | XMS_ITS | Clinical Summary ---
Author Organization [facility] Address [address] [place] [address] Care Team Providers Care Slate Mixer Name Role Phone Milana Ha MD Primary Care Provider Allergies Active Allergy Reactions Criticality Noted Date Comments Zolpidem 05/02/2019 Medications Medication Sig Dispensed Refills Start Date End Date Status warfarin (COUMADIN) 5 MG tablet Take 5 mg by mouth daily. 0 Active amLODIPine (NORVASC) tablet 10 mg Take 10 mg by mouth daily. 0 Active omeprazole (PriLOSEC) 40 MG capsule Take 40 mg by mouth daily. 0 Active atorvastatin (LIPITOR) tablet 80 mg Take 80 mg by mouth daily. 0 Active ferrous gluconate (FERGON) 324 MG tablet Take 324 mg by mouth every morning with breakfast. 0 Active levothyroxine (SYNTHROID, LEVOXYL) tablet 50 mcg Take 50 mcg by mouth every morning on an empty stomach. 0 Active metFORMIN (GLUCOPHAGE) tablet 500 mg Take 500 mg by mouth 2 (two) times a day with meals. 0 Active valsartan-hydroCHLOROt hiazide (DIOVAN-HCT) 320-25 MG per tablet Take 1 tablet by mouth daily. 0 Active gabapentin (NEURONTIN) 300 MG capsule Take 300 mg by mouth 3 (three) times a day. 0 Active FLUoxetine (PROzac) 20 MG capsule Take 20 mg by mouth daily. 0 Active polyethylene glycol (MIRALAX) packet Take 17 g by mouth daily. 0 Active Albuterol Sulfate 108 (90 Base) MCG/ACT AEPB Inhale into the lungs. 0 Active LORazepam (ATIVAN) 0.5 MG tablet Take 0.5 mg by mouth every 6 (six) hours as needed. 0 Active aspirin EC 81 MG tablet Take 81 mg by mouth daily. 0 Active Active Problems Problem Noted Date Diagnosed Date Iron deficiency anemia due to chronic blood loss 05/02/2019 Social History Tobacco Use Types Packs/Day Years Used Date Smoking Tobacco: Never Assessed Sex and Gender Information Value Date Recorded Sex Assigned at Not on file Gender Identity Not on file Sexual Orientation Not on file Last Filed Vital Signs Vital Sign Reading Time Taken Comments Blood Pressure 152/70 06/24/2020 11:17 AM EDT Pulse 97 06/24/2020 11:17 AM EDT Temperature 36.4 ??C (97.5 ??F) 06/24/2020 11:17 AM E DT Respiratory Rate - - Oxygen Saturation - - Inhaled Oxygen Concentration - - Weight 103 kg (227 lb) 06/24/2020 11:17 AM EDT Height 165.1 cm (5' 5 ) 05/02/2019 11:39 AM EST Body Mass Index 37.77 05/02/2019 11:39 AM EST Plan of Treatment Health Maintenance Due Date Last Done Comments Hepatitis C Screening 1950 Depression Screening 1960 BMI Counseling 01/31/1966 Preventative Health Evaluation 01/31/1966 Shingrix-Zoster Vaccine (1 of 2) 01/31/1998 Fall Risk Assessment 01/31/2013 Osteoporosis Screening (DEXA Scan) 01/31/2013 DTap / Tdap / Td (2 - Td or Tdap) 12/21/2021 12/22/2011 RSV Adult > 60+ Yrs or (1 - 1-dose 75+ series) 01/31/2023 COVID-19 Vaccine (2 - season) 2023 06/04/2020 Influenza Vaccine (#1) 2023 0, 01/11/2019, 12/07/2017, Additional history exists Pneumococcal Vaccine Completed 06/02/2017, 02/08/20 15 Hepatitis B Vaccines Aged Out No long er eligible based on patient's age to complete this topic RSV Ped < 20 months Aged Out No longe r eligible based on patient's age to complete this topic Care Teams Slate Mixer Relationship Specialty Start Date End Date Milana Ha MD PCP - General Internal Medicine 05/02/19
--- OUTSIDE RECORDS SUMMARY | 2024-05-28 14:11 | XMS_ITS | Clinical Summary ---
Author Organization [facility] Address [address] [place] [address] Care Team Providers Care Relations Manager Name Role Phone Milana Ha MD Primary Care Provider Surgical History Surgery Date Site/Laterality Comments HYSTERECTOMY PROCEDURE: HISTORICAL HYSTERECTOMY SALPINGOOPHORECTOMY PROCEDURE: [place] LAPAROSCOPY W/RMVL ADNEXAL STRUCTURES CARDIAC CATHETERIZATION 2002 PROCEDURE: HISTORICAL CARDIAC CATH; COMMENT: negative CHOLECYSTECTOMY 05/16/2016 PROCEDURE: HISTORICAL CHOLECYSTECTOMY; COMMENT: laparoscopic Pee Gutierrez UPPER GASTROINTESTINAL ENDOSCOPY 11/25/2011 PROCEDURE: [place] UPPER GI ENDOSCOPY PERFORMED; COMMENT: small HH; no esophagitis on PPI rx COLONOSCOPY 2007 PROCEDURE: HISTORICAL COLONOSCOPY; COMMENT: [facility]; date approx.; negative COLONOSCOPY 08/06/2020 PROCEDURE: HISTORICAL COLONOSCOPY; COMMENT: 1 cm polyps x2 and diverticulosis: Tubular adenomas x2. Repeat colonoscopy in 3 years. Medical History Medical History Date Comments DM (diabetes mellitus) ([facility]/HCC) DX:DM (diabetes mellitus) ([facility]) Sleep apnea DX:Sleep apnea Arthritis DX:Arthritis Anxiety DX:Anxiety Depression DX:Depression Seasonal allergies DX:Seasonal a llergies Bundle branch block, right DX:Bu ndle branch block, right Breast mass DX:Breast mass Erosive osteoarthritis DX:Erosiv e osteoarthritis; COMMENT: finger, Matthew, Obesity DX:Obesity Asthma DX:Asthma HTN (hypertension) 01/07/2011 DX:HTN (hyper tension) GERD (gastroesophageal reflux disease) 11/25/2011 DX:GERD (gastroesophageal reflux disease) Hyperlipidemia 12/19/2012 DX:Hyperlipidemi a Diabetes type 2, uncontrolled 07/09/2013 DX :Diabetes type 2, uncontrolled Hemianopsia 07/09/2013 DX:Hemianopsia; COMMENT: DR HOGAN 07/08/2013 Long-term use of high-risk medication 04/14/2015 DX:Long-term use of high-risk medication; COMMENT: Coumadin Iron deficiency anemia due t o chronic blood loss 12/06/2018 DX:Iron deficiency anemia du e to chronic blood loss DM type 2 (diabetes mellitus , type 2) ([facility]/HCC) 07/09/2013 DX:DM type 2 (diabetes melli tus, type 2) ([facility]) Family History Medical History Relation Name Comments Diabetes Brother 1 Diabetes Brother 2 CABG Father CABG Mother Diabetes Mother Parkinson's Disease Mother Colon cancer Neg Hx Relation Name Status Comments Brother 1 Brother 2 Brother 3 [place] Father (Age 59) stroke Mother Social History Tobacco Use Types Packs/Day Years Used Date Smoking Tobacco: Never Smokeless Tobacco: Never Alcohol Use Standard Drinks/Week Comments No 0 (1 standard drink = 0.6 oz pur e alcohol) Comments Unknown Sex and Gender Information Value Date Recorded Sex Assigned at Not on file Legal Sex Female 3:00 PM EST Gender Identity Not on file Sexual Orientation Not on file Obstetrics History Plan of Treatment Health Maintenance Due Date Last Done Comments Diabetes: Annual GFR (Glomerular Filtration Rate) 1950 Diabetes: Annual Foot Exam 01/31/1958 Diabetes: Annual Retina Eye Exam 01/31/1958 Zoster Vaccines (1 of 2) 01/31/1998 DTaP,Tdap,and Td Vaccines (2 - Td or Tdap) 12/21/2021 12/22/2011 Cholesterol Screening (Lipid Panel) 03/03/2022 Depression Screening 03/03/2022 Falls Risk Assessment 03/03/2022 Hepatitis C Screening 03/03/2022 Osteoporosis Screening (Bone Density Screening) 03/03/2022 Social Influencers of Health Screening 03/03/2022 Hypertension/CHF/CAD Annual BMP Blood Test 03/14/2022 Diabetes: Annual Urine Albumin-Creatinine Ratio (uACR) 03/19/2022 Diabetes: Blood Sugar Control Test (HGBA1C) 03/19/2022 RSV Immunization Patients 60+ Years Old (1 - 1-dose 75+ series) 01/31/2023 COVID-19 Vaccine ( season) 2023 03/31/2021, 07/04/2020, 06/04/2020 Influenza Vaccine (#1) 2023 1, 12/29/2019, 01/11/2019, Additional history exists Pneumococcal Vaccine: 50+ Years Completed 06/02/2017, 02/07/2015 HIB Vaccines Aged Out No longer eligi ble based on patient's age to complete this topic HPV Vaccines Aged Out No longer eligi ble based on patient's age to complete this topic Hepatitis A Vaccines Aged Out No long er eligible based on patient's age to complete this topic Hepatitis B Vaccines Aged Out No long er eligible based on patient's age to complete this topic IPV Vaccines Aged Out No longer eligi ble based on patient's age to complete this topic MMR Vaccines Aged Out No longer eligi ble based on patient's age to complete this topic Meningococcal ACWY Vaccine Aged Out N o longer eligible based on patient's age to complete this topic Meningococcal B Vacine Aged Out No lo nger eligible based on patient's age to complete this topic RSV Immunization Patients Under 20 months Aged Out No longer eligible based on patient's age to complete this topic Varicella Vaccines Aged Out No longer eligible based on patient's age to complete this topic Care Teams Relations Manager Relationship Specialty Start Date End Date Milana Ha MD PCP - General Internal Medicine 05/02/19
--- OUTSIDE RECORDS SUMMARY | 2024-05-28 14:11 | XMS_ITS | Encounter Summary ---
Author Organization [employer] [facility] Address [address] [place] [address] [place] [address] Care Team Providers Care Pickle Pumper Name Role Phone Unavailable Primary Care Provider Unavailabl e Encounter Details Date Type Department Care Team (Latest Contact Info) Description 09/04/2021 Abstract [facility] CONVERSIONS Dental, Provider, DDS Social History Tobacco Use Types Packs/Day Years Used Date Smoking Tobacco: Never Assessed Comments Unknown Sex and Gender Information Value Date Recorded Sex Assigned at Not on file Legal Sex Female 5:34 PM EDT Gender Identity Not on file Sexual Orientation Not on file documented as of this encounter Plan of Treatment Not on file documented as of this encounter Visit Diagnoses Not on filedocumented in this encounter
--- OUTSIDE RECORDS SUMMARY | 2024-05-28 14:11 | XMS_ITS | Clinical Summary ---
Author Organization [employer] Address [address] [facility] [address] [place] [address] Care Team Providers Care Wired Sweatband Cutter Name Role Phone Unavailable Primary Care Provider Unavailabl e Social History Tobacco Use Types Packs/Day Years Used Date Smoking Tobacco: Never Assessed Comments Unknown Sex and Gender Information Value Date Recorded Sex Assigned at Not on file Legal Sex Female 5:34 PM EDT Gender Identity Not on file Sexual Orientation Not on file Plan of Treatment Health Maintenance Due Date Last Done Comments Depression Screening 1950 Lipid Panel 1950 SDOH Screening 1950 Alcohol/Substance Use Screening 1960 Tobacco Screening 1960 Hepatitis C Screening 01/31/1966 Zoster Vaccines (1 of 2) 01/31/1998 DTaP/Tdap/Td Vaccines (1 - Tdap) 04/24/2004 04/23/2004 Pneumococcal Vaccine: 50+ Years (2 of 2 - PCV) 04/26/2009 04/26/2008 Dental Oral Exam 03/07/2022 09/04/2021, , 10/29/2010, Additional history exists Dental Prophylaxis 03/21/2022 09/18/2021, 0 04/20/2011, 10/15/2010, Additional history exists Dental X-Ray: Bitewings 09/05/2022 09/05/19 22, 06/11/2021, 04/20/2011, Additional history exists RSV Patients and Patients Aged 60 years or older (1 - 1-dose 75+ series) 01/31/2023 COVID-19 Vaccine ( - season) 2023 Influenza Vaccine (#1) 2023 0, 12/27/2008, 02/13/2008, Additional history exists Dental X-Ray: Full Mouth 09/05/2024 09/04/2021, 06/03 HIB Vaccines Aged Out No longer eligi [...] patient's age to complete this topic Meningococcal Vaccine Aged Out No ayush sarah eligible based on patient's age to complete this topic RSV under 20 months Aged Out No longe r eligible based on patient's age to complete this topic Rotavirus Vaccines Aged Out No longer eligible based on patient's age to complete this topic Procedures Procedure Name Priority Date/Time Associated Diagnosis Comments PROPHYLAXIS - ADULT Routine 09/18/2021 1 2:00 AM EDT INTRAORAL - COMPLETE SERIES OF RADIOGRAPHIC IMAGES Routine 09/04/2021 12:00 AM EDT PERIODIC ORAL EVALUATION - ESTABLISHED PATIENT Routine 09/04/2021 12:00 AM EDT from Last 3 Months or Most Recently Relevant to Health Maintenance Insurance [place], [place] - [facility] PPO * Guarantor: Carmelita Whitaker Account Type Relation to Patient Date of Phone Billing Address Personal/Family Self [place], [place] * Guarantor: Carmelita Whitaker Account Type Relation to Patient Date of Phone Billing Address Personal/Family Self [place], [place]
== END 2024-05-28 13:11 | disposition home or self-care (01) ==
PROVIDERS: PCP Nurse Practitioner Family; Visit Provider Nurse Practitioner Family
DX: I10 Essential (primary) hypertension (principal); E11.9 Type 2 diabetes mellitus without complications; F41.9 Anxiety disorder, unspecified; F32.A Depression, unspecified; G47.00 Insomnia, unspecified; R32 Unspecified urinary incontinence; M79.604 Pain in right leg; M79.605 Pain in left leg; Z13.9 Encounter for screening, unspecified

== ENCOUNTER → 2024-05-28 12:27 | Outpatient (BNVA) | payer MEDICARE, SELFPAY | PROVIDERS: PCP Nurse Practitioner Family; Visit Provider Nurse Practitioner Family | DX: I10 Essential (primary) hypertension (principal); E11.9 Type 2 diabetes mellitus without complications; F41.9 Anxiety disorder, unspecified; F32.A Depression, unspecified; G47.00 Insomnia, unspecified; R32 Unspecified urinary incontinence; M79.604 Pain in right leg; M79.605 Pain in left leg | CPT/HCPCS: 36415; 80061; 83036; 96127; 99212 ==

== ENCOUNTER 2024-05-28 13:15 | Outpatient (REF) | payer MEDICARE, SELFPAY ==
[2024-05-28 15:08] LABS: Cholesterol 124 mg/dL (<200); HDL Cholesterol 43 mg/dL (>40); LDL Cholesterol Calculated 56 mg/dL (<100); Triglycerides 125 mg/dL (<150)
--- OUTSIDE RECORDS SUMMARY | 2024-05-28 15:10 | XMS_ITS | Clinical Summary ---
Author Organization [facility] Address [address] [place] [address] Care Team Providers Care Director Of Corporate Strategy Name Role Phone Milana Ha MD Primary Care Provider Surgical History Surgery Date Site/Laterality Comments HYSTERECTOMY PROCEDURE: HISTORICAL HYSTERECTOMY SALPINGOOPHORECTOMY PROCEDURE: [place] LAPAROSCOPY W/RMVL ADNEXAL STRUCTURES CARDIAC CATHETERIZATION 2002 PROCEDURE: HISTORICAL CARDIAC CATH; COMMENT: negative CHOLECYSTECTOMY 05/16/2016 PROCEDURE: HISTORICAL CHOLECYSTECTOMY; COMMENT: laparoscopic Pee Gutierrez UPPER GASTROINTESTINAL ENDOSCOPY 11/25/2011 PROCEDURE: [place] UPPER GI ENDOSCOPY PERFORMED; COMMENT: small HH; no esophagitis on PPI rx COLONOSCOPY 2007 PROCEDURE: HISTORICAL COLONOSCOPY; COMMENT: [facility]; date approx.; negative COLONOSCOPY 08/06/2020 PROCEDURE: HISTORICAL COLONOSCOPY; COMMENT: 1 cm polyps x2 and diverticulosis: Tubular adenomas x2. Repeat colonoscopy in 3 years. Medical History Medical History Date Comments DM (diabetes mellitus) ([facility]/HCC) DX:DM (diabetes mellitus) ([facility]) Sleep apnea DX:Sleep apnea Arthritis DX:Arthritis Anxiety [...] type 2 (diabetes mellitus , type 2) ([facility]) 07/09/2013 DX:DM type 2 (diabetes melli tus, type 2) ([facility]) Family History Medical History Relation Name Comments Diabetes Brother 1 Diabetes Brother 2 CABG Father CABG Mother Diabetes Mother Parkinson's Disease Mother Colon cancer Neg Hx Relation Name Status Comments Brother 1 Brother 2 Brother 3 [place] Father (Age 59) stroke Mother Social History [...] age to complete this topic Care Teams Director Of Corporate Strategy Relationship Specialty Start Date End Date Milana Ha MD PCP - General Internal Medicine 05/02/19
--- OUTSIDE RECORDS SUMMARY | 2024-05-28 15:10 | XMS_ITS | Clinical Summary ---
Author Organization [employer] Address [address] [facility] [address] [place] [address] Care Team Providers Care Crude Tester Name Role Phone Unavailable Primary Care Provider [...] Most Recently Relevant to Health Maintenance Insurance [place], [place] D[place] - [facility] PPO * Guarantor: Carmelita Whitaker Account Type Relation to Patient Date of Phone Billing Address Personal/Family Self [place], [place] * Guarantor: Carmelita Whitaker Account Type Relation to Patient Date of Phone Billing Address Personal/Family Self [place]
--- OUTSIDE RECORDS SUMMARY | 2024-05-28 15:10 | XMS_ITS | Encounter Summary ---
Author Organization [employer] [facility] Address [address] [place] [address] [place] [address] Care Team Providers Care Entry Level Recruiter Name Role Phone Unavailable Primary Care Provider [...]
== END 2024-05-28 13:16 | disposition home or self-care (01) ==
LOC: HO.WFDLDS 13:15
PROVIDERS: Visit Provider Nurse Practitioner Family
DX: Z13.89 Encounter for screening for other disorder (principal)
CPT/HCPCS: 36415; 80061

== ENCOUNTER 2024-06-22 11:50 | Outpatient (AMB) | payer MEDICARE, SELFPAY ==
[2024-06-22 11:54] VITALS: BP 144/76; PULSE 82; O2SAT 99; BMI 25.0
--- NOTE | 2024-06-22 11:54 | A.OFFVIS_ITS ---
Vital Signs 06/22/24 11:54 Height 5 ft 5 in Weight 150 lb BMI 25.0 BP 144/76 H Blood Pressure Location Rt brachial Position Sitting Pulse 82 Pulse Source Pulse Oximeter Pulse Oximetry (%) 99 Oxygen Delivery Method Room Air Intake Visit Reasons: mechelle benjamin barium swallow f/u Intake Note: ESTABLISHED PATIENT for re-est care. MATEO 2021 w/ JM. Pt had BA FL performed. Mgmt of GERD. Chief Complaint; C/O general GI upset that seems to be highly diet dependent per pt. Pt also reports losing weight w/o effort even prior to being put on GLP 1 for diabetes mgmt. Pt denies any fecal abn at this time. No additional concerns per pt. Chief Accountant Required: No Accompanied by: Self / Same As Patient Allergies Seasonal Allergies Allergy (Intermediate, Verified 06/22/24 11:58) Cough zolpidem [From Ambien] Adverse Reaction (Severe, Verified 06/22/24 11:58) Hallucinations HPI HPI mechelle pt barium swallow f/u: Details: LAST VISIT WITH REGINALD SIMEON 09/21/2022 A 72 y/o female f/u after EGD/. colonoscopy- she has not taken ppi x 1 month-NPO > than an hour here for UBT- HP - she has had difficulty with asthma-however acid reflux was not well controlled. Coumadin QD- She has no other GI or general complaints TODAY'S VISIT Patient is here today for follow-up. Previously seen by Reginald Jones for dysphagia. Upper endoscopy done in 2022. Patient continued with symptoms and was started on omeprazole. Barium swallow done in October of 2023 that showed significant reflux. Patient was started on omeprazole and currently patient reports that her symptoms have been controlled for the most part. Patient reports that sometimes during the night or in the evening she might have sy mptoms if she will eat something that will cause reflux. She is avoiding ketchup and tomato sauce. Despite taking omeprazole if she eats tomato sauce she will feel severe reflux going all the way to her throat and epigastric burning. Patient denies any nausea or vomiting. Patient denies any abdominal pain or discomfort. Denies melena, hematochezia, unintentional weight loss or ribbon like stools. Last colonoscopy in 2020 two polyps, patient was told repeat colonoscopy in 10 years. [facility] Medical History Essential tremor Seasonal allergies PND (post-nasal drip) Iron deficiency Arthritis Osteoarthritis Depression Hypertension Asthma Tremors of nervous system Type II diabetes mellitus Surgical History Hx of LASIK History of esophagogastroduodenoscopy (EGD) H/O: hysterectomy History of cataract removal with insertion of prosthetic lens Hx laparoscopic cholecystectomy Family History Mother Diabetes Parkinsons Panic disorder/agoraphobia, agoraphobic avoidnc/panc attck full remssn Father Stroke Heart attack Brother Congestive heart failure Brother Stroke Other Substance abuse Social History Household Members: Family Household Members Other:: brother Both parents involved: No Caregiver staying overnight: No Housing: Other Housing Other:: mobile home Are you a primary emergency care attendant to a significant other at home: Yes (brother s/p CVA) Do you presently have visiting nurse or other home services: No (brother has services VNA,PT) Alcohol intake: never Patient Tobacco Use Status: Never used Tobacco e-Cigarette/Vaping Use: Never Used Second Hand Smoke Exposure: No service: No Current occupational status: retired Current occupational exposures/hazards: Yes Cognitive needs: No Hearing needs: Yes Vision needs: No Physical Exam Vital Signs: Last Vital Signs Pulse 82 06/22/24 11:54 BP 144/76 H 06/22/24 11:54 Pulse Ox 99 06/22/24 11:54 Oxygen Delivery Method Room Air 06/22/24 11:54 BMI result Body Mass Index 25.0 Const General: healthy appearing, no acute distress and well developed Nutritional Appearance: well nourished Orientation/consciousness: patient oriented x3 Resp Effort & Inspection: normal respiratory effort, able to speak in complete sentences, no tracheal deviation and symmetric chest movement Auscultation: clear to auscultation bilaterally Cardio Rate: regular rate GI Inspection: Yes normal to inspection and No distended Palpation (GI): Soft to palpation, not firm, nontender and No hepatosplenomegaly present Auscultation: normal bowel sounds General: Yes no CVA tenderness Back/Spine/Pelvis Back: no CVA tenderness Skin General skin exam: elasticity normal, turgor normal and dry skin Neuro General: patient oriented x3 Psych Appearance: grossly normal Mental Status: mental status grossly normal Results Reviewed Results Reviewed: BARIUM SWALLOW OCTOBER 2023 IMPRESSION: 1. Felinization of the mid and lower esophageal mucosa. This is a benign finding which can be associated with chronic gastroesophageal reflux. 2. Very small type I hiatal hernia. 3. Moderate gastroesophageal reflux. 4. Limited evaluation of the gastric mucosa from under distention of the stomach due to poor tolerance of the effervescent granules. The gastric rugal folds have a thickened appearance, which suggests gastritis, however, this may be also due to underdistention of the stomach. 5. Small to moderate size diverticulum in the second portion of the duodenum. 6. Mildly thickened folds of the proximal jejunum, possibly suggesting underlying jejunitis. Assessment & Plan Assessment & Plan (1) Hiatal hernia: Code(s): K44.9 - Diaphragmatic hernia without obstruction or gangrene Category: Medical (2) Chronic GERD: Code(s): K21.9 - Gastro-esophageal reflux disease without esophagitis Category: Medical (3) Postprandial epigastric pain: Code(s): R10.13 - Epigastric pain (4) Postprandial abdominal bloating: Code(s): R14.0 - Abdominal distension (gaseous) Plan Continue omeprazole daily, will add famotidine at bedtime. Avoid dietary triggers and late night snacking. Staying upright for minimum 3 hours after meals discussed with patient. Patient will follow low FODMAP diet. List of food recommended as well as list of food to avoid given to patient. Patient will follow-up in 1 year. Patient will be sent for upper endoscopy and possible colonoscopy. Patient had colonoscopy in 2020, to polyps, pathology not included in colonoscopy. Will try to obtain from [facility]. Patient is agreeable to this plan and verbalizes understanding of instructions. She was given the opportunity to ask questions and all questions answered. Thank you for allowing me to participate in her care Medications: New famotidine (Pepcid) 20 mg PO BEDTIME 90 tabs 4RF K21.9 - Gastro-esophageal reflux disease without esophagitis Coding Level of Care Code Est Pt Level 4 (23414) Complex EM visit Add On G2211 Diagnoses Hiatal hernia K44.9 Chronic GERD K21.9 Postprandial epigastric pain R10.13 Postprandial abdominal bloating R14.0 Time Spent (min) 40 Comment 30 minutes spent with patient and additional 10 minutes spent reviewing her records
== END 2024-06-22 12:23 | disposition home or self-care (01) ==
LOC: HO.HGI 11:51
PROVIDERS: PCP Nurse Practitioner Family; Visit Provider Nurse Practitioner Family
DX: K44.9 Diaphragmatic hernia without obstruction or gangrene (principal); K21.9 Gastro-esophageal reflux disease without esophagitis; R10.13 Epigastric pain; R14.0 Abdominal distension (gaseous)
CPT/HCPCS: 99214; G2211

== ENCOUNTER → 2024-06-22 11:50 | Outpatient (BNVA) | payer MEDICARE, SELFPAY | PROVIDERS: PCP Nurse Practitioner Family; Visit Provider Nurse Practitioner Family | DX: K21.9 Gastro-esophageal reflux disease without esophagitis (principal); K44.9 Diaphragmatic hernia without obstruction or gangrene; R10.13 Epigastric pain; R14.0 Abdominal distension (gaseous) | CPT/HCPCS: 99212 ==

== ENCOUNTER 2024-07-11 12:49 | Outpatient (AMB) | payer MEDICARE, SELFPAY ==
--- NOTE | 2024-07-11 12:58 | MHC.OFFVIS ---
Vital Signs 07/11/24 13:00 Height 5 ft 5 in Weight 147 lb BMI 24.5 BP 181/77 H Blood Pressure Location Rt brachial Position Sitting Respiration 16 Pulse 107 H Pulse Source Pulse Oximeter Pulse Oximetry (%) 100 Oxygen Delivery Method Room Air Intake Visit Reasons: 6 weeks FU/marcelino from 06/20 Crm Manager Required: No Allergies Seasonal Allergies Allergy (Intermediate, Verified 07/11/24 13:01) Cough zolpidem [From Ambien] Adverse Reaction (Severe, Verified 07/11/24 13:01) Hallucinations Medication List - Last Reconciled 07/11/24 by Roxi Hector LPN acetaminophen (Tylenol Extra Strength) 500 mg PO Q6H PRN albuterol sulfate 90 mcg/actuation 2 puffs PO Q4-6H PRN amlodipine 10 mg PO DAILY apixaban (Eliquis) 5 mg PO BID atorvastatin 80 mg PO DAILY blood sugar diagnostic ([employer] Verio test strips) USE TO CHECK BLOOD SUGARS TWICE DAILY famotidine (Pepcid) 20 mg PO BEDTIME flash glucose scanning reader (TLM ComStyle Samantha 2 [place]) As directed flash glucose sensor (FreeStyle Samantha 2 Sensor kit) As directed fluoxetine TAKE 3 CAPSULES BY MOUTH EVERY DAY furosemide 20 mg PO DAILY inhalational spacing device (Aerochamber Plus Z Stat spacer) As directed lancets ([employer] Delica Lancets) As directed levothyroxine 50 mcg PO DAILY metformin ER 1,000 mg (2 x 500 mg) PO BID 90 days mometasone-formoterol 100-5 mcg/actuation (Dulera) 2 puffs inhalation BID omeprazole 40 mg (2 x 20 mg) PO DAILY pen needle, diabetic (BD Liv 2nd Gen Pen Needle) As directed semaglutide (Ozempic) 1 mg (0.75 mL) subcut QWEEK 30 days valsartan-hydrochlorothiazide 320-25 mg 1 tab PO DAILY HPI Comments Details: Carmelita is back in my office to discuss further treatment options. Unfortunately she did not complete her physical therapy yet. She had 2 sessions and she plans to have a 3rd session very soon. She performs home exercise programs. She reports that so far she does not feel any improvement from physical therapy. She requests me to perform the injection. I will schedule her in 10 days for the trigger point injection. It will be in the projection of the left trochanteric bursa. She denies osteoporosis. She reports that in the past she had bone density scan test which was normal. very pleasant 74 years old female who was referred to this office by Dr. Lewis. complains of pain on thigh and left buttock as well as pain in the left hip radiating down to the left knee on the lateral side of the left hip and intermittent pain in the left calf and occasional left ankle pain. Her past medical history significant for hypertension history of dizziness and fainting anxiety and depression history of heart murmur diabetes hiatal hernia arthritis anemia and asthma. She is on Eliquis she had a blood clot traveling into her retinal arteries of the right eye. Her past surgical history significant for hysterectomy, right thyroid removal of lipoma, blood clot in the aortic arch in [facility] gallbladder removal and removal of the cataract an artificial lenses in both eyes. She denies smoking cigarettes she denies drinking alcohol she does not drink coffee and caffeinated beverages, she did not consume any recreational drugs. [facility], [facility] Medical History Essential tremor Seasonal allergies PND (post-nasal drip) Iron deficiency Arthritis Osteoarthritis Depression Hypertension Asthma Tremors of nervous system Type II diabetes mellitus Surgical History Hx of LASIK History of esophagogastroduodenoscopy (EGD) H/O: hysterectomy History of cataract removal with insertion of prosthetic lens Hx laparoscopic cholecystectomy Family History Mother Diabetes Parkinsons Panic disorder/agoraphobia, agoraphobic avoidnc/panc attck full remssn Father Stroke Heart attack Brother Congestive heart failure Brother Stroke Other Substance abuse Social History Household Members: Family Household Members Other:: brother Both parents involved: No Caregiver staying overnight: No Housing: Other Housing Other:: mobile home Are you a primary nurse care manager to a significant other at home: Yes (brother s/p CVA) Do you presently have visiting nurse or other home services: No (brother has services VNA,PT) Alcohol intake: never Patient Tobacco Use Status: Never used Tobacco e-Cigarette/Vaping Use: Never Used Second Hand Smoke Exposure: No service: No Current occupational status: retired Current occupational exposures/hazards: Yes Cognitive needs: No Hearing needs: Yes Vision needs: No Review of Systems Const All systems reviewed & are unremarkable except as noted in HPI and below ENT Reports Normal hearing present Neuro Reports Normal hearing present, Denies Abnormal speech present, Denies confusion and Denies Sensory deficit (Neuro) Psych Denies confusion Physical Exam Vital Signs: Last Vital Signs Pulse 107 H 07/11/24 13:00 Resp 16 07/11/24 13:00 BP 181/77 H 07/11/24 13:00 Pulse Ox 100 07/11/24 13:00 Oxygen Delivery Method Room Air 07/11/24 13:00 BMI result Body Mass Index 24.5 Const General: no acute distress; No confusion Nutritional Appearance: average body habitus Orientation/consciousness: patient oriented x3 and No confusion Eyes General: appearance normal, both eyes and all related structures Pupils: Equal, round and reactive pupils present EOM: EOMs intact bilaterally Neck Neck: Yes full ROM Chest Chest palpation & inspection: normal inspection of the chest Resp Effort & Inspection: normal respiratory effort, able to speak in complete sentences, normal respiratory pattern, no audible wheezes and no cough Cardio Jugular venous distension: no JVD GI Inspection: Yes normal to inspection Back/Spine/Pelvis Other: No tenderness on palpation in paraspinal spinal region of the lumbar spine minimal tenderness on palpation in the projection of the approximately S1-S2 area of the sacral bone. Loading test is negative bilaterally. SLR is negative bilaterally. Lasegue test is negative bilaterally. Flexing forward and flexing backwards do not aggravate the patient's pain. Naresh test is negative bilaterally. Pelvic compression test and pelvic distraction test is negative bilaterally. There is severe tenderness on palpation in projection of the left trochanter area. There is tenderness on palpation in projection of the iliotibial band. Neuro General: patient oriented x3, gait normal and No confusion Cranial nerves: Yes CN's II-XII intact bilaterally, Yes Equal, round and reactive pupils present, Yes Normal hearing present and Yes Ability to bilaterally elevate shoulders present Speech: No Abnormal speech present Gait exam (Neuro): Normal gait present Motor exam (neuro): 5/5 motor strength present throughout Sensory Exam: No Sensory deficit (Neuro) Extrem Other: Very prominent DP pulse on the right lower extremity and very fainting almost absent DP on the left lower extremity. Bilateral PT arteries are not palpable. General: No pedal edema Psych Speech and movement: Normal speech and movement present Affect: normal affect Attitude: cooperative Thought process: Normal thought process present Thought content: Normal thought content present Insight: Good insight present (Psych) Judgement: Good judgement present (Psych) Assessment & Plan Assessment & Plan (1) Lower extremity pain: Code(s): M79.606 - Pain in leg, unspecified Category: Medical Qualifiers: Laterality: bilateral Qualified Code(s): M79.604 - Pain in right leg; M79.605 - Pain in left leg (2) Trochanteric bursitis, left hip: Code(s): M70.62 - Trochanteric bursitis, left hip Category: Medical (3) Iliotibial band syndrome, left leg: Code(s): M76.32 - Iliotibial band syndrome, left leg Category: Medical (4) Peripheral arterial disease: Code(s): I73.9 - Peripheral vascular disease, unspecified Category: Medical Plan Patient is requesting me to perform the trigger point injection for her today however she is on Eliquis and we need to schedule it when she stops Eliquis. I will schedule her in 10 days in the office for trigger point injection to treat iliotibial band syndrome. Coding Level of Care Code Est Pt Level 3 (94448) Diagnoses Pain in both lower extremities M79.604; M79.605 Laterality: bilateral Trochanteric bursitis, left hip M70.62 Iliotibial band syndrome, left leg M76.32 Peripheral arterial disease I73.9
[2024-07-11 13:00] VITALS: BP 181/77; PULSE 107; RESP 16; O2SAT 100; BMI 24.5
--- OUTSIDE RECORDS SUMMARY | 2024-07-11 14:49 | XMS_ITS | Encounter Summary ---
Author Organization [employer] [facility] Address [address] [place] [address] [place] [address] Care Team Providers Care Mop Handle Assembler Name Role Phone Unavailable Primary Care Provider [...]
--- OUTSIDE RECORDS SUMMARY | 2024-07-11 14:49 | XMS_ITS | Clinical Summary ---
Author Organization [facility] Address [address] [place] [address] Care Team Providers Care Retirement Manager Name Role Phone Milana Ha MD [...] age to complete this topic Care Teams Retirement Manager Relationship Specialty Start Date End Date Milana Ha MD PCP - General Internal Medicine 05/02/19
--- OUTSIDE RECORDS SUMMARY | 2024-07-11 14:49 | XMS_ITS | Clinical Summary ---
Author Organization [facility] Address [address] [place] [address] Care Team Providers Care Candy Decorator Name Role Phone Milana Ha MD Primary Care Provider Surgical History Surgery Date Site/Laterality Comments HYSTERECTOMY PROCEDURE: HISTORICAL HYSTERECTOMY SALPINGOOPHORECTOMY PROCEDURE: LA LAPAROSCOPY W/RMVL ADNEXAL STRUCTURES CARDIAC CATHETERIZATION 2002 PROCEDURE: HISTORICAL CARDIAC CATH; COMMENT: negative CHOLECYSTECTOMY 05/16/2016 PROCEDURE: HISTORICAL CHOLECYSTECTOMY; COMMENT: laparoscopic Pee Gutierrez UPPER GASTROINTESTINAL ENDOSCOPY 11/25/2011 PROCEDURE: LA UPPER GI ENDOSCOPY PERFORMED; COMMENT: small HH; no esophagitis on PPI rx COLONOSCOPY 2007 PROCEDURE: HISTORICAL COLONOSCOPY; COMMENT: [facility]; date approx.; negative COLONOSCOPY 08/06/2020 PROCEDURE: HISTORICAL COLONOSCOPY; COMMENT: 1 cm polyps x2 and diverticulosis: Tubular adenomas x2. Repeat colonoscopy in 3 years. Medical History Medical History Date Comments DM (diabetes mellitus) ([facility]) DX:DM (diabetes mellitus) ([facility]) Sleep apnea DX:Sleep apnea Arthritis DX:Arthritis [...] type 2 (diabetes mellitus , type 2) ([facility]) 07/09/2013 DX:DM type 2 (diabetes melli tus, type 2) ([facility]) Family History Medical History Relation Name Comments Diabetes Brother 1 Diabetes Brother 2 CABG Father CABG Mother Diabetes Mother Parkinson's Disease Mother Colon cancer Neg Hx Relation Name Status Comments Brother 1 Brother 2 Brother 3 NM Father (Age 59) stroke Mother Social History [...] Sugar Control Test (HGBA1C) 03/19/2022 RSV Immunization Adult Patients (1 - 1-dose 75+ series) 01/31/2023 COVID-19 Vaccine ( season) 2023 03/31/2021, 07/04/2020, 06/04/2020 Influenza Vaccine (Season Ended) 2024 01/22/2021, 12/29/2019, 01/11/2019, Additional history exists Pneumococcal Vaccine: [...] age to complete this topic Meningococcal B Vaccine Aged Out No l onger eligible based on patient's age to complete this topic RSV Immunization Patients Under 20 months Aged Out No longer eligible based on patient's age to complete this topic Varicella Vaccines Aged Out No longer eligible based on patient's age to complete this topic Care Teams Candy Decorator Relationship Specialty Start Date End Date Milana Ha MD PCP - General Internal Medicine 05/02/19
--- OUTSIDE RECORDS SUMMARY | 2024-07-11 14:49 | XMS_ITS | Data Portability ---
Author Organization [place] [facility], Allergy Address [address] [facility] [address] [place] [id number] Care Team Providers Care Pie Chef Name Role Phone ALDO ASHER MD Primary [...] INTERNAL AUDITORY CANAL, W/WO CONTRAST 2023 024 [facility], [address] [place] [address], [address], 10:57:28 Medication Orders None recorded. Patient TargetsNo targets recorded. Patient InstructionsNo instructions recorded. Reason for Referral None Reported. Results Created Date Observation Date Name Description Value Unit Range Abnormal Flag Note LastModifiedBy Organization Detail LastModifiedTime 01/27/20 24 audio gram No observ ation record ed. [email or web address] Not Available 01/03 11:00:41 03/09/20 24 03/07/2024 MRI, brain + inter nal audit ory canal , w/wo contr ast No observ ation record ed. [email or web address] [facility] [address] [place], [address], 03/16/2024 09:57:52 Result Notes None recorded. 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 Not Available [facility] 4 02:12:59 Sensorine ural hearing loss of bilateral ears 660922263 Active 2016 Sensorine ural hearing loss, bilateral ; Note: Date Diagnosed : 04/26/2016 9:36 AM (H90.3) Not Available [facility] 4 02:12:59 Impacted cerumen in right ear 31815090669 21770 Active 2023 TASHA FLYNN MD [address] [place] [address], [facility] [place], [address] , [facility] - [facility] 4 15:37:11 Acoustic neuroma 695873141 Active 2023 TASHA FLYNN MD [address] [place] [address], [place], [address] , [facility] - [facility] 4 15:37:46 Problem Notes None recorded. Procedures Surgical History Date Name Laterality Status Provider Name and Address Organization Details Recorded Time 4 Cerumen removal without microscope right completed TASHA FLYNN MD [address] [place] [address], [phone], [facility] - [facility] 01/25/2024 15:37:32 4 Air & Speech Audio with Tymps (50541, 64065 & 70190) completed SHELBIE MARKS [address] [place] [address],[place] [address], [place], [address], [facility] - [facility] 01/25/2024 14:51:01 Imaging Results Imaging Date Name Status LastModified by Organiz ation Details LastModified Time 01/27/2024 audiogram completed [email or web address] Information n ot available 01/27/2024 11:00:41 03/07/2024 MRI, brain + internal auditory canal, w/wo contrast completed [facility] [address] [facility], [place], [address], 03/16/2024 09:57:52 Procedure Notes None recorded. Medical Equipment None Reported. Medications Name Sig Start Date Stop Date Status Note LastModified by Organization Details LastModified Time atorvastat in 80 mg tablet TAKE 1 TABLET BY MOUTH EVERY DAY active Not Available Not Available No t Available valacyclov ir 1 gram tablet 2017 active Medicatio n ID: [id number] Du ration Value: 7 Brand Name: valacyclo [...] mg capsule 2017 active Medicatio n ID: [id number] Du ration Value: 30 Brand Name: gabapenti [...] mg tablet 2016 active Medicatio n ID: [id number] Br and Name: iron Send Method: E-Prescri [...] Available No t Available OptiCamanbe r Alvina [facility] spacer USE DIRECTED WITH INHALER active [...] Updated DateTime 01/25/2024 165.1 cm 26.3 kg/m2 49709.59 g Keven Wyman [place] [facility] 01/25/2024 15:07:24 Social History None recorded. Functional Status None recorded. Mental Status None recorded. Family History Nothing Reported. Medical History No medical history recorded. Gynecological HistoryNo gynecological history recorded. Obstetrics History GPAL:G 0 P 0 0 0 0 Past Encounters Encounter ID Performer Location Encounter Start Date Encounter Closed Date Diagnosis/Indication Diagnosis SNOMED-CT Code Diagnosis ICD10 Code Diagnosis Note [id number] TASHA FLYNN MD [facility] [address] [address] 01/25/2024 14:09:52 01/25/2024 15:37:36 Sensorineural hearing loss of bilateral ears 310303328 H90.3 Right Ear:Mild sloping to a profound SNHL with good speech discrimina tion.Type A tympanogra m.Left Ear:Mild sloping to a severe SNHL with excellent speech discrimina tion.Type A tympanogra m. Impacted c erumen in right ear [id number] 029994 H61.21 Recurrent Cerumen Impactions : Ears were meticulous ly cleaned bilaterall y today with a curette and suction. The patient tolerated this well and will follow up for repeat debridemen t per routine. Acoustic neuroma [id number] 07 D33.3 has been 5 years since [...] Pablo Member ID Guarantor Name 01/25/2024 1 [facility] (MEDICARE REPLACEMENT/A DVANTAGE - PPO) [id number] Carmelita Whitaker [id number] Carmelita Whitaker Notes Date Note Type Note Provider Name and Address Organization Details Recorded Time 01/25/2024 text/html Hx of AD acousti c neuroma. Used to see Dr. Patel but was lost to follow up. Last MRI 2018 showed a 6x8mm AD intracanalicular acoustic neuroma. Audio today shows improved hearing and WRS compared to last tested (09/2018). TASHA FLYNN MD [address] [place] [address], [place], [address], [facility] - [facility] 01/25/2024 15:39:51 OBGyn Episode No OBEpisode recorded.
--- OUTSIDE RECORDS SUMMARY | 2024-07-11 14:50 | XMS_ITS | Clinical Summary ---
Author Organization [employer] Address [address] [facility] 7[address] [place] [address] Care Team Providers Care Animal Husbandry Teacher Name Role Phone Unavailable Primary Care Provider [...] Most Recently Relevant to Health Maintenance Insurance [place], [place] DENTAL - [facility] PPO * Guarantor: Carmelita Whitaker Account Type Relation to Patient Date of Phone Billing Address Personal/Family Self [place], [place] * Guarantor: Carmelita Whitaker Account Type Relation to Patient Date of Phone Billing Address Personal/Family Self [place]
== END 2024-07-11 13:15 | disposition home or self-care (01) ==
LOC: HO.PMC 12:50
PROVIDERS: PCP Nurse Practitioner Family; Visit Provider Anesthesiology
DX: M79.605 Pain in left leg (principal); M70.62 Trochanteric bursitis, left hip; M76.32 Iliotibial band syndrome, left leg; I73.9 Peripheral vascular disease, unspecified
CPT/HCPCS: 99213

== ENCOUNTER → 2024-07-11 12:49 | Outpatient (BNVA) | payer MEDICARE, SELFPAY | PROVIDERS: PCP Nurse Practitioner Family; Visit Provider Anesthesiology | DX: M79.604 Pain in right leg (principal); M79.605 Pain in left leg; M70.62 Trochanteric bursitis, left hip; M76.32 Iliotibial band syndrome, left leg; I73.9 Peripheral vascular disease, unspecified | CPT/HCPCS: 99212 ==

== ENCOUNTER → 2024-07-19 14:07 | Outpatient (BNVA) | payer MEDICARE, SELFPAY | PROVIDERS: PCP Nurse Practitioner Family; Visit Provider Anesthesiology | DX: N28.89 Other specified disorders of kidney and ureter (principal); R32 Unspecified urinary incontinence | CPT/HCPCS: 81003; 99202 ==

== ENCOUNTER 2024-07-19 14:35 | Outpatient (AMB) | payer MEDICARE, SELFPAY ==
--- NOTE | 2024-07-19 15:05 | MHC.OFFVIS ---
Intake Visit Reasons: urinary incontinence Intake Note: Patient is present for URINARY INCONTINENCE Urology Medication:NONE Antibiotic Allergy:NONE Blood Thinner:APIXABAN Jacquard Twine Polisher Operator Required: No Allergies Seasonal Allergies Allergy (Intermediate, Verified 07/19/24 16:03) Cough zolpidem [From Ambien] Adverse Reaction (Severe, Verified 07/19/24 16:03) Hallucinations Medication List - Last Reconciled 07/19/24 by BRANDI Garner-ROSY acetaminophen (Tylenol Extra Strength) 500 mg PO Q6H PRN albuterol sulfate 90 mcg/actuation 2 puffs PO Q4-6H PRN amlodipine 10 mg PO DAILY apixaban (Eliquis) 5 mg PO BID atorvastatin 80 mg PO DAILY famotidine (Pepcid) 20 mg PO BEDTIME flash glucose scanning reader (SlidebeanStyle Samantha 2 [place]) As directed flash glucose sensor (FreeStyle Samantha 2 Sensor kit) As directed fluoxetine TAKE 3 CAPSULES BY MOUTH EVERY DAY furosemide 20 mg PO DAILY inhalational spacing device (Aerochamber Plus Z Stat spacer) As directed levothyroxine 50 mcg PO DAILY metformin ER 1,000 mg (2 x 500 mg) PO BID 90 days mirabegron ER (Myrbetriq) 25 mg PO DAILY 30 days mometasone-formoterol 100-5 mcg/actuation (Dulera) 2 puffs inhalation BID omeprazole 40 mg (2 x 20 mg) PO DAILY semaglutide (Ozempic) 1 mg (0.75 mL) subcut QWEEK 30 days valsartan-hydrochlorothiazide 320-25 mg 1 tab PO DAILY HPI Comments Details: Carmelita is a very pleasant 74-year-old female patient of Dr. Ybarra. She has a past medical history of the essential tremors, seasonal allergies, iron deficiency, arthritis, osteoarthritis, depression, hypertension, asthma, and type 2 diabetes. She presents to the office today as a new patient for urinary incontinence. In discussion with the patient today she reports a longstanding history of urinary incontinence over the last 4-5 years. She reports initially she felt symptoms were tolerable as she had only been utilizing one peripad per day and felt she was experiencing stress incontinence and these episodes were infrequent. However has noticed worsening symptoms and feels they have been more bothersome as now she experiences mixed urinary incontinence and nocturia. She discusses previously following up with [facility] many years ago for a renal mass. She brings with her today previous office note from 11/24/2017 that notes 2 cm anterior right renal mass noted on MRI from 10/07/2017 demonstrating approximately 2.1 cm exophytic renal mass arising from the anterior surface of the right kidney. It appeared isointense sequence there was mild peripheral enhancement per office visit note. Additionally there was a 1.1 cm right fat rich adrenal adenoma. She reports that recommendations by previous urologist was to undergo surveillance monitoring given her past medical history however never continued with surveillance monitoring as she was dissatisfied with plan of care. She is requesting further imaging as she has not had any recent renal imaging since 2018. We discussed at length potential causes of urinary incontinence as well as further treatment options and risks and benefits of these treatment options. She denies urinary urgency, urinary frequency, hematuria, dysuria, foul smelling urine, changes to urinary stream, flank pain, fever, and or chills. In office urinalysis results were reviewed with the patient today. All questions were answered. She otherwise offers no other issues or concerns at this time. Discussion Notes During the session, we discussed the renal mass previously diagnosed by the former provider. The patient expressed dissatisfaction with prior management and expressed interest in evaluating the mass growth. We agreed on performing an MRI to assess for any changes in the renal mass. Discussion included the continuation of management based on growth assessment, possibly just serial monitoring if no change is noted. For the urinary incontinence, various management options were explored, including pelvic floor therapy and medications. The patient was informed about pelvic floor therapy, but due to transportation concerns, opted for pharmacological intervention. We discussed possible medications and their risks and benefits. The patient consented to trial Myrbetriq for incontinence management. Urodynamic study was discussed as a future step if necessary for further assessment evaluation. Plan 1. Myrbetriq Mirabegron 25 mg once daily is prescribed to manage urinary incontinence, considering the patient's suitability and logistical challenges with pelvic floor therapy. The patient understands potential benefits and risks and will track symptom changes over six weeks. We discussed alternatives such as pelvic floor therapy and urodynamics yet prioritized medication. Follow-up will evaluate Myrbetriq's effectiveness and results of the renal MRI. Adjustments will be based on these outcomes and patient feedback. [facility] Medical History Essential tremor Seasonal allergies PND (post-nasal drip) Iron deficiency Arthritis Osteoarthritis Depression Hypertension Asthma Tremors of nervous system Type II diabetes mellitus Surgical History Hx of LASIK History of esophagogastroduodenoscopy (EGD) H/O: hysterectomy History of cataract removal with insertion of prosthetic lens Hx laparoscopic cholecystectomy Family History Mother Diabetes Parkinsons Panic disorder/agoraphobia, agoraphobic avoidnc/panc attck full remssn Father Stroke Heart attack Brother Congestive heart failure Brother Stroke Other Substance abuse Social History Household Members: Family Household Members Other:: brother Both parents involved: No Caregiver staying overnight: No Housing: Other Housing Other:: mobile home Are you a primary senior care assistant to a significant other at home: Yes (brother s/p CVA) Do you presently have visiting nurse or other home services: No (brother has services VNA,PT) Alcohol intake: never Patient Tobacco Use Status: Never used Tobacco e-Cigarette/Vaping Use: Never Used Second Hand Smoke Exposure: No service: No Current occupational status: retired Current occupational exposures/hazards: Yes Cognitive needs: No Hearing needs: Yes Vision needs: No Review of Systems Eyes Reports no additional complaints ENT Reports no additional complaints Card Reports as per HPI Resp Reports as per HPI GI Reports no additional complaints Reports as per HPI Musc Reports as per HPI Neuro Reports as per HPI Psych Reports as per HPI Endo Reports as per HPI Aller/Immun Reports as per HPI Physical Exam Const General: cooperative, healthy appearing, comfortable, no acute distress, well developed, alert and awake Orientation/consciousness: patient oriented x3 HEENT Head: Yes normal to inspection, Yes normocephalic and Yes atraumatic Ears: hearing grossly normal bilaterally Eyes General: appearance normal, both eyes and all related structures Neck Neck: Yes normal visual inspection and Yes trachea midline Chest Chest palpation & inspection: normal inspection of the chest Resp Effort & Inspection: normal respiratory effort and able to speak in complete sentences Cardio Rate: regular rate GI Inspection: Yes normal to inspection General: Yes no CVA tenderness Back/Spine/Pelvis Back: no CVA tenderness Skin General skin exam: no rashes or lesions noted Neuro General: patient oriented x3 Extrem General: Yes normal to inspection Psych Appearance: grossly normal and well kempt Mental Status: mental status grossly normal Speech and movement: Normal speech and movement present and Clear speech present Affect: normal affect Attitude: cooperative Thought process: Normal thought process present Thought content: Normal thought content present Insight: Fair insight present (Psych) Judgement: Fair judgement present (Psych) Results AMB Urinalysis, Automated UA Leukoctes 0 Yessenia/uL Last Edit by MELISSA Nicholson on 07/19/24 15:45 UA Nitrite Negative Last Edit by Drew Murray CCM on 07/19/24 15:45 UA Urobilinogen 0.2 mg/dL Last Edit by Drew Murray CCM on 07/19/24 15:45 UA Protein 15 mg/dL Last Edit by Drew Murray CCM on 07/19/24 15:45 UA pH 6.0 Last Edit by Drew Murray CCM on 07/19/24 15:45 UA Blood 0 Gaetano/uL Last Edit by Drew Murray CCM on 07/19/24 15:45 UA Specific [place] 1.010 Last Edit by MELISSA Nicholson on 07/19/24 15:45 UA Ketone Negative Last Edit by MELISSA Nicholson on 07/19/24 15:45 UA Bilirubin 1 mg/dL Last Edit by Drew Murrya [place] on 07/19/24 15:45 UA Glucose 0 mg/dL Last Edit by Drew Murray [place] on 07/19/24 15:45 Results Reviewed Results Reviewed: Laboratory Last Values Urine pH (Auto) 6.0 07/19/24 15:44 Specific [place] (Auto) 1.010 07/19/24 15:44 Urine Protein (Auto) 15 mg/dL 07/19/24 15:44 Glucose (UA)(Auto) 0 mg/dL 07/19/24 15:44 Urine Ketones (Auto) Negative 07/19/24 15:44 Urine Blood (Auto) 0 Gaetano/uL 07/19/24 15:44 Urine Nitrite (Auto) Negative 07/19/24 15:44 Urine Bilirubin (Auto) 1 mg/dL 07/19/24 15:44 Urine Urobilinogen (Auto) 0.2 mg/dL 07/19/24 15:44 Leukocyte Esterase (Auto) 0 Yessenia/uL 07/19/24 15:44 Assessment & Plan Assessment & Plan (1) Renal mass: Code(s): N28.89 - Other specified disorders of kidney and ureter Category: Medical (2) Urinary incontinence: Code(s): R32 - Unspecified urinary incontinence Category: Medical Plan In office urinalysis results reviewed with the patient today; as noted above. Will obtain MRI renal mass protocol for further assessment evaluation. We discussed potential causes of urinary incontinence as well as nocturia and further treatment options and risks and benefits of these treatment options. We discussed importance of limiting fluids 2-3 hours prior to bed to decrease episodes of nocturia. We discussed importance of management and diabetes for improvement lower urinary tract symptoms as well as overall health and well-being. Start Myrbetriq as discussed and prescribed. Follow-up in 1-3 months with imaging and PVR; or sooner with any issues, concerns, and or questions. Orders: Orders MR abdomen wo/w con Today N28.89 - Other specified disorders of kidney and ureter AMB Urinalysis Automated Today Z13.9 - Encounter for screening, unspecified Medications: New mirabegron ER (Myrbetriq) 25 mg PO DAILY 30 tabs 3RF 30 days N30.10 - Interstitial cystitis (chronic) without hematuria, N32.81 - Overactive bladder, R35.1 - Nocturia, R39.15 - Urgency of urination Patient Instructions: The patient had an opportunity to ask questions regarding the treatment plan. All questions were answered. Physical exam, labs, and imaging were discussed and reviewed in detail. As well as risks, benefits, and discussion of treatment choices. No major barriers to understanding were identified. The patient expressed understanding and agreement with the above treatment plan. The patient was made aware they should contact our office by phone for worsening of their current condition, the appearance of new symptoms, or with any questions or concerns. Compliance is encouraged with any medications and follow up testing that is ordered. It is a privilege to be allowed the opportunity to participate in? your urological care.? Again, if you have any questions or concerns If you have any questions or concerns please do not hesitate to contact me. The office is [phone]. This note is constructed using voice recognition software. While every effort has been made to ensure accuracy clip baker errors may have been included. Yours sincerely, SMITHA Garner Coding Level of Care Code New Pt Level 4 (11575) Diagnoses Renal mass N28.89 Urinary incontinence R32
--- OUTSIDE RECORDS SUMMARY | 2024-07-19 17:34 | XMS_ITS | Clinical Summary ---
Author Organization [facility] Address [address] [place] [address] Care Team Providers Care Phlebotomy Tech Name Role Phone Milana Ha MD Primary [...] age to complete this topic Care Teams Phlebotomy Tech Relationship Specialty Start Date End Date Milana Ha MD PCP - General Internal Medicine 05/02/19
--- OUTSIDE RECORDS SUMMARY | 2024-07-19 17:34 | XMS_ITS | Clinical Summary ---
Author Organization [employer] Address [address] [facility] 7t [place] [address] Care Team Providers Care Horticultural Specialty Grower Field Name Role Phone Unavailable Primary Care Provider [...] Most Recently Relevant to Health Maintenance Insurance [place], [place] D[place]AL - [facility] PPO * Guarantor: Carmelita Whitaker Account Type Relation to Patient Date of Phone Billing Address Personal/Family Self [place], [place] * Guarantor: Carmelita Whitaker Account Type Relation to Patient Date of Phone Billing Address Personal/Family Self [place], [place]
--- OUTSIDE RECORDS SUMMARY | 2024-07-19 17:34 | XMS_ITS | Clinical Summary ---
[facility] Organization [facility] Address [address] [place] [address] Care Team Providers Care Lead Blender Name Role Phone Milana Ha MD Primary Care Provider Surgical History Surgery Date Site/Laterality Comments HYSTERECTOMY PROCEDURE: HISTORICAL HYSTERECTOMY SALPINGOOPHORECTOMY PROCEDURE: CA LAPAROSCOPY W/RMVL ADNEXAL STRUCTURES CARDIAC CATHETERIZATION 2002 PROCEDURE: HISTORICAL CARDIAC CATH; COMMENT: negative CHOLECYSTECTOMY 05/16/2016 PROCEDURE: HISTORICAL CHOLECYSTECTOMY; COMMENT: laparoscopic Pee Gutierrez UPPER GASTROINTESTINAL ENDOSCOPY 11/25/2011 PROCEDURE: CA UPPER GI ENDOSCOPY PERFORMED; COMMENT: small HH; no esophagitis on PPI rx COLONOSCOPY 2007 PROCEDURE: HISTORICAL COLONOSCOPY; COMMENT: [facility]; date approx.; negative COLONOSCOPY 08/06/2020 PROCEDURE: HISTORICAL COLONOSCOPY; COMMENT: 1 cm polyps x2 and diverticulosis: Tubular adenomas x2. Repeat colonoscopy in 3 years. Medical History Medical History Date Comments DM (diabetes mellitus) ([facility] V24, [facility] V28) DX:DM (diabetes mellitus) ([facility]) Sleep apnea DX:Sleep apnea Arthritis DX:Arthritis Anxiety [...] type 2 (diabetes mellitus , type 2) ([facility] V24, [facility] V28) 07/09/2013 DX:DM type 2 (diabetes marcelino itus, type 2) ([facility]) Family History Medical History Relation Name Comments Diabetes Brother 1 Diabetes Brother 2 CABG Father CABG Mother Diabetes Mother Parkinson's Disease Mother Colon cancer Neg Hx Relation Name Status Comments Brother 1 Brother 2 Brother 3 [place] Father (Age 59) stroke Mother Social History [...] age to complete this topic Care Teams Lead Blender Relationship Specialty Start Date End Date Milana Ha MD PCP - General Internal Medicine 05/02/19
--- OUTSIDE RECORDS SUMMARY | 2024-07-19 17:34 | XMS_ITS | Encounter Summary ---
Author Organization [employer] [facility] Address [address] [place] [address] [place] [address] Care Team Providers Care Tailings Dam Pumper Name Role Phone Unavailable Primary Care [...]
== END 2024-07-19 15:51 | disposition home or self-care (01) ==
LOC: HO.HUSH 14:36
PROVIDERS: PCP Nurse Practitioner Family; Visit Provider Nurse Practitioner Family
DX: N28.89 Other specified disorders of kidney and ureter (principal); R32 Unspecified urinary incontinence; Z13.9 Encounter for screening, unspecified
CPT/HCPCS: 99204

== ENCOUNTER 2024-07-26 10:00 | Outpatient (AMB) | payer MEDICARE, SELFPAY ==
[2024-07-26 10:34] VITALS: BP 168/73; PULSE 108; O2SAT 100; BMI 24.6
--- NOTE | 2024-07-26 10:34 | MHC.OFFVIS ---
Vital Signs 07/26/24 10:34 Height 5 ft 5 in Weight 148 lb BMI 24.6 BP 168/73 H Blood Pressure Location Rt brachial Position Sitting Pulse 108 H Pulse Source Pulse Oximeter Pulse Oximetry (%) 100 Oxygen Delivery Method Room Air Intake Visit Reasons: Trigger Point Inj. Gallery Intern Required: No Allergies Seasonal Allergies Allergy (Intermediate, Verified 07/26/24 10:35) Cough zolpidem [From Ambien] Adverse Reaction (Severe, Verified 07/26/24 10:35) Hallucinations Medication List - Last Reconciled 07/26/24 by Sandra Peoples, MONUMENT ERECTOR acetaminophen (Tylenol Extra Strength) 500 mg PO Q6H PRN albuterol sulfate 90 mcg/actuation 2 puffs PO Q4-6H PRN amlodipine 10 mg PO DAILY apixaban (Eliquis) 5 mg PO BID atorvastatin 80 mg PO DAILY famotidine (Pepcid) 20 mg PO BEDTIME flash glucose scanning reader (NetsocketStyle Samantha 2 Quinton) As directed flash glucose sensor (FreeStyle Samantha 2 Sensor kit) As directed fluoxetine TAKE 3 CAPSULES BY MOUTH EVERY DAY furosemide 20 mg PO DAILY inhalational spacing device (Aerochamber Plus Z Stat spacer) As directed levothyroxine 50 mcg PO DAILY metformin ER 1,000 mg (2 x 500 mg) PO BID 90 days mirabegron ER (Myrbetriq) 25 mg PO DAILY 30 days mometasone-formoterol 100-5 mcg/actuation (Dulera) 2 puffs inhalation BID omeprazole 40 mg (2 x 20 mg) PO DAILY semaglutide (Ozempic) 1 mg (0.75 mL) subcut QWEEK 30 days valsartan-hydrochlorothiazide 320-25 mg 1 tab PO DAILY PFSH Medical History Essential tremor Seasonal allergies PND (post-nasal drip) Iron deficiency Arthritis Osteoarthritis Depression Hypertension Asthma Tremors of nervous system Type II diabetes mellitus Surgical History Hx of LASIK History of esophagogastroduodenoscopy (EGD) H/O: hysterectomy History of cataract removal with insertion of prosthetic lens Hx laparoscopic cholecystectomy Family History Mother Diabetes Parkinsons Panic disorder/agoraphobia, agoraphobic avoidnc/panc attck full remssn Father Stroke Heart attack Brother Congestive heart failure Brother Stroke Other Substance abuse Social History Household Members: Family Household Members Other:: brother Both parents involved: No Caregiver staying overnight: No Housing: Other Housing Other:: mobile home Are you a primary career technical education teacher to a significant other at home: Yes (brother s/p CVA) Do you presently have visiting nurse or other home services: No (brother has services VNA,PT) Alcohol intake: never Patient Tobacco Use Status: Never used Tobacco e-Cigarette/Vaping Use: Never Used Second Hand Smoke Exposure: No service: No Current occupational status: retired Current occupational exposures/hazards: Yes Cognitive needs: No Hearing needs: Yes Vision needs: No Physical Exam Vital Signs: Last Vital Signs Pulse 108 H 07/26/24 10:34 BP 168/73 H 07/26/24 10:34 Pulse Ox 100 07/26/24 10:34 Oxygen Delivery Method Room Air 07/26/24 10:34 BMI result Body Mass Index 24.6 Office Procedures Therapeutic Injection Therapeutic Injection 40222-Ofgbxwr Point Injection 1 or 2 sites All charges added?: Procedure code (CPT) selection complete Office Meds triamcinolone acetonide 40 mg/mL suspension for injection Performing Provider: Thompson Hernandez MD Performing Location: [facility] Administered by: Thompson Hernandez MD on 07/26/24 10:39 Dose Route Admin Location Dispensed Lot Number Expiration Date [facility] Hotel Maintenance Engineer 40 mg Infiltration 1 mL [id number] 01/01/26 bupivacaine (PF) 0.25 % (2.5 mg/mL) injection solution Performing Provider: Thompson Hernandez MD Performing Location: [facility] Administered by: Thompson Hernandez MD on 07/26/24 10:39 Dose Route Admin Location Dispensed Lot Number Expiration Date [facility] Hotel Maintenance Engineer 10 mL Infiltration 10 mL [id number] 03/04/25 Assessment & Plan Assessment & Plan (1) Myofascial muscle pain: Code(s): M79.18 - Myalgia, other site Category: Medical Plan Trigger point injection. The patient was positioned right lateral decubitus on the examination bed. Informed consent was thoroughly explained to the patient. The patient stated that she stopped her Eliquis for 3 days. Time-out was performed delineating name and date of of the patient, side and site of the procedure. Under strict sterile condition solution of the bupivacaine 0.5% 10 cc was mixed in 1 syringe with Kenalog 40 mg. The most painful area on the patient's left hip was carefully palpated, the area was prepped with ChloraPrep and after that injection was performed into most painful area point and surrounding tissues in fan-like fashion. The muscle injected was 1 muscle gluteus medius insertion point. Upon completion of the injection needle was removed sterile Band-Aid was applied. The patient was recommended to start her Eliquis tonight. Orders: Orders AMB Trigger Point Injection Today M79.18 - Myalgia, other site Medications: New triamcinolone acetonide 40 mg Infiltration ONCE 1 mL 0RF M79.18 - Myalgia, other site bupivacaine (PF) 10 mL Infiltration ONCE 10 mL 0RF M79.18 - Myalgia, other site Coding Level of Care Code Procedure Only Diagnoses Myofascial muscle pain M79.18 CPT Codes Therapeutic Injection - Ther Injection 1: 67752-Ilxfcym Point Injection 1 or 2 sites ([id number])
--- OUTSIDE RECORDS SUMMARY | 2024-07-26 11:24 | XMS_ITS | Clinical Summary ---
[facility] Organization [facility] Address [address] [place] [address] Care Team Providers Care Supervisor Doping Name Role Phone Milana Ha MD Primary [...] age to complete this topic Care Teams Supervisor Doping Relationship Specialty Start Date End Date Milana Ha MD PCP - General Internal Medicine 05/02/19
--- OUTSIDE RECORDS SUMMARY | 2024-07-26 11:25 | XMS_ITS | Clinical Summary ---
[facility] Organization [facility] Address [address] [place] [address] Care Team Providers Care Sand Control Worker Name Role Phone Milana Ha MD Primary Care Provider Surgical History Surgery Date Site/Laterality Comments HYSTERECTOMY PROCEDURE: HISTORICAL HYSTERECTOMY SALPINGOOPHORECTOMY PROCEDURE: MO LAPAROSCOPY W/RMVL ADNEXAL STRUCTURES CARDIAC CATHETERIZATION 2002 PROCEDURE: HISTORICAL CARDIAC CATH; COMMENT: negative CHOLECYSTECTOMY 05/16/2016 PROCEDURE: HISTORICAL CHOLECYSTECTOMY; COMMENT: laparoscopic Pee Gutierrez UPPER GASTROINTESTINAL ENDOSCOPY 11/25/2011 PROCEDURE: MO UPPER GI ENDOSCOPY PERFORMED; COMMENT: small HH; no esophagitis on PPI rx COLONOSCOPY 2007 PROCEDURE: HISTORICAL COLONOSCOPY; COMMENT: [facility]; date approx.; negative COLONOSCOPY 08/06/2020 PROCEDURE: HISTORICAL COLONOSCOPY; COMMENT: 1 cm polyps x2 and diverticulosis: Tubular adenomas x2. Repeat colonoscopy in 3 years. Medical History Medical History Date Comments DM (diabetes mellitus) ([facility] V24, [facility] V28) DX:DM (diabetes mellitus) (H CC) Sleep [...] type 2 (diabetes mellitus , type 2) ([facility] V24, [facility] V28) 07/09/2013 DX:DM type 2 (diabetes marcelino itus, type 2) ([facility]) Family History Medical History Relation Name Comments Diabetes Brother 1 Diabetes Brother 2 CABG Father CABG Mother Diabetes Mother Parkinson's Disease Mother Colon cancer Neg Hx Relation Name Status Comments Brother 1 Brother 2 Brother 3 [place] Father (Age 59) stroke Mother Social History [...] age to complete this topic Care Teams Sand Control Worker Relationship Specialty Start Date End Date Milana Ha MD PCP - General Internal Medicine 05/02/19
--- OUTSIDE RECORDS SUMMARY | 2024-07-26 11:25 | XMS_ITS | Data Portability ---
Author Organization [place] [facility], Allergy Address [address] [facility] [address] [place] [phone] Care Team Providers Care Tape Deck Installer Name Role Phone ALDO ASHER MD Primary [...] INTERNAL AUDITORY CANAL, W/WO CONTRAST 2023 024 [facility], [address] [place] [address], [address], 10:57:28 Medication Orders None recorded. Patient TargetsNo targets recorded. Patient InstructionsNo instructions recorded. Reason for Referral None Reported. Results Created Date Observation Date Name Description Value Unit Range Abnormal Flag Note LastModifiedBy Organization Detail LastModifiedTime 01/27/20 24 audio gram No observ ation record ed. [email or web address] Not Available 01/03 11:00:41 03/09/2003/07/2024 MRI, brain + inter nal audit ory canal , w/wo contr ast No observ ation record ed. [email or web address] [address] [place], [address], 03/16/2024 09:57:52 Result Notes None recorded. Problems Name Problem SNOMED Code Status Onset Date Resolution Date Notes Provider Name and Address Organization Details Recorded Time Pain of right temporoma ndibular joint 45534202263 677097 Active 2017 Arthralgi a of right temporoma ndibular joint; Note: Date Diagnosed : 08/22/2017 11:54 AM (M26.621) Not Available [facility] 4 02:13:27 Benign neoplasm of cranial nerve 98741327 Active 2016 Benign neoplasm of cranial nerves; Note: Date Diagnosed : 04/26/2016 9:45 AM (D33.3) , right sided acoustic neuroma 6 x 8 x 6mm Not Available [facility] 4 02:12:59 Sensorine ural hearing loss of bilateral ears 013790846 Active 2016 Sensorine ural hearing loss, bilateral ; Note: Date Diagnosed : 04/26/2016 9:36 AM (H90.3) Not Available [facility] 4 02:12:59 Impacted cerumen in right ear 21158411163 77750 Active 2023 TASHA FLYNN MD [address] [place] [address], [place], [address] , [facility] - [facility] 4 15:37:11 Acoustic neuroma 119143804 Active 2023 TASHA FLYNN MD [address] [place] [address], [place], [address] , [facility] - [facility] 4 15:37:46 Problem Notes None recorded. Procedures Surgical History Date Name Laterality Status Provider Name and Address Organization Details Recorded Time 4 Cerumen removal without microscope right completed TASHA FLYNN MD [address] [place] [address], [phone], [facility] - [facility] 01/25/2024 15:37:32 4 Air & Speech Audio with Tymps (28803, 55727 & 45020) completed SHELBIE MARKS [address] [place] [address],[place] [address], [place], [address], [facility] - [facility] 01/25/2024 14:51:01 Imaging Results Imaging Date Name Status LastModified by Organiz ation Details LastModified Time 01/27/2024 audiogram completed [email or web address] Information n ot available 01/27/2024 11:00:41 03/07/2024 MRI, brain + internal auditory canal, w/wo contrast completed [facility] [address] [facility], [place], [address], 03/16/2024 09:57:52 Procedure Notes None recorded. Medical Equipment None Reported. Medications Name Sig Start Date Stop Date Status Note LastModified by Organization Details LastModified Time atorvastat in 80 mg tablet TAKE 1 TABLET BY MOUTH EVERY DAY active Not Available Not Available No t Available valacyclov ir 1 gram tablet 2017 active Medicatio n ID: [id number] Du ration Value: 7 Brand Name: valacyclo [...] mg capsule 2017 active Medicatio n ID: [id number] Du ration Value: 30 Brand Name: gabapenti [...] mg tablet 2016 active Medicatio n ID: [id number] Br and Name: iron Send Method: E-Prescri [...] Available No t Available OptiCamanbe r Alvina [facility] spacer USE DIRECTED WITH INHALER active [...] Updated DateTime 01/25/2024 165.1 cm 26.3 kg/m2 90509.59 g Keven Wyman [place] [facility] 01/25/2024 15:07:24 Social History None recorded. Functional Status None recorded. Mental Status None recorded. Family History Nothing Reported. Medical History No medical history recorded. Gynecological HistoryNo gynecological history recorded. Obstetrics History GPAL:G 0 P 0 0 0 0 Past Encounters Encounter ID Performer Location Encounter Start Date Encounter Closed Date Diagnosis/Indication Diagnosis SNOMED-CT Code Diagnosis ICD10 Code Diagnosis Note [id number] TASHA FLYNN MD [facility] [address] [address] 01/25/2024 14:09:52 01/25/2024 15:37:36 Sensorineural hearing loss of bilateral ears 662075558 H90.3 Right Ear:Mild sloping to a profound SNHL with good speech discrimina tion.Type A tympanogra m.Left Ear:Mild sloping to a severe SNHL with excellent speech discrimina tion.Type A tympanogra m. Impacted c erumen in right ear [id number] 688472 H61.21 Recurrent Cerumen Impactions : Ears were meticulous ly cleaned bilaterall y today with a curette and suction. The patient tolerated this well and will follow up for repeat debridemen t per routine. Acoustic neuroma 2351001 07 D33.3 has been 5 years since [...] Member ID Guarantor Name 01/25/2024 1 [facility] (MEDICARE REPLACEMENT/A DVANTAGE - PPO) [id number] Carmelita Whitaker [id number] Carmelita Whitaker Notes Date Note Type Note Provider Name and Address Organization Details Recorded Time 01/25/2024 text/html Hx of AD acousti c neuroma. Used to see Dr. Patel but was lost to follow up. Last MRI 2018 showed a 6x8mm AD intracanalicular acoustic neuroma. Audio today shows improved hearing and WRS compared to last tested (09/2018). TASHA FLYNN MD [address] [place] [address], [place], [phone], [facility] - [facility] 01/25/2024 15:39:51 OBGyn Episode No OBEpisode recorded.
--- OUTSIDE RECORDS SUMMARY | 2024-07-26 11:25 | XMS_ITS | Encounter Summary ---
Author Organization [facility] Address [address] [place] [address] [place] [address] Care Team Providers Care Olive Picker Name Role Phone Unavailable Primary Care Provider [...]
--- OUTSIDE RECORDS SUMMARY | 2024-07-26 11:25 | XMS_ITS | Clinical Summary ---
Author Organization [employer] Address [address] [facility] [address] [place] [address] Care Team Providers Care Sterile Tech Name Role Phone Unavailable Primary Care Provider [...] Most Recently Relevant to Health Maintenance Insurance [place], [place] DENTAL - [facility] PPO * Guarantor: Carmelita Whitaker Account Type Relation to Patient Date of Phone Billing Address Personal/Family Self [place], [place] * Guarantor: Carmelita Whitaker Account Type Relation to Patient Date of Phone Billing Address Personal/Family Self [place]
== END 2024-07-26 10:34 | disposition home or self-care (01) ==
LOC: HO.PMC 10:01
PROVIDERS: PCP Nurse Practitioner Family; Visit Provider Anesthesiology
DX: M79.18 Myalgia, other site (principal)
CPT/HCPCS: 20552

== ENCOUNTER → 2024-07-26 10:00 | Outpatient (BNVA) | payer MEDICARE, SELFPAY | PROVIDERS: PCP Nurse Practitioner Family; Visit Provider Anesthesiology | DX: M79.18 Myalgia, other site (principal) | CPT/HCPCS: 20552; J0665; J3300 ==

== ENCOUNTER → 2024-07-27 13:43 | Outpatient (REF) | payer MEDICARE, SELFPAY ==
--- NOTE | 2024-07-27 13:46 | CA_ITS ---
Transthoracic Echocardiogram Patient (Last, First, Middle): Carmelita Whitaker, Gender: Female Date of : 1950 Age: 74 Procedure Date: 07/27/2024 Procedure Type: Transthoracic Echocardiogram Location: OP Height: 162.56 cm Weight: 67.13 kg BSA: 1.72 m2 Heart Rate: bpm BP: 146 / 82 mmHg Timber Buyer: TO Referring MD: Alexander Troncoso MD Symptoms: I35.0 - Nonrheumatic aortic (valve) stenosis Study Quality: Fair ECG Rhythm: Sinus Conclusions: - The left ventricular systolic function is normal. The calculated ejection fraction is 56% by biplane method. - There is severe aortic valve stenosis. - There is moderate mitral annular calcification. Findings Left Ventricle Normal left ventricular cavity size. The left ventricular systolic function is normal. The calculated ejection fraction is 56% by biplane method. There is no evidence of regional wall motion abnormalities. Evidence suggests grade I (mild) diastolic dysfunction. There is mild septal asymmetric hypertrophy. Right Ventricle Normal right ventricular cavity size and systolic function. Atria Both atria are normal in size. Aortic Valve There is moderate calcification of the aortic valve. There is severe aortic valve stenosis. The peak aortic velocity is 3.71 m/s with a calculated peak gradient of 55 mmHg. The mean gradient is 41 mmHg. The aortic valve area is 0.64 cm2. There is no aortic valve regurgitation. Dimensionless index 0.25. Stroke volume index 31 mL/ m2. Mitral Valve There is moderate mitral annular calcification. There is no mitral valve regurgitation. There is no mitral valve stenosis. Pulmonic Valve The pulmonic valve is likely normal. Tricuspid Valve There is trace tricuspid valve regurgitation. There is no evidence of pulmonary hypertension. Great Vessels The asc aorta is normal in size. Venous The inferior vena cava was not well visualized. Pericardium/Pleural There is no evidence of pericardial effusion. Prior Study Comparison Changes noted compared to prior study dated: 06/21/2023. Progression of aortic stenosis. Measurements 2D Linear Measurements IVSd: 1.12 0.6-0.9/0.6-1.0 cm LVIDd: 3.82 3.9-5.3/4.2-5.9 cm LVIDd Index: 2.22 2.4-3.2/2.2-3.1 cm/m2 LVIDs: 2.81 2.0-3.6 cm LVPWd: 0.86 0.7-1.1 cm LA Diam: 4.00 2.7-3.8/3.0-4.0 cm LAIDs Index: 2.33 1.5-2.3 cm/m2 LV Mass: 144.84 67-162/88-224 g LV Mass Index: 84.21 43-95/49-115 g/m2 LVOT Diam: 1.90 3.0+(-)1.3 cm 2D Systolic Function EF 4C: 57.70 >55% EF 2C: 50.00 >55% EF BiP: 55.90 >55% Mitral Valve MV VTI: 0.28 MV Pk Souleymane: 1.75 MV Mn Souleymane: 1.10 MV Pk Grad: 12.00 MV Mn Grad: 5.00 MV Pk E: 0.88 MV PK A: 1.52 MV Decel Time: 125.00 E/A: 0.60 E'Lateral: 3.59 E'Medial: 3.26 E/E' Med: 27.00 E/E' Lat: 24.50 PHT: 37.00 MVA PHT: 5.95 MVA Continuity: 1.92 Decel [place]: 7.05 Aortic Valve AoV Pk Souleymane: 3.71 AoV Mn Soule[place]ane: 3.09 AoV VTI: 0.82 AoV Pk Grad: 55.00 Aov Mn Grad: 41.00 LEODAN Cont.VTI: 0.64 LVOT LVOT Pk Souleymane: 0.91 LVOT Mn Soule[place]ane: 0.61 LVOT VTI: 0.19 LVOT Pk Grad: 3.00 LVOT Mn Grad: 2.00 LVOT Diam: 1.90 LVOT Area: 2.84 Diastolic Function MV Pk E: 0.88 MV Pk A: 1.52 E/A: 0.60 E'Medial: 3.26 E/E' Med: 27.00 E' Laterial: 3.59 E/E' Lat: 24.50 Right Ventricle TAPSE (mm): 19.10 TVS' Souleymane: 11.00 Great Vessels Aorta Sinus of Valsalva: 2.74 2.0-3.5 cm Ao Asc: 3.00 2.1-3.4 cm Updated in Other Vendor System with Status of Final Alexander Troncoso MD electronically signed on 07/28/2024 1:55:06 PM with status of Final
--- OUTSIDE RECORDS SUMMARY | 2024-07-27 14:25 | XMS_ITS | Encounter Summary ---
Author Organization [facility] [facility] Address [address] [place] [address] [place] [address] Care Team Providers Care Elevator Repairer Helper Name Role Phone Unavailable Primary Care Provider [...]
--- OUTSIDE RECORDS SUMMARY | 2024-07-27 14:25 | XMS_ITS | Clinical Summary ---
Author Organization [email or web address] Address [address] [facility] [address] [place] [address] Care Team Providers Care Educational Adviser Name Role Phone Unavailable Primary Care Provider [...] Most Recently Relevant to Health Maintenance Insurance [place], [place] D[place] - [facility] PPO * Guarantor: Carmelita Whitaker Account Type Relation to Patient Date of Phone Billing Address Personal/Family Self [place], [place] * Guarantor: Carmelita Whitaker Account Type Relation to Patient Date of Phone Billing Address Personal/Family Self [place], [place]
--- OUTSIDE RECORDS SUMMARY | 2024-07-27 14:25 | XMS_ITS | Clinical Summary ---
Author Organization [facility] Address [address] [place] [address] Care Team Providers Care Hospital Coder Name Role Phone Milana Ha MD Primary [...] age to complete this topic Care Teams Hospital Coder Relationship Specialty Start Date End Date Milana Ha MD PCP - General Internal Medicine 05/02/19
--- OUTSIDE RECORDS SUMMARY | 2024-07-27 14:25 | XMS_ITS | Data Portability ---
Author Organization [place] - [facility], Allergy Address [address] [facility] [address] [place] [address] Care Team Providers Care Expressive Therapist Name Role Phone ALDO ASHER MD Primary [...] INTERNAL AUDITORY CANAL, W/WO CONTRAST 2023 024 [facility] Diagnostic Imaging, [address] [place] [address], [address], 10:57:28 Medication Orders None recorded. Patient TargetsNo targets recorded. Patient InstructionsNo instructions recorded. Reason for Referral None Reported. Results Created Date Observation Date Name Description Value Unit Range Abnormal Flag Note LastModifiedBy Organization Detail LastModifiedTime 01/27/20 24 audio gram No observ ation record ed. [email or web address] Not Available 01/03 11:00:41 03/09/20 24 03/07/2024 MRI, brain + inter nal audit ory canal , w/wo contr ast No observ ation record ed. [email or web address] [facility] Diagnostic Imaging [address] [place], [address], 03/16/2024 09:57:52 Result Notes None recorded. Problems Name Problem SNOMED Code Status Onset Date Resolution Date Notes Provider Name and Address Organization Details Recorded Time Pain of right temporoma ndibular joint 36262797294 233167 Active 2017 Arthralgi a of right temporoma ndibular joint; Note: Date Diagnosed : 08/22/2017 11:54 AM (M26.621) Not Available [facility] 4 02:13:27 Benign neoplasm of cranial nerve 25412099 Active 2016 Benign neoplasm of cranial nerves; Note: Date Diagnosed : 04/26/2016 9:45 AM (D33.3) , right sided acoustic neuroma 6 x 8 x 6mm Not Available [facility] 4 02:12:59 Sensorine ural hearing loss of bilateral ears 042926405 Active 2016 Sensorine ural hearing loss, bilateral ; Note: Date Diagnosed : 04/26/2016 9:36 AM (H90.3) Not Available [facility] 4 02:12:59 Impacted cerumen in right ear 39001493591 37212 Active 2023 TASHA FLYNN MD [address] [place] [address], [facility] [place], [address] , [facility] - [facility] 4 15:37:11 Acoustic neuroma 888105352 Active 2023 TASHA FLYNN MD [address] [place] [address], [place], [address] , [facility] - [facility] 4 15:37:46 Problem Notes None recorded. Procedures Surgical History Date Name Laterality Status Provider Name and Address Organization Details Recorded Time 4 Cerumen removal without microscope right completed TASHA FLYNN MD [address] [place] [address], [address], [facility] - [facility] 01/25/2024 15:37:32 4 Air & Speech Audio with Tymps (73935, [address]107 & [address]2442) completed SHELBIE MARKS [address] [place] [address],[place] [address], [place], [address], [facility] - [facility] 01/25/2024 14:51:01 Imaging Results Imaging Date Name Status LastModified by Organiz ation Details LastModified Time 01/27/2024 audiogram completed Information n ot available 01/27/2024 11:00:41 03/07/2024 MRI, brain + internal auditory canal, w/wo contrast completed [facility] Diagnostic Imaging [address] [facility], [place], [address], 03/16/2024 09:57:52 Procedure Notes None recorded. Medical Equipment None Reported. Medications Name Sig Start Date Stop Date Status Note LastModified by Organization Details LastModified Time atorvastat in 80 mg tablet TAKE 1 TABLET BY MOUTH EVERY DAY active Not Available Not Available No t Available valacyclov ir 1 gram tablet 2017 active Medicatio n ID: [id number] Du ration Value: 7 Brand Name: valacyclo [...] mg capsule 2017 active Medicatio n ID: [id number] Du ration Value: 30 Brand Name: gabapenti [...] mg tablet 2016 active Medicatio n ID: [id number] Br and Name: iron Send Method: E-Prescri [...] t Available OptiCamanbe r Alvina [facility] spacer USE DIRECTED WITH [...] Updated DateTime 01/25/2024 165.1 cm 26.3 kg/m2 59463.59 g Keven Wyman [place] - [facility] 01/25/2024 15:07:24 Social History None recorded. Functional Status None recorded. Mental Status None recorded. Family History Nothing Reported. Medical History No medical history recorded. Gynecological HistoryNo gynecological history recorded. Obstetrics History GPAL:G 0 P 0 0 0 0 Past Encounters Encounter ID Performer Location Encounter Start Date Encounter Closed Date Diagnosis/Indication Diagnosis SNOMED-CT Code Diagnosis ICD10 Code Diagnosis Note [id number] TASHA FLYNN MD [facility] [address] [address] 01/25/2024 14:09:52 01/25/2024 15:37:36 Sensorineural hearing loss of bilateral ears 821519033 H90.3 Right Ear:Mild sloping to a profound SNHL with good speech discrimina tion.Type A tympanogra m.Left Ear:Mild sloping to a severe SNHL with excellent speech discrimina tion.Type A tympanogra m. Impacted c erumen in right ear [id number] 374556 H61.21 Recurrent Cerumen Impactions : Ears were meticulous ly cleaned bilaterall y today with a curette and suction. The patient tolerated this well and will follow up for repeat debridemen t per routine. Acoustic neuroma 0407980 07 D33.3 has been 5 years since [...] Pablo Member ID Guarantor Name 01/25/2024 1 [facility] (MEDICARE REPLACEMENT/A DVANTAGE - PPO) [id number] Carmelita Whitaker [id number] Carmelita Whitaker Notes Date Note Type Note Provider Name and Address Organization Details Recorded Time 01/25/2024 text/html Hx of AD acousti c neuroma. Used to see Dr. Patel but was lost to follow up. Last MRI 2018 showed a 6x8mm AD intracanalicular acoustic neuroma. Audio today shows improved hearing and WRS compared to last tested (09/2018). TASHA FLYNN MD [address] [place] [address], [place], [address], [facility] - [facility] 01/25/2024 15:39:51 OBGyn Episode No OBEpisode recorded.
--- OUTSIDE RECORDS SUMMARY | 2024-07-27 14:25 | XMS_ITS | Clinical Summary ---
Author Organization [facility] Address [address] [place] [address] Care Team Providers Care Contour Path Tape Mill Operator Name Role Phone Milana Ha MD Primary Care Provider Surgical History Surgery Date Site/Laterality Comments HYSTERECTOMY PROCEDURE: HISTORICAL HYSTERECTOMY SALPINGOOPHORECTOMY PROCEDURE: OR LAPAROSCOPY W/RMVL ADNEXAL STRUCTURES CARDIAC CATHETERIZATION 2002 PROCEDURE: HISTORICAL CARDIAC CATH; COMMENT: negative CHOLECYSTECTOMY 05/16/2016 PROCEDURE: HISTORICAL CHOLECYSTECTOMY; COMMENT: laparoscopic Pee Gutierrez UPPER GASTROINTESTINAL ENDOSCOPY 11/25/2011 PROCEDURE: OR UPPER GI ENDOSCOPY PERFORMED; COMMENT: small HH; no esophagitis on PPI rx COLONOSCOPY 2007 PROCEDURE: HISTORICAL COLONOSCOPY; COMMENT: [facility]; date approx.; negative COLONOSCOPY 08/06/2020 PROCEDURE: HISTORICAL COLONOSCOPY; COMMENT: 1 cm polyps x2 and diverticulosis: Tubular adenomas x2. Repeat colonoscopy in 3 years. Medical History Medical History Date Comments DM (diabetes mellitus) ([facility] V24, [facility] V28) DX:DM (diabetes mellitus) (H [...] type 2 (diabetes mellitus , type 2) ([facility] V24, [facility] V28) 07/09/2013 DX:DM type 2 (diabetes marcelino itus, type 2) ([facility]) Family History Medical History Relation Name Comments Diabetes Brother 1 Diabetes Brother 2 CABG Father CABG Mother Diabetes Mother Parkinson's Disease Mother Colon cancer Neg Hx Relation Name Status Comments Brother 1 Brother 2 Brother 3 [place] Father (Age 59) stroke Mother Social History [...] age to complete this topic Care Teams Contour Path Tape Mill Operator Relationship Specialty Start Date End Date Milana aH MD PCP - General Internal Medicine 05/02/19
== END ==
LOC: HO.CARD 13:43
PROVIDERS: PCP Nurse Practitioner Family; Visit Provider Internal Medicine
DX: I35.0 Nonrheumatic aortic (valve) stenosis (principal)
CPT/HCPCS: 93306

== ENCOUNTER → 2024-07-27 13:46 | Outpatient (BNV) | payer MEDICARE, SELFPAY | PROVIDERS: PCP Nurse Practitioner Family; Visit Provider Internal Medicine | DX: I42.2 Other hypertrophic cardiomyopathy (principal); I35.0 Nonrheumatic aortic (valve) stenosis; I35.8 Other nonrheumatic aortic valve disorders; I34.81 Nonrheumatic mitral (valve) annulus calcification | CPT/HCPCS: 93306 ==

== ENCOUNTER 2024-08-02 10:33 | Outpatient (AMB) | payer MEDICARE, SELFPAY ==
[2024-08-02 10:50] VITALS: BP 132/80; PULSE 94; BMI 24.3
--- NOTE | 2024-08-02 10:50 | A.OFFVIS_ITS ---
Vital Signs 08/02/24 10:50 Height 5 ft 5 in Weight 145 lb 15.136 oz BMI 24.3 BP 132/80 Blood Pressure Location Rt brachial Position Sitting Pulse 94 Pulse Source Pulse Oximeter Intake Visit Reasons: 6 mth f/up echo Social Worker Aide Required: No Accompanied by: Self / Same As Patient Allergies Seasonal Allergies Allergy (Intermediate, Verified 07/26/24 10:35) Cough zolpidem [From Ambien] Adverse Reaction (Severe, Verified 07/26/24 10:35) Hallucinations Medication List - Last Reconciled 08/02/24 by Alexander Troncoso MD acetaminophen (Tylenol Extra Strength) 500 mg PO Q6H PRN albuterol sulfate 90 mcg/actuation 2 puffs PO Q4-6H PRN amlodipine 10 mg PO DAILY apixaban (Eliquis) 5 mg PO BID atorvastatin 80 mg PO DAILY famotidine (Pepcid) 20 mg PO BEDTIME flash glucose scanning reader (ConnequityStyle Samantha 2 [place]) As directed flash glucose sensor (FreeStyle Samantha 2 Sensor kit) As directed fluoxetine TAKE 3 CAPSULES BY MOUTH EVERY DAY furosemide 20 mg PO DAILY inhalational spacing device (Aerochamber Plus Z Stat spacer) As directed levothyroxine 50 mcg PO DAILY metformin ER 1,000 mg (2 x 500 mg) PO BID 90 days mirabegron ER (Myrbetriq) 25 mg PO DAILY 30 days mometasone-formoterol 100-5 mcg/actuation (Dulera) 2 puffs inhalation BID omeprazole 40 mg (2 x 20 mg) PO DAILY semaglutide (Ozempic) 1 mg (0.75 mL) subcut QWEEK 30 days valsartan-hydrochlorothiazide 320-25 mg 1 tab PO DAILY HPI Comments Details: Carmelita returns for follow-up. Previously seen at [facility] but has switched to us. 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 She also has aortic stenosis that is being followed on echocardiogram. She states that recently, she has been noticing shortness of breath with activity. More so than before. Momentary lightheadedness at times. Generalized fatigue. No angina. [facility] Medical History Essential tremor Seasonal allergies PND (post-nasal drip) Iron deficiency Arthritis Osteoarthritis Depression Hypertension Asthma Tremors of nervous system Type II diabetes mellitus Surgical History Hx of LASIK History of esophagogastroduodenoscopy (EGD) H/O: hysterectomy History of cataract removal with insertion of prosthetic lens Hx laparoscopic cholecystectomy Family History Mother Diabetes Parkinsons Panic disorder/agoraphobia, agoraphobic avoidnc/panc attck full remssn Father Stroke Heart attack Brother Congestive heart failure Brother Stroke Other Substance abuse Social History Household Members: Family Household Members Other:: brother Both parents involved: No Caregiver staying overnight: No Housing: Other Housing Other:: mobile home Are you a primary manager medicare to a significant other at home: Yes (brother s/p CVA) Do you presently have visiting nurse or other home services: No (brother has services VNA,PT) Alcohol intake: never Patient Tobacco Use Status: Never used Tobacco e-Cigarette/Vaping Use: Never Used Second Hand Smoke Exposure: No service: No Current occupational status: retired Current occupational exposures/hazards: Yes Cognitive needs: No Hearing needs: Yes Vision needs: No Review of Systems Const Denies chills, Denies fatigue, Denies fever(s), Denies frequent falls, Denies weakness, Denies weight gain and Denies weight loss ENT Denies dizziness Card Denies chest pain, Denies leg edema, Denies lightheadedness, Denies palpitations, Reports dyspnea and Reports dyspnea on exertion Resp Denies cough, Reports dyspnea and Reports dyspnea on exertion GI Denies hematochezia Musc Denies abnormal gait, Denies muscle weakness, Denies numbness, Denies radiating pain into limb and Denies tingling Neuro Denies abnormal gait, Denies dizziness, Denies frequent falls, Denies numbness, Denies tingling and Denies weakness Endo Denies fatigue and Denies palpitations Physical Exam Vital Signs: Last Vital Signs Pulse 94 08/02/24 10:50 BP 132/80 08/02/24 10:50 BMI result Body Mass Index 24.3 Const General: comfortable and no acute distress Orientation/consciousness: patient oriented x3 HEENT Other: Unremarkable Head: Yes normal to inspection Neck Neck: Yes normal visual inspection Chest Chest palpation & inspection: normal inspection of the chest Resp Auscultation: clear to auscultation bilaterally Cardio Palpation: normal PMI Heart sounds: S1 normal heart sound present, S2 normal heart sound present, no gallops, Murmur heart sound present systolic III/ and at the right sternal border and no rubs GI Palpation (GI): Soft to palpation Back/Spine/Pelvis Other: unremarkable Skin General skin exam: no rashes or lesions noted Neuro General: patient oriented x3 Extrem General: Yes normal to inspection Psych Mental Status: mental status grossly normal Assessment & Plan Assessment & Plan (1) Non-rheumatic aortic stenosis: Code(s): I35.0 - Nonrheumatic aortic (valve) stenosis Category: Medical Plan: In the recent echocardiogram, mean gradient across aortic valve was 41 mm Hg; calculated valve area of 0.6 cm2. Dimensionless index 0.25. Stroke volume index 31 mL/m2. Preserved LVEF at 56%. Overall, suggestive of severe aortic stenosis. Findings discussed with patient. Recommend diagnostic catheterization and then TAVR assessment. 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 Somewhat of a borderline indication for long-term anticoagulation, but she does not want to stop anticoagulation. She is on Eliquis. (3) Hypertension, essential: Code(s): I10 - Essential (primary) hypertension Category: Medical Plan: Listed to be on amlodipine, valsartan/hydrochlorothiazide. Blood pressures have been variable. Today, seems reasonable. She blames on anxiety when it goes up. Plan Discussion Notes The patient and I discussed the current status of her aortic stenosis, resulting in her symptoms of shortness of breath and the need for a valve replacement. We reviewed the benefits of TAVR versus traditional surgical approaches, detailing the procedure's minimally invasive nature. I explained the angiogram necessary for assessing heart condition prior to valve replacement. Addressing blood pressure fluctuations, we recognized the role of stress management. I ensured that the patient was aware of the procedures' risks and benefits and obtained her consent. Follow-up appointments will be scheduled post-procedure for recovery assessment. Patient was informed and verbally consented to the use of an ambient scribe for clinic note documentation during this visit. Orders: Orders Cardiac Cath LT Diagnostic Today I25.10 - Atherosclerotic heart disease of [place] coronary artery without angina pectoris, I35.0 - Nonrheumatic aortic (valve) stenosis Basic Metabolic Panel Today I35.0 - Nonrheumatic aortic (valve) stenosis Complete Blood Count no Diff Today I35.0 - Nonrheumatic aortic (valve) stenosis Patient Instructions: - Undergo angiogram and valve replacement procedure as planned. - Monitor for worsening shortness of breath or chest pain, and report these if they occur. - Practice stress management techniques to help control blood pressure. - Avoid strenuous activities until after the procedure and cleared by electromedical service engineer. - Attend follow-up appointments. Coding Level of Care Code Est Pt Level 5 (08788) Complex EM visit Add On G2211 Diagnoses Non-rheumatic aortic stenosis I35.0 Aortic thromboembolism I74.10 Hypertension, essential I10
--- OUTSIDE RECORDS SUMMARY | 2024-08-02 12:08 | XMS_ITS | Data Portability ---
Author Organization [place] - [facility], Allergy Address [address] [facility] [address] [place] [address] Care Team Providers Care Vending Machine Coin Collector Name Role Phone ALDO ASHER MD Primary [...] INTERNAL AUDITORY CANAL, W/WO CONTRAST 2023 024 [facility] Diagnostic Imaging, [address] [place] [address], [address], 10:57:28 Medication Orders None recorded. Patient TargetsNo targets recorded. Patient InstructionsNo instructions recorded. Reason for Referral None Reported. Results Created Date Observation Date Name Description Value Unit Range Abnormal Flag Note LastModifiedBy Organization Detail LastModifiedTime 01/27/20 24 audio gram No observ ation record ed. [email or web address] Not Available 01/03 11:00:41 03/09/20 24 03/07/2024 MRI, brain + inter nal audit ory canal , w/wo contr ast No observ ation record ed. [email or web address] [facility] Diagnostic Imaging [address] [place], [address], 03/16/2024 09:57:52 Result Notes None recorded. 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 Not Available [facility] 4 02:12:59 Sensorine ural hearing loss of bilateral ears 132086955 Active 2016 Sensorine ural hearing loss, bilateral ; Note: Date Diagnosed : 04/26/2016 9:36 AM (H90.3) Not Available [facility] 4 02:12:59 Impacted cerumen in right ear 78182749617 73926 Active 2023 TASHA FLYNN MD [address] [place] [address], [facility] [place], [address] , [facility] - [facility] 4 15:37:11 Acoustic neuroma 163299138 Active 2023 TASHA FLYNN MD [address] [place] [address], [place], [address] , [facility] - [facility] 4 15:37:46 Problem Notes None recorded. Procedures Surgical History Date Name Laterality Status Provider Name and Address Organization Details Recorded Time 4 Cerumen removal without microscope right completed TASHA FLYNN MD [address] [place] [address], [address], [facility] - [facility] 01/25/2024 15:37:32 4 Air & Speech Audio with Tymps (31189, 51043 & 70852) completed SHELBIE MARKS [address] [place] [address],[place] [address], [place], [address], [facility] - [facility] 01/25/2024 14:51:01 Imaging Results Imaging Date Name Status LastModified by Organiz ation Details LastModified Time 01/27/2024 audiogram completed [email or web address] Information n ot available 01/27/2024 11:00:41 03/07/2024 MRI, brain + internal auditory canal, w/wo contrast completed [facility] Diagnostic Imaging [address] [facility], [place], [address], 03/16/2024 09:57:52 Procedure Notes None recorded. Medical Equipment None Reported. Medications Name Sig Start Date Stop Date Status Note LastModified by Organization Details LastModified Time atorvastat in 80 mg tablet TAKE 1 TABLET BY MOUTH EVERY DAY active Not Available Not Available No t Available valacyclov ir 1 gram tablet 2017 active Medicatio n ID: [id number] Du ration Value: 7 Brand Name: valacyclo [...] mg capsule 2017 active Medicatio n ID: [id number] Du ration Value: 30 Brand Name: gabapenti [...] mg tablet 2016 active Medicatio n ID: [id number] Br and Name: iron Send Method: E-Prescri [...] Available No t Available OptiCamanbe r Alvina [facility] spacer USE DIRECTED WITH INHALER active Not [...] Updated DateTime 01/25/2024 165.1 cm 26.3 kg/m2 17716.59 g Keven Wyman [place] - [facility] 01/25/2024 15:07:24 Social History None recorded. Functional Status None recorded. Mental Status None recorded. Family History Nothing Reported. Medical History No medical history recorded. Gynecological HistoryNo gynecological history recorded. Obstetrics History GPAL:G 0 P 0 0 0 0 Past Encounters Encounter ID Performer Location Encounter Start Date Encounter Closed Date Diagnosis/Indication Diagnosis SNOMED-CT Code Diagnosis ICD10 Code Diagnosis Note [id number] TASHA FLYNN MD [facility] [address] [address] 01/25/2024 14:09:52 01/25/2024 15:37:36 Sensorineural hearing loss of bilateral ears 303338048 H90.3 Right Ear:Mild sloping to a profound SNHL with good speech discrimina tion.Type A tympanogra m.Left Ear:Mild sloping to a severe SNHL with excellent speech discrimina tion.Type A tympanogra m. Impacted c erumen in right ear [id number] 986418 H61.21 Recurrent Cerumen Impactions : Ears were meticulous ly cleaned bilaterall y today with a curette and suction. The patient tolerated this well and will follow up for repeat debridemen t per routine. Acoustic neuroma 5925162 07 D33.3 has been 5 years since [...] Pablo Member ID Guarantor Name 01/25/2024 1 [facility] (MEDICARE REPLACEMENT/A DVANTAGE - PPO) [id number] Carmelita Whitaker [id number] Carmelita Whitaker Notes Date Note Type Note Provider Name and Address Organization Details Recorded Time 01/25/2024 text/html Hx of AD acousti c neuroma. Used to see Dr. Patel but was lost to follow up. Last MRI 2018 showed a 6x8mm AD intracanalicular acoustic neuroma. Audio today shows improved hearing and WRS compared to last tested (09/2018). TASHA FLYNN MD [address] [place] [address], [place], [address], [facility] - [facility] 01/25/2024 15:39:51 OBGyn Episode No OBEpisode recorded.
--- OUTSIDE RECORDS SUMMARY | 2024-08-02 12:08 | XMS_ITS | Clinical Summary ---
Author Organization [employer] Address [address] [facility] [address] [place] [address] Care Team Providers Care Dump Grounds Checker Name Role Phone Unavailable Primary Care Provider [...] Most Recently Relevant to Health Maintenance Insurance [place], [place] DENTAL - [facility] PPO * Guarantor: Carmelita Whitaker Account Type Relation to Patient Date of Phone Billing Address Personal/Family Self [place], [place] * Guarantor: Carmelita Whitaker Account Type Relation to Patient Date of Phone Billing Address Personal/Family Self [place]
--- OUTSIDE RECORDS SUMMARY | 2024-08-02 12:08 | XMS_ITS | Clinical Summary ---
Author Organization [facility] Address [address] [place] [address] Care Team Providers Care Poker Manager Name Role Phone Milana Ha MD [...] age to complete this topic Care Teams Poker Manager Relationship Specialty Start Date End Date Milana Ha MD PCP - General Internal Medicine 05/02/19
--- OUTSIDE RECORDS SUMMARY | 2024-08-02 12:08 | XMS_ITS | Encounter Summary ---
Author Organization [employer] [facility] Address [address] [place] [address] [address] [place] [address] Care Team Providers Care Fur Repairer Name Role Phone Unavailable Primary Care Provider [...]
--- OUTSIDE RECORDS SUMMARY | 2024-08-02 12:08 | XMS_ITS | Clinical Summary ---
Author Organization [facility] Address [address] [place] [address] Care Team Providers Care Grades 1 Through 6 Teacher Name Role Phone Milana Ha MD Primary Care Provider Surgical History Surgery Date Site/Laterality Comments HYSTERECTOMY PROCEDURE: HISTORICAL HYSTERECTOMY SALPINGOOPHORECTOMY PROCEDURE: PA LAPAROSCOPY W/RMVL ADNEXAL STRUCTURES CARDIAC CATHETERIZATION 2002 PROCEDURE: HISTORICAL CARDIAC CATH; COMMENT: negative CHOLECYSTECTOMY 05/16/2016 PROCEDURE: HISTORICAL CHOLECYSTECTOMY; COMMENT: laparoscopic Pee Gutierrez UPPER GASTROINTESTINAL ENDOSCOPY 11/25/2011 PROCEDURE: PA UPPER GI ENDOSCOPY PERFORMED; COMMENT: small HH; no esophagitis on PPI rx COLONOSCOPY 2007 PROCEDURE: HISTORICAL COLONOSCOPY; COMMENT: [facility]; date approx.; negative COLONOSCOPY 08/06/2020 PROCEDURE: HISTORICAL COLONOSCOPY; COMMENT: 1 cm polyps x2 and diverticulosis: Tubular adenomas x2. Repeat colonoscopy in 3 years. Medical History Medical History Date Comments DM (diabetes mellitus) ([facility] V24, [facility] V28) DX:DM (diabetes mellitus) ([facility]) Sleep [...] type 2 (diabetes mellitus , type 2) ([facility] V24, [facility] V28) 07/09/2013 DX:DM type 2 (diabetes marcelino itus, type 2) ([facility]) Family History Medical History Relation Name Comments Diabetes Brother 1 Diabetes Brother 2 CABG Father CABG Mother Diabetes Mother Parkinson's Disease Mother Colon cancer Neg Hx Relation Name Status Comments Brother 1 Brother 2 Brother 3 [place] Father (Age 59) stroke Mother Social History [...] age to complete this topic Care Teams Grades 1 Through 6 Teacher Relationship Specialty Start Date End Date Milana Ha MD PCP - General Internal Medicine 05/02/19
== END 2024-08-02 11:28 | disposition home or self-care (01) ==
LOC: HO.HCS 10:34
PROVIDERS: PCP Nurse Practitioner Family; Visit Provider Internal Medicine
DX: I35.0 Nonrheumatic aortic (valve) stenosis (principal); I74.10 Embolism and thrombosis of unspecified parts of aorta; I10 Essential (primary) hypertension
CPT/HCPCS: 99214; G2211

== ENCOUNTER → 2024-08-02 10:33 | Outpatient (BNVA) | payer MEDICARE, SELFPAY | PROVIDERS: PCP Nurse Practitioner Family; Visit Provider Internal Medicine | DX: I35.0 Nonrheumatic aortic (valve) stenosis (principal); I74.10 Embolism and thrombosis of unspecified parts of aorta; I10 Essential (primary) hypertension | CPT/HCPCS: 99212 ==

== ENCOUNTER 2024-08-28 12:49 | Outpatient (AMB) | payer MEDICARE, SELFPAY ==
--- NOTE | 2024-08-28 12:52 | A.OFFPC_ITS ---
Vital Signs 08/28/24 13:01 Height 5 ft 5 in Weight 148 lb 6 oz BMI 24.7 BP 134/70 Blood Pressure Location Rt brachial Position Sitting Respiration 16 Pulse 95 Pulse Source Pulse Oximeter Temp 97.6 F Temp Source Oral Pulse Oximetry (%) 97 Oxygen Delivery Method Room Air Intake Visit Reasons: 3 mos HTN, DM, anxiety, depression - see comments Intake Note: patient here for 3 monyth follow up for HTN, DM, depression Court Stenographer Required: No Is last menstrual period known: No Post menopausal: No Patient : No Allergies Seasonal Allergies Allergy (Intermediate, Verified 08/28/24 13:11) Cough zolpidem [From Ambien] Adverse Reaction (Severe, Verified 08/28/24 13:11) Hallucinations Medication List - Last Reconciled 08/28/24 by Nisha Garcia CNP acetaminophen (Tylenol Extra Strength) 500 mg PO Q6H PRN albuterol sulfate 90 mcg/actuation 2 puffs PO Q4-6H PRN amlodipine 10 mg PO DAILY apixaban (Eliquis) 5 mg PO BID atorvastatin 80 mg PO DAILY famotidine (Pepcid) 20 mg PO BEDTIME flash glucose scanning reader ([facility] Samantha 2 Priddy) As directed flash glucose sensor (FreeStyle Samantha 2 Sensor kit) As directed fluoxetine TAKE 3 CAPSULES BY MOUTH EVERY DAY furosemide 20 mg PO DAILY inhalational spacing device (Aerochamber Plus Z Stat spacer) As directed levothyroxine 50 mcg PO DAILY metformin ER 1,000 mg (2 x 500 mg) PO BID 90 days mirabegron ER (Myrbetriq) 25 mg PO DAILY 30 days mometasone-formoterol 100-5 mcg/actuation (Dulera) 2 puffs inhalation BID omeprazole 40 mg (2 x 20 mg) PO DAILY semaglutide (Ozempic) 1 mg (0.75 mL) subcut QWEEK 30 days valsartan-hydrochlorothiazide 320-25 mg 1 tab PO DAILY Tobacco use date assessed: 08/28/24 Fall risk assessment: No Falls in past year Last assessed Fall Risk: 08/28/24 Dental Screening Dental Screen Date: 08/28/24 Did you have a dental visit in the last 12 months?: No Did you have a dental problem in the last 6 months where you did not have access to dental care?: No Was dental information given to patient?: Patient has dentist HPI HPI Comments History of Present Illness Details 74-year-old female presents for hyperten naga, diabetes, anxiety, and depression follow-up. She admits to taking her medications as prescribed without adverse reactions. She states that furosemide was not refilled by the pharmacy and therefore has not taking furosemide for the past 3 weeks. She notes that she has been making healthy lifestyle choices. She reports constant worrying related to her current cardiac staus. She reports difficulty falling asleep and maintaining sleep; she wakes up to urinate every 12 hours. She is [place] [facility] [place] and being worked up for aortic stenosis. She has cardiac cath scheduled on 10/01/2024 at [facility]. [facility] Medical History (Updated 08/28/24 @ 13:19 by Nisha Gacria CNP) Essential tremor Seasonal allergies PND (post-nasal drip) Iron deficiency Arthritis Osteoarthritis Depression Hypertension Asthma Tremors of nervous system Type II diabetes mellitus Surgical History Hx of LASIK History of esophagogastroduodenoscopy (EGD) H/O: hysterectomy History of cataract removal with insertion of prosthetic lens Hx laparoscopic cholecystectomy Family History Mother Diabetes Parkinsons Panic disorder/agoraphobia, agoraphobic avoidnc/panc attck full remssn Father Stroke Heart attack Brother Congestive heart failure Brother Stroke Other Substance abuse Social History Household Members: Family Household Members Other:: brother Both parents involved: No Caregiver staying overnight: No Housing: Other Housing Other:: mobile home Are you a primary health care assistant to a significant other at home: Yes (brother s/p CVA) Do you presently have visiting nurse or other home services: No (brother has services VNA,PT) Alcohol intake: never Patient Tobacco Use Status: Never used Tobacco e-Cigarette/Vaping Use: Never Used Second Hand Smoke Exposure: No service: No Current occupational status: retired Current occupational exposures/hazards: Yes Cognitive needs: No Hearing needs: Yes Vision needs: No Questionnaire PHQ-9 Over the last 2 weeks, how often have you been bothered by any of the following problems? 1. Little interest or pleasure in doing things: more than half the days 2. Feeling down, depressed, or hopeless: more than half the days 3. Trouble falling or staying asleep, or sleeping too much: more than half the days 4. Feeling tired or having little energy: nearly every day 5. Poor appetite or overeating: not at all 6. Feeling bad about yourself - or that you are a failure or have let yourself or your family down: several days 7. Trouble concentrating on things, such as reading the newspaper or watching television: more than half the days 8. Moving or speaking so slowly that other people could have noticed. Or the opposite - being so fidgety or restless that you have been moving around a lot more than usual: not at all 9. Thoughts that you would be better off or of hurting yourself in some way: not at all Total score: 12 Depression Screening Interpretation: Positive Depression Screening Follow-up: Existing condition and In treatment Depression Screening Done: Yes Source: Developed by Drs. Meir Zarate, Elba Comer, Ethan Little and colleagues, with an educational leeanne from [email or web address]. Thrive Questionnaire Date Thrive assessed: 05/21/24 I am a: Patient What is your living situation today?: I have a steady place to live Within the past 12 months, did the food you bought not last and you didn't have the money to get more?: Never true Within the past 12 months, did you worry whether your food would run out before you got money to buy more?: Sometimes True Do you have trouble paying for medicines?: No Do you have trouble getting transportation to medical appointments?: No Do you have trouble paying your heating and electricity bill?: Yes Do you have trouble taking care of your child, family member or friend?: No Do you have trouble with day-to-day activities such as bathing, preparing meals, shopping, managing finances, etc.?: No Are you currently unemployed and looking for a job?: No Are you interested in more education?: No Please select the resources that you would like help with: None Currently or been in a relationship where the following occur: No concerns reported THRIVE Score: 2 AUDIT C Alcohol Use Questionnaire (AUDIT-C) 3. How often do you have six or more drinks on one occasion?: Never Total Score: 0 SUSHANT-7 AMB Questionnaire SUSHANT-7 Date SUSHANT - 7 assessed: 08/28/24 Feeling nervous, anxious, or on edge: 3 = Nearly every day Not being able to stop or control worryin = Nearly every day Worrying too much about different things: 3 = Nearly every day Trouble relaxin = Nearly every day Being so restless that it is hard to sit still: 2 = More than half the days Becoming easily annoyed or irritable: 1 = Several days Feeling afraid as if something awful might happen: 3 = Nearly every day Total SUSHANT-7 score (0-4 normal; 5-9 mild; 10-14 moderate; 15-21 severe): 18 Source: Developed by Drs. Meir Zarate, Elba Comer, Ethan Little and colleagues, with an educational leeanne from [email or web address]. SUSHANT-7 Assessment Billing SUSHANT-7 Assessment Tool: SUSHANT-7 Assessment 00345 Review of Systems Const Details: Const Denies chills, Denies fatigue, Denies fever(s), Denies headache(s) and Denies weakness ENT Denies dizziness and Denies headache(s) Card Denies chest pain, Denies lightheadedness, Denies dyspnea and Denies other (Pa lpitations) Resp Denies cough, Denies dyspnea, Denies wheezing and Denies other ( shortness of breath) GI Denies abdominal pain, Denies melena, Denies hematochezia, Denies change in bowel habits, Denies dyspepsia and Denies nausea Denies hematuria and Denies dysuria Musc Denies abnormal gait, Denies myalgias, Denies arthralgias, Denies numbness and Denies tingling Skin/Breast Denies rash, Denies unusual bruising and Denies wounds Neuro Denies abnormal gait, Denies dizziness, Denies headache(s), Denies memory loss, Denies numbness, Denies Sensory deficit (Neuro), Denies tingling and Denies weakness Psych Reports anxiety, Reports depression, Denies memory loss Endo Denies cold intolerance, Denies fatigue, Denies heat intolerance, Denies polydipsia and Denies polyuria Aller/Immun Denies wheezing Physical exam (Primary Care) Vital Signs: Last Vital Signs Temp 97.6 F 08/28/24 13:01 Pulse 95 08/28/24 13:01 Resp 16 08/28/24 13:01 BP 134/70 08/28/24 13:01 Pulse Ox 97 08/28/24 13:01 Oxygen Delivery Method Room Air 08/28/24 13:01 BMI result Body Mass Index 24.7 Tobacco/Smoking Status: Tobacco use Status Tobacco use date assessed 08/28/24 08/28/24 13:05 Patient Tobacco Use Status Never used Tobacco 08/28/24 12:54 e-Cigarette/Vaping Use Never Used 08/28/24 12:54 PHQ-9: PHQ-9 Score PHQ-9: Total score 12 08/28/24 13:08 Depression Screening Interpretation: Positive Depression Screening Follow-up: Existing condition and In treatment Thrive Assessment: Date of Thrive Assessment Date Thrive assessed 05/21/24 08/28/24 12:54 Currently or been in a relationship where the following occur: No concerns re ported Const Other: General: no acute distress and well developed Nutritional Appearance: well nourished Orientation/consciousness: patient oriented x3 HENMT Head: Yes normocephalic and Yes atraumatic Eyes General: appearance normal, both eyes and all related structures Pupils: Equal, round and reactive pupils present EOM: EOMs intact bilaterally Resp Effort & Inspection: normal respiratory effort Auscultation: clear to auscultation bilaterally Cardio Rate: regular rate Rhythm: regular rhythm Heart sounds: S1 normal heart sound present, S2 normal heart sound present, no gallops, no murmurs and no rubs GI Palpation (GI): No Abdominal aortic bruit present, Soft to palpation, nontender, No hepatosplenomegaly present and No Rebound tenderness present Auscultation: normal bowel sounds General: Yes no CVA tenderness Back/Spine/Pelvis Back: no CVA tenderness Cervical Spine: cervical ROM normal and No Cervical spine tenderness Thoracic/Lumbar Spine: thoraco-lumbar ROM normal, No pain with thoraco-lumbar ROM, No thoracic spinal tenderness and No lumbar spinal tenderness Extrem General: Yes normal to inspection, No edema and No calf tenderness Skin General: warm and dry. Normal skin color. Normal skin turgor Neuro General: patient oriented x3, gait normal and no focal neuro deficit Cranial nerves: Yes Equal, round and reactive pupils present Cognition (Neuro): normal cognition Gait exam (Neuro): Normal gait present Sensory Exam: No Sensory deficit (Neuro) Psych Appearance: grossly normal Affect: normal affect Attitude: cooperative Thought process: Normal thought process present Coding Level of Care Code Est Pt Level 4 (12606) Diagnoses Type II diabetes mellitus E11.9 Hypertension, essential I10 Anxiety and depression F41.9; F32.A Insomnia G47.00 Non-rheumatic aortic stenosis I35.0 Laboratory tests ordered as part of a complete physical exam (CPE) Z00.00 Additional Codes SUSHANT-7 Assessment Billing - SUSHANT-7 Assessment Tool: SUSHANT-7 Assessment 30651 ([id number]) Assessment & Plan Assessment & Plan (1) Type II diabetes mellitus: Code(s): E11.9 - Type 2 diabetes mellitus without complications Category: Medical Plan: A1c today is 5.8%, within goal of less than 7.0%. Previous A1c was 5.8%. Continue current treatment regimen. ADA diet and routine exercise encouraged. Will recheck A1c in 3 months. Verbalized understanding and agreed with the plan. (2) Hypertension, essential: Code(s): I10 - Essential (primary) hypertension Category: Medical Plan: Blood pressure is 134/70, within goal of less than 130/80. Continue current treatment regimen. Low-sodium diet encouraged. Will hold furosemide at this time since her blood pressure has been controlled without the medication. Will continue to monitor. Verbalized understanding and agreed with treatment plan. (3) Anxiety and depression: Code(s): F41.9 - Anxiety disorder, unspecified; F32.A - Depression, unspecified Category: Medical Plan: She reports constant worrying related to her current cardiac staus. She reports difficulty falling asleep and maintaining sleep; she wakes up to urinate every 12 hours. She is not taking furosemide for the past 3 weeks because it was not refilled by the pharmacy. PHQ-9 and SUSHANT-7 scores revealed moderate depression and severe anxiety respectively. Will start buspirone 10 mg twice daily and hydroxyzine 25 mg 3 times daily as needed to target anxiety; advised to take as prescribed. Instructed on the risks, benefits, potential adverse reactions of the medications. Continue to take fluoxetine 60 mg daily. Routine exercise encouraged. Will hold furosemide at this time since her blood pressure has been controlled without the medication. Follow-up in 2 weeks or sooner with symptoms or concerns. Verbalized understanding and agreed with the plan. (4) Insomnia: Code(s): G47.00 - Insomnia, unspecified Category: Medical Plan: Plan as above. (5) Non-rheumatic aortic stenosis: Code(s): I35.0 - Nonrheumatic aortic (valve) stenosis Category: Medical Plan: Continue current treatment regimen. Followed by cardiology. (6) Laboratory tests ordered as part of a complete physical exam (CPE): Code(s): Z00.00 - Encounter for general adult medical examination without abnormal findings Category: Medical Plan: Fasting labs ordered as part of a complete physical exam. Advised to fast for at least 10 hours before getting labs drawn. May drink water Verbalized understanding and agreed with treatment plan. Orders: Orders Lipid Panel Today Z00.00 - Encounter for general adult medical examination without abnormal findings UA CC w/rflx Micro + Cult Today Z00.00 - Encounter for general adult medical examination without abnormal findings Complete Blood Count Auto Diff Today Z00.00 - Encounter for general adult medical examination without abnormal findings Comprehensive [place]. Panel Fast Today Z00.00 - Encounter for general adult medical examination without abnormal findings Microalbumin, Random (w Creat) Today Z00.00 - Encounter for general adult medical examination without abnormal findings TSH reflex Free T4 Today Z00.00 - Encounter for general adult medical examination without abnormal findings Vitamin D 25-OH Total Today Z00.00 - Encounter for general adult medical examination without abnormal findings Medications: New buspirone 10 mg PO BID 30 days 60 tabs 3RF hydroxyzine HCl 25 mg PO TID PRN 90 tabs 3RF anxiety On Hold furosemide Hold Comment: Doctor's Order 20 mg PO DAILY 90 tabs 2RF
--- OUTSIDE RECORDS SUMMARY | 2024-08-28 12:53 | XMS_ITS | Clinical Summary ---
Author Organization [facility] Address [address] [place] [address] Care Team Providers Care [employer] Worker Name Role Phone Milana Ha MD [...] age to complete this topic Care Teams Pan Tank Worker Relationship Specialty Start Date End Date Milana Ha MD PCP - General Internal Medicine 05/02/19
[2024-08-28 13:01] VITALS: BP 134/70; PULSE 95; RESP 16; TEMP 36.4; O2SAT 97; BMI 24.7
== END 2024-08-28 13:30 | disposition home or self-care (01) ==
LOC: HO.HMCFM 12:51
PROVIDERS: PCP Nurse Practitioner Family; Visit Provider Nurse Practitioner Family
DX: E11.9 Type 2 diabetes mellitus without complications (principal); I10 Essential (primary) hypertension; F41.9 Anxiety disorder, unspecified; F32.A Depression, unspecified; G47.00 Insomnia, unspecified; I35.0 Nonrheumatic aortic (valve) stenosis; Z00.00 Encounter for general adult medical examination without abnormal findings; Z13.9 Encounter for screening, unspecified

== ENCOUNTER → 2024-08-28 12:49 | Outpatient (BNVA) | payer MEDICARE, SELFPAY | PROVIDERS: PCP Nurse Practitioner Family; Visit Provider Nurse Practitioner Family | DX: E11.9 Type 2 diabetes mellitus without complications (principal); I10 Essential (primary) hypertension; F41.9 Anxiety disorder, unspecified; F32.A Depression, unspecified; G47.00 Insomnia, unspecified; I35.0 Nonrheumatic aortic (valve) stenosis; R01.1 Cardiac murmur, unspecified | CPT/HCPCS: 83036; 96127; 99212 ==

== ENCOUNTER 2024-09-04 10:23 | Outpatient (REF) | payer MEDICARE, SELFPAY ==
[2024-09-04 11:51] LABS: MANUAL DIFF FLAG NO
[2024-09-04 11:58] LABS: Hematocrit 35.8 % (37.0-47.0); Hemoglobin 11.5 g/dl (12.0-16.0); Mean Corpuscular HGB Conc 32.1 g/dl (31.0-35.0); Mean Corpuscular Hemoglobin 27.3 pg (27.0-33.0); Mean Platelet Volume 10.6 fL (9.4-12.3); Platelet Count 453 X10*3/uL (160-400); Red Blood Count 4.21 X10*6/uL (4.20-5.50); Red Cell Distribution Width 15.9 % (11.0-16.0); White Blood Count 7.6 X10*3/uL (4.8-10.8)
--- OUTSIDE RECORDS SUMMARY | 2024-09-04 11:58 | XMS_ITS | Clinical Summary ---
Author Organization [facility] Address [address] [place] [address] Care Team Providers Care [employer] Consultant Name Role Phone Milana Ha MD Primary [...] (2 - season) 2023 06/04/2020 Influenza Vaccine (Season Ended) 2024 12/29/2019, 01/11/2019, 12/07/2017, Additional history exists Pneumococcal Vaccine Completed 06/02/2017, 02/08/20 15 Hepatitis B Vaccines Aged Out No long er eligible based on patient's age to complete this topic RSV Ped < 20 months Aged Out No longe r eligible based on patient's age to complete this topic Care Teams [employer] Consultant Relationship Specialty Start Date End Date Milana Ha MD PCP - General Internal Medicine 05/02/19
[2024-09-04 12:00] LABS: Basophils Percent Auto 0.5 % (0-2); Eosinophils Absolute Auto 0.1 X10*3/uL (0.0-0.4); Eosinophils Percent Auto 0.8 % (0-4); Hematocrit 35.8 % (37.0-47.0); Hemoglobin 11.5 g/dl (12.0-16.0); Imm Gran Abs Auto 0.03 X10*3/uL (0.00-0.03); Imm Gran Pct Auto 0.4 % (0.0-0.4); Lymphocytes Absolute Auto 2.3 X10*3/uL (1.2-4.9); Lymphocytes Percent Auto 31.3 % (20-40); Mean Corpuscular HGB Conc 32.1 g/dl (31.0-35.0); Mean Corpuscular Hemoglobin 27.4 pg (27.0-33.0); Mean Corpuscular Volume 85.4 fL (80.0-98.0); Mean Platelet Volume 10.6 fL (9.4-12.3); Monocytes Absolute Auto 0.5 X10*3/uL (0.1-1.2); Monocytes Percent Auto 6.6 % (2-11); Neutrophils Absolute Auto 4.5 x10*3/uL (2.0-8.3); Neutrophils Percent Auto 60.4 % (45-73); Platelet Count 455 X10*3/uL (160-400); Red Blood Count 4.19 X10*6/uL (4.20-5.50); Red Cell Distribution Width 15.8 % (11.0-16.0); White Blood Count 7.5 X10*3/uL (4.8-10.8)
[2024-09-04 12:04] LABS: INTERNATIONAL NORM RATIO 1.1 (0.9-1.1); Prothrombin Time 12.1 SEC (10.9-12.4)
[2024-09-04 12:46] LABS: TSH reflex Free T4 1.55 uIU/mL (0.32-4.0); Vitamin D 25-OH Total 30.7 ng/mL (>30)
[2024-09-04 12:48] LABS: Alanine Aminotransferase 18 U/L (0-31); Albumin Level 4.1 g/dL (3.5-5.0); Alkaline Phosphatase 53 U/L (39-117); Anion Gap 14 (12-20); Aspartate Amino Transferase 25 U/L (5-31); Bilirubin Total 0.4 mg/dL (0.0-1.0); Blood Urea Nitrogen 14 mg/dL (9-16); Calcium 9.7 mg/dL (8.4-10.2); Carbon Dioxide 29 mmol/L (22-29); Chloride 100 mmol/L (96-108); Cholesterol 126 mg/dL (<200); Estimated Glomerular Filt Rate > 60; Glucose Fasting 107 mg/dL (60-99); Glucose Random 107 mg/dL (60-115); HDL Cholesterol 47 mg/dL (>40); LDL Cholesterol Calculated 62 mg/dL (<100); Potassium 3.4 mmol/L (3.3-5.1); Sodium 140 mmol/L (135-145); Total Protein 6.4 g/dL (6.5-8.0); Triglycerides 87 mg/dL (<150)
[2024-09-04 14:52] LABS: Appearance Urine Clear; Color Urine Yellow; Glucose Urine UA Negative (Negative); Leukocyte Esterase Urine Trace (Negative); Nitrite Urine Negative (Negative); UMIC TRIGGER UACC YES; Urine Blood Negative (Negative); Urine Ketones Trace mg/dL (Negative); Urine Protein Negative (Neg-Trace)
[2024-09-04 14:58] LABS: Bacteria Urine None Seen (None Seen); Hyaline Casts Urine 0-2 /LPF (0-2); RBC Urine 0-2 /HPF (0-2); Squamous Epithelial Cell Urine 0-2 /HPF (0-2); WBC Urine 0-5 /HPF (0-5)
[2024-09-04 15:33] LABS: Microalbum/Creatinine Ratio Ur 11.2 ug/mg cr (<30)
[2024-09-05 06:08] LABS: Immunoglobulin E 7 kU/L (<OR=114)
== END 2024-09-04 10:24 | disposition home or self-care (01) ==
LOC: HO.WFDLDS 10:23
PROVIDERS: Nurse Practitioner Family; Referring Provider Internal Medicine; Visit Provider Nurse Practitioner Family
DX: Z00.00 Encounter for general adult medical examination without abnormal findings (principal); I35.0 Nonrheumatic aortic (valve) stenosis; Z91.09 Other allergy status, other than to drugs and biological substances
CPT/HCPCS: 36415; 80048; 80053; 80061; 81001; 82043; 82306; 82570; 82785; 84443; 85025; 85027; 85610

== ENCOUNTER 2024-09-21 15:11 | Outpatient (AMB) | payer MEDICARE, SELFPAY ==
--- NOTE | 2024-09-21 15:19 | A.OFFPC_ITS ---
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 Required: No Is last menstrual period known: No Post menopausal: No Patient : No Allergies Seasonal Allergies Allergy (Intermediate, Verified 09/21/24 15:49) Cough zolpidem (From Ambien) Adverse Reaction (Severe, Verified 09/21/24 15:49) Hallucinations Medication List - Last Reconciled 09/21/24 by Nisha Garcia CNP acetaminophen (Tylenol Extra Strength) 500 mg PO Q6H PRN albuterol sulfate 90 mcg/actuation 2 puffs PO Q4-6H PRN amlodipine 10 mg PO DAILY apixaban (Eliquis) 5 mg PO BID atorvastatin 80 mg PO DAILY buspirone 10 mg PO BID 30 days famotidine (Pepcid) 20 mg PO BEDTIME flash glucose scanning reader (FreeStyle Samantha 2 [place]) As directed flash glucose sensor (FreeStyle Samantha 2 Sensor kit) As directed fluoxetine TAKE 3 CAPSULES BY MOUTH EVERY DAY furosemide 20 mg PO DAILY Held on 08/28/24. Instructions: Doctor's Order hydroxyzine HCl 25 mg PO TID PRN inhalational spacing device (Aerochamber Plus Z Stat spacer) As directed levothyroxine 50 mcg PO DAILY metformin ER 1,000 mg (2 x 500 mg) PO BID 90 days mirabegron ER (Myrbetriq) 25 mg PO DAILY 30 days omeprazole 40 mg (2 x 20 mg) PO DAILY semaglutide (Ozempic) 1 mg (0.75 mL) subcut QWEEK 30 days valsartan-hydrochlorothiazide 320-25 mg 1 tab PO DAILY Tobacco use date assessed: 09/21/24 Fall risk assessment: No Falls in past year Last assessed Fall Risk: 09/21/24 Dental Screening Dental Screen Date: 09/21/24 Did you have a dental visit in the last 12 months?: No Did you have a dental problem in the last 6 months where you did not have access to dental care?: No Was dental information given to patient?: Patient has dentist HPI HPI Comments History of Present Illness Details 74-year-old female presents for anxiety and depression follow-up. She admits to taking her medications as prescribed without adverse reactions. Regarding anxiety and depression, she notes that I feel much better than before but I still worry. She notes that she is scheduled for cardiac cath next . No acute symptoms at this time. [facility] Medical History (Updated 08/28/24 @ 13:19 by Nisha Garcia CNP) Essential tremor Seasonal allergies PND (post-nasal drip) Iron deficiency Arthritis Osteoarthritis Depression Hypertension Asthma Tremors of nervous system Type II diabetes mellitus Surgical History Hx of LASIK History of esophagogastroduodenoscopy (EGD) H/O: hysterectomy History of cataract removal with insertion of prosthetic lens Hx laparoscopic cholecystectomy Family History Mother Diabetes Parkinsons Panic disorder/agoraphobia, agoraphobic avoidnc/panc attck full remssn Father Stroke Heart attack Brother Congestive heart failure Brother Stroke Other Substance abuse Social History Household Members: Family Household Members Other:: brother Both parents involved: No Caregiver staying overnight: No Housing: Other Housing Other:: mobile home 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 1. Little interest or pleasure in doing things: several days 2. Feeling down, depressed, or hopeless: several days 3. Trouble falling or staying asleep, or sleeping too much: nearly every day 4. Feeling tired or having little energy: not at all 5. Poor appetite or overeating: several days 6. Feeling bad about yourself - or that you are a failure or have let yourself or your family down: several days 7. Trouble concentrating on things, such as reading the newspaper or watching television: several days 8. Moving or speaking so slowly that other people could have noticed. Or the opposite - being so fidgety or restless that you have been moving around a lot more than usual: not at all 9. Thoughts that you would be better off or of hurting yourself in some way: not at all Total score: 8 Depression Screening Interpretation: Positive Depression Screening Follow-up: Existing condition and In treatment Depression Screening Done: Yes 77288 - PHQ-9 Billing: Yes Source: Developed by Drs. Meir Zarate, Elba Comer, Ethan Little and colleagues, with an educational leeanne from [employer]. Thrive Questionnaire Date Thrive assessed: 05/21/24 I am a: Patient What is your living situation today?: I have a steady place to live Within the past 12 months, did the food you bought not last and you didn't have the money to get more?: Never true Within the past 12 months, did you worry whether your food would run out before you got money to buy more?: Sometimes True Do you have trouble paying for medicines?: No Do you have trouble getting transportation to medical appointments?: No Do you have trouble paying your heating and electricity bill?: Yes Do you have trouble taking care of your child, family member or friend?: No Do you have trouble with day-to-day activities such as bathing, preparing meals, shopping, managing finances, etc.?: No Are you currently unemployed and looking for a job?: No Are you interested in more education?: No Please select the resources that you would like help with: None Currently or been in a relationship where the following occur: No concerns reported THRIVE Score: 2 SUSHNAT-7 AMB Questionnaire SUSHANT-7 Date SUSHANT - 7 assessed: 09/21/24 Feeling nervous, anxious, or on edge: 2 = More than half the days Not being able to stop or control worryin = More than half the days Worrying too much about different things: 2 = More than half the days Trouble relaxin = Nearly every day Being so restless that it is hard to sit still: 0 = Not at all Becoming easily annoyed or irritable: 1 = Several days Feeling afraid as if something awful might happen: 2 = More than half the days Total SUSHANT-7 score (0-4 normal; 5-9 mild; 10-14 moderate; 15-21 severe): 12 Source: Developed by Drs. Meir Zarate, Elba Comer, Ethan Little and colleagues, with an educational leeanne from [employer]. SUSHANT-7 Assessment Billing SUSHANT-7 Assessment Tool: SUSHANT-7 Assessment 38477 Review of Systems Const Details: Const Denies chills, Denies fatigue, Denies fever(s), Denies headache(s) and Denies weakness ENT Denies dizziness and Denies headache(s) Card Denies chest pain, Denies lightheadedness, Denies dyspnea and Denies other (Palpitations) Resp Denies cough, Denies dyspnea, Denies wheezing and Denies other ( shortness of breath) GI Denies abdominal pain, Denies melena, Denies hematochezia, Denies change in bowel habits, Denies dyspepsia and Denies nausea Denies hematuria and Denies dysuria Musc Denies abnormal gait, Denies myalgias, Denies arthralgias, Denies numbness and Denies tingling Skin/Breast Denies rash, Denies unusual bruising and Denies wounds Neuro Denies abnormal gait, Denies dizziness, Denies headache(s), Denies memory loss, Denies numbness, Denies Sensory deficit (Neuro), Denies tingling and Denies weakness Psych Denies anxiety, Denies depression, Denies memory loss Endo Denies cold intolerance, Denies fatigue, Denies heat intolerance, Denies polydipsia and Denies polyuria Aller/Immun Denies wheezing Physical exam (Primary Care) Vital Signs: Last Vital Signs Temp 97.6 F 09/21/24 15:33 Pulse 93 09/21/24 15:33 Resp 16 09/21/24 15:33 BP 133/64 09/21/24 15:33 Pulse Ox 97 09/21/24 15:33 Oxygen Delivery Method Room Air 09/21/24 15:33 BMI result Body Mass Index 24.5 Tobacco/Smoking Status: Tobacco use Status Tobacco use date assessed 09/21/24 09/21/24 15:40 Patient Tobacco Use Status Never used Tobacco 09/21/24 15:20 e-Cigarette/Vaping Use Never Used 09/21/24 15:20 PHQ-9: PHQ-9 Score PHQ-9: Total score 8 09/21/24 15:40 Depression Screening Interpretation: Positive Depression Screening Follow-up: Existing condition and In treatment Thrive Assessment: Date of Thrive Assessment Date Thrive assessed 05/21/24 09/21/24 15:20 Currently or been in a relationship where the following occur: No concerns reported Const Other: General: no acute distress and well developed Nutritional Appearance: well nourished Orientation/consciousness: patient oriented x3 HENMT Head: Yes normocephalic and Yes atraumatic Eyes General: appearance normal, both eyes and all related structures Pupils: Equal, round and reactive pupils present EOM: EOMs intact bilaterally Resp Effort & Inspection: normal respiratory effort Auscultation: clear to auscultation bilaterally Cardio Rate: regular rate Rhythm: regular rhythm Heart sounds: S1 normal heart sound present, S2 normal heart sound present, no gallops, positive murmurs and no rubs GI Palpation (GI): No Abdominal aortic bruit present, Soft to palpation, nontender, No hepatosplenomegaly present and No Rebound tenderness present Auscultation: normal bowel sounds General: Yes no CVA tenderness Back/Spine/Pelvis Back: no CVA tenderness Cervical Spine: cervical ROM normal and No Cervical spine tenderness Thoracic/Lumbar Spine: thoraco-lumbar ROM normal, No pain with thoraco-lumbar ROM, No thoracic spinal tenderness and No lumbar spinal tenderness Extrem General: Yes normal to inspection, No edema and No calf tenderness Skin General: warm and dry. Normal skin color. Normal skin turgor Lesions: no lesions Rashes: no rashes Trauma: no lacerations or abrasions Wounds: no wounds Nails: normal Neuro General: patient oriented x3, gait normal and no focal neuro deficit Cranial nerves: Yes Equal, round and reactive pupils present Cognition (Neuro): normal cognition Gait exam (Neuro): Normal gait present Sensory Exam: No Sensory deficit (Neuro) Psych Appearance: grossly normal Affect: normal affect Attitude: cooperative Thought process: Normal thought process present Coding Level of Care Code Est Pt Level 3 (71829) Diagnoses Anxiety and depression F41.9; F32.A Hypertension, essential I10 Additional Codes SUSHANT-7 Assessment Billing - SUSHANT-7 Assessment Tool: SUSHANT-7 Assessment 50092 ([id number]) PHQ-9 - 35774 - PHQ-9 Billing: Yes ([id number]) Assessment & Plan Assessment & Plan (1) Anxiety and depression: Code(s): F41.9 - Anxiety disorder, unspecified; F32.A - Depression, unspecified Category: Medical Plan: Regarding anxiety and depression, she notes that I feel much better than before but I still worry. PHQ-9 and SUSHANT-7 scores revealed mild depression and moderate anxiety respectively. Continue current treatment regimen. Routine exercise encouraged. Follow-up for an extended physical exam in November as planned. Return sooner with symptoms or concerns. Verbalized understanding and agreed with the treatment plan. (2) Hypertension, essential: Code(s): I10 - Essential (primary) hypertension Category: Medical Plan: Blood pressure is 133/64, slightly above goal of less than 130/80. Continue current treatment regimen. Will continue to monitor. Verbalized understanding and agreed with the plan.
[2024-09-21 15:33] VITALS: BP 133/64; PULSE 93; RESP 16; TEMP 36.4; O2SAT 97; BMI 24.5
== END 2024-09-21 17:06 | disposition home or self-care (01) ==
LOC: HO.HMCFM 15:12
PROVIDERS: PCP Nurse Practitioner Family; Visit Provider Nurse Practitioner Family
DX: F41.9 Anxiety disorder, unspecified (principal); F32.A Depression, unspecified; I10 Essential (primary) hypertension

== ENCOUNTER → 2024-09-21 15:11 | Outpatient (BNVA) | payer MEDICARE, SELFPAY | PROVIDERS: PCP Nurse Practitioner Family; Visit Provider Nurse Practitioner Family | DX: F41.9 Anxiety disorder, unspecified (principal); F32.A Depression, unspecified; I10 Essential (primary) hypertension | CPT/HCPCS: 96127; 99212 ==

== ENCOUNTER → 2024-09-27 23:59 | Outpatient (BNV) | payer MEDICARE, SELFPAY | PROVIDERS: PCP Nurse Practitioner Family; Visit Provider Internal Medicine Cardiovascular Disease | DX: I35.0 Nonrheumatic aortic (valve) stenosis (principal); I50.30 Unspecified diastolic (congestive) heart failure | CPT/HCPCS: 93458; 99152 ==

== ENCOUNTER → 2024-10-09 13:35 | Outpatient (BNV) | payer MEDICARE, SELFPAY | PROVIDERS: PCP Nurse Practitioner Family; Visit Provider Radiology Diagnostic Radiology | DX: D41.01 Neoplasm of uncertain behavior of right kidney (principal) | CPT/HCPCS: 74183 ==

== ENCOUNTER 2024-10-09 13:37 | Outpatient (REF) | payer MEDICARE, SELFPAY ==
--- NOTE | ~2024-10-09 | MR_ITS ---
EXAMINATION: MR ABDOMEN WITHOUT THEN WITH IV CONTRAST HISTORY: N28.89 - Other specified disorders of kidney and ureter COMPARISON: There are no prior studies available for comparison. TECHNIQUE: Axial in and out of phase T1-weighted gradient echo, axial diffusion weighted, and axial and coronal HASTE T2 with fat saturation images were obtained through the abdomen. Subsequently, fat suppressed axial and coronal T1-weighted images were obtained after the intravenous administration of 6.5 mL Gadavist. FINDINGS: Liver: There is no loss of signal intensity in the liver on opposed phase imaging to suggest steatosis. There is no enhancing liver mass. The hepatic and portal veins are patent. There is no intrahepatic biliary dilatation. Gallbladder/biliary tree: The gallbladder is surgically absent. The common bile duct is normal in caliber. No intraluminal filling defects are identified to suggest choledocholithiasis. Spleen: The spleen is unremarkable. Pancreas: The pancreas is unremarkable. There is no enhancing pancreatic mass. The pancreatic duct is normal in caliber. Adrenals: There is a 1.3 cm right adrenal nodule which demonstrates loss of signal intensity on opposed phase imaging, consistent with an adenoma. There is a 9 mm left adrenal nodule demonstrating similar loss of signal intensity on opposed phase imaging, consistent with an adenoma. Kidneys: There is a 1.7 x 1.2 cm exophytic solid mass at the anterior aspect of the interpolar region of the right kidney. The mass demonstrates similar signal intensity to the remainder of the kidney kidney on unenhanced images but has enhances slightly less than the remainder of the renal parenchyma. On the left, there is a tiny subcentimeter probable proteinaceous cyst in the interpolar region which is T1 hyperintense and does not appear to enhance. Lymph nodes: There is no retroperitoneal lymphadenopathy in the upper abdomen. Fluid: There is no ascites in the upper abdomen. Visualized bowel: The visualized bowels loops are unremarkable in appearance. Visualized bones: The visualized bones demonstrate normal marrow signal intensity. MR/MR abdomen wo/w con IMPRESSION: 1. 1.7 x 1.2 cm exophytic solid mass at the anterior aspect of the interpolar region of the right kidney. 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 If there is prior outside imaging, comparison is recommended. 2. Bilateral adrenal adenomas as described. 3. Probable subcentimeter proteinaceous left renal cyst. Electronically signed by: Meir Marie MD 10/09/2024 02:49 PM EDT RP
--- OUTSIDE RECORDS SUMMARY | 2024-10-09 14:24 | XMS_ITS | Data Portability ---
Author Organization [place] - [facility], Allergy Address [address] [place] [address] Care Team Providers Care Asian Studies Professor Name Role Phone ALDO ASHER MD Primary [...] INTERNAL AUDITORY CANAL, W/WO CONTRAST 2023 024 [facility], [address] [place] [address], [address], 10:57:28 Medication Orders None recorded. Patient TargetsNo targets recorded. Patient InstructionsNo instructions recorded. Reason for Referral None Reported. Results Created Date Observation Date Name Description Value Unit Range Abnormal Flag Note LastModifiedBy Organization Detail LastModifiedTime 01/27/20 24 audio gram No observ ation record ed. [email or web address] Not Available 01/03 11:00:41 03/09/20 24 03/07/2024 MRI, brain + inter nal audit ory canal , w/wo contr ast No observ ation record ed[email or web address] [address] [place], [address], 03/16/2024 09:57:52 Result Notes None recorded. 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 Not Available [facility] 4 02:12:59 Sensorine ural hearing loss of bilateral ears 470818643 Active 2016 Sensorine ural hearing loss, bilateral ; Note: Date Diagnosed : 04/26/2016 9:36 AM (H90.3) Not Available [facility] 4 02:12:59 Impacted cerumen in right ear 90131797551 66747 Active 2023 TASHA FLYNN MD [address] [place] [address], [place], [address] , [facility] - [facility] 4 15:37:11 Acoustic neuroma 439548286 Active 2023 TASHA FLYNN MD [address] [place] [address], [place], [address] , [facility] - [facility] 4 15:37:46 Problem Notes None recorded. Procedures Surgical History Date Name Laterality Status Provider Name and Address Organization Details Recorded Time 4 Cerumen removal without microscope right completed TASHA FLYNN MD [address] [place] [address], [place], [address], [facility] - [facility] 01/25/2024 15:37:32 4 Air & Speech Audio with Tymps - 22080, 39112 & 16036 completed SHELBIE MARKS [address] [place] [address],[address], [address], [facility] - [facility] 01/25/2024 14:51:01 Imaging Results None recorded. Procedure Notes None recorded. Medical Equipment None Reported. Medications Name Sig Start Date Stop Date Status Note LastModified by Organization Details LastModified Time atorvastat in 80 mg tablet TAKE 1 TABLET BY MOUTH EVERY DAY active Not Available Not Available No t Available valacyclov ir 1 gram tablet 2017 active Medicatio n ID: [id number] Du ration Value: 7 Brand Name: teddy alonso Send Method: E-Prescri bed Subs Allowed: subs [place] [facility] Not Available Not Available Not Available [...] mg capsule 2017 active Medicatio n ID: [id number] Du ration Value: 30 Brand Name: gabapenti n Send Method: E-Prescri bed Subs Allowed: subs [facility] icName: gabapenti n Not Available [...] No t Available iron 18 mg tablet 01/23/ 2017 active Medicatio n ID: [id number] Br and Name: iron Send Method: E-Prescri [...] Not Available Not Available No t Available [facility] spacer USE DIRECTED WITH INHALER active Not [...] Updated DateTime 01/25/2024 165.1 cm 26.3 kg/m2 16387.59 g Keven Wyman [place] - [facility] [...] SNOMED-CT Code Diagnosis ICD10 Code Diagnosis Note [id number] TASHA FLYNN MD [facility] [address] [place] [address] 01/25/2024 14:09:52 01/25/2024 15:37:36 Sensorineural hearing loss of bilateral ears [id number] H90.3 Right Ear:Mild sloping to a profound SNHL with good speech discrimina tion.Type A tympanogra m.Left Ear:Mild sloping to a severe SNHL with excellent speech discrimina tion.Type A tympanogra m. Impacted c erumen in right ear [id number] 248934 H61.21 Recurrent Cerumen Impactions : Ears were meticulous ly cleaned bilaterall y today with a curette and suction. The patient tolerated this well and will follow up for repeat debridemen t per routine. Acoustic neuroma [id number] 07 D33.3 has been 5 years since imaging was done. Will order an updated MRI. Hearing has been stable or improved. I reviewed her prior images. Health Concerns Section Related Observation LastModified by Organization Detai ls LastModified Time None Recorded Concern Status LastModified by Organization Details LastModified Time None Recorded Advance Directives Directive None Recorded Payers Insurance Date Sequence Insurance Name Policy Number Policy Pablo Covered Member ID Pablo Member ID Guarantor Name 01/25/[address] [facility] (MEDICARE REPLACEMENT/A DVANTAGE - PPO) [id number] Carmelita Whitaker [id number] Carmelita Whitaker Notes Date Note Type Note Provider Name and Address Organization Details Recorded Time 01/25/2024 text/html Hx of AD acousti c neuroma. Used to see Dr. Patel but was lost to follow up. Last MRI 2018 showed a 6x8mm AD intracanalicular acoustic neuroma. Audio today shows improved hearing and WRS compared to last tested (09/2018). TASHA FLYNN MD [address] [place] [address], [place], [address], [facility] - [facility] 01/25/2024 15:39:51 OBGyn Episode No OBEpisode recorded.
--- OUTSIDE RECORDS SUMMARY | 2024-10-09 14:24 | XMS_ITS | Clinical Summary ---
Author Organization [facility] Address [address] [place] [address] Care Team Providers Care Life Skills Worker Name Role Phone Milana Ha MD [...] 97 06/24/2020 11:17 AM EDT Temperature 36.4 C (97.5 F) 06/24/2020 11:17 AM EDT Respiratory Rate - - Oxygen Saturation - [...] - season) 2023 06/04/2020 Influenza Vaccine (#1) 2024 0, 01/11/2019, 12/07/2017, Additional history exists Pneumococcal Vaccine Completed 06/02/2017, 02/08/20 15 Hepatitis B Vaccines Aged Out No long er eligible based on patient's age to complete this topic RSV Ped < 20 months Aged Out No longe r eligible based on patient's age to complete this topic Care Teams Life Skills Worker Relationship Specialty Start Date End Date Milana Ha MD PCP - General Internal Medicine 05/02/19
--- OUTSIDE RECORDS SUMMARY | 2024-10-09 14:24 | XMS_ITS | Clinical Summary ---
[facility] Address [address] [place] [address] Care Team Providers Care Rope Maker Name Role Phone Milana Ha MD Primary Care Provider Surgical History Surgery Date Site/Laterality Comments HYSTERECTOMY PROCEDURE: HISTORICAL HYSTERECTOMY SALPINGOOPHORECTOMY PROCEDURE: [place] LAPAROSCOPY W/RMVL ADNEXAL STRUCTURES CARDIAC CATHETERIZATION 2002 PROCEDURE: HISTORICAL CARDIAC CATH; COMMENT: negative CHOLECYSTECTOMY 05/16/2016 PROCEDURE: HISTORICAL CHOLECYSTECTOMY; COMMENT: laparoscopic Pee Gutierrez UPPER GASTROINTESTINAL ENDOSCOPY 11/25/2011 PROCEDURE: [place] UPPER GI ENDOSCOPY PERFORMED; COMMENT: small HH; no esophagitis on PPI rx COLONOSCOPY 2007 PROCEDURE: HISTORICAL COLONOSCOPY; COMMENT: [facility]; date approx.; negative COLONOSCOPY 08/06/2020 PROCEDURE: HISTORICAL COLONOSCOPY; COMMENT: 1 cm polyps x2 and diverticulosis: Tubular adenomas x2. Repeat colonoscopy in 3 years. Medical History Medical History Date Comments DM (diabetes mellitus) ([facility] V24, [facility] V28) DX:DM (diabetes mellitus) ([facility]) [...] type 2 (diabetes mellitus , type 2) ([facility] V24, [facility] V28) 07/09/2013 DX:DM type 2 (diabetes marcelino itus, type 2) ([facility]) Family History Medical History Relation Name Comments Diabetes Brother 1 Diabetes Brother 2 CABG Father CABG Mother Diabetes Mother Parkinson's Disease Mother Colon cancer Neg Hx Relation Name Status Comments Brother 1 Brother 2 Brother 3 [place] Father (Age 59) stroke Mother Social History [...] 2023 03/31/2021, 07/04/2020, 06/04/2020 Influenza Vaccine (#1) 2024 1, 12/29/2019, 01/11/2019, Additional history exists Pneumococcal [...] age to complete this topic Care Teams Rope Maker Relationship Specialty Start Date End Date Milana Ha MD PCP - General Internal Medicine 05/02/19
--- OUTSIDE RECORDS SUMMARY | 2024-10-09 14:25 | XMS_ITS | Encounter Summary ---
Author Organization [facility] Address [address] [place] [address] [address] [place] [address] Care Team Providers Care Reprographics Technician Name Role Phone Unavailable Primary Care Provider [...]
== END 2024-10-09 13:38 | disposition home or self-care (01) ==
LOC: HO.MRI 13:37
PROVIDERS: PCP Nurse Practitioner Family; Visit Provider Nurse Practitioner Family
DX: N28.89 Other specified disorders of kidney and ureter (principal)
CPT/HCPCS: 74183; A9585

== ENCOUNTER 2024-10-10 12:00 | Outpatient (AMB) | payer MEDICARE, SELFPAY ==
--- NOTE | 2024-10-10 12:47 | A.OFFVIS_ITS ---
Vital Signs 10/10/24 12:48 Height 5 ft 5 in Weight 149 lb 7.574 oz BMI 24.9 BP 132/70 Blood Pressure Location Lt brachial Position Sitting Pulse 86 Pulse Source Monitor Intake Visit Reasons: TAVR Consult Intake Note: TAVR Consult Database Administration Manager Required: No Accompanied by: Self / Same As Patient Allergies Seasonal Allergies Allergy (Intermediate, Verified 09/21/24 15:49) Cough zolpidem (From Ambien) Adverse Reaction (Severe, Verified 09/21/24 15:49) Hallucinations Medication List - Last Reconciled 10/10/24 by Elton Galarza MD acetaminophen (Tylenol Extra Strength) 500 mg PO Q6H PRN albuterol sulfate 90 mcg/actuation 2 puffs PO Q4-6H PRN amlodipine 10 mg PO DAILY apixaban (Eliquis) 5 mg PO BID atorvastatin 80 mg PO DAILY buspirone 10 mg PO BID 30 days famotidine (Pepcid) 20 mg PO BEDTIME flash glucose scanning reader ([employer]Style Samantha 2 Haiku) As directed flash glucose sensor (FreeStyle Samantha 2 Sensor kit) As directed fluoxetine TAKE 3 CAPSULES BY MOUTH EVERY DAY furosemide 20 mg PO DAILY Held on 08/28/24. Instructions: Doctor's Order hydroxyzine HCl 25 mg PO TID PRN inhalational spacing device (Aerochamber Plus Z Stat spacer) As directed levothyroxine 50 mcg PO DAILY metformin ER 1,000 mg (2 x 500 mg) PO BID 90 days mirabegron ER (Myrbetriq) 25 mg PO DAILY 30 days omeprazole 40 mg (2 x 20 mg) PO DAILY semaglutide (Ozempic) 1 mg (0.75 mL) subcut QWEEK 30 days valsartan-hydrochlorothiazide 320-25 mg 1 tab PO DAILY HPI Comments Details: [age] year female who is here for severe aortic valve stenosis and assessment for transcatheter aortic valve replacement. She has background history of hypertension, hyperlipidemia, history of aortic atheroma and she has been on chronic Eliquis due to that. She underwent cardiac catheterization on 09/27/2024 which showed ostial diagonal 150-60% stenosis and minimal disease in RCA and LAD. Mean gradient across aortic valve was 50 mm Hg. She has dyspnea on exertion and currently has NYHA class 3 symptoms. Also some orthopnea which is off and on. She had a syncopal episode in February 2024 but has not had any recent syncope. No chest discomfort. She underwent TAVR protocol CT scan and our plan is to do Galvan Kimberly valve next week. EKGs showing sinus rhythm at 86 beats per minute, inferior infarct, poor R-wave progression, right bundle-branch block, QTC 466 milliseconds. Echocardiography reviewed from July 2024 showing peak velocity 3.71 m/sec, peak aortic valve gradient 55 mm Hg, mean 41 mm Hg and aortic valve area of 0.64. PFSH Medical History (Updated 08/28/24 @ 13:19 by Nisha Garcia CNP) Essential tremor Seasonal allergies PND (post-nasal drip) Iron deficiency Arthritis Osteoarthritis Depression Hypertension Asthma Tremors of nervous system Type II diabetes mellitus Surgical History (Updated 10/10/24 @ 12:49 by Rhonda Mccann [facility]) Hx of cardiac cath Hx of LASIK History of esophagogastroduodenoscopy (EGD) H/O: hysterectomy History of cataract removal with insertion of prosthetic lens Hx laparoscopic cholecystectomy Family History Mother Diabetes Parkinsons Panic disorder/agoraphobia, agoraphobic avoidnc/panc attck full remssn Father Stroke Heart attack Brother Congestive heart failure Brother Stroke Other Substance abuse Social History Household Members: Family Household Members Other:: brother Both parents involved: No Caregiver staying overnight: No Housing: Other Housing Other:: mobile home Are you a primary client care specialist to a significant other at home: Yes (brother s/p CVA) Do you presently have visiting nurse or other home services: No (brother has services VNA,PT) Alcohol intake: never Patient Tobacco Use Status: Never used Tobacco e-Cigarette/Vaping Use: Never Used Second Hand Smoke Exposure: No service: No Current occupational status: retired Current occupational exposures/hazards: Yes Cognitive needs: No Hearing needs: Yes Vision needs: No Review of Systems Const Denies chills, Denies fatigue, Denies fever(s), Denies frequent falls, Denies weakness, Denies weight gain and Denies weight loss ENT Denies dizziness Card Denies chest pain, Denies leg edema, Denies lightheadedness, Denies palpitations, Reports dyspnea and Reports dyspnea on exertion Resp Denies cough, Reports dyspnea and Reports dyspnea on exertion GI Denies hematochezia Musc Denies abnormal gait, Denies muscle weakness, Denies numbness, Denies radiating pain into limb and Denies tingling Neuro Denies abnormal gait, Denies dizziness, Denies frequent falls, Denies numbness, Denies tingling and Denies weakness Endo Denies fatigue and Denies palpitations Physical Exam Vital Signs: Last Vital Signs Pulse 86 10/10/24 12:48 BP 132/70 10/10/24 12:48 BMI result Body Mass Index 24.9 GENERAL APPEARANCE: in no acute distress. NECK: no carotid bruit, no jugular venous distention. Slow rising pulse. SKIN: no suspicious lesions, warm and dry. HEART: Ejection systolic murmur aortic area with absent 2nd heart sound, regular rate and rhythm. LUNGS: clear to auscultation bilaterally. ABDOMEN: soft, nontender. EXTREMITIES: no edema. PERIPHERAL PULSES: equal. NEUROLOGIC: No gross deficits, AAO X 3 Office Procedures EKG Details: Sinus rhythm 86 beats per minute, right bundle-branch block, inferior infarct, can not rule out anterior infarct, QTC 466 milliseconds. [id number], Complete Assessment & Plan Assessment & Plan (1) Non-rheumatic aortic stenosis: Code(s): I35.0 - Nonrheumatic aortic (valve) stenosis Category: Medical Plan Pleasant 74-year-old lady who is here for severe aortic valve stenosis and discussion about transcatheter aortic valve replacement. She underwent TAVR protocol CT scan which did not raise any high-risk concerns. She is a good cand idate for transcatheter aortic valve replacement and will be planned for next week to undergo transfemoral TAVR. She has right bundle-branch block and there is risk of complete heart block which I have discussed with her in detail. We also discussed about potential complication including vascular injury, bleeding, infection, stroke and . She is highly symptomatic currently and eager to proceed with transcatheter aortic valve replacement. Does not appear to be volume overloaded. Medications will stay the same. She has been instructed to hold the Eliquis 48 hours before procedure along with metformin. She will not take any further Ozempic which she usually takes on Saturdays. Thank you for allowing me to participate in the care of your patient. Please feel free to contact me if you have any questions. Coding Level of Care Code New Pt Level 5 (27545) Diagnoses Non-rheumatic aortic stenosis I35.0 CPT Codes EKG - CPT: 64159-[id number], Complete ([id number])
[2024-10-10 12:48] VITALS: BP 132/70; PULSE 86; BMI 24.9
--- OUTSIDE RECORDS SUMMARY | 2024-10-10 13:09 | XMS_ITS | Clinical Summary ---
Author Organization [facility] Address [address] [place] [address] Care Team Providers Care Volunteer Services Specialist Name Role Phone Milana Ha MD Primary [...] age to complete this topic Care Teams Volunteer Services Specialist Relationship Specialty Start Date End Date Milana Ha MD PCP - General Internal Medicine 05/02/19
--- OUTSIDE RECORDS SUMMARY | 2024-10-10 13:09 | XMS_ITS | Clinical Summary ---
Author Organization [facility] Address [address] [place] [address] Care Team Providers Care Welder Gas Tungsten Arc Name Role Phone Milana Ha MD Primary Care Provider Surgical History Surgery Date Site/Laterality Comments HYSTERECTOMY PROCEDURE: HISTORICAL HYSTERECTOMY SALPINGOOPHORECTOMY PROCEDURE: [place] LAPAROSCOPY W/RMVL ADNEXAL STRUCTURES CARDIAC CATHETERIZATION 2002 PROCEDURE: HISTORICAL CARDIAC CATH; COMMENT: negative CHOLECYSTECTOMY 05/16/2016 PROCEDURE: HISTORICAL CHOLECYSTECTOMY; COMMENT: laparoscopic Pee Gutierrez UPPER GASTROINTESTINAL ENDOSCOPY 11/25/2011 PROCEDURE: [place] UPPER GI ENDOSCOPY PERFORMED; COMMENT: small HH; no esophagitis on PPI rx COLONOSCOPY 2007 PROCEDURE: HISTORICAL COLONOSCOPY; COMMENT: [facility]; date approx.; negative COLONOSCOPY 08/06/2020 PROCEDURE: HISTORICAL COLONOSCOPY; COMMENT: 1 cm polyps x2 and diverticulosis: Tubular adenomas x2. Repeat colonoscopy in 3 years. Medical History Medical History Date Comments DM (diabetes mellitus) ([facility]/ [facility] V24, [facility] V28) DX:DM (diabetes mellitus) (H CC) [...] type 2 (diabetes mellitus , type 2) ([facility] V24, [facility] V28) 07/09/2013 DX:DM type 2 (diabetes marcelino itus, type 2) ([facility]) Family History Medical History Relation Name Comments Diabetes Brother 1 Diabetes Brother 2 CABG Father CABG Mother Diabetes Mother Parkinson's Disease Mother Colon cancer Neg Hx Relation Name Status Comments Brother 1 Brother 2 Brother 3 MD Father (Age 59) stroke Mother Social History [...] age to complete this topic Care Teams Welder Gas Tungsten Arc Relationship Specialty Start Date End Date Milana Ha MD PCP - General Internal Medicine 05/02/19
--- OUTSIDE RECORDS SUMMARY | 2024-10-10 13:09 | XMS_ITS | Encounter Summary ---
Author Organization [employer] Address [address] [place] [address] [address] [place] [address] Care Team Providers Care Associate Embalmer/Funeral Director Name Role Phone Unavailable Primary Care Provider [...]
== END 2024-10-10 13:51 | disposition home or self-care (01) ==
LOC: HO.HCS 12:00
PROVIDERS: PCP Nurse Practitioner Family; Visit Provider Internal Medicine Cardiovascular Disease
DX: I35.0 Nonrheumatic aortic (valve) stenosis (principal); R94.31 Abnormal electrocardiogram [ECG] [EKG]
CPT/HCPCS: 93010; 99214

== ENCOUNTER → 2024-10-10 12:00 | Outpatient (BNVA) | payer MEDICARE, SELFPAY | PROVIDERS: PCP Nurse Practitioner Family; Visit Provider Internal Medicine Cardiovascular Disease | DX: Z01.818 Encounter for other preprocedural examination (principal); I35.0 Nonrheumatic aortic (valve) stenosis; I25.2 Old myocardial infarction; I45.10 Unspecified right bundle-branch block; E11.9 Type 2 diabetes mellitus without complications; Z79.01 Long term (current) use of anticoagulants; Z79.84 Long term (current) use of oral hypoglycemic drugs | CPT/HCPCS: 93005; 99212 ==

== ENCOUNTER → 2024-10-18 23:59 | Outpatient (BNV) | payer MEDICARE, SELFPAY | PROVIDERS: PCP Nurse Practitioner Family; Visit Provider Internal Medicine Cardiovascular Disease | DX: I35.0 Nonrheumatic aortic (valve) stenosis (principal); Z00.6 Encounter for examination for normal comparison and control in clinical research program | CPT/HCPCS: 33361; 99152 ==

== ENCOUNTER → 2024-10-24 23:59 | Outpatient (BNV) | payer MEDICARE, SELFPAY ==
--- NOTE | 2024-10-29 09:32 | A.OFFVIS_ITS ---
Intake Visit Reasons: Remote device checks- [employer] Allergies Seasonal Allergies Allergy (Intermediate, Verified 09/21/24 15:49) Cough zolpidem (From Ambien) Adverse Reaction (Severe, Verified 09/21/24 15:49) Hallucinations PFSH Medical History (Updated 10/29/24 @ 09:34 by Alexander Troncoso MD) Essential tremor Seasonal allergies PND (post-nasal drip) Iron deficiency Arthritis Osteoarthritis Depression Hypertension Asthma Tremors of nervous system Type II diabetes mellitus Surgical History (Updated 10/10/24 @ 12:49 by Rhonda Mccann CMA) Hx of cardiac cath Hx of LASIK History of esophagogastroduodenoscopy (EGD) H/O: hysterectomy History of cataract removal with insertion of prosthetic lens Hx laparoscopic cholecystectomy Family History Mother Diabetes Parkinsons Panic disorder/agoraphobia, agoraphobic avoidnc/panc attck full remssn Father Stroke Heart attack Brother Congestive heart failure Brother Stroke Other Substance abuse Social History Household Members: Family Household Members Other:: brother Both parents involved: No Caregiver staying overnight: No Housing: Other Housing Other:: mobile home Are you a primary healthcare consultant to a significant other at home: Yes (brother s/p CVA) Do you presently have visiting nurse or other home services: No (brother has services VNA,PT) Alcohol intake: never Patient Tobacco Use Status: Never used Tobacco e-Cigarette/Vaping Use: Never Used Second Hand Smoke Exposure: No service: No Current occupational status: retired Current occupational exposures/hazards: Yes Cognitive needs: No Hearing needs: Yes Vision needs: No Office Procedures Cardiac Device Check Cardiac Device Check Details: Date of service- 10/24/2024 ; Battery life >15 years; normal lead parameters; AP 0.5%; LINOLEUM TILE LAYER <0.1%; no significant arrhythmias. Overall normal device function. [id number] Cardiac Device Interrogation, pacemaker Procedure code (CPT) selection complete Assessment & Plan Assessment & Plan (1) Pacemaker: Code(s): Z95.0 - Presence of cardiac pacemaker Category: Medical (2) Bradycardia: Code(s): R00.1 - Bradycardia, unspecified Category: Medical Plan x Coding Level of Care Code Procedure Only Diagnoses Pacemaker Z95.0 Bradycardia R00.1 CPT Codes Cardiac Device Check - Cardiac Device 12: [id number] Cardiac Device Interrogation, pacemaker ([id number])
== END ==
PROVIDERS: PCP Nurse Practitioner Family; Visit Provider Internal Medicine
DX: R00.1 Bradycardia, unspecified (principal); Z95.0 Presence of cardiac pacemaker
CPT/HCPCS: 93294

== ENCOUNTER 2024-11-02 14:36 | Outpatient (AMB) | payer MEDICARE, SELFPAY ==
--- OUTSIDE RECORDS SUMMARY | 2024-11-02 14:38 | XMS_ITS | Clinical Summary ---
Author Organization [facility] Address [address] [place] [address] Care Team Providers Care Barrel Turner Name Role Phone Milana Ha MD Primary [...] age to complete this topic Care Teams Barrel Turner Relationship Specialty Start Date End Date Milana Ha MD PCP - General Internal Medicine 05/02/19
--- OUTSIDE RECORDS SUMMARY | 2024-11-02 14:38 | XMS_ITS | Encounter Summary ---
Author Organization [employer] Address [address] [place] [address] [address] [place] [address] Care Team Providers Care Digital Librarian Name Role Phone Unavailable Primary Care Provider [...]
--- OUTSIDE RECORDS SUMMARY | 2024-11-02 14:38 | XMS_ITS | Clinical Summary ---
Author Organization [facility] Address [address] [place] [address] Care Team Providers Care Supervisor Rework Name Role Phone Milana Ha MD Primary [...] Medical History Date Comments DM (diabetes mellitus) ([facility] V24, [facility] V28) DX:DM (diabetes mellitus) (H CC) [...] type 2 (diabetes mellitus , type 2) ([facility] V24, [facility] V28) 07/09/2013 DX:DM type 2 (diabetes marcelino itus, type 2) ([facility]) Family History Medical History Relation Name Comments Diabetes Brother 1 Diabetes Brother 2 CABG Father CABG Mother Diabetes Mother Parkinson's Disease Mother Colon cancer Neg Hx Relation Name Status Comments Brother 1 Brother 2 Brother 3 HI Father (Age 59) stroke Mother Social History [...] 12/21/2021 12/22/2011 Cholesterol Screening (Lipid Panel) 03/03/2022 Falls Risk Assessment 03/03/2022 Hepatitis C Screening 03/03/2022 Osteoporosis Screening (Bone Density Screening) 03/03/2022 Social Influencers of Health Screening 03/03/2022 Hypertension/CHF/CAD Annual BMP Blood Test 03/14/2022 Diabetes: Annual Urine Albumin-Creatinine Ratio (uACR) 03/19/2022 Diabetes: Blood Sugar Control Test (HGBA1C) 03/19/2022 RSV Immunization Adult Patients (1 - 1-dose 75+ series) 01/31/2023 COVID-19 Vaccine ( season) 2023 03/31/2021, 07/04/2020, 06/04/2020 Depression Screening 04/04/2024 Influenza Vaccine (#1) 2024 1, 12/29/2019, 01/11/2019, [...] to complete this topic Care Teams Supervisor Rework Relationship Specialty Start Date End Date Milana Ha MD PCP - General Internal Medicine 05/02/19
--- OUTSIDE RECORDS SUMMARY | 2024-11-02 14:38 | XMS_ITS | Encounter Summary ---
Author Organization [facility] Address [address] [place] [address] [place] [phone] Phone Care Team Providers Care Net Web Developer Name Role Phone Milana Ha MD Primary Care Provid er Encounter Details Date Type Department Care Team (Late st Contact Info) Description 10/23/2024 Procedure Pass Non-Invasive Cardiology [address] [place] [address] Social History Tobacco Use Types Packs/Day Years Used Date Smoking Tobacco: Never Assessed Education Answer Date Recorded Are you interested in more education? Not on myrtle e 07/30/2022 Are you concerned about learning? Not on file 07/30/2022 No 07/30/2022 No 07/30/2022 Digital Access Answer Date Recorded No 08/28/2022 No 08/28/2022 No 08/28/2022 Reliable internet access at home? Not on file 08/28/2022 Device with a working camera? Not on file Comments Unknown Sex and Gender Information Value Date Recorded Sex Assigned at Not on file Legal Sex Female 10:05 PM EDT Gender Identity Not on file Sexual Orientation Not on file documented as of this encounter Plan of Treatment Upcoming Encounters Date Type Department Care Team (Late st Contact Info) Description 11/01/2024 Procedure Pass Non-Invasive Cardiology [address] [place] [address] 11/01/2024 Procedure Pass Non-Invasive Cardiology [address] [place] [address] 11/08/2024 2:00 PM EDT Appointment Non-Invasive Cardiology [address] [place] [address] Jung Boothe MD [address] [place] [id number] [email or web address] documented as of this encounter Visit Diagnoses Not on filedocumented in this encounter Care Teams Net Web Developer Relationship Specialty Start Date End Date Milana Ha MD [address] [address] PCP - General Internal Medicine 08/03/17 documented as of this encounter Additional Source Comments The information contained in this document represents components of the legal health record. It is not the complete legal health record.[facility]
[2024-11-02 14:56] VITALS: BP 140/68; PULSE 56; BMI 24.5
--- NOTE | 2024-11-02 14:56 | MHC.OFFVIS ---
Vital Signs 11/02/24 14:56 Height 5 ft 5 in Weight 147 lb BMI 24.5 BP 140/68 H Blood Pressure Location Lt brachial Position Sitting Pulse 56 Pulse Source Pulse Oximeter Intake Visit Reasons: follow up s/p TAVR Allergies Seasonal Allergies Allergy (Intermediate, Verified 09/21/24 15:49) Cough zolpidem (From Ambien) Adverse Reaction (Severe, Verified 09/21/24 15:49) Hallucinations HPI Comments Details: This is a 74-year-old female patient coming in for a follow-up visit status post TAVR and pacemaker placement. Patient with a history of hypertension, hyperlipidemia, diabetes, HFpEF, aortic atheroma with a history of retinal infarct on Eliquis therapy. Patient's severe aortic stenosis was confirmed with a cardiac catheterization on 09/27/[address] Galarza that showed a mean gradient across aortic valve of 50 mmHg. Patient underwent TAVR with Dr. Galarza on 10/18/24 after which patient went into complete heart block and had a dual-chamber pacemaker placed on 10/19/[address] Boothe. Today, patient reports that she had a follow up with Dr. Boothe office yesterday for a wound check where they noted that her incision was not closed all the way and had some pauses around it and was started on doxycycline. Patient is otherwise reporting feeling well overall and denies any exertional symptoms of chest pain, shortness of breath, palpitations, dizziness, orthopnea, PND, leg edema, presyncope, or syncope. Patient is reporting compliance with all her medications. [facility] Medical History (Updated 11/02/24 @ 16:40 by Luke Boyd NP) Essential tremor Seasonal allergies PND (post-nasal drip) Iron deficiency Arthritis Osteoarthritis Depression Hypertension Asthma Tremors of nervous system Type II diabetes mellitus Surgical History (Updated 11/02/24 @ 16:40 by Luke Boyd NP) Hx of cardiac cath Hx of LASIK History of esophagogastroduodenoscopy (EGD) H/O: hysterectomy History of cataract removal with insertion of prosthetic lens Hx laparoscopic cholecystectomy Family History Mother Diabetes Parkinsons Panic disorder/agoraphobia, agoraphobic avoidnc/panc attck full remssn Father Stroke Heart attack Brother Congestive heart failure Brother Stroke Other Substance abuse Social History Household Members: Family Household Members Other:: brother Both parents involved: No Caregiver staying overnight: No Housing: Other Housing Other:: mobile home Are you a primary group care worker to a significant other at home: Yes (brother s/p CVA) Do you presently have visiting nurse or other home services: No (brother has services VNA,PT) Alcohol intake: never Patient Tobacco Use Status: Never used Tobacco e-Cigarette/Vaping Use: Never Used Second Hand Smoke Exposure: No service: No Current occupational status: retired Current occupational exposures/hazards: Yes Cognitive needs: No Hearing needs: Yes Vision needs: No Review of Systems Const Reports fatigue and Denies weakness Eyes Denies loss of vision ENT Denies dizziness Card Denies chest pain, Denies chest pain with activity, Denies syncope, Denies rapid heart rate, Denies pedal edema, Denies edema, Denies leg edema, Denies lightheadedness, Denies palpitations, Denies dyspnea, Denies dyspnea on exertion and Denies orthopnea Resp Denies cough, Denies dyspnea, Denies dyspnea on exertion and Denies wheezing GI Denies hematochezia and Denies change in stool character Denies hematuria, Denies urinary frequency and Denies dysuria Musc Denies abnormal gait, Reports joint swelling, Denies muscle cramps, Denies muscle weakness, Denies numbness, Denies radiating pain into limb and Denies tingling Skin/Breast Denies nail changes and Denies rash Neuro Denies Abnormal speech present, Denies abnormal gait, Denies dizziness, Denies syncope, Denies loss of vision, Denies memory loss, Denies numbness, Denies tingling and Denies weakness Psych Denies depression and Denies memory loss Endo Reports fatigue and Denies palpitations Aller/Immun Denies wheezing Physical Exam Vital Signs: Last Vital Signs Pulse 56 11/02/24 14:56 BP 140/68 H 11/02/24 14:56 BMI result Body Mass Index 24.5 Const General: cooperative, healthy appearing, comfortable and no acute distress Orientation/consciousness: patient oriented x3 HEENT Head: Yes normal to inspection Neck Neck: Yes normal visual inspection, Yes trachea midline and Yes supple Chest Chest palpation & inspection: normal inspection of the chest Resp Effort & Inspection: normal respiratory effort Auscultation: clear to auscultation bilaterally, no crackles, no rales, no rhonchi and no wheezes Cardio Jugular venous distension: no JVD Palpation: normal PMI Rate: regular rate Rhythm: regular rhythm Heart sounds: S1 normal heart sound present, S2 normal heart sound present, no click, no gallops, Murmur heart sound present systolic and no rubs Peripheral pulses: Peripheral pulses 2+ throughout GI Inspection: Yes normal to inspection Palpation (GI): Soft to palpation Auscultation: normal bowel sounds Skin General skin exam: no rashes or lesions noted Neuro General: patient oriented x3 Speech: No Abnormal speech present Extrem General: Yes normal to inspection, No no pedal edema and No calf tenderness Psych Appearance: grossly normal Mental Status: mental status grossly normal Speech and movement: Normal speech and movement present Assessment & Plan Assessment & Plan (1) Non-rheumatic aortic stenosis: Code(s): I35.0 - Nonrheumatic aortic (valve) stenosis Category: Medical Plan: History of severe aortic stenosis, TAVR procedure done on 10/18/2024. Postprocedure, patient developed complete heart block for which patient underwent a pacemaker placement on 10/19/2024. Continue Eliquis therapy. Patient states that she was started on doxycycline for pus and the he has since to her incision site from the pacemaker insertion yesterday at her EP follow-up visit. Advised to keep the dressing clean and dry. No shadowing noted. Patient is going to follow up in 1 week again with them. Dressing today is clean dry intact. Catheter insertion sites on both right and left femoral had clean dry dressings that was removed today. Insertion sites well healed. Patient has a plan for repeat echo next week with a plan for follow up with Dr. Galarza in 1 month. (2) Status post transcatheter aortic valve replacement: Code(s): Z95.2 - Presence of prosthetic heart valve Category: Surgical Plan: As above. (3) Pacemaker: Code(s): Z95.0 - Presence of cardiac pacemaker Category: Medical Plan: As above. [employer]onic dual chamber pacemaker implanted on 10/19/2024. Patient has a transmitter. We will monitor this remotely. (4) Coronary artery disease: Code(s): I25.10 - Atherosclerotic heart disease of [place] coronary artery without angina pectoris Category: Medical Plan: 09/27/2024-patient had undergone a cardiac catheterization that had confirmed her severe aortic stenosis however did reveal nonobstructive coronary artery disease with a 50-60% stenosis of the ostial diagonal branch. Clinically stable and without any anginal symptoms. Continue current regimen. LDL goal less than 70. (5) Hypertension, essential: Code(s): I10 - Essential (primary) hypertension Category: Medical Plan: Blood pressure is well-controlled. Continue current regimen. Advised monitoring blood pressures with a goal less than 130/80. (6) Type II diabetes mellitus: Code(s): E11.9 - Type 2 diabetes mellitus without complications Category: Medical Plan: Continue diabetes management with an A1c goal less than 7%. (7) Hospital discharge follow-up: Code(s): Z09 - Encounter for follow-up examination after completed treatment for conditions other than malignant neoplasm Plan: As above. Advised heart healthy diet, exercise as tolerated, med compliance, and management of vascular risk factors. Follow up in [address] Galarza. In the interim, patient will call the office with any concerns or change in symptoms. This note was generated using voice recognition software. While every effort has been made to ensure accuracy and proper law tutor, there may be occasional errors that could affect the content or meaning of the described symptoms. Coding Level of Care Code Est Pt Level 4 (98078) Complex EM visit Add On G2211 Diagnoses Non-rheumatic aortic stenosis I35.0 Status post transcatheter aortic valve replacement Z95.2 Pacemaker Z95.0 Coronary artery disease I25.10 Hypertension, essential I10 Type II diabetes mellitus E11.9 Hospital discharge follow-up Z09 Time Spent (min) 31 Comment Time spent in reviewing the chart, test results, assessment, counseling and documentation.
== END 2024-11-02 15:29 | disposition home or self-care (01) ==
LOC: HO.HCS 14:36
PROVIDERS: PCP Nurse Practitioner Family
DX: I35.0 Nonrheumatic aortic (valve) stenosis (principal); Z95.2 Presence of prosthetic heart valve; Z95.0 Presence of cardiac pacemaker; I25.10 Atherosclerotic heart disease of native coronary artery without angina pectoris; I10 Essential (primary) hypertension; E11.9 Type 2 diabetes mellitus without complications; Z09 Encounter for follow-up examination after completed treatment for conditions other than malignant neoplasm
CPT/HCPCS: 99214; G2211

== ENCOUNTER → 2024-11-02 14:36 | Outpatient (BNVA) | payer MEDICARE, SELFPAY | PROVIDERS: PCP Nurse Practitioner Family | DX: Z09 Encounter for follow-up examination after completed treatment for conditions other than malignant neoplasm (principal); I35.0 Nonrheumatic aortic (valve) stenosis; Z95.2 Presence of prosthetic heart valve; Z95.0 Presence of cardiac pacemaker; I25.10 Atherosclerotic heart disease of native coronary artery without angina pectoris; I10 Essential (primary) hypertension; E11.9 Type 2 diabetes mellitus without complications | CPT/HCPCS: 99212 ==

== ENCOUNTER → 2024-11-19 13:46 | Outpatient (REF) | payer MEDICARE, SELFPAY ==
--- NOTE | 2024-11-19 13:49 | CA_ITS ---
Transthoracic Echocardiogram Patient (Last, First, Middle): Carmelita Whiatker, Gender: Female Date of : 1950 Age: 74 Procedure Date: 11/19/2024 Procedure Type: Transthoracic Echocardiogram Location: OP Height: 165.1 cm Weight: 64.41 kg BSA: 1.71 m2 Heart Rate: 92 bpm BP: 120 / 60 mmHg Maintenance Fitter: MARIANELA Referring MD: Elton Galarza MD Poultry Pinner: Elton Galarza MD Symptoms: Z95.2 - Presence of prosthetic heart valve Study Quality: Fair ECG Rhythm: Sinus Conclusions: - Normal left ventricular size and systolic function. The visually estimated ejection fraction is between 60-65%. - There is severe septal asymmetric hypertrophy. - Normal right ventricular cavity size and systolic function. - Bioprosthetic valve aortic position. The mean gradient is 11 mmHg. There is no aortic valve regurgitation. Findings Left Ventricle Normal left ventricular size and systolic function. The visually estimated ejection fraction is between 60-65%. There is no evidence of regional wall motion abnormalities. Abnormal diastolic function is noted. Spectral Doppler is indicative of an impaired relaxation filling pattern. E/E prime ratio is between 8 and 15 consistent with indeterminate filling pressures. There is severe septal asymmetric hypertrophy. Right Ventricle Normal right ventricular cavity size and systolic function. Atria The left atrium is normal in size. The right atrium is normal in size. Aortic Valve Bioprosthetic valve aortic position. The mean gradient is 11 mmHg. There is no aortic valve regurgitation. Mitral Valve There is mild mitral annular calcification. There is no mitral valve regurgitation. There is no mitral valve stenosis. Pulmonic Valve The pulmonic valve is likely normal. Tricuspid Valve Normal tricuspid valve structure and function. There is no tricuspid valve regurgitation. Tricuspid regurgitation envelope is inadequate for calculation of right ventricular systolic pressure. Indeterminate right atrial pressure. Great Vessels There is moderate dilatation of the ascending aorta measuring 4.40 cm. Venous The inferior vena cava was not well visualized. Pericardium/Pleural There is no evidence of pericardial effusion. Prior Study Comparison Changes noted compared to prior study dated: 07/27/2024. Normally functioning TAVR valve present. Measurements 2D Linear Measurements IVSd: 1.57 0.6-0.9/0.6-1.0 cm LVIDd: 3.61 3.9-5.3/4.2-5.9 cm LVIDd Index: 2.11 2.4-3.2/2.2-3.1 cm/m2 LVIDs: 2.38 2.0-3.6 cm LVPWd: 0.81 0.7-1.1 cm LA Diam: 3.70 2.7-3.8/3.0-4.0 cm LAIDs Index: 2.16 1.5-2.3 cm/m2 LV Mass: 174.48 67-162/88-224 g LV Mass Index: 102.03 43-95/49-115 g/m2 LVOT Diam: 1.90 3.0+(-)1.3 cm 2D Systolic Function EF 4C: 67.60 >55% EF 2C: 55.60 >55% EF BiP: 62.90 >55% Mitral Valve MV VTI: 0.28 MV Pk [place]: 1.54 MV Mn [place]: 1.02 MV Pk Grad: 9.00 MV Mn Grad: 5.00 MV Pk E: 0.76 MV PK A: 1.39 MV Decel Time: 253.00 E/A: 0.50 E'Lateral: 2.72 E'Medial: 2.72 E/E' Med: 27.90 E/E' Lat: 27.90 PHT: 74.00 MVA PHT: 2.97 MVA Continuity: 1.85 Decel [place]: 3.00 Aortic Valve AoV Pk [place]: 2.34 AoV Mn [place]: 1.51 AoV VTI: 0.38 AoV Pk Grad: 22.00 Aov Mn Grad: 11.00 LEODAN Cont.VTI: 1.39 LVOT LVOT Pk [place]: 1.21 LVOT Mn [place]: 0.83 LVOT VTI: 0.18 LVOT Pk Grad: 6.00 LVOT Mn Grad: 3.00 LVOT Diam: 1.90 LVOT Area: 2.84 Diastolic Function MV Pk E: 0.76 MV Pk A: 1.39 E/A: 0.50 E'Medial: 2.72 E/E' Med: 27.90 E' Laterial: 2.72 E/E' Lat: 27.90 Right Ventricle TAPSE (mm): 13.40 TVS' [place]: 9.32 Great Vessels Aorta Ao Asc: 4.40 2.1-3.4 cm Ao Arch: 3.30 Pulmonary Veins Pulm Vein S/D 1.90 Pulmonary Valve PV Pk [place]: 1.16 Peak PV Grad: 5.00 Updated in Other Vendor System with Status of Final Elton Galarza MD electronically signed on 11/22/2024 10:56:49 PM with status of Final
--- OUTSIDE RECORDS SUMMARY | 2024-11-19 14:37 | XMS_ITS | Clinical Summary ---
[facility] [address] [place] [address] Care Team Providers Care Iron Bender Name Role Phone Milana Ha MD Primary Care Provider Surgical History Surgery Date Site/Laterality Comments HYSTERECTOMY PROCEDURE: HISTORICAL HYSTERECTOMY SALPINGOOPHORECTOMY PROCEDURE: ND LAPAROSCOPY W/RMVL ADNEXAL STRUCTURES CARDIAC CATHETERIZATION 2002 PROCEDURE: HISTORICAL CARDIAC CATH; COMMENT: negative CHOLECYSTECTOMY 05/16/2016 PROCEDURE: HISTORICAL CHOLECYSTECTOMY; COMMENT: laparoscopic Pee Gutierrez UPPER GASTROINTESTINAL ENDOSCOPY 11/25/2011 PROCEDURE: ND UPPER GI ENDOSCOPY PERFORMED; COMMENT: small HH; no esophagitis on PPI rx COLONOSCOPY 2007 PROCEDURE: HISTORICAL COLONOSCOPY; COMMENT: [facility]; date approx.; negative COLONOSCOPY 08/06/2020 PROCEDURE: HISTORICAL COLONOSCOPY; COMMENT: 1 cm polyps x2 and diverticulosis: Tubular adenomas x2. Repeat colonoscopy in 3 years. Medical History Medical History Date Comments DM (diabetes mellitus) ([facility]/ [facility] V24, [facility] V28) DX:DM (diabetes mellitus) (H [...] type 2 (diabetes mellitus , type 2) ([facility] V24, [facility] V28) 07/09/2013 DX:DM type 2 (diabetes marcelino itus, type 2) ([facility]) Family History Medical History Relation Name Comments Diabetes Brother 1 Diabetes Brother 2 CABG Father CABG Mother Diabetes Mother Parkinson's Disease Mother Colon cancer Neg Hx Relation Name Status Comments Brother 1 Brother 2 Brother 3 [place] Father (Age 59) stroke Mother Social History [...] age to complete this topic Care Teams Iron Bender Relationship Specialty Start Date End Date Milana Ha MD PCP - General Internal Medicine 05/02/19
--- OUTSIDE RECORDS SUMMARY | 2024-11-19 14:37 | XMS_ITS | Clinical Summary ---
Author Organization [facility] Address [address] [place] [address] Care Team Providers Care Service Station Manager Name Role Phone Milana Ha MD [...] age to complete this topic Care Teams Service Station Manager Relationship Specialty Start Date End Date Mialna Ha MD PCP - General Internal Medicine 05/02/19
--- OUTSIDE RECORDS SUMMARY | 2024-11-19 14:37 | XMS_ITS | Encounter Summary ---
Author Organization [facility] Address [address] [place] [address] [place] [id number] Phone Care Team Providers Care Equipment Engineering Technician Name Role Phone Milana Ha MD Primary Care Provid er Encounter Details Date Type Department Care Team ([facility] Contact Info) Description 11/08/2024 Procedure Pass Non-Invasive Cardiology [address] [place] [address] Social History Tobacco Use Types Packs/Day Years [...] on filedocumented in this encounter Care Teams Equipment Engineering Technician Relationship Specialty Start Date End Date Milana Ha MD [id number] [id number] PCP - General Internal Medicine 08/03/17 documented as of this encounter Additional Source Comments The information contained in this document represents components of the legal health record. It is not the complete legal health record.[facility]
--- OUTSIDE RECORDS SUMMARY | 2024-11-19 14:37 | XMS_ITS | Encounter Summary ---
Author Organization [facility] Address [address] [place] [address] [address] [place] [address] Care Team Providers Care Credit Balance Specialist Name Role Phone Unavailable Primary Care Provider [...]
== END ==
LOC: HO.CARD 13:46
PROVIDERS: PCP Nurse Practitioner Family; Visit Provider Internal Medicine Cardiovascular Disease
DX: Z95.2 Presence of prosthetic heart valve (principal)
CPT/HCPCS: 93306

== ENCOUNTER → 2024-11-19 13:49 | Outpatient (BNV) | payer MEDICARE, SELFPAY | PROVIDERS: PCP Nurse Practitioner Family; Visit Provider Internal Medicine Cardiovascular Disease | DX: I42.2 Other hypertrophic cardiomyopathy (principal); Z95.4 Presence of other heart-valve replacement; I71.21 Aneurysm of the ascending aorta, without rupture | CPT/HCPCS: 93306 ==

== ENCOUNTER 2024-11-27 15:25 | Outpatient (AMB) | payer MEDICARE, SELFPAY ==
--- NOTE | 2024-11-27 15:26 | A.OFFPC_ITS ---
Vital Signs 11/27/24 15:33 11/27/24 15:53 Height 5 ft 5 in Weight 144 lb 2 oz BMI 24.0 BP 146/67 H 130/60 Blood Pressure Location Lt brachial Lt brachial Position Sitting Sitting Respiration 16 Pulse 96 Pulse Source Pulse Oximeter Temp 97.5 F Temp Source Oral Pulse Oximetry (%) 99 Oxygen Delivery Method Room Air Intake Visit Reasons: Annual PE/ 3 mo fu- see comment Intake Note: patient here for CPE Drill Presser Required: No Is last menstrual period known: No Post menopausal: No Patient : No Allergies Seasonal Allergies Allergy (Intermediate, Verified 11/27/24 15:50) Cough zolpidem (From Ambien) Adverse Reaction (Severe, Verified 11/27/24 15:50) Hallucinations Medication List - Last Reconciled 11/27/24 by Nisha Garcia CNP acetaminophen (Tylenol Extra Strength) 500 mg PO Q6H PRN albuterol sulfate 90 mcg/actuation 2 puffs PO Q4-6H PRN amlodipine 10 mg PO DAILY apixaban (Eliquis) 5 mg PO BID atorvastatin 80 mg PO DAILY buspirone 10 mg PO BID 30 days famotidine (Pepcid) 20 mg PO BEDTIME flash glucose scanning reader (FreeStyle Samantha 2 [employer]) As directed flash glucose sensor (FreeStyle Samantha 2 Sensor kit) As directed fluoxetine TAKE 3 CAPSULES BY MOUTH EVERY DAY furosemide 20 mg PO DAILY Held on 08/28/24. Instructions: Doctor's Order hydroxyzine HCl 25 mg PO TID PRN inhalational spacing device (Aerochamber Plus Z Stat spacer) As directed levothyroxine 50 mcg PO DAILY metformin ER 1,000 mg (2 x 500 mg) PO BID 90 days mirabegron ER (Myrbetriq) 25 mg PO DAILY 30 days omeprazole 40 mg (2 x 20 mg) PO DAILY semaglutide (Ozempic) 1 mg (0.75 mL) subcut QWEEK 30 days valsartan-hydrochlorothiazide 320-25 mg 1 tab PO DAILY Tobacco use date assessed: 11/27/24 Fall risk assessment: No Falls in past year Last assessed Fall Risk: 11/27/24 Dental Screening Dental Screen Date: 11/27/24 Did you have a dental visit in the last 12 months?: No Did you have a dental problem in the last 6 months where you did not have access to dental care?: No Was dental information given to patient?: Patient has dentist HPI HPI Comments History of Present Illness Details 74-year-old female presents for an exten ded physical exam. She admits to taking her medications as prescribed without adverse reactions. She reports controlled anxiety and depressive symptoms. She was admitted for 6 days at [facility] and discharged on . She had aortic valve replacement and pacemaker implanted. Acute issue(s) - None Past Medical History - Hypertension, diabetes, bilateral sharp tid artery stenosis, PVD, HLD, hypothyroidism, GERD, asthma, partial blindness OD, unsteady gait s/p CVA in 2013, anxiety, and depression Social History - Nonsmoker. Does not vape. Drinks 2-3 b eers twice monthly. Denies recreational drug use - Has been making healthy dietary choice s. Active but have not exercise in the past 1 month. Generally sleep well Health maintenance - Last eye exam was [address] Marisol Ireland. She has an eye appointment scheduled with Dr. Ireland in January - Last dental visit was 2-3 years ago; e ncouraged to schedule an appointment with his dentist for routine dental care - Last Tdap was in 12/22/2011; she will get the Tdap vaccine at her next visit - Up-to-date on pneumonia vaccine - Never been vaccinated for shingles: D eclines vaccination - Has not been vaccinated for the flu season; declines vaccination - history of total hysterectomy. No ayush sarah performs pap smear test - Last mammogram was in 02/16/2024: Aman ign - Last colonoscopy was with Xi Manuel th in 08/06/2020: Benign - Last dexa scan was in 11/03/2022: Lisbeth fernandez. She wants to wait a year from now for another dexa scan Specialists Followed by [facility] cardiology, Gastroenterology, pain management, pulmonology, urology, vascular surgery [facility] Medical History Essential tremor Seasonal allergies PND (post-nasal drip) Iron deficiency Arthritis Osteoarthritis Depression Hypertension Asthma Tremors of nervous system Type II diabetes mellitus Surgical History Hx of cardiac cath Hx of LASIK History of esophagogastroduodenoscopy (EGD) H/O: hysterectomy History of cataract removal with insertion of prosthetic lens Hx laparoscopic cholecystectomy Family History Mother Diabetes Parkinsons Panic disorder/agoraphobia, agoraphobic avoidnc/panc attck full remssn Father Stroke Heart attack Brother Congestive heart failure Brother Stroke Other Substance abuse Social History Household Members: Family Household Members Other:: brother Both parents involved: No Caregiver staying overnight: No Housing: Other Housing Other:: mobile home Are you a primary career development counselor to a significant other at home: Yes (brother s/p CVA) Do you presently have visiting nurse or other home services: No (brother has services VNA,PT) Alcohol intake: never Patient Tobacco Use Status: Never used Tobacco e-Cigarette/Vaping Use: Never Used Second Hand Smoke Exposure: No service: No Current occupational status: retired Current occupational exposures/hazards: Yes Cognitive needs: No Hearing needs: Yes Vision needs: No Questionnaire PHQ-9 Over the last 2 weeks, how often have you been bothered by any of the following problems? 1. Little interest or pleasure in doing things: several days 2. Feeling down, depressed, or hopeless: more than half the days 3. Trouble falling or staying asleep, or sleeping too much: not at all 4. Feeling tired or having little energy: nearly every day 5. Poor appetite or overeating: not at all 6. Feeling bad about yourself - or that you are a failure or have let yourself or your family down: several days 7. Trouble concentrating on things, such as reading the newspaper or watching television: not at all 8. Moving or speaking so slowly that other people could have noticed. Or the opposite - being so fidgety or restless that you have been moving around a lot more than usual: not at all 9. Thoughts that you would be better off or of hurting yourself in some way: not at all Total score: 7 Depression Screening Interpretation: Positive Depression Screening Follow-up: Existing condition and In treatment Depression Screening Done: Yes 51326 - PHQ-9 Billing: Yes Source: Developed by Drs. Meir Zarate, Ethan Sinclair and colleagues, with an educational leeanne from ffk environment. Thrive Questionnaire Date Thrive assessed: 11/27/24 I am a: Patient What is your living situation today?: I have a steady place to live Within the past 12 months, did the food you bought not last and you didn't have the money to get more?: Never true Within the past 12 months, did you worry whether your food would run out before you got money to buy more?: Sometimes True Do you have trouble paying for medicines?: No Do you have trouble getting transportation to medical appointments?: No Do you have trouble paying your heating and electricity bill?: Yes Do you have trouble taking care of your child, family member or friend?: No Do you have trouble with day-to-day activities such as bathing, preparing meals, shopping, managing finances, etc.?: No Are you currently unemployed and looking for a job?: No Are you interested in more education?: No Please select the resources that you would like help with: None Currently or been in a relationship where the following occur: No concerns reported THRIVE Score: 2 AUDIT C Alcohol Use Questionnaire (AUDIT-C) 1. How often do you have a drink containing alcohol?: Never 3. How often do you have six or more drinks on one occasion?: Never Total Score: 0 Score Reviewed/Action Taken: Yes SUSHANT-7 AMB Questionnaire SUSHANT-7 Date SUSHANT - 7 assessed: 11/27/24 Feeling nervous, anxious, or on edge: 2 = More than half the days Not being able to stop or control worryin = More than half the days Worrying too much about different things: 2 = More than half the days Trouble relaxin = Nearly every day Being so restless that it is hard to sit still: 0 = Not at all Becoming easily annoyed or irritable: 0 = Not at all Feeling afraid as if something awful might happen: 2 = More than half the days Total SUSHANT-7 score (0-4 normal; 5-9 mild; 10-14 moderate; 15-21 severe): 11 Source: Developed by Drs. Meir Zarate, Ethan Sinclair and colleagues, with an educational leeanne from ffk environment. SUSHANT-7 Assessment Billing SUSHANT-7 Assessment Tool: SUSHANT-7 Assessment 47333 ACT Questionnaire In the past 4 weeks, how much of the time did your asthma keep you from getting as much done at work, school or at home?: All of the time During the past 4 weeks, how often have you had shortness of breath?: More than once a day During the past 4 weeks, how often did your asthma symptoms wake you up at night or earlier than usual in the morning?: Once or twice per week During the past 4 weeks, how often have you had to use your rescue inhaler or nebulizer medication?: More than 3 times per day How would you rate your asthma control during the past 4 weeks?: Somewhat controlled ACT Interpretation: Positive Score: 10 Review of Systems Const Details: Denies chills, Denies fatigue, Denies fever(s), Denies headache(s) and Denies weakness HEENT Denies change in vision, Denies dizziness, Denies headache(s), Denies hearing loss, Denies nasal congestion, Denies sinus pain, Denies sinus pressure and Denies sore throat Card Denies chest pain, Denies lightheadedness, Denies dyspnea and Denies other (palpitations) Resp Denies cough, Denies dyspnea and Denies wheezing GI Denies abdominal pain, Denies melena, Denies hematochezia, Denies change in bowel habits, Denies dyspepsia and Denies nausea Denies hematuria and Denies dysuria Musc Denies abnormal gait, Denies myalgias, Denies arthralgias, Denies numbness and Denies tingling Skin/Breast Denies rash, Denies unusual bruising and Denies wounds Neuro Denies abnormal gait, Denies dizziness, Denies headache(s), Denies memory loss, Denies numbness, Denies Sensory deficit (Neuro), Denies tingling and Denies weakness Psych Denies anxiety, Denies depression and Denies memory loss Endo Denies cold intolerance, Denies fatigue, Denies heat intolerance, Denies polydipsia and Denies polyuria Ganesh/Lymph Denies easy bleeding and Denies easy bruising Aller/Immun Denies wheezing Physical exam (Primary Care) Vital Signs: Last Vital Signs Temp 97.5 F 11/27/24 15:33 Pulse 96 11/27/24 15:33 Resp 16 11/27/24 15:33 BP 130/60 11/27/24 15:53 Pulse Ox 99 11/27/24 15:33 Oxygen Delivery Method Room Air 11/27/24 15:33 BMI result Body Mass Index 24.0 Tobacco/Smoking Status: Tobacco use Status Tobacco use date assessed 11/27/24 11/27/24 15:37 Patient Tobacco Use Status Never used Tobacco 11/27/24 15:29 e-Cigarette/Vaping Use Never Used 11/27/24 15:29 PHQ-9: PHQ-9 Score PHQ-9: Total score 7 11/27/24 16:01 Depression Screening Interpretation: Positive Depression Screening Follow-up: Existing condition and In treatment Thrive Assessment: Date of Thrive Assessment Date Thrive assessed 11/27/24 11/27/24 15:46 Currently or been in a relationship where the following occur: No concerns reported Const Other: General: no acute distress, well developed, alert and awake Nutritional Appearance: well nourished Orientation/consciousness: patient oriented x3 HENMT Head: Yes normocephalic and Yes atraumatic Ears: hearing grossly normal bilaterally and TM's normal bilaterally General nose exam: Normal external nose present and Normal nares present Mouth: Normal oral and palatal mucosa present and moist mucous membranes Teeth and gingiva: dentition normal Throat: Yes oropharynx normal Eyes Pupils: Equal, round and reactive pupils present and Pupil accommodation reflex normal EOM: EOMs intact bilaterally Neck Neck: Yes normal visual inspection, Yes no lymphadenopathy and Yes trachea midline Thyroid: Thyroid normal Carotids: no bruits Lymphatic: no lymphadenopathy noted Chest Chest palpation & inspection: normal inspection of the chest Resp Effort & Inspection: normal respiratory effort Auscultation: clear to auscultation bilaterally Cardio Rate: regular rate Rhythm: regular rhythm Heart sounds: S1 normal heart sound present, S2 normal heart sound present, no gallops, positive murmurs and no rubs Bruits: no abdominal aortic bruits and no carotid bruits GI Palpation (GI): No Abdominal aortic bruit present, Soft to palpation, nontender, No hepatosplenomegaly present and No Rebound tenderness present Auscultation: normal bowel sounds General: Yes no CVA tenderness Back/Spine/Pelvis Back: no CVA tenderness Cervical Spine: cervical ROM normal and No Cervical spine tenderness Thoracic/Lumbar Spine: thoraco-lumbar ROM normal, No pain with thoraco-lumbar ROM, No thoracic spinal tenderness and No lumbar spinal tenderness Skin General: warm and dry. Normal skin color. Normal skin turgor Lesions: Skin tags to face and posterior/anterior trunk Rashes: no rashes Trauma: no lacerations or abrasions Wounds: no wounds Nails: normal Neuro General: patient oriented x3, gait normal and CN's II-XI intact bilaterally Cranial nerves: Yes Equal, round and reactive pupils present Cognition (Neuro): normal cognition Gait exam (Neuro): Normal gait present Motor exam (neuro): 5/5 motor strength present throughout Sensory Exam: No Sensory deficit (Neuro) Deep tendon reflexes (DTR's): Right patellar reflex intensity grade: 2+ and Left patellar reflex intensity grade: 2+ Extrem General: Yes normal to inspection, No edema and No calf tenderness Psych Appearance: grossly normal Affect: normal affect Attitude: cooperative Thought process: Normal thought process present Results AMB Hemoglobin A1c AMB Hemoglobin A1c 5.4 % Last Edit by Queenie Issa MA on 11/27/24 16:26 Results Reviewed Results Reviewed: Laboratory Last Values Hgb A1c (Clinic) 5.4 % (4.0-6.0) 11/27/24 16:08 Coding Level of Care Code Est Pt Level 3 (81718) Est Pt Prev Care >65y(36643) Diagnoses Normal physical examination, routine Z00.00 Type II diabetes mellitus E11.9 Hypertension I10 Anxiety and depression F41.9; F32.A Additional Codes Asthma Control Questionnaire - ACT Interpretation: Positive ([id number]) SUSHANT-7 Assessment Billing - SUSHANT-7 Assessment Tool: SUSHANT-7 Assessment 91333 ([id number]) PHQ-9 - 47327 - PHQ-9 Billing: Yes ([id number]) Assessment & Plan Assessment & Plan (1) Normal physical examination, routine: Code(s): Z00.00 - Encounter for general adult medical examination without abnormal findings Category: Medical Plan: No significant functional limitations noted. Continue current treatment regimen. Healthy diet and routine exercise encouraged. Follow-up for hospital discharge follow-up for recent hospital discharge as soon as possible. Return in 3 months for hypertension, diabetes, anxiety, and depression or sooner with symptoms or concerns. Verbalized understanding and agreed with the plan. (2) Type II diabetes mellitus: Code(s): E11.9 - Type 2 diabetes mellitus without complications Category: Medical Plan: A1c today is 5.4%, within goal of less than 7.0%. Previous A1c was 5.8%. Continue current treatment regimen. ADA diet and routine exercise encouraged. Follow-up in 3 months or sooner with symptoms or concerns. Verbalized understanding and agreed with the plan. (3) Hypertension: Code(s): I10 - Essential (primary) hypertension Category: Medical Plan: Resting blood pressure is 130/60, slightly above goal of less than 130/80. Continue current treatment regimen. Low-sodium diet encouraged. Follow-up in 3 months. Verbalized understanding and agreed with the plan. (4) Anxiety and depression: Code(s): F41.9 - Anxiety disorder, unspecified; F32.A - Depression, unspecified Category: Medical Plan: She reports controlled anxiety and depressive symptoms. PHQ-9 and SUSHANT-7 scores revealed mild depression and moderate anxiety respectively. Continue current treatment regimen. Routine exercise encouraged. Follow-up in 3 months or sooner with symptoms or concerns. Verbalized understanding and agreed with the plan. Orders: Orders AMB Hemoglobin A1c 11/27/24 Z13.9 - Encounter for screening, unspecified
[2024-11-27 15:33] VITALS: BP 146/67; PULSE 96; RESP 16; TEMP 36.4; O2SAT 99; BMI 24.0
[2024-11-27 15:53] VITALS: BP 130/60
--- OUTSIDE RECORDS SUMMARY | 2024-11-27 16:22 | XMS_ITS | Encounter Summary ---
Author Organization [employer] Address [address] [place] [address] [address] [place] [address] Care Team Providers Care Barrel Rifler Operator Name Role Phone Unavailable Primary Care Provider [...]
--- OUTSIDE RECORDS SUMMARY | 2024-11-27 16:22 | XMS_ITS | Encounter Summary ---
Author Organization [facility] Address [address] [place] [address] Phone Care Team Providers Care Business Support Coordinator Name Role Phone Milana Ha MD Primary Care Provid er Reason for Referral * MRI/CAT Scan - Closed Specialty Diagnoses / Procedures Referred By Yolanda barnhart Referred To Contact Radiology Diagnoses Benign neoplasm of cranial nerves Procedures MRI Brain Meir Lara MD Phone: tel: fax: [email or web address] Referral ID Status Reason Start Date Expiration Date Visits Re quested Visits Authorized [id number] Closed 01/25/2024 01/24/2025 1 1 Encounter Details Date Type Department Care Team (Latest Contact Info) Description 01/25/2024 Transcribe Orders Virtual Department [address] [place] [address] Meir Lara MD [address] [facility], [address] [place] [address] [email or web address] Benign neoplasm of cranial nerves (Primary Dx) Social History Tobacco Use Types Packs/Day Years [...] on file documented as of this encounter Results * MRI BRAIN (INTERNAL AUDITORY CANAL) WITH AND WITHOUT CONTRAST (03/07/2024 3:11 PM EST) Anatomical Region Laterality Modality Head Magnetic Resonan ce 03/09/2024 10:4 2 AM EST Impressions 03/09/2024 10:52 AM EST 1. Unchanged 7 mm nodular enhancing lesion in the right internal auditory canal, consistent with a vestibular schwannoma. Narrative 03/09/2024 10:52 AM EST MRI BRAIN (INTERNAL AUDITORY CANAL) WITH AND WITHOUT CONTRAST Referring clinician's provided indication for this examination in [facility]: Outside Radiology Order; Benign neoplasm of cranial nerves TECHNIQUE: Multi-sequence, multi-planar MRI of the brain including high resolution images of the temporal bones was performed before and after intravenous contrast. COMPARISON: MRI BRAIN WITH AND WITHOUT CONTRAST FINDINGS: Internal Auditory Canals, Cerebellopontine Angles, and Intracranial 7th and 8th Nerve Complexes: Nodular enhancing lesion in the right internal auditory canal measures 5 x 7 x 5 mm (AP by RL by SI), unchanged in size compared with the MRI from 08/15/2017. Inner Ear Structures: Normal. Preserved signal in the labyrinth. No MRI evidence for an inner ear anomaly. Brain Parenchyma: No evidence of acute infarct, mass lesion, or hemorrhage. Mild scattered foci of T2 hyperintensity in the cerebral white matter, likely a manifestation of chronic small vessel disease. 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 Prominent arachnoid granulation in the lateral left transverse sinus contains a small portion of the left cerebellar hemisphere, most commonly an incidental asymptomatic finding. This is unchanged dating back to 2018. Ventricular System and Extra-Axial Spaces: There is no evidence of midline shift or hydrocephalus. Unchanged expanded empty sella turcica. Miscellaneous: The extracranial soft tissues and orbits are unremarkable. No osseous lesions are identified. Procedure Note Ambrocio Sigala MD - 03/09/2024 MRI BRAIN (INTERNAL AUDITORY CANAL) WITH AND WITHOUT CONTRAST Referring clinician's provided indication for this examination in [facility]:Outside Radiology Order; Benign neoplasm of cranial nerves TECHNIQUE: Multi-sequence, multi-planar MRI of the brain including highresolution images of the temporal bones was performed before and afterintravenous contrast. COMPARISON: MRI BRAIN WITH AND WITHOUT CONTRAST FINDINGS: Internal Auditory Canals, Cerebellopontine Angles, and Intracranial 7thand 8th Nerve Complexes: Nodular enhancing lesion in the right internalauditory canal measures 5 x 7 x 5 mm (AP by RL by SI), unchanged in sizecompared with the MRI from 08/15/2017. Inner Ear Structures: Normal. Preserved signal in the labyrinth. No MRIevidence for an inner ear anomaly. Brain Parenchyma: No evidence of acute infarct, mass lesion, orhemorrhage. Mild scattered foci of T2 hyperintensity in the cerebral whitematter, likely a manifestation of chronic small vessel disease. A 13 mmpineal gland cyst is again noted. Prominent arachnoid granulation in the lateral left transverse sinuscontains a small portion of the left cerebellar hemisphere, most commonlyan incidental asymptomatic finding. This is unchanged dating back [id number]. Ventricular System and Extra-Axial Spaces: There is no evidence of midlineshift or hydrocephalus. Unchanged expanded empty sella turcica. Miscellaneous: The extracranial soft tissues and orbits are unremarkable.No osseous lesions are identified. IMPRESSION: 1. Unchanged 7 mm nodular enhancing lesion in the right internal auditorycanal, consistent with a vestibular schwannoma. Meir Lara MD IMG MR HEAD/NECK Final Re sult documented in this encounter Visit Diagnoses Diagnosis Benign neoplasm of cranial nerves- Primary Benign neoplasm of cranial nerves documented in this encounter Care Teams Business Support Coordinator Relationship Specialty Start Date End Date Milana Ha MD [address] [address] PCP - General Internal Medicine 08/03/17 documented as of this encounter Additional Source Comments The information contained in this document represents components of the legal health record. It is not the complete legal health record.[facility]
--- OUTSIDE RECORDS SUMMARY | 2024-11-27 16:22 | XMS_ITS | Encounter Summary ---
Author Organization [facility] Address [address] [place] [address] [place] [phone] Phone Care Team Providers Care Child Psychology Teacher Name Role Phone Milana Ha MD Primary Care Provid er Encounter Details Date Type Department Care Team ([facility] Contact Info) Description 11/08/2024 Procedure Pass Non-Invasive Cardiology [address] [place] [address] Social History Tobacco Use Types Packs/Day Years [...] on filedocumented in this encounter Care Teams Child Psychology Teacher Relationship Specialty Start Date End Date Milana Ha MD [address] [phone] PCP - General Internal Medicine 08/03/17 documented as of this encounter Additional Source Comments The information contained in this document represents components of the legal health record. It is not the complete legal health record.[facility]
--- OUTSIDE RECORDS SUMMARY | 2024-11-27 16:22 | XMS_ITS | Encounter Summary ---
Author Organization [facility] Address [address] [place] [address] [place] [phone] Phone Care Team Providers Care Copyright Expert Name Role Phone Milana Ha MD Primary Care Provid er Encounter Details Date Type Department Care Team ([facility] Contact Info) Description 11/01/2024 Procedure Pass Non-Invasive Cardiology [address] [place] [address] Social History Tobacco Use Types Packs/Day Years [...] on filedocumented in this encounter Care Teams Copyright Expert Relationship Specialty Start Date End Date Milana Ha MD [address] [phone] PCP - General Internal Medicine 08/03/17 documented as of this encounter Additional Source Comments The information contained in this document represents components of the legal health record. It is not the complete legal health record.[facility]
--- OUTSIDE RECORDS SUMMARY | 2024-11-27 16:22 | XMS_ITS | Clinical Summary ---
Author Organization [facility] Address [address] [place] [address] Care Team Providers Care English Composition Teacher Name Role Phone Milana Ha MD Primary Care Provider Surgical History Surgery Date Site/Laterality Comments HYSTERECTOMY PROCEDURE: HISTORICAL HYSTERECTOMY SALPINGOOPHORECTOMY PROCEDURE: [place] LAPAROSCOPY W/RMVL ADNEXAL STRUCTURES CARDIAC CATHETERIZATION 2002 PROCEDURE: HISTORICAL CARDIAC CATH; COMMENT: negative CHOLECYSTECTOMY 05/16/2016 PROCEDURE: HISTORICAL CHOLECYSTECTOMY; COMMENT: laparoscopic Pee Gutierrez UPPER GASTROINTESTINAL ENDOSCOPY 11/25/2011 PROCEDURE: [place] UPPER GI ENDOSCOPY PERFORMED; COMMENT: small HH; no esophagitis on PPI rx COLONOSCOPY 2007 PROCEDURE: HISTORICAL COLONOSCOPY; COMMENT: [facility]; date approx.; negative COLONOSCOPY 08/06/2020 PROCEDURE: HISTORICAL COLONOSCOPY; COMMENT: 1 cm polyps x2 and diverticulosis: Tubular adenomas x2. Repeat colonoscopy in 3 years. Medical History Medical History Date Comments DM (diabetes mellitus) ([facility] V24, [facility] V28) DX:DM (diabetes mellitus) (H [...] type 2 (diabetes mellitus , type 2) ([facility] V24, [facility] V28) 07/09/2013 DX:DM type 2 (diabetes marcelino itus, type 2) ([facility]) Family History Medical History Relation Name Comments Diabetes Brother 1 Diabetes Brother 2 CABG Father CABG Mother Diabetes Mother Parkinson's Disease Mother Colon cancer Neg Hx Relation Name Status Comments Brother 1 Brother 2 Brother 3 [place] Father (Age 59) stroke Mother Social History [...] age to complete this topic Care Teams English Composition Teacher Relationship Specialty Start Date End Date Milana Ha MD PCP - General Internal Medicine 05/02/19
--- OUTSIDE RECORDS SUMMARY | 2024-11-27 16:22 | XMS_ITS | Encounter Summary ---
Author Organization [facility] Address [address] [facility] [address] [place] [address] Phone Care Team Providers Care Head Insulation Board Saw Operator Name Role Phone Milana Ha MD Primary Care Provid er Encounter Details Date Type Department Care Team (Late st Contact Info) Description 06/02/2018 Ancillary Orders Virtual Department [address] [place] [address] Bryce Bui MD 100 [facility] [address] [place] [address] Disorder of kidney and ureter Social History Tobacco Use Types Packs/Day Years Used Date Smoking Tobacco: Never Assessed Comments Unknown Sex and Gender Information Value Date Recorded Sex Assigned at Not on file Legal Sex Female 10:05 PM EDT Gender Identity Not on file Sexual Orientation Not on file documented as of this encounter Plan of Treatment Not on file documented as of this encounter Results * US Kidneys (06/26/2018 9:06 AM EDT) Anatomical Region Laterality Modality Abdomen, Kidney Ultrasound 06/26/2018 9:26 AM EDT Impressions 06/26/2018 9:27 AM EDT Renal shadow appears within normal limits. POS [id number] Narrative 06/26/2018 9:27 AM EDT COMPARISON: None FINDINGS: Kidneys: Right kidney measured at 11.27 m and left 10.3 cm in length. No stones or masses detected. There is no hydronephrosis. No scarring. No perinephric fluid collections. Procedure Note Suellen Ding MD - 06/26/2018 COMPARISON: None FINDINGS: Kidneys: Right kidney measured at 11.27 m and left 10.3 cm in length. Nostones or masses detected. There is no hydronephrosis. No scarring. Noperinephric fluid collections. IMPRESSION: Renal shadow appears within normal limits. POS [id number] us Internal With Orders Referring - Referring IMG Rust RENAL Final Result documented in this encounter Visit Diagnoses Diagnosis Disorder of kidney and ureter Unspecified disorder of kidney and ureter Disorder of kidney and ureter Unspecified disorder of kidney and ureter documented in this encounter Care Teams Head Insulation Board Saw Operator Relationship Specialty Start Date End Date Mil[facility] MD [facility] [address] [address] PCP - General Internal Medicine 08/03/17 documented as of this encounter Additional Source Comments The information contained in this document represents components of the legal health record. It is not the complete legal health record.[facility]
--- OUTSIDE RECORDS SUMMARY | 2024-11-27 16:22 | XMS_ITS | Encounter Summary ---
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, bilateral Arthralgia of right temporomandibular joint Procedures MRI Brain Shane Patel MD Phone: tel: fax: [email or web address] Referral ID Status Reason Start Date Expiration Date Visits Re quested Visits Authorized [id number] Closed 08/02/2018 09/30/2018 1 1 Encounter Details Date Type Department Care Team (Latest Contact Info) Description 08/08/2018 Ancillary Orders Virtual Department [address] [place] [address] Shane Patel MD 100 [facility] [address] [place] [address] [email or web address] Benign neoplasm of cranial nerves; Sensory hearing loss, bilateral; Arthralgia of right temporomandibular joint Social History Tobacco Use Types Packs/Day Years [...] of this encounter Results * MRI BRAIN WITH AND WITHOUT CONTRAST (08/21/2018 2:58 PM EDT) Anatomical Region Laterality Modality Head Magnetic Resonan ce 08/21/2018 4:12 PM EDT Impressions 08/21/2018 4:26 PM EDT 1. 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 2. Minimal increase in chronic white matter changes of small vessel disease. 3. Chronic empty sella . 4. No other significant intracranial pathology. 5. 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 Axial T2, T2 FLAIR, diffusion-weighted imaging with ADC map, and sagittal T1 of the whole brain, thin section axial T1, and 3-D axial high resolution bright fluid through the region of the IACs, followed by post-gadolinium axial T1 of the whole brain and post-gadolinium thin section axial and coronal T1 through the region of the IACs. FINDINGS: Previously identified intracanalicular right acoustic neuroma is unchanged since our first scan on 03/11/2016 measuring maximally 6 x 8 x 6 mm (AP x TV x CC). The left IAC is unremarkable as are the visualized other proximal cranial nerves. No parenchymal masses. No infarct,, signs of demyelinating disease or any inflammatory process. Scattered small globular T2 hyperintensities in the periventricular white matter typical of small vessel disease; a few are minimally more conspicuous than 2018 but the majority are unchanged. No new lesions. Normal ventricular size and configuration. Basilar cisterns widely patent. No signs of elevated intracranial pressure. Chronically empty sella. No pineal region or intraorbital pathology. No inflammatory changes in the mastoid air cells or paranasal sinuses. Normal flow-voids are present in the major vessels of the [place]. Although the study does not detail the TM joints, it is clear that there are chronically extensive degenerative changes in the right condyle and fossa with flattened condylar head and marginal spurring. The left TMJ is grossly normal. Procedure Note Jung Grossman MD - 08/21/2018 COMPARISON:Multiple prior MRI, most recently 08/15/2017 TECHNIQUE: Exam performed on a 1.5 Edith high-field MRI scanner. AxialT2, T2 FLAIR, diffusion-weighted imaging with ADC map, and sagittal T1 ofthe whole brain, thin section axial T1, and 3-D axial high resolutionbright fluid through the region of the IACs, followed by post-gadoliniumaxial T1 of the whole brain and post-gadolinium thin section axial andcoronal T1 through the region of the IACs. FINDINGS: Previously identified intracanalicular right acoustic neuroma is unchangedsince our first scan on 03/11/2016 measuring maximally 6 x 8 x 6 mm (AP xTV x CC). The left IAC is unremarkable as are the visualized other proximal cranialnerves. No parenchymal masses. No infarct,, signs of demyelinating disease or any inflammatory process. Scattered small globular T2 hyperintensities in the periventricular whitematter typical of small vessel disease; a few are minimally moreconspicuous than 2018 but the majority are unchanged. No new lesions. Normal ventricular size and configuration. Basilar cisterns widely patent.No signs of elevated intracranial pressure. Chronically empty sella. No pineal region or intraorbital pathology. No inflammatory changes in the mastoid air cells or paranasal sinuses. Normal flow-voids are present in the major vessels of the [place]. Although the study does not detail the TM joints, it is clear that thereare chronically extensive degenerative changes in the right condyle andfossa with flattened condylar head and marginal spurring. The left TMJ isgrossly normal. IMPRESSION: 1. No significant change in right intracanalicular acoustic neuroma sinceour first scan in 2015. 2. Minimal increase in chronic white matter changes of small vesseldisease. 3. Chronic empty sella . 4. No other significant intracranial pathology. 5. 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 It is not the complete legal health record.[facility]
--- OUTSIDE RECORDS SUMMARY | 2024-11-27 16:22 | XMS_ITS | Clinical Summary ---
Author Organization [facility] Address [address] [place] [address] Care Team Providers Care Food Service Specialist Name Role Phone Milana Ha MD [...] age to complete this topic Care Teams Food Service Specialist Relationship Specialty Start Date End Date Milana Ha MD PCP - General Internal Medicine 05/02/19
--- OUTSIDE RECORDS SUMMARY | 2024-11-27 16:22 | XMS_ITS | Encounter Summary ---
Author Organization [facility] Address [address] [place] [address] Phone Care Team Providers Care Help Desk Supervisor Name Role Phone Milana Ha MD Primary Care Provid er Encounter Details Date Type Department Care Team (Late st Contact Info) Description 08/03/2017 Procedure Pass [facility], [address] [address] Social History Tobacco Use Types Packs/Day Years [...] on filedocumented in this encounter Care Teams Help Desk Supervisor Relationship Specialty Start Date End Date Milana Ha MD [address] [address] PCP - General Internal Medicine 08/03/17 documented as of this encounter Additional Source Comments The information contained in this document represents components of the legal health record. It is not the complete legal health record.[facility]
--- OUTSIDE RECORDS SUMMARY | 2024-11-27 16:22 | XMS_ITS | Encounter Summary ---
Author Organization [facility] Address [address] [place] [address] [place] [address] Phone Care Team Providers Care Blanchard Grinder Operator Name Role Phone Milana Ha MD Primary Care Provid er Reason for Referral * MRI/CAT Scan - Closed Specialty Diagnoses / Procedures Referred By Yolanda barnhart Referred To Contact Radiology Diagnoses SNHL (sensory-neural hearing loss), asymmetrical Procedures MRI Brain Shane Patel MD Phone: tel: fax: [email or web address] Referral ID Status Reason Start Date Expiration Date Visits Re quested Visits Authorized [id number] Closed 08/02/2017 09/30/2017 1 1 Encounter Details Date Type Department Care Team (Late st Contact Info) Description 08/03/2017 Ancillary Orders [facility] External Provider Virtual Department [address] [place] [address] Shane Patel MD [address] [place] [address] 100 [place] [address] [email or web address] SNHL (sensory-neural hearing loss), asymmetrical Social History Tobacco Use Types Packs/Day Years [...] (INTERNAL AUDITORY CANAL) WITH AND WITHOUT CONTRAST (08/15/2017 1:43 PM EDT) Anatomical Region Laterality Modality Head Magnetic Resonan ce 08/15/2017 4:53 PM EDT Impressions 08/15/2017 5:05 PM EDT Stable intracanalicular acoustic neuroma on the right. No other significant changes. POS - [id number] Narrative 08/15/2017 5:05 PM EDT HISTORY: Known acoustic neuroma, abnormal previous study, follow-up. COMPARISON: MRI brain 08/26/2016 TECHNIQUE: Exam performed on a 1.5 Edith high-field MRI scanner. Axial T2, T2*, T2 FLAIR, diffusion-weighted imaging with ADC map, and sagittal T1 of the whole brain, thin section axial T1, and 3-D axial high resolution bright fluid through the region of the IACs, followed by post-gadolinium axial T1 of the whole brain and post-gadolinium thin section axial and coronal T1 through the region of the IACs. FINDINGS: No evidence of intracranial hemorrhage or hematomas. No evidence of acute infarction. Mild patchy T2/T2 FLAIR hyperintense change within the deep and periventricular white matter bilaterally, more extensive on left than right, is stable. No enhancing white matter signal abnormalities. The diffusely enhancing mass within the right internal auditory canal appears stable measuring 7 mm x 6 mm x 5 mm. No evidence of new intracranial masses. The ventricles are stable in size and configuration. Basal cisterns are patent. Normal flow-voids at the base of the skull. Mastoid air cells and paranasal sinuses are clear. Procedure Note Atul Mobley MD - 08/15/2017 HISTORY: Known acoustic neuroma, abnormal previous study, follow-up. COMPARISON: MRI brain 08/26/2016 TECHNIQUE: Exam performed on a 1.5 Edith high-field MRI scanner. AxialT2, T2*, T2 FLAIR, diffusion-weighted imaging with ADC map, and sagittalT1 of the whole brain, thin section axial T1, and 3-D axial highresolution bright fluid through the region of the IACs, followed bypost-gadolinium axial T1 of the whole brain and post-gadolinium thinsection axial and coronal T1 through the region of the IACs. FINDINGS: No evidence of intracranial hemorrhage or hematomas. No evidence of acuteinfarction. Mild patchy T2/T2 FLAIR hyperintense change within the deep andperiventricular white matter bilaterally, more extensive on left thanright, is stable. No enhancing white matter signal abnormalities. The diffusely enhancing mass within the right internal auditory canalappears stable measuring 7 mm x 6 mm x 5 mm. No evidence of newintracranial masses. The ventricles are stable in size and configuration. Basal cisterns arepatent. Normal flow-voids at the base of the skull. Mastoid air cells and paranasal sinuses are clear. IMPRESSION: Stable intracanalicular acoustic neuroma on the right. No othersignificant changes. POS - [id number] us Shane Patel MD IMG MR HEAD/NECK Final Resul t documented in this encounter Visit Diagnoses Diagnosis SNHL (sensory-neural hearing loss), asymmetrical Sensorineural hearing loss, asymmetrical SNHL (sensory-neural hearing loss), asymmetrical Sensorineural hearing loss, asymmetrical documented in this encounter Care Teams Blanchard Grinder Operator Relationship Specialty Start Date End Date Milana Ha MD [address] [address] PCP - General Internal Medicine 08/03/17 documented as of this encounter Additional Source Comments The information contained in this document represents components of the legal health record. It is not the complete legal health record.[facility]
--- OUTSIDE RECORDS SUMMARY | 2024-11-27 16:22 | XMS_ITS | Encounter Summary ---
Author Organization [facility] Address [address] [place] [address] [place] [address] Phone Care Team Providers Care Mill Platform Supervisor Name Role Phone Milana Ha MD Primary Care Provid er Encounter Details Date Type Department Care Team ([facility] Contact Info) Description 10/23/2024 Procedure Pass Non-Invasive Cardiology [address] [place] [address] Social History Tobacco Use Types Packs/Day Years [...] on filedocumented in this encounter Care Teams Mill Platform Supervisor Relationship Specialty Start Date End Date Milana Ha MD [address] [id number] PCP - General Internal Medicine 08/03/17 documented as of this encounter Additional Source Comments The information contained in this document represents components of the legal health record. It is not the complete legal health record.[facility]
--- OUTSIDE RECORDS SUMMARY | 2024-11-27 16:22 | XMS_ITS | Encounter Summary ---
Author Organization [facility] Address [address] [place] [address] Phone Care Team Providers Care Food Writer Name Role Phone Milana Ha MD Primary Care Provid er Encounter Details Date Type Department Care Team (Late st Contact Info) Description 01/25/2024 Procedure Pass [facility], [address] [address] Social History Tobacco Use Types Packs/Day Years [...] on filedocumented in this encounter Care Teams Food Writer Relationship Specialty Start Date End Date Milana Ha MD [address] [id number] PCP - General Internal Medicine 08/03/17 documented as of this encounter Additional Source Comments The information contained in this document represents components of the legal health record. It is not the complete legal health record.[facility]
--- OUTSIDE RECORDS SUMMARY | 2024-11-27 16:22 | XMS_ITS | Clinical Summary ---
Author Organization [facility] Address [address] [place] [address] [address] [place] [address] Care Team Providers Care Merchandise Presentation Manager Name Role Phone Unavailable Primary Care Provider [...] series) 01/31/2023 COVID-19 Vaccine ( season) 2023 Dental X-Ray: Full Mouth 09/05/2024 09/04/2021, 06/03 Influenza Vaccine (#1) 2024 0, 12/27/2008, 02/13/2008, Additional history exists HIB Vaccines Aged Out No longer eligi [...] Most Recently Relevant to Health Maintenance Insurance [place] - [facility] PPO * Guarantor: Carmelita Whitaker Account Type Relation to Patient Date of Phone Billing Address Personal/Family Self [place], [place] * Guarantor: Carmelita Whitaker Account Type Relation to Patient Date of Phone Billing Address Personal/Family Self [place]
--- OUTSIDE RECORDS SUMMARY | 2024-11-27 16:22 | XMS_ITS | Encounter Summary ---
Author Organization [facility] Address [address] [place] [address] Phone Care Team Providers Care Staple Laster Name Role Phone Milana Ha MD Primary Care Provid er Encounter Details Date Type Department Care Team (Late st Contact Info) Description 08/08/2018 Procedure Pass [facility], [address] [address] Social History Tobacco Use Types Packs/Day Years [...] on filedocumented in this encounter Care Teams Staple Laster Relationship Specialty Start Date End Date Milana Ha MD [address] [address] PCP - General Internal Medicine 08/03/17 documented as of this encounter Additional Source Comments The information contained in this document represents components of the legal health record. It is not the complete legal health record.[facility]
== END 2024-11-27 16:29 | disposition home or self-care (01) ==
LOC: HO.HMCFM 15:25
PROVIDERS: PCP Nurse Practitioner Family; Visit Provider Nurse Practitioner Family
DX: Z13.9 Encounter for screening, unspecified (principal)

== ENCOUNTER → 2024-11-27 15:25 | Outpatient (BNVA) | payer MEDICARE, SELFPAY | PROVIDERS: PCP Nurse Practitioner Family; Visit Provider Nurse Practitioner Family | DX: Z00.00 Encounter for general adult medical examination without abnormal findings (principal); E11.9 Type 2 diabetes mellitus without complications; I10 Essential (primary) hypertension; F41.9 Anxiety disorder, unspecified; F32.A Depression, unspecified | CPT/HCPCS: 83036; 96127; 96160; 99397 ==

== ENCOUNTER 2024-11-28 14:14 | Outpatient (AMB) | payer MEDICARE, SELFPAY ==
[2024-11-28 14:58] VITALS: BP 130/62; PULSE 83; BMI 24.1
--- NOTE | 2024-11-28 14:58 | MHC.OFFVIS ---
Vital Signs 11/28/24 14:58 Height 5 ft 5 in Weight 145 lb 1.027 oz BMI 24.1 BP 130/62 Blood Pressure Location Lt brachial Position Sitting Pulse 83 Pulse Source Monitor Intake Visit Reasons: f/up-TAVR-10/18 Intake Note: f/up-TAVR 10/18 Irrigation Manager Required: No Accompanied by: Self / Same As Patient Allergies Seasonal Allergies Allergy (Intermediate, Verified 11/27/24 15:50) Cough zolpidem (From Ambien) Adverse Reaction (Severe, Verified 11/27/24 15:50) Hallucinations Medication List - Last Reconciled 11/28/24 by Elton Galarza MD acetaminophen (Tylenol Extra Strength) 500 mg PO Q6H PRN albuterol sulfate 90 mcg/actuation 2 puffs PO Q4-6H PRN amlodipine 10 mg PO DAILY apixaban (Eliquis) 5 mg PO BID atorvastatin 80 mg PO DAILY buspirone 10 mg PO BID 30 days famotidine (Pepcid) 20 mg PO BEDTIME flash glucose scanning reader ([place] [employer] Samantha 2 [place]) As directed flash glucose sensor (FreeStyle Samantha 2 Sensor kit) As directed fluoxetine TAKE 3 CAPSULES BY MOUTH EVERY DAY furosemide 20 mg PO DAILY Held on 08/28/24. Instructions: Doctor's Order hydroxyzine HCl 25 mg PO TID PRN inhalational spacing device (Aerochamber Plus Z Stat spacer) As directed levothyroxine 50 mcg PO DAILY metformin ER 1,000 mg (2 x 500 mg) PO BID 90 days mirabegron ER (Myrbetriq) 25 mg PO DAILY 30 days omeprazole 40 mg (2 x 20 mg) PO DAILY semaglutide (Ozempic) 1 mg (0.75 mL) subcut QWEEK 30 days valsartan-hydrochlorothiazide 320-25 mg 1 tab PO DAILY HPI Comments Details: [age] year female who is here for severe aortic valve stenosis and assessment for transcatheter aortic valve replacement. She has background history of hypertension, hyperlipidemia, history of aortic atheroma and she has been on chronic Eliquis due to that. She underwent cardiac catheterization on 09/27/2024 which showed ostial diagonal 150-60% stenosis and minimal disease in RCA and LAD. Mean gradient across aortic valve was 50 mm Hg. She has dyspnea on exertion and currently has NYHA class 3 symptoms. Also some orthopnea which is off and on. She had a syncopal episode in February 2024 but has not had any recent syncope. No chest discomfort. She underwent TAVR protocol CT scan and our plan is to do Galvan Kimberly valve next week. EKGs showing sinus rhythm at 86 beats per minute, inferior infarct, poor R-wave progression, right bundle-branch block, QTC 466 milliseconds. Echocardiography reviewed from July 2024 showing peak velocity 3.71 m/sec, peak aortic valve gradient 55 mm Hg, mean 41 mm Hg and aortic valve area of 0.64. 11/28/2024: She is here for follow-up. She underwent transcatheter aortic valve replacement in October of 2024 with a S3 ultra 23 mm valve. 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 Recent device interrogation is not showing any pacing and RV pacing is less than 0.1%. EKGs also is showing sinus rhythm. Saying she is feeling better every day but still has some shortness of breath. She has lost 90 lb since last year and this is significant weight loss with no obvious cause known so far. [facility] Medical History Essential tremor Seasonal allergies PND (post-nasal drip) Iron deficiency Arthritis Osteoarthritis Depression Hypertension Asthma Tremors of nervous system Type II diabetes mellitus Surgical History Hx of cardiac cath Hx of LASIK History of esophagogastroduodenoscopy (EGD) H/O: hysterectomy History of cataract removal with insertion of prosthetic lens Hx laparoscopic cholecystectomy Family History Mother Diabetes Parkinsons Panic disorder/agoraphobia, agoraphobic avoidnc/panc attck full remssn Father Stroke Heart attack Brother Congestive heart failure Brother Stroke Other Substance abuse Social History Household Members: Family Household Members Other:: brother Both parents involved: No Caregiver staying overnight: No Housing: Other Housing Other:: mobile home Are you a primary pharmacy care coordinator to a significant other at home: Yes (brother s/p CVA) Do you presently have visiting nurse or other home services: No (brother has services VNA,PT) Alcohol intake: never Patient Tobacco Use Status: Never used Tobacco e-Cigarette/Vaping Use: Never Used Second Hand Smoke Exposure: No service: No Current occupational status: retired Current occupational exposures/hazards: Yes Cognitive needs: No Hearing needs: Yes Vision needs: No Review of Systems Const Denies chills, Denies fatigue, Denies fever(s), Denies frequent falls, Denies weakness, Denies weight gain and Denies weight loss ENT Denies dizziness Card Denies chest pain, Denies leg edema, Denies lightheadedness, Denies palpitations, Denies dyspnea and Denies dyspnea on exertion Resp Denies cough, Denies dyspnea and Denies dyspnea on exertion GI Denies hematochezia Musc Denies abnormal gait, Denies muscle weakness, Denies numbness, Denies radiating pain into limb and Denies tingling Neuro Denies abnormal gait, Denies dizziness, Denies frequent falls, Denies numbness, Denies tingling and Denies weakness Endo Denies fatigue and Denies palpitations Physical Exam Vital Signs: Last Vital Signs Pulse 83 11/28/24 14:58 BP 130/62 11/28/24 14:58 BMI result Body Mass Index 24.1 GENERAL APPEARANCE: in no acute distress. NECK: no carotid bruit, no jugular venous distention. SKIN: no suspicious lesions, warm and dry. HEART: Normal heart sounds, regular rate and rhythm. LUNGS: clear to auscultation bilaterally. ABDOMEN: soft, nontender. EXTREMITIES: no edema. PERIPHERAL PULSES: equal. NEUROLOGIC: No gross deficits, AAO X 3 Office Procedures EKG Details: Sinus rhythm 83 beats per minute right bundle-branch block, left anterior fascicular block, inferior infarct, can not rule out anterolateral infarct, QTC 500 milliseconds. [id number], Complete Assessment & Plan Assessment & Plan (1) Status post transcatheter aortic valve replacement: Code(s): Z95.2 - Presence of prosthetic heart valve Category: Medical Plan Pleasant 74 year female who is here for follow-up. She is 1 month out from transcatheter aortic valve replacement with S3 ultra 23 mm valve. She had complete heart block after the procedure and were permanent pacemaker placed. She is currently not pacing and her device interrogation has shown pacing less than 0.1%. Blood pressure control is good. She occasionally gets dizzy. She has been losing significant weight and is saying that she lost 90 lb over the last year. She is on semaglutide and it is possible that the weight loss is all related to the medicine currently. She is getting colonoscopy next year. No previous history of cancer and she is reporting good appetite. Stable from cardiovascular point of view. She will follow up with Dr. Troncoso from here onwards and will see us back at 1 year for follow-up. Thank you for allowing me to participate in the care of your patient. Please feel free to contact me if you have any questions. Coding Level of Care Code Est Pt Level 4 (20552) Diagnoses Status post transcatheter aortic valve replacement Z95.2 CPT Codes EKG - CPT: 36183-[id number], Complete ([id number])
--- OUTSIDE RECORDS SUMMARY | 2024-11-28 15:14 | XMS_ITS | Encounter Summary ---
Author Organization [facility] Address [address] [place] [address] Phone Care Team Providers Care Fire Crew Specialist Name Role Phone Milana Ha MD Primary Care Provid er Encounter Details Date Type Department Care Team (Late st Contact Info) Description 08/08/2018 Procedure Pass [facility], [address] [address] Social History Tobacco Use Types Packs/Day Years [...] on filedocumented in this encounter Care Teams Fire Crew Specialist Relationship Specialty Start Date End Date Milana Ha MD [address] [address] PCP - General Internal Medicine 08/03/17 documented as of this encounter Additional Source Comments The information contained in this document represents components of the legal health record. It is not the complete legal health record.[facility]
--- OUTSIDE RECORDS SUMMARY | 2024-11-28 15:14 | XMS_ITS | Encounter Summary ---
Author Organization [facility] Address [address] [place] [address] [place] [address] Phone Care Team Providers Care Deputy Director Of Finance Name Role Phone Milana Ha MD Primary Care Provid er Encounter Details Date Type Department Care Team ([facility] Contact Info) Description 11/08/2024 Procedure Pass Non-Invasive Cardiology [address] [place] [address] Social History Tobacco Use Types Packs/Day Years [...] on filedocumented in this encounter Care Teams Deputy Director Of Finance Relationship Specialty Start Date End Date Milana Ha MD [address] [id number] PCP - General Internal Medicine 08/03/17 documented as of this encounter Additional Source Comments The information contained in this document represents components of the legal health record. It is not the complete legal health record.[facility]
--- OUTSIDE RECORDS SUMMARY | 2024-11-28 15:14 | XMS_ITS | Clinical Summary ---
Author Organization [facility] Address [address] [place] [address] Care Team Providers Care Physical Biochemist Name Role Phone Milana Ha MD Primary Care Provider Surgical History Surgery Date Site/Laterality Comments HYSTERECTOMY PROCEDURE: HISTORICAL HYSTERECTOMY SALPINGOOPHORECTOMY PROCEDURE: [place] LAPAROSCOPY W/RMVL ADNEXAL STRUCTURES CARDIAC CATHETERIZATION 2002 PROCEDURE: HISTORICAL CARDIAC CATH; COMMENT: negative CHOLECYSTECTOMY 05/16/2016 PROCEDURE: HISTORICAL CHOLECYSTECTOMY; COMMENT: laparoscopic Pee Gutierrez UPPER GASTROINTESTINAL ENDOSCOPY 11/25/2011 PROCEDURE: [place] UPPER GI ENDOSCOPY PERFORMED; COMMENT: small HH; no esophagitis on PPI rx COLONOSCOPY 2007 PROCEDURE: HISTORICAL COLONOSCOPY; COMMENT: [facility]; date approx.; negative COLONOSCOPY 08/06/2020 PROCEDURE: HISTORICAL COLONOSCOPY; COMMENT: 1 cm polyps x2 and diverticulosis: Tubular adenomas x2. Repeat colonoscopy in 3 years. Medical History Medical History Date Comments DM (diabetes mellitus) ([facility] V24, [facility] V28) DX:DM (diabetes mellitus) [...] , type 2) ([facility] V24, [facility] V28) 07/09/2013 DX:DM type 2 (diabetes marcelino itus, type 2) ([facility]) Family History Medical History Relation Name Comments Diabetes Brother 1 Diabetes Brother 2 CABG Father CABG Mother Diabetes Mother Parkinson's Disease Mother Colon cancer Neg Hx Relation Name Status Comments Brother 1 Brother 2 Brother 3 [place] Father (Age 59) stroke Mother Social History [...] age to complete this topic Care Teams Physical Biochemist Relationship Specialty Start Date End Date Milana Ha MD PCP - General Internal Medicine 05/02/19
--- OUTSIDE RECORDS SUMMARY | 2024-11-28 15:14 | XMS_ITS | Encounter Summary ---
Author Organization [facility] Address [address] [place] [address] [place] [address] Phone Care Team Providers Care Color Developer Name Role Phone Milana Ha MD Primary Care Provid er Encounter Details Date Type Department Care Team ([facility] Contact Info) Description 10/23/2024 Procedure Pass Non-Invasive Cardiology [address] [place] [address] Social History Tobacco Use Types Packs/Day Years [...] on filedocumented in this encounter Care Teams Color Developer Relationship Specialty Start Date End Date Milana Ha MD [address] [id number] PCP - General Internal Medicine 08/03/17 documented as of this encounter Additional Source Comments The information contained in this document represents components of the legal health record. It is not the complete legal health record.[facility]
--- OUTSIDE RECORDS SUMMARY | 2024-11-28 15:14 | XMS_ITS | Encounter Summary ---
Author Organization [facility] Address [address] [place] [address] 7 [place] [address] Care Team Providers Care Carrier Packer Name Role Phone Unavailable Primary Care Provider [...]
--- OUTSIDE RECORDS SUMMARY | 2024-11-28 15:14 | XMS_ITS | Encounter Summary ---
Author Organization [facility] Address [address] [place] [address] Phone Care Team Providers Care Clipping Marker Name Role Phone Milana Ha MD Primary Care Provid er Encounter Details Date Type Department Care Team (Late st Contact Info) Description 06/02/2018 Ancillary Orders Virtual Department [address] [place] [address] Bryce Bui MD 100 [facility] [address] [place] [address] Disorder of kidney and ureter Social History [...] Renal shadow appears within normal limits. POS [id number] Narrative 06/26/2018 9:27 AM EDT COMPARISON: None [...] Renal shadow appears within normal limits. POS [id number] us Internal With Orders Referring - Referring IMG [facility] RENAL Final Result documented in this encounter Visit Diagnoses Diagnosis Disorder of kidney and ureter Unspecified disorder of kidney and ureter Disorder of kidney and ureter Unspecified disorder of kidney and ureter documented in this encounter Care Teams Clipping Marker Relationship Specialty Start Date End Date Milana Ha MD [facility] [address] [address] PCP - General Internal Medicine 08/03/17 documented as of this encounter Additional Source Comments The information contained in this document represents components of the legal health record. It is not the complete legal health record.[facility]
--- OUTSIDE RECORDS SUMMARY | 2024-11-28 15:14 | XMS_ITS | Encounter Summary ---
Author Organization [facility] Address [address] [place] [address] Phone Care Team Providers Care Instrumental Teacher Name Role Phone Milana Ha MD Primary Care Provid er Encounter Details Date Type Department Care Team (Late st Contact Info) Description 01/25/2024 Procedure Pass [facility], [address] [address] Social History Tobacco Use Types Packs/Day Years [...] on filedocumented in this encounter Care Teams Instrumental Teacher Relationship Specialty Start Date End Date Milana Ha MD [address] [id number] PCP - General Internal Medicine 08/03/17 documented as of this encounter Additional Source Comments The information contained in this document represents components of the legal health record. It is not the complete legal health record.[facility]
--- OUTSIDE RECORDS SUMMARY | 2024-11-28 15:14 | XMS_ITS | Encounter Summary ---
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, bilateral Arthralgia of right temporomandibular joint Procedures MRI Brain Shane Patel MD Phone: tel: fax: [email or web address] Referral ID Status Reason Start Date Expiration Date Visits Re quested Visits Authorized [id number] Closed 08/02/2018 09/30/2018 1 1 Encounter Details Date Type Department Care Team (Latest Contact Info) Description 08/08/2018 Ancillary Orders Virtual Department [address] [place] [address] Shane Patel MD 100 [facility] [address] [place] [address] [email or web address] Benign neoplasm of cranial nerves; Sensory hearing [...] present in the major vessels of the [place] of [place]. Although the study does not [...] present in the major vessels of the [place]. Although the study does not detail [...] joint documented in this encounter Care Teams Mission Manager Relationship Specialty Start Date End Date Milana Ha MD [address] [address] PCP - General Internal Medicine 08/03/17 documented as of this encounter Additional Source Comments The information contained in this document represents components of the legal health record. It is not the complete legal health record.[facility]
--- OUTSIDE RECORDS SUMMARY | 2024-11-28 15:14 | XMS_ITS | Clinical Summary ---
Author Organization [facility] Address [address] [place] [address] Care Team Providers Care Dance Therapist Name Role Phone Milana Ha MD Primary [...] age to complete this topic Care Teams Dance Therapist Relationship Specialty Start Date End Date Milana Ha MD PCP - General Internal Medicine 05/02/19
--- OUTSIDE RECORDS SUMMARY | 2024-11-28 15:14 | XMS_ITS | Clinical Summary ---
Author Organization [facility] Address [address] [place] [address] 7 [place] [address] Care Team Providers Care Continuous Improvement Coach Name Role Phone Unavailable Primary Care Provider [...] Most Recently Relevant to Health Maintenance Insurance [place], [place] DENTAL - [facility] PPO * Guarantor: Carmelita Whitaker Account Type Relation to Patient Date of Phone Billing Address Personal/Family Self [place], [place] * Guarantor: Carmelita Whitaker Account Type Relation to Patient Date of Phone Billing Address Personal/Family Self [place], [place]
--- OUTSIDE RECORDS SUMMARY | 2024-11-28 15:14 | XMS_ITS | Encounter Summary ---
Author Organization [facility] Address [address] [place] [address] [place] [address] Phone Care Team Providers Care Clinical Laboratory Director Name Role Phone Milana Ha MD Primary Care Provid er Encounter Details Date Type Department Care Team ([facility] Contact Info) Description 11/01/2024 Procedure Pass Non-Invasive Cardiology [address] [place] [address] Social History Tobacco Use Types Packs/Day Years [...] on filedocumented in this encounter Care Teams Clinical Laboratory Director Relationship Specialty Start Date End Date Milana Ha MD [address] [id number] PCP - General Internal Medicine 08/03/17 documented as of this encounter Additional Source Comments The information contained in this document represents components of the legal health record. It is not the complete legal health record.[facility]
--- OUTSIDE RECORDS SUMMARY | 2024-11-28 15:14 | XMS_ITS | Encounter Summary ---
Author Organization [facility] Address [address] [place] [address] Phone Care Team Providers Care Clock Repair Technician Name Role Phone Milana Ha MD Primary Care Provid er Reason for Referral * MRI/CAT Scan - Closed Specialty Diagnoses / Procedures Referred By Yolanda barnhart Referred To Contact Radiology Diagnoses Benign neoplasm of cranial nerves Procedures MRI Brain Meir Lara MD Phone: tel: fax: [email or web address] (by [email or web address]) Referral ID Status Reason Start Date Expiration Date Visits Re quested Visits Authorized [id number] Closed 01/25/2024 01/24/2025 1 1 Encounter Details Date Type Department Care Team (Latest Contact Info) Description 01/25/2024 Transcribe Orders Virtual Department [address] [place] [address] Meir Lara MD 100 [facility], [address] [place] [address] [email or web address] Benign neoplasm of cranial nerves (Primary Dx) [...] clinician's provided indication for this examination in [facility]: Outside Radiology Order; Benign neoplasm of cranial [...] clinician's provided indication for this examination in [facility]:Outside Radiology Order; Benign neoplasm of cranial nerves [...] asymptomatic finding. This is unchanged dating back [id number]. Ventricular System and Extra-Axial Spaces: There is [...] nerves documented in this encounter Care Teams Clock Repair Technician Relationship Specialty Start Date End Date Milana Ha MD [address] [address] PCP - General Internal Medicine 08/03/17 documented as of this encounter Additional Source Comments The information contained in this document represents components of the legal health record. It is not the complete legal health record.[facility]
--- OUTSIDE RECORDS SUMMARY | 2024-11-28 15:14 | XMS_ITS | Clinical Summary ---
Author Organization [facility] Address [address] [place] [address] [place] [address] Phone Care Team Providers Care Chief Mate Name Role Phone Milana Ha MD Primary Care Provid er Medications doxycycline monohydrate (MONODOX) 100 MG capsuleIndicatio ns:Sick sinus syndrome Take 1 capsule (100 mg total) by mouth 2 (two) times a day for 7 days. 14 capsule 11/09/19 25 Encounters Date Type Department Care Team Description 11/15/2024 2:54 PM EDT - 11/15/2024 11:59 PM EDT Hospital Encounter Non-Invasive Cardiology [address] [place] [address] Jung Boothe MD Discharge Disposition: Home or Self Care 11/08/2024 1:47 PM EDT - 11/08/2024 11:59 PM EDT Hospital Encounter Non-Invasive Cardiology [address] [place] [address] Jung Boothe MD Discharge Disposition: Home or Self Care 11/08/2024 Procedure Pass Non-Invasive Cardiology [address] [place] [address] 11/01/2024 12:48 PM EDT - 11/01/2024 11:59 PM EDT Hospital Encounter Non-Invasive Cardiology [address] [place] [address] Jung Boothe MD Discharge Disposition: Home or Self Care 11/01/2024 Procedure Pass Non-Invasive Cardiology [address] [place] [address] 11/01/2024 Telephone [facility] [address], [address] [place] [address] Jung Boothe MD Pacemaker incision 10/23/2024 Procedure Pass Non-Invasive Cardiology [address] [place] [address] 10/23/2024 Transcribe Orders [facility] [address], [address] [place] [address] Olayinka Rodriguez Sick sinus syndrome (Primary Dx) from Last 3 Months Social History Tobacco Use Types Packs/Day Years [...] Sign Reading Time Taken Comments Blood Pressure - - Pulse - - Temperature - - Respiratory Rate - - Oxygen Saturation - - Inhaled Oxygen Concentration - - Weight 72.6 kg (160 lb) 02/29/2024 2:35 PM EST Height 165.1 cm (5' 5 ) 02/29/2024 2:35 PM EST Body Mass Index 26.63 02/29/2024 2:35 PM EST Plan of Treatment Health Maintenance Due Date Last Done Comments LIPID PANEL 1948 DEPRESSION SCREENING 1960 SMOKING Hx and SMOKELESS TOBACCO SCREENING 01/31/1961 HEPATITIS C SCREENING 01/31/1966 ZOSTER VACCINES (1 of 2) 01/31/1998 OSTEOPOROSIS SCREENING INITI AL (ONE-TIME) 01/31/2013 Adult Td,Tdap Booster 12/21/2021 12/22/2011 RSV VACCINE (1 - 1-dose 75+ series) 01/31/2023 COVID-19 VACCINE (3 - 2023-2 5 season) 2023 07/04/2020, 06/04/2020 PNEUMOCOCCAL VACCINES (50+ years) Completed 06/02/2017, 02/07/2015 HEPATITIS A VACCINES Aged Out No long er eligible based on patient's age to complete this topic HIB VACCINES Aged Out No longer eligi ble based on patient's age to complete this topic MENINGOCOCCAL VACCINES (ACWY) Aged Out No longer eligible based on patient's age to complete this topic MENINGOCOCCAL VACCINES (B) Aged Out N o longer eligible based on patient's age to complete this topic Medical Devices Not on file Procedures Procedure Name Priority Date/Time Associated Diagnosis Comments EP DEVICE CHECK / FOLLOW UP Routine 11/20/2024 4:04 PM EDT Sick sinus syndrome EP DEVICE CHECK / FOLLOW UP Routine 11/08/2024 4:33 PM EDT Sick sinus syndrome DEVICE CHECK: PPM IN-PERSON PROGRAMMING DUAL LEAD Routine 11/06/2024 9:47 AM EDT Sick sinus syndrome from Last 3 Months Results * DEVICE CHECK: NON-BILLABLE (11/20/2024 4:04 PM EDT) Only the most recent of3 resultswithin the time period is included. Narrative Sean Farah DO - 11/21/2024 3:02 PM EDT Images from the original result were not included. Wound check #3 Rt upper chest incision healing slowly but improving. Edges approximated, no redness or drainage noted. Will continue w/routine followup w/[facility] Cardiology Richy Selby, CAITLIN Jung Boothe MD CV CARDIAC SERVICES ORDERABLE S Final Result from Last 3 Months Insurance [place], [place] MEDICARE PART A & B [facility] MEDICARE REPLACEMENT [place], [place] MEDICARE PART A & B [facility] MEDICARE REPLACEMENT MEDICARE PART A & [facility] REPLACEMENT [place], [place] MEDICARE PART A & [facility] MEDICARE REPLACEMENT [place], [place] MEDICARE PART A & B [facility] MEDICARE REPLACEMENT MEDICARE PART A & B [facility] MEDICARE REPLACEMENT [facility] [place] Care Teams Chief Mate Relationship Specialty Start Date End Date Milana Ha MD [address] [address] PCP - General Internal Medicine 08/03/17 Additional Source Comments The information contained in this document represents components of the legal health record. It is not the complete legal health record.[facility]
--- OUTSIDE RECORDS SUMMARY | 2024-11-28 15:14 | XMS_ITS | Encounter Summary ---
Author Organization [facility] Address [address] [place] [address] Phone Care Team Providers Care Modern Languages Professor Name Role Phone Milana Ha MD Primary Care Provid er Encounter Details Date Type Department Care Team (Late st Contact Info) Description 08/03/2017 Procedure Pass [facility], [address] [address] Social History Tobacco Use Types Packs/Day Years [...] on filedocumented in this encounter Care Teams Modern Languages Professor Relationship Specialty Start Date End Date Milana Ha MD [address] [address] PCP - General Internal Medicine 08/03/17 documented as of this encounter Additional Source Comments The information contained in this document represents components of the legal health record. It is not the complete legal health record.[facility]
--- OUTSIDE RECORDS SUMMARY | 2024-11-28 15:14 | XMS_ITS | Encounter Summary ---
Author Organization [facility] Address [address] [place] [address] [place] [address] Phone Care Team Providers Care Human Resources Communications Manager Name Role Phone Milana Ha MD Primary Care Provid er Reason for Referral * MRI/CAT Scan - Closed Specialty Diagnoses / Procedures Referred By Yolanda barnhart Referred To Contact Radiology Diagnoses SNHL (sensory-neural hearing loss), asymmetrical Procedures MRI Brain Shane Patel MD Phone: tel: fax: [email or web address] Referral ID Status Reason Start Date Expiration Date Visits Re quested Visits Authorized [id number] Closed 08/02/2017 09/30/2017 1 1 Encounter Details Date Type Department Care Team (Late st Contact Info) Description 08/03/2017 Ancillary Orders [facility] External Provider Virtual Department [address] [place] [address] Shane Patel MD [address] [place] [address] [address] [place] [address] [email or web address] SNHL (sensory-neural hearing loss), asymmetrical Social History [...] asymmetrical documented in this encounter Care Teams Human Resources Communications Manager Relationship Specialty Start Date End Date Milana Ha MD [address] [address] PCP - General Internal Medicine 08/03/17 documented as of this encounter Additional Source Comments The information contained in this document represents components of the legal health record. It is not the complete legal health record.[facility]
== END 2024-11-28 15:29 | disposition home or self-care (01) ==
LOC: HO.HCS 14:15
PROVIDERS: PCP Nurse Practitioner Family; Visit Provider Internal Medicine Cardiovascular Disease
DX: Z95.2 Presence of prosthetic heart valve (principal)
CPT/HCPCS: 93010; 99214

== ENCOUNTER → 2024-11-28 14:14 | Outpatient (BNVA) | payer MEDICARE, SELFPAY | PROVIDERS: PCP Nurse Practitioner Family; Visit Provider Internal Medicine Cardiovascular Disease | DX: R94.31 Abnormal electrocardiogram [ECG] [EKG] (principal); I45.10 Unspecified right bundle-branch block; Z95.2 Presence of prosthetic heart valve | CPT/HCPCS: 93005; 99212 ==

== ENCOUNTER 2024-12-27 14:45 | Outpatient (AMB) | payer MEDICARE, SELFPAY ==
--- NOTE | 2024-12-27 14:46 | MHC.OFFVIS ---
Intake Visit Reasons: MRI Results Intake Note: Patient is present for MRI RESULTS Urology Medication:MIRABEGRON Antibiotic Allergy:NONE Blood Thinner:APIXABAN City Detective Required: No Allergies Seasonal Allergies Allergy (Intermediate, Verified 12/27/24 16:25) Cough zolpidem (From Ambien) Adverse Reaction (Severe, Verified 12/27/24 16:25) Hallucinations Medication List - Last Reconciled 12/27/24 by SMITHA Garner acetaminophen (Tylenol Extra Strength) 500 mg PO Q6H PRN albuterol sulfate 90 mcg/actuation 2 puffs PO Q4-6H PRN amlodipine 10 mg PO DAILY apixaban (Eliquis) 5 mg PO BID atorvastatin 80 mg PO DAILY buspirone 10 mg PO BID 30 days famotidine (Pepcid) 20 mg PO BEDTIME flash glucose scanning reader (AcertivStyle Samantha 2 Warwick) As directed flash glucose sensor (FreeStyle Samantha 2 Sensor kit) As directed fluoxetine TAKE 3 CAPSULES BY MOUTH EVERY DAY furosemide 20 mg PO DAILY Held on 08/28/24. Instructions: Doctor's Order hydroxyzine HCl 25 mg PO TID PRN inhalational spacing device (Aerochamber Plus Z Stat spacer) As directed levothyroxine 50 mcg PO DAILY metformin ER 1,000 mg (2 x 500 mg) PO BID 90 days omeprazole 40 mg (2 x 20 mg) PO DAILY semaglutide (Ozempic) 1 mg (0.75 mL) subcut QWEEK 30 days valsartan-hydrochlorothiazide 320-25 mg 1 tab PO DAILY HPI Comments Details: Carmelita is a very pleasant 74-year-old female patient of Dr. Ybarra. She has a past medical history of the essential tremors, seasonal allergies, iron deficiency, arthritis, osteoarthritis, depression, hypertension, asthma, and type 2 diabetes. She is being followed up on today via telehealth for her urinary incontinence and renal mass. In discussion with the patient today she reports she was unable to make it to her follow-up appointment as she recently underwent stent placement that was complicated by complete heart block at which time she underwent a dual-chamber pacemaker. She reports while hospitalized she continued to experience episodes of incontinence. She discusses feeling Myrbetriq has not been helpful however, she does not feel this urinary incontinence is an issue at this time as she has other medical issues going on and would like to continue with surveillance monitoring at this time. Recent MRI renal mass protocol results were reviewed with the patient today. 10/26 1.7 x 1.2 cm exophytic solid mass at the anterior aspect of the interpolar region of the right kidneys. 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 We did discuss further interventions to include renal biopsy with cryoablation versus surveillance monitoring. Risks and benefits of these interventions were discussed. We discussed stability in renal mass with previous report that was brought with her to initial visit from [facility] 11/2017 that noted a 2 cm anterior right renal mass noted on MRI from 10/07/2017 demonstrating a proximally 2.1 cm exophytic renal mass arising from the anterior surface of the right kidney. She reports previously urologist had recommended undergoing surveillance monitoring given her age and comorbidities. When asked she denies hematuria, dysuria, foul-smelling urine, changes to urinary stream, flank pain, fever, and or chills. All questions were answered. She otherwise offers no other issues or concerns at this time. [facility] Medical History Essential tremor Seasonal allergies PND (post-nasal drip) Iron deficiency Arthritis Osteoarthritis Depression Hypertension Asthma Tremors of nervous system Type II diabetes mellitus Surgical History Hx of cardiac cath Hx of LASIK History of esophagogastroduodenoscopy (EGD) H/O: hysterectomy History of cataract removal with insertion of prosthetic lens Hx laparoscopic cholecystectomy Family History Mother Diabetes Parkinsons Panic disorder/agoraphobia, agoraphobic avoidnc/panc attck full remssn Father Stroke Heart attack Brother Congestive heart failure Brother Stroke Other Substance abuse Social History Household Members: Family Household Members Other:: brother Both parents involved: No Caregiver staying overnight: No Housing: Other Housing Other:: mobile home Are you a primary workforce investment act career manager to a significant other at home: Yes (brother s/p CVA) Do you presently have visiting nurse or other home services: No (brother has services VNA,PT) Alcohol intake: never Patient Tobacco Use Status: Never used Tobacco e-Cigarette/Vaping Use: Never Used Second Hand Smoke Exposure: No service: No Current occupational status: retired Current occupational exposures/hazards: Yes Cognitive needs: No Hearing needs: Yes Vision needs: No Review of Systems Eyes Reports no additional complaints ENT Reports no additional complaints Card Reports as per HPI Resp Reports as per HPI GI Reports no additional complaints Reports as per HPI Musc Reports as per HPI Neuro Reports as per HPI Psych Reports as per HPI Endo Reports as per HPI Aller/Immun Reports as per HPI Physical Exam Const General: cooperative Orientation/consciousness: patient oriented x3 Resp Effort & Inspection: able to speak in complete sentences Neuro General: patient oriented x3 Psych Speech and movement: Clear speech present Attitude: cooperative Thought content: Normal thought content present Insight: Fair insight present (Psych) Judgement: Fair judgement present (Psych) Telehealth Telehealth Telehealth Platform: Telephone Location of provider rendering services: practice address Location of patient: address on file Patient Identification confirmed using: Name, : Yes Telehealth method: voice only Patient verbally consented to treatment: Yes Patient verbally consented to billing insurance company: Yes Patient informed of any privacy concerns related to visit: Yes Minutes spent on Phone/Video with Pt.: 20 Results Reviewed Results Reviewed: Date of Service: 10/09/24 Procedure(s): MR abdomen wo/w con FINDINGS: Liver: There is no loss of signal intensity in the liver on opposed phase imaging to suggest steatosis. There is no enhancing liver mass. The hepatic and portal veins are patent. There is no intrahepatic biliary dilatation. Gallbladder/biliary tree: The gallbladder is surgically absent. The common bile duct is normal in caliber. No intraluminal filling defects are identified to suggest choledocholithiasis. Spleen: The spleen is unremarkable. Pancreas: The pancreas is unremarkable. There is no enhancing pancreatic mass. The pancreatic duct is normal in caliber. Adrenals: There is a 1.3 cm right adrenal nodule which demonstrates loss of signal intensity on opposed phase imaging, consistent with an adenoma. There is a 9 mm left adrenal nodule demonstrating similar loss of signal intensity on opposed phase imaging, consistent with an adenoma. Kidneys: There is a 1.7 x 1.2 cm exophytic solid mass at the anterior aspect of the interpolar region of the right kidney. The mass demonstrates similar signal intensity to the remainder of the kidney kidney on unenhanced images but has enhances slightly less than the remainder of the renal parenchyma. On the left, there is a tiny subcentimeter probable proteinaceous cyst in the interpolar region which is T1 hyperintense and does not appear to enhance. Lymph nodes: There is no retroperitoneal lymphadenopathy in the upper abdomen. Fluid: There is no ascites in the upper abdomen. Visualized bowel: The visualized bowels loops are unremarkable in appearance. Visualized bones: The visualized bones demonstrate normal marrow signal intensity. IMPRESSION: 1. 1.7 x 1.2 cm exophytic solid mass at the anterior aspect of the interpolar region of the right kidney. 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 If there is prior outside imaging, comparison is recommended. 2. Bilateral adrenal adenomas as described. 3. Probable subcentimeter proteinaceous left renal cyst. Assessment & Plan Assessment & Plan (1) Renal mass: Code(s): N28.89 - Other specified disorders of kidney and ureter Category: Medical (2) Urinary incontinence: Code(s): R32 - Unspecified urinary incontinence Category: Medical Plan Recent MRI renal mass protocol imaging results reviewed with the patient today; as noted above. We did discussed further treatment options to include biopsy with cryoablation versus surveillance monitoring; risks and benefits of these interventions were discussed. All questions were answered. Stop Myrbetriq. Will continue with surveillance monitoring of renal mass as well as incontinence at this time per patient request. Follow-up in 3 months; or sooner with any issues, concerns, and or questions. Medications: Discontinued mirabegron ER (Myrbetriq) Discontinued Reason: Doctor's Order 25 mg PO DAILY 30 tabs 3RF 30 days N30.10 - Interstitial cystitis (chronic) without hematuria, N32.81 - Overactive bladder, R35.1 - Nocturia, R39.15 - Urgency of urination Patient Instructions: The patient had an opportunity to ask questions regarding the treatment plan. All questions were answered. Physical exam, labs, and imaging were discussed and reviewed in detail. As well as risks, benefits, and discussion of treatment choices. No major barriers to understanding were identified. The patient expressed understanding and agreement with the above treatment plan. The patient was made aware they should contact our office by phone for worsening of their current condition, the appearance of new symptoms, or with any questions or concerns. Compliance is encouraged with any medications and follow up testing that is ordered. It is a privilege to be allowed the opportunity to participate in? your urological care.? Again, if you have any questions or concerns If you have any questions or concerns please do not hesitate to contact me. The office is [phone]. This note is constructed using voice recognition software. While every effort has been made to ensure accuracy cook manager errors may have been included. Yours sincerely, BRANDI Garner-ROSY Coding Level of Care Code Tele Est Pt Level 3 (13078) Diagnoses Renal mass N28.89 Urinary incontinence R32
--- OUTSIDE RECORDS SUMMARY | 2024-12-27 19:03 | XMS_ITS | Encounter Summary ---
Author Organization [facility] Address [address] [place] [address] [place] [address] Phone Care Team Providers Care Concert Promoter Name Role Phone Milana Ha MD Primary Care Provid er Reason for Referral * MRI/CAT Scan - Closed Specialty Diagnoses / Procedures Referred By Yolanda barnhart Referred To Contact Radiology Diagnoses SNHL (sensory-neural hearing loss), asymmetrical Procedures MRI Brain Shane Patel MD Phone: tel: fax: [email or web address] Referral ID Status Reason Start Date Expiration Date Visits Re quested Visits Authorized [id number] Closed 08/02/2017 09/30/2017 1 1 Encounter Details Date Type Department Care Team (Late st Contact Info) Description 08/03/2017 Ancillary Orders [facility] External Provider Virtual Department [address] [place] [address] Shane Patel MD [address] [place] [address] [address] [place] [address] [email or web address] SNHL (sensory-neural hearing loss), asymmetrical Social History [...] asymmetrical documented in this encounter Care Teams Concert Promoter Relationship Specialty Start Date End Date Milana Ha MD [address] [address] PCP - General Internal Medicine 08/03/17 documented as of this encounter Additional Source Comments The information contained in this document represents components of the legal health record. It is not the complete legal health record.[facility]
--- OUTSIDE RECORDS SUMMARY | 2024-12-27 19:03 | XMS_ITS | Encounter Summary ---
Author Organization [facility] Address [address] [place] [address] Phone Care Team Providers Care Scribing Machine Operator Name Role Phone Milana Ha MD Primary Care Provid er Encounter Details Date Type Department Care Team ([facility] Contact Info) Description 11/08/2024 Procedure Pass Non-Invasive Cardiology [address] [place] [address] Social History Tobacco Use Types Packs/Day Years [...] on filedocumented in this encounter Care Teams Scribing Machine Operator Relationship Specialty Start Date End Date Milana Ha MD [address] [phone] PCP - General Internal Medicine 08/03/17 documented as of this encounter Additional Source Comments The information contained in this document represents components of the legal health record. It is not the complete legal health record.[facility]
--- OUTSIDE RECORDS SUMMARY | 2024-12-27 19:03 | XMS_ITS | Encounter Summary ---
Author Organization [facility] Address [address] [place] [address] [place] [address] Phone Care Team Providers Care Administrative Nursing Supervisor Name Role Phone Milana Ha MD Primary Care Provid er Encounter Details Date Type Department Care Team ([facility] Contact Info) Description 11/01/2024 Procedure Pass Non-Invasive Cardiology [address] [place] [address] Social History Tobacco Use Types Packs/Day Years [...] on filedocumented in this encounter Care Teams Administrative Nursing Supervisor Relationship Specialty Start Date End Date Milana Ha MD [address] [phone] PCP - General Internal Medicine 08/03/17 documented as of this encounter Additional Source Comments The information contained in this document represents components of the legal health record. It is not the complete legal health record.[facility]
--- OUTSIDE RECORDS SUMMARY | 2024-12-27 19:03 | XMS_ITS | Clinical Summary ---
Author Organization [facility] Address [address] [place] [address] Care Team Providers Care Tile Presser Name Role Phone Milana Ha MD Primary [...] 75+ series) 01/31/2023 COVID-19 Vaccine (2 - 2024- season) 2024 06/04/2020 Influenza Vaccine (#1) 2024 0, 01/11/2019, 12/07/2017, Additional history exists Pneumococcal Vaccine Completed 06/02/2017, 02/08/20 15 Hepatitis B Vaccines Aged Out No long er eligible based on patient's age to complete this topic RSV Ped < 20 months Aged Out No longe r eligible based on patient's age to complete this topic Care Teams Tile Presser Relationship Specialty Start Date End Date Milana Ha MD PCP - General Internal Medicine 05/02/19
--- OUTSIDE RECORDS SUMMARY | 2024-12-27 19:03 | XMS_ITS | Encounter Summary ---
Author Organization [facility] Address [address] [place] [address] Phone Care Team Providers Care Construction Person Name Role Phone Milana Ha MD Primary Care Provid er Encounter Details Date Type Department Care Team (Late st Contact Info) Description 01/25/2024 Procedure Pass [facility], [address] [address] Social History Tobacco Use Types Packs/Day Years [...] on filedocumented in this encounter Care Teams Construction Person Relationship Specialty Start Date End Date Milana Ha MD [address] [phone] PCP - General Internal Medicine 08/03/17 documented as of this encounter Additional Source Comments The information contained in this document represents components of the legal health record. It is not the complete legal health record.[facility]
--- OUTSIDE RECORDS SUMMARY | 2024-12-27 19:03 | XMS_ITS | Encounter Summary ---
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 100 [place] [address] [email or web address] Benign neoplasm of cranial nerves; Sensory hearing [...] present in the major vessels of the [place]. Although the study does not [...] present in the major vessels of the [place]. Although the study does not detail [...] joint documented in this encounter Care Teams Electrical Design Technologist Relationship Specialty Start Date End Date Milana Ha MD [address] [address] PCP - General Internal Medicine 08/03/17 documented as of this encounter Additional Source Comments The information contained in this document represents components of the legal health record. It is not the complete legal health record.[facility]
--- OUTSIDE RECORDS SUMMARY | 2024-12-27 19:03 | XMS_ITS | Encounter Summary ---
Author Organization [facility] Address [address] [place] [address] Phone Care Team Providers Care Cyber Security Architect Name Role Phone Milana Ha MD Primary Care Provid er Reason for Referral * MRI/CAT Scan - Closed Specialty Diagnoses / Procedures Referred By Yolanda barnhart Referred To Contact Radiology Diagnoses Benign neoplasm of cranial nerves Procedures MRI Brain Meir Lara MD Phone: tel: fax: mailto:[email or web address] Referral ID Status Reason Start Date Expiration Date Visits Re quested Visits Authorized [id number] Closed 01/25/2024 01/24/2025 1 1 Encounter Details Date Type Department Care Team (Latest Contact Info) Description 01/25/2024 Transcribe Orders Virtual Department 30 [place] [address] Meir Lara MD 100 [facility], [address] [place] [address] [email or web address] Benign neoplasm of cranial nerves (Primary Dx) [...] clinician's provided indication for this examination in [facility]: Outside Radiology Order; Benign neoplasm of cranial [...] clinician's provided indication for this examination in [facility]:Outside Radiology Order; Benign neoplasm of cranial nerves [...] asymptomatic finding. This is unchanged dating back [email or web address]. Ventricular System and Extra-Axial Spaces: There is [...] nerves documented in this encounter Care Teams Cyber Security Architect Relationship Specialty Start Date End Date Milana Ha MD [address] [address] PCP - General Internal Medicine 08/03/17 documented as of this encounter Additional Source Comments The information contained in this document represents components of the legal health record. It is not the complete legal health record.[facility]
--- OUTSIDE RECORDS SUMMARY | 2024-12-27 19:03 | XMS_ITS | Encounter Summary ---
Author Organization [facility] Address [address] [place] [address] [place] [address] Phone Care Team Providers Care Trailer Steerer Name Role Phone Milana Ha MD Primary Care Provid er Encounter Details Date Type Department Care Team ([facility] Contact Info) Description 10/23/2024 Procedure Pass Non-Invasive Cardiology [address] [place] [address] Social History Tobacco Use Types Packs/Day Years [...] on filedocumented in this encounter Care Teams Trailer Steerer Relationship Specialty Start Date End Date Milana Ha MD [address] [id number] PCP - General Internal Medicine 08/03/17 documented as of this encounter Additional Source Comments The information contained in this document represents components of the legal health record. It is not the complete legal health record.[facility]
--- OUTSIDE RECORDS SUMMARY | 2024-12-27 19:03 | XMS_ITS | Encounter Summary ---
Author Organization [facility] Address [address] [facility] [address] [place] [address] Phone Care Team Providers Care Instructor Warper Name Role Phone Milana Ha MD Primary Care Provid er Encounter Details Date Type Department Care Team (Late st Contact Info) Description 06/02/2018 Ancillary Orders Virtual Department 30 [place] [address] Bryce Bui MD 100 [facility] 120 [place] [address] Disorder of kidney and ureter Social History [...] Renal shadow appears within normal limits. POS [id number] Narrative 06/26/2018 9:27 AM EDT COMPARISON: None [...] Renal shadow appears within normal limits. POS [id number] us Internal With Orders Referring - Referring IMG [facility] RENAL Final Result documented in this encounter Visit Diagnoses Diagnosis Disorder of kidney and ureter Unspecified disorder of kidney and ureter Disorder of kidney and ureter Unspecified disorder of kidney and ureter documented in this encounter Care Teams Instructor Warper Relationship Specialty Start Date End Date [facility] [address] [address] PCP - General Internal Medicine 08/03/17 documented as of this encounter Additional Source Comments The information contained in this document represents components of the legal health record. It is not the complete legal health record.[facility]
--- OUTSIDE RECORDS SUMMARY | 2024-12-27 19:04 | XMS_ITS | Clinical Summary ---
Author Organization [employer] Address [address] [facility] 7 [place] [address] Care Team Providers Care Dimension Stone Quarry Supervisor Name Role Phone Unavailable Primary Care Provider [...] older (1 - 1-dose 75+ series) 01/31/2023 Dental X-Ray: Full Mouth 09/05/2024 09/04/2021, 06/03 COVID-19 Vaccine ( season) 2024 Influenza Vaccine (#1) 2024 0, 12/27/2008, 02/13/2008, [...] Most Recently Relevant to Health Maintenance Insurance [place], [place] D[place]AL - [facility] PPO * Guarantor: Carmelita Whitaker Account Type Relation to Patient Date of Phone Billing Address Personal/Family Self [place], [place] * Guarantor: Carmelita Whitaker Account Type Relation to Patient Date of Phone Billing Address Personal/Family Self [place], [place]
--- OUTSIDE RECORDS SUMMARY | 2024-12-27 19:04 | XMS_ITS | Encounter Summary ---
Author Organization [facility] Address [address] [place] [phone] Phone Care Team Providers Care Quality Control Engineer Name Role Phone Milana Ha MD Primary Care Provid er Encounter Details Date Type Department Care Team (Late st Contact Info) Description 08/08/2018 Procedure Pass [facility], [address] [address] Social History Tobacco Use Types Packs/Day Years [...] on filedocumented in this encounter Care Teams Quality Control Engineer Relationship Specialty Start Date End Date Milana Ha MD [address] [address] PCP - General Internal Medicine 08/03/17 documented as of this encounter Additional Source Comments The information contained in this document represents components of the legal health record. It is not the complete legal health record.[facility]
--- OUTSIDE RECORDS SUMMARY | 2024-12-27 19:04 | XMS_ITS | Clinical Summary ---
Author Organization [facility] Address [address] [place] [address] Phone Care Team Providers Care Warp Drawer Name Role Phone Milana Ha MD Primary Care Provid er Encounters Date Type Department Care Team Description 11/15/2024 2:54 PM EDT - 11/15/2024 11:59 PM EDT Hospital Encounter Non-Invasive Cardiology [address] [place] [address] Jung Boothe MD Discharge Disposition: Home or Self Care 11/08/2024 1:47 PM EDT - 11/08/2024 11:59 PM EDT Hospital Encounter Non-Invasive Cardiology [address] [place] [address] Jung Boothe MD Discharge Disposition: Home or Self Care 11/08/2024 Procedure Pass Non-Invasive Cardiology [address] [place] [address] 11/01/2024 12:48 PM EDT - 11/01/2024 11:59 PM EDT Hospital Encounter Non-Invasive Cardiology [address] [place] [address] Jung Boothe MD Discharge Disposition: Home or Self Care 11/01/2024 Procedure Pass Non-Invasive Cardiology [address] [place] [address] 11/01/2024 Telephone [facility] [address], [address] [place] [address] Jung Boothe MD Pacemaker incision 10/23/2024 Procedure Pass Non-Invasive Cardiology [address] [place] [address] 10/23/2024 Transcribe [facility] [address], [address] [place] [address] Michael Florencedarlene Sick sinus syndrome (Primary Dx) from Last [...] VACCINES (1 of 2) 01/31/1998 OSTEOPOROSIS SCREENING INITIAL (ONE-TIME) 01/31/2013 Adult Td,Tdap Booster 12/21/2021 12/22/2011 RSV VACCINE (1 - 1-dose 75+ series) 01/31/2023 INFLUENZA VACCINE (#1) 2024 0, 01/11/2019, 12/07/2017, Additional history exists COVID-19 VACCINE ( season) 2024 07/04/2020, 06/04/2020 PNEUMOCOCCAL VACCINES (50+ years) Completed [...] the time period is included. Narrative Sean Farah, - 11/21/2024 3:02 PM EDT Images from the original result were not included. Wound check #3 Rt upper chest incision healing slowly but improving. Edges approximated, no redness or drainage noted. Will continue w/routine followup w[facility] Richy Selby, RN Jung Boothe MD [facility] ORDERABLE S Final Result from Last 3 Months Insurance MEDICARE PART A & B [facility] MEDICARE REPLACEMENT MEDICARE PART A & B [facility] [facility] MEDICARE REPLACEMENT MEDICARE PART A & B [facility] MEDICARE REPLACEMENT [place] [id number] [place], [place] MEDICARE PART A & B [facility] MEDIC[facility] REPLACEMENT [place] MEDICARE PART A & [facility] MEDICARE REPLACEMENT MEDICARE PART A & [facility] MEDICARE REPLACEMENT [facility] [address] Care Teams Warp Drawer Relationship Specialty Start Date End Date [facility] [address] [address] PCP - General Internal Medicine 08/03/17 Additional Source Comments The information contained in this document represents components of the legal health record. It is not the complete legal health record.[facility]
--- OUTSIDE RECORDS SUMMARY | 2024-12-27 19:04 | XMS_ITS | Encounter Summary ---
Author Organization [facility] Address [address] [place] [address] Phone Care Team Providers Care Pai Gow Dealer Name Role Phone Milana Ha MD Primary Care Provid er Encounter Details Date Type Department Care Team (Late st Contact Info) Description 08/03/2017 Procedure Pass [facility], [address] [address] Social History Tobacco Use Types Packs/Day Years [...] on filedocumented in this encounter Care Teams Pai Gow Dealer Relationship Specialty Start Date End Date Milana Ha MD [address] [address] PCP - General Internal Medicine 08/03/17 documented as of this encounter Additional Source Comments The information contained in this document represents components of the legal health record. It is not the complete legal health record.[facility]
--- OUTSIDE RECORDS SUMMARY | 2024-12-27 19:04 | XMS_ITS | Encounter Summary ---
Author Organization [facility] Address [address] [place] [address] 7 [place] [address] Care Team Providers Care Claim Representative Name Role Phone Unavailable Primary Care Provider [...]
== END 2024-12-27 15:44 | disposition home or self-care (01) ==
LOC: HO.HUSH 14:45
PROVIDERS: PCP Nurse Practitioner Family; Visit Provider Nurse Practitioner Family
DX: N28.89 Other specified disorders of kidney and ureter (principal); R32 Unspecified urinary incontinence
CPT/HCPCS: 99213

== ENCOUNTER 2025-01-08 09:28 | Outpatient (REF) | payer MEDICARE, SELFPAY ==
[2025-01-08 14:46] LABS: Hematocrit 35.6 % (37.0-47.0); Hemoglobin 10.9 g/dl (12.0-16.0); Mean Corpuscular HGB Conc 30.6 g/dl (31.0-35.0); Mean Corpuscular Hemoglobin 23.7 pg (27.0-33.0); Mean Corpuscular Volume 77.6 fL (80.0-98.0); NRBC Abs Auto 0.000 X10*3/uL (0.0-0.012); NRBC Pct Auto 0.0 /100WBC (0.0-0.2); Platelet Count 383 X10*3/uL (160-400); Red Blood Count 4.59 X10*6/uL (4.20-5.50); White Blood Count 6.2 X10*3/uL (4.8-10.8)
[2025-01-08 15:04] LABS: Anion Gap 15 (12-20); Blood Urea Nitrogen 14 mg/dL (9-16); Calcium 10.4 mg/dL (8.4-10.2); Carbon Dioxide 29 mmol/L (22-29); Chloride 103 mmol/L (96-108); Estimated Glomerular Filt Rate > 60; Potassium 3.6 mmol/L (3.3-5.1); Sodium 143 mmol/L (135-145)
== END 2025-01-08 09:29 | disposition home or self-care (01) ==
LOC: HO.WFDLDS 09:28
PROVIDERS: PCP Nurse Practitioner Family; Visit Provider Nurse Practitioner Family
DX: Z09 Encounter for follow-up examination after completed treatment for conditions other than malignant neoplasm (principal); I10 Essential (primary) hypertension; R55 Syncope and collapse
CPT/HCPCS: 36415; 80048; 85027; 99212

== ENCOUNTER 2025-01-08 09:28 | Outpatient (AMB) | payer MEDICARE, SELFPAY ==
--- NOTE | 2025-01-08 09:30 | A.OFFPC_ITS ---
Vital Signs 01/08/25 09:35 01/08/25 10:03 Height 5 ft 5 in Weight 143 lb 6 oz BMI 23.9 BP 215/85 H 158/76 H Blood Pressure Location Rt brachial Lt brachial Position Sitting Sitting Respiration 16 Pulse 90 96 Pulse Source Pulse Oximeter Auscultation Temp 97.4 F Temp Source Oral Pulse Oximetry (%) 99 Oxygen Delivery Method Room Air Intake Visit Reasons: Pt. was D/C on 10/23 from [facility] Intake Note: patient here for [facility] follow up Office Associate Required: No Is last menstrual period known: No Post menopausal: No Patient : No Allergies Seasonal Allergies Allergy (Intermediate, Verified 01/08/25 09:48) Cough zolpidem (From Ambien) Adverse Reaction (Severe, Verified 01/08/25 09:48) Hallucinations Medication List - Last Reconciled 01/08/25 by Nisha Garcia CNP acetaminophen (Tylenol Extra Strength) 500 mg PO Q6H PRN albuterol sulfate 90 mcg/actuation 2 puffs PO Q4-6H PRN amlodipine 10 mg PO DAILY apixaban (Eliquis) 5 mg PO BID atorvastatin 80 mg PO DAILY buspirone 10 mg PO BID 30 days famotidine (Pepcid) 20 mg PO BEDTIME flash glucose scanning reader (FreeStyle Samantha 2 [place]) As directed flash glucose sensor (FreeStyle Samantha 2 Sensor kit) As directed fluoxetine TAKE 3 CAPSULES BY MOUTH EVERY DAY furosemide 20 mg PO DAILY Held on 08/28/24. Instructions: Doctor's Order hydroxyzine HCl 25 mg PO TID PRN inhalational spacing device (Aerochamber Plus Z Stat spacer) As directed levothyroxine 50 mcg PO DAILY metformin ER 1,000 mg (2 x 500 mg) PO BID 90 days omeprazole 40 mg (2 x 20 mg) PO DAILY semaglutide (Ozempic) 1 mg (0.75 mL) subcut QWEEK 30 days valsartan-hydrochlorothiazide 320-25 mg 1 tab PO DAILY Tobacco use date assessed: 01/08/25 Fall risk assessment: No Falls in past year Last assessed Fall Risk: 01/08/25 Dental Screening Dental Screen Date: 01/08/25 Did you have a dental visit in the last 12 months?: No Did you have a dental problem in the last 6 months where you did not have access to dental care?: No Was dental information given to patient?: Patient has dentist HPI HPI Comments History of Present Illness Details 44-year-old female presents for hospital discharge follow-up. She presented to [facility] on 10/18/2024 with progressive shortness of breath with exertion over the past several months with limited daily activities. Echocardiogram revealed severe aortic stenosis and she was transferred for valve replacement. 10/18: Right transfemoral TAVR with a 23 Galvan S3 ultra valve 10/19: Dual-chamber pacemaker implant (M edtronic- LBBB pacing) Labs revealed mild normal cystic anemia and mild hypokalemia. On 10/23/2024, H&H was 10.0/31.3 and potassium level was 3.2. CBC and BMP recheck recommended 1 week after discharge. No medication changes were made. She was advised to continue with current treatment regimen and follow-up with PCP. According patient, the plan was to discharged to rehab on 10/23/2024. However, patient refused rehab. She was discharged home with VNA services 2 times weekly x 4 weeks. She has been taking her medications as prescribes without adverse reactions. She reports feeling of fainting for two days - last Tuesday and Tuesday. On Tuesday, she was washing dishes while standing and suddenly felt like everything seems far ways. I felt like i was going to pass out. She felt the saw way the next day but was sitting in her recliner. Her symptoms resolves after few minutes on both episodes. No acute symptoms at this time. [facility] Medical History Essential tremor Seasonal allergies PND (post-nasal drip) Iron deficiency Arthritis Osteoarthritis Depression Hypertension Asthma Tremors of nervous system Type II diabetes mellitus Surgical History Hx of cardiac cath Hx of LASIK History of esophagogastroduodenoscopy (EGD) H/O: hysterectomy History of cataract removal with insertion of prosthetic lens Hx laparoscopic cholecystectomy Family History Mother Diabetes Parkinsons Panic disorder/agoraphobia, agoraphobic avoidnc/panc attck full remssn Father Stroke Heart attack Brother Congestive heart failure Brother Stroke Other Substance abuse Social History Household Members: Family Household Members Other:: brother Both parents involved: No Caregiver staying overnight: No Housing: Other Housing Other:: mobile home Are you a primary primary care sales representative to a significant other at home: Yes (brother s/p CVA) Do you presently have visiting nurse or other home services: No (brother has services VNA,PT) Alcohol intake: never Patient Tobacco Use Status: Never used Tobacco e-Cigarette/Vaping Use: Never Used Second Hand Smoke Exposure: No service: No Current occupational status: retired Current occupational exposures/hazards: Yes Cognitive needs: No Hearing needs: Yes Vision needs: No Questionnaire Thrive Questionnaire Date Thrive assessed: 05/21/24 I am a: Patient What is your living situation today?: I have a steady place to live Within the past 12 months, did the food you bought not last and you didn't have the money to get more?: Never true Within the past 12 months, did you worry whether your food would run out before you got money to buy more?: Sometimes True Do you have trouble paying for medicines?: No Do you have trouble getting transportation to medical appointments?: No Do you have trouble paying your heating and electricity bill?: Yes Do you have trouble taking care of your child, family member or friend?: No Do you have trouble with day-to-day activities such as bathing, preparing meals, shopping, managing finances, etc.?: No Are you currently unemployed and looking for a job?: No Are you interested in more education?: No Please select the resources that you would like help with: None Currently or been in a relationship where the following occur: No concerns reported THRIVE Score: 2 SUSHANT-7 AMB Questionnaire SUSHANT-7 Date SUSHANT - 7 assessed: 11/27/24 Source: Developed by Drs. Meir Zarate, Elba Comer, Ethan Little and colleagues, with an educational leeanne from [employer]. Review of Systems Const Details: Const Denies chills, Denies fatigue, Denies fever(s), Denies headache(s) and Denies weakness ENT Denies dizziness and Denies headache(s) Card Denies chest pain, Denies lightheadedness, Denies dyspnea and Denies other (Palpitations) Resp Denies cough, Denies dyspnea, Denies wheezing and Denies other ( shortness of breath) GI Denies abdominal pain, Denies melena, Denies hematochezia, Denies change in bowel habits, Denies dyspepsia and Denies nausea Denies hematuria and Denies dysuria Musc Denies abnormal gait, Denies myalgias, Denies arthralgias, Denies numbness and Denies tingling Skin/Breast Denies rash, Denies unusual bruising and Denies wounds Neuro Denies abnormal gait, Denies dizziness, Denies headache(s), Denies memory loss, Denies numbness, Denies Sensory deficit (Neuro), Denies tingling and Denies weakness Psych Denies anxiety, Denies depression, Denies memory loss Endo Denies cold intolerance, Denies fatigue, Denies heat intolerance, Denies polydipsia and Denies polyuria Aller/Immun Denies wheezing Physical exam (Primary Care) Vital Signs: Last Vital Signs Temp 97.4 F 01/08/25 09:35 Pulse 96 01/08/25 10:03 Resp 16 01/08/25 09:35 BP 158/76 H 01/08/25 10:03 Pulse Ox 99 01/08/25 09:35 Oxygen Delivery Method Room Air 01/08/25 09:35 BMI result Body Mass Index 23.9 Tobacco/Smoking Status: Tobacco use Status Tobacco use date assessed 01/08/25 01/08/25 09:39 Patient Tobacco Use Status Never used Tobacco 01/08/25 09:33 e-Cigarette/Vaping Use Never Used 01/08/25 09:33 Thrive Assessment: Date of Thrive Assessment Date Thrive assessed 05/21/24 01/08/25 09:33 Currently or been in a relationship where the following occur: No concerns reported Const Other: General: no acute distress and well developed Nutritional Appearance: well nourished Orientation/consciousness: patient oriented x3 HENMT Head: Yes normocephalic and Yes atraumatic Eyes General: appearance normal, both eyes and all related structures Pupils: Equal, round and reactive pupils present EOM: EOMs intact bilaterally Resp Effort & Inspection: normal respiratory effort Auscultation: clear to auscultation bilaterally Cardio Rate: regular rate Rhythm: regular rhythm Heart sounds: S1 normal heart sound present, S2 normal heart sound present, no gallops, no murmurs and no rubs GI Palpation (GI): No Abdominal aortic bruit present, Soft to palpation, nontender, No hepatosplenomegaly present and No Rebound tenderness present Auscultation: normal bowel sounds General: Yes no CVA tenderness Back/Spine/Pelvis Back: no CVA tenderness Cervical Spine: cervical ROM normal and No Cervical spine tenderness Thoracic/Lumbar Spine: thoraco-lumbar ROM normal, No pain with thoraco-lumbar ROM, No thoracic spinal tenderness and No lumbar spinal tenderness Extrem General: Yes normal to inspection, No edema and No calf tenderness Skin General: warm and dry. Normal skin color. Normal skin turgor Neuro General: patient oriented x3, gait normal and no focal neuro deficit Cranial nerves: Yes Equal, round and reactive pupils present Cognition (Neuro): normal cognition Gait exam (Neuro): Normal gait present Sensory Exam: No Sensory deficit (Neuro) Psych Appearance: grossly normal Affect: normal affect Attitude: cooperative Thought process: Normal thought process present Coding Level of Care Code Est Pt Level 4 (38124) Diagnoses Hypertension I10 Hospital discharge follow-up Z09 Fainting spell R55 Assessment & Plan Assessment & Plan (1) Hypertension: Code(s): I10 - Essential (primary) hypertension Category: Medical Plan: Resting blood pressure is 158/76, above goal of less than 130/80. She took amlodipine this morning but not valsartan-hydrochlorothiazide because it would be inconvenient for her to have to use the bathroom while traveling to this appointment. Continue current treatment regimen. Low-sodium diet encouraged. Advised to take both amlodipine and valsartan-hydrochlorothiazide during her medical/nursing visits to have a true measurement of her blood pressure. Follow-up in 1 week for nurse visit for blood pressure check. Return sooner with symptoms or concerns. Follow-up with PCP as planned. Verbalized understanding and agreed with the plan. (2) Hospital discharge follow-up: Code(s): Z09 - Encounter for follow-up examination after completed treatment for conditions other than malignant neoplasm Category: Medical Plan: Stable. Will check recheck CBC and BMP and make changes as needed. Verbalized understanding and agreed with the plan. (3) Fainting spell: Code(s): R55 - Syncope and collapse Category: Medical Plan: Reports feeling of fainting for two days - last Tuesday and Tuesday. On Tuesday, she was washing dishes while standing and suddenly felt like everything seems far ways. I felt like i was going to pass out. She felt the saw way the next day but was sitting in her recliner. Her symptoms resolves after few minutes on both episodes. Advised to sit down if she experiences another episode to prevent fall/injury. Also, immediately check blood pressure during or after an episode. Blood pressure monitor ordered. Follow-up with worsening or new symptoms. Verbalized understanding and agreed with the plan. Orders: Orders Complete Blood Count no Diff Today Z09 - Encounter for follow-up examination after completed treatment for conditions other than malignant neoplasm Basic Metabolic Panel Today Z09 - Encounter for follow-up examination after completed treatment for conditions other than malignant neoplasm Medications: New miscellaneous medical supply 1 large blood pressure cuff and monitor 1 ea 0RF I10 - Essential (primary) hypertension
[2025-01-08 09:35] VITALS: BP 215/85; PULSE 90; RESP 16; TEMP 36.3; O2SAT 99; BMI 23.9
[2025-01-08 10:03] VITALS: BP 158/76; PULSE 96
--- OUTSIDE RECORDS SUMMARY | 2025-01-08 10:41 | XMS_ITS | Encounter Summary ---
Author Organization [employer] Address [address] 7 [place] [address] Care Team Providers Care Ship Worker Name Role Phone Unavailable Primary Care Provider [...]
--- OUTSIDE RECORDS SUMMARY | 2025-01-08 10:41 | XMS_ITS | Encounter Summary ---
Author Organization [facility] Address [address] [place] [address] Phone Care Team Providers Care Battery Container Tester Name Role Phone Milana Ha MD Primary Care Provid er Encounter Details Date Type Department Care Team (Late st Contact Info) Description 08/03/2017 Procedure Pass [facility], [address] [address] Social History Tobacco Use Types Packs/Day Years [...] on filedocumented in this encounter Care Teams Battery Container Tester Relationship Specialty Start Date End Date Milana Ha MD [address] [address] PCP - General Internal Medicine 08/03/17 documented as of this encounter Additional Source Comments The information contained in this document represents components of the legal health record. It is not the complete legal health record.[facility]
--- OUTSIDE RECORDS SUMMARY | 2025-01-08 10:41 | XMS_ITS | Clinical Summary ---
Author Organization [facility] Address [address] [place] [address] Phone Care Team Providers Care Director Radiation Oncology Name Role Phone Milana Ha MD Primary Care Provid er Encounters Date Type Department Care Team Description 11/15/2024 2:54 PM EDT - 11/15/2024 11:59 PM EDT Hospital Encounter Non-Invasive Cardiology [address] [place] [id number] Jung Boothe MD Discharge Disposition: Home or Self Care 11/08/2024 1:47 PM EDT - 11/08/2024 11:59 PM EDT Hospital Encounter Non-Invasive Cardiology [address] [place] [address] Jung Boothe MD Discharge Disposition: Home or Self Care 11/08/2024 Procedure Pass [facility] [address] [place] [address] 11/01/2024 12:48 PM EDT - 11/01/2024 11:59 PM EDT Hospital Encounter Non-Invasive Cardiology [address] [place] [address] Jung Boothe MD Discharge Disposition: Home or Self Care 11/01/2024 Procedure Pass Non-Invasive Cardiology [address] [place] [address] 11/01/2024 Telephone [facility] [address], [address] [place] [address] Jung Boothe MD Pacemaker incision 10/23/2024 Procedure Pass Non-Invasive Cardiology [address] [place] [address] 10/23/2024 Transcribe [facility] [address], [address] [place] [address] Michael Florencedarlene Sick sinus syndrome (Primary Dx) [...] or drainage noted. Will continue w/routine followup w/[facility] Richy Selby, RN Jung Boothe MD [facility] ORDERABLE S Final Result from Last 3 Months Insurance MEDICARE PART A & B [facility] MEDICARE REPLACEMENT MEDICARE PART A & B [facility] [facility] MEDICARE REPLACEMENT MEDICARE PART A & B [facility] MEDICARE REPLACEMENT [place] [id number] [place], [place] MEDICARE PART A & B [facility] [place] [facility] MEDICARE REPLACEMENT [place] MEDICARE PART A & B [facility] [place] MEDICARE REPLACEMENT MEDICARE PART A & B [facility] MEDICARE [place] [id number] Care Teams Director Radiation Oncology Relationship Specialty Start Date End Date Milana Ha MD [facility] [address] [address] PCP - General Internal Medicine 08/03/17 Additional Source Comments The information contained in this document represents components of the legal health record. It is not the complete legal health record.[facility]
--- OUTSIDE RECORDS SUMMARY | 2025-01-08 10:41 | XMS_ITS | Encounter Summary ---
Author Organization [facility] Address [address] [place] [address] Phone Care Team Providers Care Axle And Frame Mechanic Name Role Phone Milana Ha MD Primary Care Provid er Encounter Details Date Type Department Care Team (Late st Contact Info) Description 08/08/2018 Procedure Pass [facility], [address] [address] Social History Tobacco Use Types Packs/Day Years [...] on filedocumented in this encounter Care Teams Axle And Frame Mechanic Relationship Specialty Start Date End Date Milana Ha MD [address] [address] PCP - General Internal Medicine 08/03/17 documented as of this encounter Additional Source Comments The information contained in this document represents components of the legal health record. It is not the complete legal health record.[facility]
--- OUTSIDE RECORDS SUMMARY | 2025-01-08 10:41 | XMS_ITS | Encounter Summary ---
Author Organization [facility] Address [address] [place] [address] [place] [address] Phone Care Team Providers Care Full Service Vending Driver Name Role Phone Milana Ha MD Primary Care Provid er Encounter Details Date Type Department Care Team ([facility] Contact Info) Description 10/23/2024 Procedure Pass Non-Invasive Cardiology [address] [place] [address] Social History Tobacco Use Types Packs/Day Years [...] on filedocumented in this encounter Care Teams Full Service Vending Driver Relationship Specialty Start Date End Date Milana Ha MD [address] [id number] PCP - General Internal Medicine 08/03/17 documented as of this encounter Additional Source Comments The information contained in this document represents components of the legal health record. It is not the complete legal health record.[facility]
--- OUTSIDE RECORDS SUMMARY | 2025-01-08 10:41 | XMS_ITS | Encounter Summary ---
Author Organization [facility] Address [address] [place] [address] [place] [address] Phone Care Team Providers Care Cone Trucker Name Role Phone Milana Ha MD Primary Care Provid er Encounter Details Date Type Department Care Team ([facility] Contact Info) Description 11/08/2024 Procedure Pass Non-Invasive Cardiology [address] [place] [address] Social History Tobacco Use Types Packs/Day Years [...] on filedocumented in this encounter Care Teams Cone Trucker Relationship Specialty Start Date End Date Milana Ha MD [address] [phone] PCP - General Internal Medicine 08/03/17 documented as of this encounter Additional Source Comments The information contained in this document represents components of the legal health record. It is not the complete legal health record.[facility]
--- OUTSIDE RECORDS SUMMARY | 2025-01-08 10:41 | XMS_ITS | Encounter Summary ---
Author Organization [facility] Address [address] [place] [address] Phone Care Team Providers Care Interlocking And Signal Mechanic Name Role Phone Milana Ha MD Primary Care Provid er Encounter Details Date Type Department Care Team (Late st Contact Info) Description 01/25/2024 Procedure Pass [facility], [address] [address] Social History Tobacco Use Types Packs/Day Years [...] on filedocumented in this encounter Care Teams Interlocking And Signal Mechanic Relationship Specialty Start Date End Date Milana Ha MD [address] [id number] PCP - General Internal Medicine 08/03/17 documented as of this encounter Additional Source Comments The information contained in this document represents components of the legal health record. It is not the complete legal health record.[facility]
--- OUTSIDE RECORDS SUMMARY | 2025-01-08 10:41 | XMS_ITS | Encounter Summary ---
Author Organization [facility] Address [address] [place] [address] Phone Care Team Providers Care Engine Room Operator Name Role Phone Milana Ha MD Primary Care Provid er Reason for Referral * MRI/CAT Scan - Closed Specialty Diagnoses / Procedures Referred By Yolanda barnhart Referred To Contact Radiology Diagnoses Benign neoplasm of cranial nerves Procedures MRI Brain Meir Lara MD Phone: tel: fax: mailto:[email or web address] Referral ID Status Reason Start Date Expiration Date Visits Re quested Visits Authorized [id number] Closed 01/25/2024 01/24/2025 1 1 Encounter Details Date Type Department Care Team (Latest Contact Info) Description 01/25/2024 Transcribe Orders Virtual Department [address] [place] [address] Meir Lara MD [address] [facility], [address] [place] [address] [email or web address] Benign neoplasm of cranial nerves (Primary Dx) [...] clinician's provided indication for this examination in [facility]: Outside Radiology Order; Benign neoplasm of cranial [...] clinician's provided indication for this examination in [facility]:Outside Radiology Order; Benign neoplasm of cranial nerves [...] asymptomatic finding. This is unchanged dating back [id number]. Ventricular System and Extra-Axial Spaces: There is [...] nerves documented in this encounter Care Teams Engine Room Operator Relationship Specialty Start Date End Date Milana Ha MD [address] [address] PCP - General Internal Medicine 08/03/17 documented as of this encounter Additional Source Comments The information contained in this document represents components of the legal health record. It is not the complete legal health record.[facility]
--- OUTSIDE RECORDS SUMMARY | 2025-01-08 10:41 | XMS_ITS | Encounter Summary ---
Author Organization [facility] Address [address] [place] [address] [place] [address] Phone Care Team Providers Care Occup Ther Name Role Phone Milana Ha MD Primary Care Provid er Reason for Referral * MRI/CAT Scan - Closed Specialty Diagnoses / Procedures Referred By Yolanda barnhart Referred To Contact Radiology Diagnoses SNHL (sensory-neural hearing loss), asymmetrical Procedures MRI Brain Shane Patel MD Phone: tel: fax: [email or web address] Referral ID Status Reason Start Date Expiration Date Visits Re quested Visits Authorized [id number] Closed 08/02/2017 09/30/2017 1 1 Encounter Details Date Type Department Care Team (Late st Contact Info) Description 08/03/2017 Ancillary Orders [facility] External Provider Virtual Department [address] [place] [address] Shane Patel MD [address] [place] [address] [address] [place] [address] [email or web address] SNHL (sensory-neural hearing loss), asymmetrical Social History [...] asymmetrical documented in this encounter Care Teams Occup Ther Relationship Specialty Start Date End Date Milana Ha MD [address] [address] PCP - General Internal Medicine 08/03/17 documented as of this encounter Additional Source Comments The information contained in this document represents components of the legal health record. It is not the complete legal health record.[facility]
--- OUTSIDE RECORDS SUMMARY | 2025-01-08 10:41 | XMS_ITS | Clinical Summary ---
Author Organization [employer] Address [address] [place] [address] Care Team Providers Care Studio Director Name Role Phone Unavailable Primary Care [...] Most Recently Relevant to Health Maintenance Insurance [place], [place] DENTAL - [facility] PPO * Guarantor: Carmelita Whitaker Account Type Relation to Patient Date of Phone Billing Address Personal/Family Self [place], [place] * Guarantor: Carmelita Whitaker Account Type Relation to Patient Date of Phone Billing Address Personal/Family Self [place], [place]
--- OUTSIDE RECORDS SUMMARY | 2025-01-08 10:41 | XMS_ITS | Encounter Summary ---
Author Organization [facility] Address [address] [place] [address] [place] [address] Phone Care Team Providers Care Histology Aide Name Role Phone Mliana Ha MD Primary Care Provid er Encounter Details Date Type Department Care Team ([facility] Contact Info) Description 11/01/2024 Procedure Pass Non-Invasive Cardiology [address] [place] [address] Social History Tobacco Use Types Packs/Day Years [...] on filedocumented in this encounter Care Teams Histology Aide Relationship Specialty Start Date End Date Milana Ha MD [address] [phone] PCP - General Internal Medicine 08/03/17 documented as of this encounter Additional Source Comments The information contained in this document represents components of the legal health record. It is not the complete legal health record.[facility]
--- OUTSIDE RECORDS SUMMARY | 2025-01-08 10:41 | XMS_ITS | Clinical Summary ---
Author Organization [facility] Address [address] [place] [address] Care Team Providers Care Dining Room Captain Name Role Phone Milana Ha MD Primary Care Provider Surgical History Surgery Date Site/Laterality Comments HYSTERECTOMY PROCEDURE: HISTORICAL HYSTERECTOMY SALPINGOOPHORECTOMY PROCEDURE: [place] LAPAROSCOPY W/RMVL ADNEXAL STRUCTURES CARDIAC CATHETERIZATION 2002 PROCEDURE: HISTORICAL CARDIAC CATH; COMMENT: negative CHOLECYSTECTOMY 05/16/2016 PROCEDURE: HISTORICAL CHOLECYSTECTOMY; COMMENT: laparoscopic Pee Gutierrez UPPER GASTROINTESTINAL ENDOSCOPY 11/25/2011 PROCEDURE: [place] UPPER GI ENDOSCOPY PERFORMED; COMMENT: small HH; no esophagitis on PPI rx COLONOSCOPY 2007 PROCEDURE: HISTORICAL COLONOSCOPY; COMMENT: [facility]; date approx.; negative COLONOSCOPY 08/06/2020 PROCEDURE: HISTORICAL COLONOSCOPY; COMMENT: 1 cm polyps x2 and diverticulosis: Tubular adenomas x2. Repeat colonoscopy in 3 years. Medical History Medical History Date Comments DM (diabetes mellitus) ([facility] V24, [facility] V28) DX:DM [...] type 2 (diabetes mellitus , type 2) ([facility] V24, [facility] V28) 07/09/2013 DX:DM type 2 (diabetes marcelino itus, type 2) ([facility]) Family History Medical History Relation Name Comments Diabetes Brother 1 Diabetes Brother 2 CABG Father CABG Mother Diabetes Mother Parkinson's Disease Mother Colon cancer Neg Hx Relation Name Status Comments Brother 1 Brother [address] Father (Age 59) stroke Mother Social History [...] Health Maintenance Due Date Last Done Comments Zoster Vaccines (1 of 2) 01/31/1998 DTaP,Tdap,and Td Vaccines (2 - Td or Tdap) 12/21/2021 12/22/2011 RSV Immunization Adult Patients (1 - 1-dose 75+ series) 01/31/2023 Depression Screening 04/04/2024 COVID-19 Vaccine ( season) 2024 03/31/2021, 07/04/2020, 06/04/2020 Influenza Vaccine (#1) 2024 , 12/29/2019, 01/11/2019, Additional history exists Pneumococcal Vaccine: [...] age to complete this topic Care Teams Dining Room Captain Relationship Specialty Start Date End Date Milana Ha MD PCP - General Internal Medicine 05/02/19
--- OUTSIDE RECORDS SUMMARY | 2025-01-08 10:41 | XMS_ITS | Encounter Summary ---
Author Organization [facility] Address [address] [facility] [address] [place] [address] Phone Care Team Providers Care Hatchery Worker Name Role Phone Milana Ha MD Primary Care Provid er Encounter Details Date Type Department Care Team (Late st Contact Info) Description 06/02/2018 Ancillary Orders Virtual Department 30 [place] [address] Bryce Bui MD 100 [facility] [address] [place] [address] Disorder of kidney and ureter Social History [...] Renal shadow appears within normal limits. POS [id number] Narrative 06/26/2018 9:27 AM EDT COMPARISON: None [...] Renal shadow appears within normal limits. POS [id number] us Internal With Orders Referring - Referring IMG [facility] RENAL Final Result documented in this encounter Visit Diagnoses Diagnosis Disorder of kidney and ureter Unspecified disorder of kidney and ureter Disorder of kidney and ureter Unspecified disorder of kidney and ureter documented in this encounter Care Teams Hatchery Worker Relationship Specialty Start Date End Date [facility] [address] [address] PCP - General Internal Medicine 08/03/17 documented as of this encounter Additional Source Comments The information contained in this document represents components of the legal health record. It is not the complete legal health record.[facility]
--- OUTSIDE RECORDS SUMMARY | 2025-01-08 10:41 | XMS_ITS | Encounter Summary ---
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, bilateral Arthralgia of right temporomandibular joint Procedures MRI Brain Shane Patel MD Phone: tel: fax: [email or web address] Referral ID Status Reason Start Date Expiration Date Visits Re quested Visits Authorized [id number] Closed 08/02/2018 09/30/2018 1 1 Encounter Details Date Type Department Care Team (Latest Contact Info) Description 08/08/2018 Ancillary Orders Virtual Department 30 [place] [address] Shane Patel MD 100 [facility] 100 [place] [address] [email or web address] Benign neoplasm of cranial nerves; Sensory hearing [...] present in the major vessels of the [place] of [place]. Although the study does not [...] present in the major vessels of the [place] of[place]. Although the study does not detail [...] joint documented in this encounter Care Teams Repairer Cylinder Heads Relationship Specialty Start Date End Date Milana Ha MD [address] [address] PCP - General Internal Medicine 08/03/17 documented as of this encounter Additional Source Comments The information contained in this document represents components of the legal health record. It is not the complete legal health record.[facility]
--- OUTSIDE RECORDS SUMMARY | 2025-01-08 10:41 | XMS_ITS | Clinical Summary ---
Author Organization [facility] Address [address] [place] [address] Care Team Providers Care Dewaterer Operator Name Role Phone Milana Ha MD [...] age to complete this topic Care Teams Dewaterer Operator Relationship Specialty Start Date End Date Milana Ha MD PCP - General Internal Medicine 05/02/19
== END 2025-01-08 10:19 | disposition home or self-care (01) ==
LOC: HO.HMCFM 09:29
PROVIDERS: PCP Nurse Practitioner Family; Visit Provider Nurse Practitioner Family
DX: I10 Essential (primary) hypertension (principal); Z09 Encounter for follow-up examination after completed treatment for conditions other than malignant neoplasm; R55 Syncope and collapse

== ENCOUNTER 2025-01-10 10:16 | Outpatient (REF) | payer MEDICARE, SELFPAY ==
[2025-01-10 12:22] LABS: Iron 37 mcg/dL (30-160); Percent Iron Saturation 11 % (15-50); Total Iron Binding Capacity 339 mcg/dL (228-428); Unsaturated Iron Binding 302 ug/dL
[2025-01-10 12:47] LABS: Ferritin 13 ng/mL (10-250)
[2025-01-10 12:50] LABS: Folate 5.2 ng/mL (> or = 4.0); Vitamin B12 168 pg/mL (200-900)
== END 2025-01-10 10:17 | disposition home or self-care (01) ==
LOC: HO.WFDLDS 10:16
PROVIDERS: Visit Provider Nurse Practitioner Family
DX: D50.9 Iron deficiency anemia, unspecified (principal)
CPT/HCPCS: 36415; 82607; 82728; 82746; 83540

== ENCOUNTER 2025-02-25 13:43 | Outpatient (REF) | payer MEDICARE, SELFPAY ==
--- OUTSIDE RECORDS SUMMARY | 2025-02-25 18:32 | XMS_ITS | Encounter Summary ---
Author Organization [facility] Address [address] [facility] [address] [place] [address] Phone Care Team Providers Care Campaign Specialist Name Role Phone Milana Ha MD Primary Care Provid er Encounter Details Date Type Department Care Team (Late st Contact Info) Description 08/03/2017 Procedure Pass [facility], [address] [address] Social History Tobacco Use Types Packs/Day Years [...] on filedocumented in this encounter Care Teams Campaign Specialist Relationship Specialty Start Date End Date Milana Ha MD [address] [address] PCP - General Internal Medicine 08/03/17 documented as of this encounter Additional Source Comments The information contained in this document represents components of the legal health record. It is not the complete legal health record.[facility]
--- OUTSIDE RECORDS SUMMARY | 2025-02-25 18:32 | XMS_ITS | Encounter Summary ---
Author Organization [facility] Address [address] [facility] [address] [place] [address] Phone Care Team Providers Care Tea Taster Name Role Phone Milana Ha MD Primary Care Provid er Encounter Details Date Type Department Care Team (Late st Contact Info) Description 06/02/2018 Ancillary Orders Virtual Department 30 [place] [address] Bryce Bui MD 100 [facility] 120 [place] [address] Disorder of kidney and ureter Social History [...] Renal shadow appears within normal limits. POS [id number] Narrative 06/26/2018 9:27 AM EDT COMPARISON: None [...] Renal shadow appears within normal limits. POS [id number] us Internal With Orders Referring - Referring IMG [facility] RENAL Final Result documented in this encounter Visit Diagnoses Diagnosis Disorder of kidney and ureter Unspecified disorder of kidney and ureter Disorder of kidney and ureter Unspecified disorder of kidney and ureter documented in this encounter Care Teams Tea Taster Relationship Specialty Start Date End Date Mil[facility] [address] [address] PCP - General Internal Medicine 08/03/17 documented as of this encounter Additional Source Comments The information contained in this document represents components of the legal health record. It is not the complete legal health record.[facility]
--- OUTSIDE RECORDS SUMMARY | 2025-02-25 18:32 | XMS_ITS | Clinical Summary ---
Author Organization [facility] Address [address] [facility] 7 [place] [address] Care Team Providers Care Casing Tier Name Role Phone Unavailable Primary Care Provider [...] Most Recently Relevant to Health Maintenance Insurance [place], [place] D[facility] - [facility] [place] [address] * Guarantor: Carmelita Whitaker Account Type Relation to Patient Date of Phone Billing Address Personal/Family Self [place], [place] * Guarantor: Carmelita Whitaker Account Type Relation to Patient Date of Phone Billing Address Personal/Family Self [place]
--- OUTSIDE RECORDS SUMMARY | 2025-02-25 18:32 | XMS_ITS | Encounter Summary ---
Author Organization [facility] Address [address] [place] [address] [address] [place] [address] Phone Care Team Providers Care Quiller Tender Name Role Phone Milana Ha MD Primary Care Provid er Encounter Details Date Type Department Care Team ([facility] Contact Info) Description 11/08/2024 Procedure Pass Non-Invasive Cardiology [address] [place] [address] Social History Tobacco Use Types Packs/Day Years [...] on filedocumented in this encounter Care Teams Quiller Tender Relationship Specialty Start Date End Date Milana Ha MD [address] [id number] PCP - General Internal Medicine 08/03/17 documented as of this encounter Additional Source Comments The information contained in this document represents components of the legal health record. It is not the complete legal health record.[facility]
--- OUTSIDE RECORDS SUMMARY | 2025-02-25 18:32 | XMS_ITS | Clinical Summary ---
Author Organization [facility] Address [address] [place] [address] Phone Care Team Providers Care Aniline Press Worker Name Role Phone Milana Ha MD Primary Care Provid er Social History Tobacco Use Types Packs/Day Years [...] 75+ series) 01/31/2023 INFLUENZA VACCINE (#1) 2024 , 01/11/2019, 12/07/2017, Additional history exists COVID-19 VACCINE ( - 2024- season) 2024 07/04/2020, 06/04/2020 PNEUMOCOCCAL VACCINES (50+ [...] this topic Medical Devices Not on file Insurance MEDICARE PART A & B [facility] MED[facility] REPLACEMENT MEDICARE [facility] A & [facility] MEDICARE REPLACEMENT [place] MEDICARE PART A & B [facility] MEDIC[facility] REPLACEMENT MEDICARE PART A & B [facility] [place] [address] MEDICARE PART A & B [facility] MEDICARE REPLACEMENT MEDICARE PART A & B [facility] MEDICARE REPLACEMENT [place] Care Teams Aniline Press Worker Relationship Specialty Start Date End Date Milana [facility] MD [facility] [address] [address] PCP - General Internal Medicine 08/03/17 Additional Source Comments The information contained in this document represents components of the legal health record. It is not the complete legal health record.[facility]
--- OUTSIDE RECORDS SUMMARY | 2025-02-25 18:32 | XMS_ITS | Encounter Summary ---
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, bilateral Arthralgia of right temporomandibular joint Procedures MRI Brain Shane Patel MD Phone: tel: fax: [email or web address] Referral ID Status Reason Start Date Expiration Date Visits Re quested Visits Authorized [id number] Closed 08/02/2018 09/30/2018 1 1 Encounter Details Date Type Department Care Team (Latest Contact Info) Description 08/08/2018 Ancillary Orders Virtual Department 30 [place] [address] Shane Patel MD 100 [facility] 100 [place] [address] [email or web address] Benign neoplasm of cranial nerves; Sensory hearing [...] present in the major vessels of the [place] of [place]. Although the study does not [...] present in the major vessels of the [place] of[place]. Although the study does not detail [...] joint documented in this encounter Care Teams Corporate Sales Trainer Relationship Specialty Start Date End Date Milana Ha MD [address] [address] PCP - General Internal Medicine 08/03/17 documented as of this encounter Additional Source Comments The information contained in this document represents components of the legal health record. It is not the complete legal health record.[facility]
--- OUTSIDE RECORDS SUMMARY | 2025-02-25 18:32 | XMS_ITS | Encounter Summary ---
Author Organization [facility] Address [address] [place] [address] [place] [address] Phone Care Team Providers Care Payroll Coordinator Name Role Phone Milana Ha MD Primary Care Provid er Reason for Referral * MRI/CAT Scan - Closed Specialty Diagnoses / Procedures Referred By Yolanda barnhart Referred To Contact Radiology Diagnoses SNHL (sensory-neural hearing loss), asymmetrical Procedures MRI Brain Shane Patel MD Phone: tel: fax: [email or web address] Referral ID Status Reason Start Date Expiration Date Visits Re quested Visits Authorized [id number] Closed 08/02/2017 09/30/2017 1 1 Encounter Details Date Type Department Care Team (Late st Contact Info) Description 08/03/2017 Ancillary Orders [facility] External Provider Virtual Department 30 [place] [address] Shane Patel MD [address] [place] [address] 100 [place] [address] [email or web address] SNHL (sensory-neural hearing loss), asymmetrical Social History [...] asymmetrical documented in this encounter Care Teams Payroll Coordinator Relationship Specialty Start Date End Date Milana Ha MD [address] [address] PCP - General Internal Medicine 08/03/17 documented as of this encounter Additional Source Comments The information contained in this document represents components of the legal health record. It is not the complete legal health record.[facility]
--- OUTSIDE RECORDS SUMMARY | 2025-02-25 18:32 | XMS_ITS | Clinical Summary ---
Author Organization [facility] Address [address] [place] [address] Care Team Providers Care Milk Hauler Name Role Phone Milana Ha MD Primary Care Provider Surgical History Surgery Date Site/Laterality Comments HYSTERECTOMY PROCEDURE: HISTORICAL HYSTERECTOMY SALPINGOOPHORECTOMY PROCEDURE: [place] LAPAROSCOPY W/RMVL ADNEXAL STRUCTURES CARDIAC CATHETERIZATION 2002 PROCEDURE: HISTORICAL CARDIAC CATH; COMMENT: negative CHOLECYSTECTOMY 05/16/2016 PROCEDURE: HISTORICAL CHOLECYSTECTOMY; COMMENT: laparoscopic Pee Gutierrez UPPER GASTROINTESTINAL ENDOSCOPY 11/25/2011 PROCEDURE: [place] UPPER GI ENDOSCOPY PERFORMED; COMMENT: small HH; no esophagitis on PPI rx COLONOSCOPY 2007 PROCEDURE: HISTORICAL COLONOSCOPY; COMMENT: [facility]; date approx.; negative COLONOSCOPY 08/06/2020 PROCEDURE: HISTORICAL COLONOSCOPY; COMMENT: 1 cm polyps x2 and diverticulosis: Tubular adenomas x2. Repeat colonoscopy in 3 years. Medical History Medical History Date Comments DM (diabetes mellitus) ([facility] V24, [facility] V28) DX:DM (diabetes mellitus) ([facility]) [...] type 2 (diabetes mellitus , type 2) ([facility] V24, [facility] V28) 07/09/2013 DX:DM type 2 (diabetes marcelino itus, type 2) ([facility]) Family History Medical History Relation Name [...] age to complete this topic Care Teams Milk Hauler Relationship Specialty Start Date End Date Milana Ha MD PCP - General Internal Medicine 05/02/19
--- OUTSIDE RECORDS SUMMARY | 2025-02-25 18:32 | XMS_ITS | Encounter Summary ---
Author Organization [facility] Address [address] [facility] [address] [place] [address] Phone Care Team Providers Care Medical Billing Service Name Role Phone Milana Ha MD Primary Care Provid er Reason for Referral * MRI/CAT Scan - Closed Specialty Diagnoses / Procedures Referred By Yolanda barhnart Referred To Contact Radiology Diagnoses Benign neoplasm of cranial nerves Procedures MRI Brain Meir Lara MD Phone: tel: fax: mailto:[email or web address] Referral ID Status Reason Start Date Expiration Date Visits Re quested Visits Authorized [id number] Closed 01/25/2024 01/24/2025 1 1 Encounter Details Date Type Department Care Team (Latest Contact Info) Description 01/25/2024 Transcribe Orders Virtual Department 30 [place] [address] Meir Lara MD 100 [facility], [address] [place] [address] [email or web address] Benign neoplasm of cranial nerves (Primary Dx) [...] provided indication for this examination in [facility]: Outside Radiology Order; Benign neoplasm of cranial [...] provided indication for this examination in [facility]:Outside Radiology Order; Benign neoplasm of cranial nerves [...] asymptomatic finding. This is unchanged dating back [id number]. Ventricular System and Extra-Axial Spaces: There is [...] nerves documented in this encounter Care Teams Medical Billing Service Relationship Specialty Start Date End Date Milana Ha MD [address] [address] PCP - General Internal Medicine 08/03/17 documented as of this encounter Additional Source Comments The information contained in this document represents components of the legal health record. It is not the complete legal health record.[facility]
--- OUTSIDE RECORDS SUMMARY | 2025-02-25 18:32 | XMS_ITS | Encounter Summary ---
Author Organization [facility] Address [address] [facility] [address] [place] [address] Phone Care Team Providers Care Operating Theatre Technician Name Role Phone Milana Ha MD Primary Care Provid er Encounter Details Date Type Department Care Team (Late st Contact Info) Description 08/08/2018 Procedure Pass [facility], [address] [address] Social History Tobacco Use Types Packs/Day Years [...] on filedocumented in this encounter Care Teams Operating Theatre Technician Relationship Specialty Start Date End Date Milana Ha MD [address] [address] PCP - General Internal Medicine 08/03/17 documented as of this encounter Additional Source Comments The information contained in this document represents components of the legal health record. It is not the complete legal health record.[facility]
--- OUTSIDE RECORDS SUMMARY | 2025-02-25 18:32 | XMS_ITS | Encounter Summary ---
Author Organization [facility] Address [address] [place] [address] [place] [address] Phone Care Team Providers Care Shipping Associate Name Role Phone Milana Ha MD Primary Care Provid er Encounter Details Date Type Department Care Team ([facility] Contact Info) Description 11/01/2024 Procedure Pass Non-Invasive Cardiology [address] [place] [address] Social History Tobacco Use Types Packs/Day Years [...] on filedocumented in this encounter Care Teams Shipping Associate Relationship Specialty Start Date End Date Milana Ha MD [address] [phone] PCP - General Internal Medicine 08/03/17 documented as of this encounter Additional Source Comments The information contained in this document represents components of the legal health record. It is not the complete legal health record.[facility]
--- OUTSIDE RECORDS SUMMARY | 2025-02-25 18:32 | XMS_ITS | Encounter Summary ---
Author Organization [facility] Address [address] [place] [address] [place] [address] Phone Care Team Providers Care Delivery And Installation Subcontractor Name Role Phone Milana Ha MD Primary Care Provid er Encounter Details Date Type Department Care Team ([facility] Contact Info) Description 10/23/2024 Procedure Pass Non-Invasive Cardiology [address] [place] [address] Social History Tobacco Use Types Packs/Day Years [...] on filedocumented in this encounter Care Teams Delivery And Installation Subcontractor Relationship Specialty Start Date End Date Milana Ha MD [address] [phone] PCP - General Internal Medicine 08/03/17 documented as of this encounter Additional Source Comments The information contained in this document represents components of the legal health record. It is not the complete legal health record.[facility]
--- OUTSIDE RECORDS SUMMARY | 2025-02-25 18:32 | XMS_ITS | Data Portability ---
Author Organization [place] - [facility], Allergy Address [address] [place] [address] Care Team Providers Care Gold Nib Grinder Name Role Phone ALDO ASHER MD Primary [...] INTERNAL AUDITORY CANAL, W/WO CONTRAST 2023 024 [facility], [address] [place] [address], [address], 10:57:28 Medication Orders None recorded. Patient TargetsNo targets recorded. Patient InstructionsNo instructions recorded. Reason for Referral None Reported. Results Created Date Observation Date Name Description Value Unit Range Abnormal Flag Note LastModifiedBy Organization Detail LastModifiedTime 01/27/20 24 audio gram No observ ation record ed. [email or web address] Not Available 01/03 11:00:41 03/09/20 24 03/07/2024 MRI, brain + inter nal audit ory canal , w/wo contr ast No observ ation record ed[facility] [address] [place], [address], 03/16/2024 09:57:52 Result Notes None recorded. Problems Name Problem SNOMED Code Status Onset Date Resolution Date Notes Provider Name and Address Organization Details Recorded Time Benign neoplasm of cranial nerve 37640576 Active 2016 Benign neoplasm of cranial nerves; Note: Date Diagnosed : 04/26/2016 9:45 AM (D33.3) , right sided acoustic neuroma 6 x 8 x 6mm Not Available [facility] 4 02:12:59 Sensorine ural hearing loss of bilateral ears 750177341 Active 2016 Sensorine ural hearing loss, bilateral ; Note: Date Diagnosed : 04/26/2016 9:36 AM (H90.3) Not Available [facility] 4 02:12:59 Pain of right temporoma ndibular joint 69865133092 307345 Active 2017 Arthralgi a of right temporoma ndibular joint; Note: Date Diagnosed : 08/22/2017 11:54 AM (M26.621) Not Available [facility] 4 02:13:27 Impacted cerumen in right ear 88920741526 87542 Active 2023 TASHA FLYNN MD [address] [place] [address], [place], [address] , [facility] 4 15:37:11 Acoustic neuroma 769374462 Active 2023 TASHA FLYNN MD [address] [place] [address], [place], [address] , [facility] 4 15:37:46 Problem Notes None recorded. Procedures Surgical History Date Name Laterality Status Provider Name and Address Organization Details Recorded Time 4 Cerumen removal without microscope right completed TASHA FLYNN MD [address] [place] [address], [place], [address], [facility] - [facility] 01/25/2024 15:37:32 4 Air & Speech Audio with Tymps - 50986, 78732 & 35764 completed SHELBIE MARKS [address] [place] [address],[address], [address], [facility] - [facility] 01/25/2024 14:51:01 Imaging Results None recorded. Procedure Notes None recorded. Medical Equipment None Reported. Medications Name Sig Start Date Stop Date Status Note LastModified by Organization Details LastModified Time atorvastat in 80 mg tablet TAKE 1 TABLET BY MOUTH EVERY DAY active Not Available Not Available No t Available valacyclov ir 1 gram tablet 2017 active Medicatio n ID: [id number] Du ration Value: 7 Brand Name: teddy alonso Send Method: E-Prescri bed Subs Allowed: subs [place] [facility]dy vir Not Available Not [...] mg capsule 2017 active Medicatio n ID: [id number] Du ration Value: 30 Brand Name: gabapenti n Send Method: E-Prescri bed Subs Allowed: subs [facility] icName: gabapenti n Not Available Not Available [...] tablet 01/23/ 2017 active Medicatio n ID: [id number] Br and Name: iron Send Method: E-Prescri [...] Not Available Not Available No t Available [facility] spacer USE DIRECTED WITH INHALER active [...] Updated DateTime 01/25/2024 165.1 cm 26.3 kg/m2 61354.59 g Keven Wyman [place] - [facility] 01/25/2024 15:07:24 Social History None recorded. Functional Status None recorded. Mental Status None recorded. Family History Nothing Reported. Medical History No medical history recorded. Gynecological HistoryNo gynecological history recorded. Obstetrics History GPAL:G 0 P 0 0 0 0 Past Encounters Encounter ID Performer Location Encounter Start Date Encounter Closed Date Diagnosis/Indication Diagnosis SNOMED-CT Code Diagnosis ICD10 Code Diagnosis IMO Codes Diagnosis Note [id number] TASHA FLYNN MD [facility] [address] [address] 01/25/2024 14:09:52 01/25/2024 15:37:36 Sensorineural hearing loss of bilateral ears 191590682 H90.3 Right Ear:Mild sloping to a profound SNHL with good speech discrimina tion.Type A tympanogra m.Left Ear:Mild sloping to a severe SNHL with excellent speech discrimina tion.Type A tympanogra m. Impacted c erumen in right ear [id number] 720545 H61.21 Recurrent Cerumen Impactions : Ears were meticulous ly cleaned bilaterall y today with a curette and suction. The patient tolerated this well and will follow up for repeat debridemen t per routine. Acoustic neuroma [id number] 07 D33.3 has been 5 years since [...] Pablo Member ID Guarantor Name 01/25/2024 1 [facility] (MEDICARE REPLACEMENT/A DVANTAGE - PPO) [id number] Carmelita Whitaker [id number] Carmelita Whitaker Notes Date Note Type Note Provider Name and Address Organization Details Recorded Time 01/25/2024 text/html ROS as noted in the HPI Hx of AD acoustic neuroma. Used to see Dr. Patel but was lost to follow up. Last MRI 2018 showed a 6x8mm AD intracanalicular acoustic neuroma. Audio today shows improved hearing and WRS compared to last tested (09/2018). TASHA FLYNN MD [address] [place] [address], [phone], [place] - [facility] 01/25/2024 15:39:51 OBGyn Episode No OBEpisode recorded.
--- OUTSIDE RECORDS SUMMARY | 2025-02-25 18:32 | XMS_ITS | Clinical Summary ---
Author Organization [facility] Address [address] [place] [address] Care Team Providers Care Sprayer Machine Name Role Phone Milana Ha MD Primary [...] age to complete this topic Care Teams Sprayer Machine Relationship Specialty Start Date End Date Milana Ha MD PCP - General Internal Medicine 05/02/19
--- OUTSIDE RECORDS SUMMARY | 2025-02-25 18:32 | XMS_ITS | Encounter Summary ---
Author Organization [facility] Address [address] [place] [address] [address] [place] [address] Care Team Providers Care Manager Rn Name Role Phone Unavailable Primary Care Provider [...]
--- OUTSIDE RECORDS SUMMARY | 2025-02-25 18:32 | XMS_ITS | Encounter Summary ---
Author Organization [facility] Address [address] [place] [id number] Phone Care Team Providers Care American Sign Language Teacher Name Role Phone Milana Ha MD Primary Care Provid er Encounter Details Date Type Department Care Team (Late st Contact Info) Description 01/25/2024 Procedure Pass [facility], [address] [address] Social History Tobacco Use Types Packs/Day Years [...] on filedocumented in this encounter Care Teams American Sign Language Teacher Relationship Specialty Start Date End Date Milana Ha MD [address] [id number] PCP - General Internal Medicine 08/03/17 documented as of this encounter Additional Source Comments The information contained in this document represents components of the legal health record. It is not the complete legal health record.[facility]
[2025-02-25 19:21] LABS: Vitamin B12 1445 pg/mL (200-900)
== END 2025-02-25 13:44 | disposition home or self-care (01) ==
LOC: HO.WFDLDS 13:43
PROVIDERS: Visit Provider Nurse Practitioner Family
DX: E53.8 Deficiency of other specified B group vitamins (principal)
CPT/HCPCS: 36415; 82607

== ENCOUNTER → 2025-03-05 09:22 | Outpatient (BNV) | payer MEDICARE, SELFPAY | PROVIDERS: PCP Nurse Practitioner Family; Visit Provider Internal Medicine | DX: R00.1 Bradycardia, unspecified (principal); Z95.0 Presence of cardiac pacemaker | CPT/HCPCS: 93294 ==

== ENCOUNTER 2025-03-08 10:51 | Outpatient (AMB) | payer MEDICARE, SELFPAY ==
--- NOTE | 2025-03-08 10:53 | A.OFFPC_ITS ---
Vital Signs 03/08/25 11:04 03/08/25 11:24 03/08/25 11:54 Height 5 ft 5 in Weight 142 lb 8 oz BMI 23.7 BP 192/77 H 150/80 H 140/70 H Blood Pressure Location Rt brachial Rt brachial Lt brachial Position Sitting Sitting Sitting Respiration 16 Pulse 90 Pulse Source Pulse Oximeter Temp 97.5 F Temp Source Oral Pulse Oximetry (%) 99 Oxygen Delivery Method Room Air Intake Visit Reasons: 4 Month F/U Intake Note: patient here for 4 month follow up Liability Claims Representative Required: No Is last menstrual period known: No Post menopausal: No Patient : No Allergies Seasonal Allergies Allergy (Intermediate, Verified 03/08/25 11:19) Cough zolpidem (From Ambien) Adverse Reaction (Severe, Verified 03/08/25 11:19) Hallucinations Medication List - Last Reconciled 03/08/25 by Nisha Garcia CNP acetaminophen (Tylenol Extra Strength) 500 mg PO Q6H PRN albuterol sulfate 90 mcg/actuation 2 puffs PO Q4-6H PRN amlodipine 10 mg PO DAILY apixaban (Eliquis) 5 mg PO BID atorvastatin 80 mg PO DAILY buspirone 10 mg PO BID 30 days cyanocobalamin (vitamin B-12) 1,000 mcg PO DAILY 30 days famotidine (Pepcid) 20 mg PO BEDTIME flash glucose scanning reader (FreeStyle Samantha 2 [place]) As directed flash glucose sensor (FreeStyle Samantha 2 Sensor kit) As directed fluoxetine TAKE 3 CAPSULES BY MOUTH EVERY DAY furosemide 20 mg PO DAILY Held on 08/28/24. Instructions: Doctor's Order hydroxyzine HCl 25 mg PO TID PRN inhalational spacing device (Aerochamber Plus Z Stat spacer) As directed levothyroxine 50 mcg PO DAILY metformin ER 1,000 mg (2 x 500 mg) PO BID 90 days metoprolol succinate ER 25 mg PO DAILY miscellaneous medical supply 1 large blood pressure cuff and monitor omeprazole 40 mg (2 x 20 mg) PO DAILY semaglutide (Ozempic) 1 mg (0.75 mL) subcut QWEEK 30 days valsartan-hydrochlorothiazide 320-25 mg 1 tab PO DAILY Tobacco use date assessed: 03/08/25 Fall risk assessment: No Falls in past year Last assessed Fall Risk: 03/08/25 Dental Screening Dental Screen Date: 03/08/25 Did you have a dental visit in the last 12 months?: No Did you have a dental problem in the last 6 months where you did not have access to dental care?: No Was dental information given to patient?: Patient has dentist HPI HPI Comments History of Present Illness Details 75-year-old female presents for hyperten naga, diabetes, anxiety, and depression follow-up. She admits to taking her medications as prescribed without adverse reactions. She notes that she has been making healthy lifestyle choices. She notes that her systolic blood pressure with activities is in 180s and 140s at rest. She reports ongoing, constant anxiety and depression. She has been easily irritable, cries easily, worries all the time, nervous, lack of interest, and excessive sleep. She worries about everything and everybody. She reports loss of focus and forgetfulness. She notes that she is generally moderately anxious and severely depressed. She Denies SI/HI/AVH. [facility] Medical History Essential tremor Seasonal allergies PND (post-nasal drip) Iron deficiency Arthritis Osteoarthritis Depression Hypertension Asthma Tremors of nervous system Type II diabetes mellitus Surgical History Hx of cardiac cath Hx of LASIK History of esophagogastroduodenoscopy (EGD) H/O: hysterectomy History of cataract removal with insertion of prosthetic lens Hx laparoscopic cholecystectomy Family History Mother Diabetes Parkinsons Panic disorder/agoraphobia, agoraphobic avoidnc/panc attck full remssn Father Stroke Heart attack Brother Congestive heart failure Brother Stroke Other Substance abuse Social History Household Members: Family Household Members Other:: brother Both parents involved: No Caregiver staying overnight: No Housing: Other Housing Other:: mobile home Are you a primary hearing care practitioner to a significant other at home: Yes (brother s/p CVA) Do you presently have visiting nurse or other home services: No (brother has services VNA,PT) Alcohol intake: never Patient Tobacco Use Status: Never used Tobacco e-Cigarette/Vaping Use: Never Used Second Hand Smoke Exposure: No Patient : No service: No Current occupational status: retired Current occupational exposures/hazards: Yes Cognitive needs: No Hearing needs: Yes Vision needs: No Questionnaire PHQ-9 Over the last 2 weeks, how often have you been bothered by any of the following problems? 1. Little interest or pleasure in doing things: nearly every day 2. Feeling down, depressed, or hopeless: nearly every day 3. Trouble falling or staying asleep, or sleeping too much: nearly every day 4. Feeling tired or having little energy: nearly every day 5. Poor appetite or overeating: several days 6. Feeling bad about yourself - or that you are a failure or have let yourself or your family down: more than half the days 7. Trouble concentrating on things, such as reading the newspaper or watching television: nearly every day 8. Moving or speaking so slowly that other people could have noticed. Or the opposite - being so fidgety or restless that you have been moving around a lot more than usual: several days 9. Thoughts that you would be better off or of hurting yourself in some way: not at all Total score: 19 Depression Screening Interpretation: Positive Depression Screening Follow-up: Existing condition, In treatment, New Medication prescribed and Community Mental Health Worker F/U Depression Screening Done: Yes 18071 - PHQ-9 Billing: Yes Source: Developed by Drs. Meir Zarate, Elba Comer, Ethan Little and colleagues, with an educational leeanne from [employer] ([employer]). Thrive Questionnaire Date Thrive assessed: 05/21/24 I am a: Patient What is your living situation today?: I have a steady place to live Within the past 12 months, did the food you bought not last and you didn't have the money to get more?: Never true Within the past 12 months, did you worry whether your food would run out before you got money to buy more?: Sometimes True Do you have trouble paying for medicines?: No Do you have trouble getting transportation to medical appointments?: No Do you have trouble paying your heating and electricity bill?: Yes Do you have trouble taking care of your child, family member or friend?: No Do you have trouble with day-to-day activities such as bathing, preparing meals, shopping, managing finances, etc.?: No Are you currently unemployed and looking for a job?: No Are you interested in more education?: No Please select the resources that you would like help with: None Currently or been in a relationship where the following occur: No concerns reported THRIVE Score: 2 SUSHANT-7 AMB Questionnaire SUSHANT-7 Date SUSHANT - 7 assessed: 03/08/25 Feeling nervous, anxious, or on edge: 3 = Nearly every day Not being able to stop or control worryin = Nearly every day Worrying too much about different things: 3 = Nearly every day Trouble relaxin = Nearly every day Being so restless that it is hard to sit still: 2 = More than half the days Becoming easily annoyed or irritable: 3 = Nearly every day Feeling afraid as if something awful might happen: 2 = More than half the days Total SUSHANT-7 score (0-4 normal; 5-9 mild; 10-14 moderate; 15-21 severe): 19 Source: Developed by Drs. Meir Zarate, Elba Comer, Ethan Little and colleagues, with an educational leeanne from [employer] ([employer]). SUSHANT-7 Assessment Billing SUSHANT-7 Assessment Tool: SUSHANT-7 Assessment 05488 Review of Systems Const Details: Const Denies chills, Denies fatigue, Denies fever(s), Denies headache(s) and Denies weakness ENT Denies dizziness and Denies headache(s) Card Denies chest pain, Denies lightheadedness, Denies dyspnea and Denies other (Palpitations) Resp Denies cough, Denies dyspnea, Denies wheezing and Denies other ( shortness of breath) GI Denies abdominal pain, Denies melena, Denies hematochezia, Denies change in bowel habits, Denies dyspepsia and Denies nausea Denies hematuria and Denies dysuria Musc Denies abnormal gait, Denies myalgias, Denies arthralgias, Denies numbness and Denies tingling Skin/Breast Denies rash, Denies unusual bruising and Denies wounds Neuro Denies abnormal gait, Denies dizziness, Denies headache(s), Denies memory loss, Denies numbness, Denies Sensory deficit (Neuro), Denies tingling and Denies weakness Psych Reports anxiety, Reports depression, Reports loss of focus Endo Denies cold intolerance, Denies fatigue, Denies heat intolerance, Denies polydipsia and Denies polyuria Aller/Immun Denies wheezing Physical exam (Primary Care) Vital Signs: Last Vital Signs Temp 97.5 F 03/08/25 11:04 Pulse 90 03/08/25 11:04 Resp 16 03/08/25 11:04 BP 140/70 H 03/08/25 11:54 Pulse Ox 99 03/08/25 11:04 Oxygen Delivery Method Room Air 03/08/25 11:04 BMI result Body Mass Index 23.7 Tobacco/Smoking Status: Tobacco use Status Tobacco use date assessed 03/08/25 03/08/25 11:09 Patient Tobacco Use Status Never used Tobacco 03/08/25 10:53 e-Cigarette/Vaping Use Never Used 03/08/25 10:53 PHQ-9: PHQ-9 Score PHQ-9: Total score 19 03/08/25 12:17 Depression Screening Interpretation: Positive Depression Screening Follow-up: Existing condition, In treatment, New Medication prescribed and Community Mental Health Worker F/U Thrive Assessment: Date of Thrive Assessment Date Thrive assessed 05/21/24 03/08/25 10:53 Currently or been in a relationship where the following occur: No concerns reported Const Other: General: no acute distress and well developed Nutritional Appearance: well nourished Orientation/consciousness: patient oriented x3 [facility] Head: Yes normocephalic and Yes atraumatic Eyes General: appearance normal, both eyes and all related structures Pupils: Equal, round and reactive pupils present EOM: EOMs intact bilaterally Resp Effort & Inspection: normal respiratory effort Auscultation: clear to auscultation bilaterally Cardio Rate: regular rate Rhythm: regular rhythm Heart sounds: S1 normal heart sound present, S2 normal heart sound present, no gallops, no murmurs and no rubs Extrem General: Yes normal to inspection, No edema and No calf tenderness Skin General: warm and dry. Normal skin color. Normal skin turgor Neuro General: patient oriented x3, gait normal and no focal neuro deficit Cranial nerves: Yes Equal, round and reactive pupils present Cognition (Neuro): normal cognition Gait exam (Neuro): Normal gait present Sensory Exam: No Sensory deficit (Neuro) Psych Appearance: grossly normal Mood: Anxious and depressed Affect: Mood congruent Attitude: cooperative Thought process: Normal thought process present, No SI Results AMB Hemoglobin A1c AMB Hemoglobin A1c 5.4 % Last Edit by MELY Evans on 03/08/25 11:34 Results Reviewed Results Reviewed: Laboratory Last Values Hgb A1c (Clinic) 5.4 % (4.0-6.0) 03/08/25 11:21 Coding Level of Care Code Est Pt Level 4 (69616) Diagnoses Hypertension I10 Type II diabetes mellitus E11.9 Generalized anxiety disorder F41.1 Major depressive disorder F32.9 Additional Codes SUSHANT-7 Assessment Billing - SUSHANT-7 Assessment Tool: SUSHANT-7 Assessment 26212 ([id number]) PHQ-9 - 03902 - PHQ-9 Billing: Yes ([id number]) Assessment & Plan Assessment & Plan (1) Hypertension: Code(s): I10 - Essential (primary) hypertension Category: Medical Plan: Resting blood pressure is 150/80, above goal of less than 130/80. Blood pressure improved to 140/70 10-15 minutes after administration of 0.1 mg of clonidine. Her home systolic blood pressure with activities is usually in 180s and 140s at rest. She is very anxious and depressed which could increase her blood pressure. Her hand tier prescribed metoprolol 25 mg daily earlier today; advised to take the medication as prescribed. Furosemide has been on hold since August. May restart if blood pressure is still elevated after a week or two of taking metoprolol. Continue current treatment regimen. Medication changes made for her anxiety and depression which could improve her blood pressure. Low-sodium diet encouraged. Follow-up in 2 weeks or sooner with worsening or new symptoms. Encouraged to schedule a transfer of care visit with a new PCP within the practice in 1-2 months. Verbalized understanding and agreed with the plan. (2) Type II diabetes mellitus: Code(s): E11.9 - Type 2 diabetes mellitus without complications Category: Medical Plan: A1c today is 5.4%, within goal of less than 7.0%. Previous A1c was 5.4%. Continue current treatment regimen. ADA diet and routine exercise encouraged. Will recheck A1c in 3 months. Verbalized understanding and agreed with the plan. (3) Generalized anxiety disorder: Code(s): F41.1 - Generalized anxiety disorder Category: Medical Plan: She reports ongoing, constant anxiety and depression. She has been easily irritable, cries easily, worries all the time, nervous, lack of interest, and excessive sleep. She worries about everything and everybody. She reports loss of focus and forgetfulness. She notes that she is generally moderately anxious and severely depressed. She Denies SI/HI/AVH. PHQ-9 and SUSHANT-7 scores revealed moderately severe depression and severe anxiety respectively. Buspirone increased to 10 mg 3 times daily. Ativan 0.5 mg twice daily as needed for anxiety ordered. Hydroxyzine discontinued this time. Continue to take fluoxetine 60 mg daily. Advised to take her medications as prescribed. Instructed on the risks, benefits, and potential adverse reactions of the medications. Routine exercise encouraged. She met with the CHW who will refer her to a therapist and psychiatrist. Follow-up in 2 weeks or sooner with worsening or new symptoms. Verbalized understanding and agreed with the plan. (4) Major depressive disorder: Code(s): F32.9 - Major depressive disorder, single episode, unspecified Category: Medical Plan: Plan as above. Plan Total time for this visit was 75 minutes. This include 55 minutes with patient for chronic disease management/treatment, and 20 minutes reviewing, coordinating plan of care, and documenting. Orders: Orders AMB Hemoglobin A1c Today Z13.9 - Encounter for screening, unspecified AMB Clonidine Today I10 - Essential (primary) hypertension Medications: New lorazepam (Ativan) 0.5 mg PO BID PRN 20 tabs 0RF anxiety Changed From buspirone 10 mg PO BID 30 days 60 tabs 3RF To buspirone 10 mg PO TID 90 tabs 3RF 30 days Discontinued hydroxyzine HCl Discontinued Reason: Doctor's Order 25 mg PO TID PRN 90 tabs 3RF anxiety
[2025-03-08 11:04] VITALS: BP 192/77; PULSE 90; RESP 16; TEMP 36.4; O2SAT 99; BMI 23.7
[2025-03-08 11:24] VITALS: BP 150/80
[2025-03-08 11:54] VITALS: BP 140/70
--- NOTE | 2025-03-08 11:56 | AM.OFFVISNUR ---
Vital Signs 03/08/25 11:04 03/08/25 11:24 03/08/25 11:54 Height 5 ft 5 in Weight 142 lb 8 oz BMI 23.7 BP 192/77 H 150/80 H 140/70 H Blood Pressure Location Rt brachial Rt brachial Lt brachial Position Sitting Sitting Sitting Respiration 16 Pulse 90 Pulse Source Pulse Oximeter Temp 97.5 F Temp Source Oral Pulse Oximetry (%) 99 Oxygen Delivery Method Room Air Intake Visit Reasons: 4 Month F/U Allergies Seasonal Allergies Allergy (Intermediate, Verified 03/08/25 11:19) Cough zolpidem (From Ambien) Adverse Reaction (Severe, Verified 03/08/25 11:19) Hallucinations Medication List - Last Reconciled 03/08/25 by Nisha Garcia CNP acetaminophen (Tylenol Extra Strength) 500 mg PO Q6H PRN albuterol sulfate 90 mcg/actuation 2 puffs PO Q4-6H PRN amlodipine 10 mg PO DAILY apixaban (Eliquis) 5 mg PO BID atorvastatin 80 mg PO DAILY buspirone 10 mg PO BID 30 days cyanocobalamin (vitamin B-12) 1,000 mcg PO DAILY 30 days famotidine (Pepcid) 20 mg PO BEDTIME flash glucose scanning reader (StudioStyle Samantha [address]) As directed flash glucose sensor (FreeStyle Samantha 2 Sensor kit) As directed fluoxetine TAKE 3 CAPSULES BY MOUTH EVERY DAY furosemide 20 mg PO DAILY Held on 08/28/24. Instructions: Doctor's Order hydroxyzine HCl 25 mg PO TID PRN inhalational spacing device (Aerochamber Plus Z Stat spacer) As directed levothyroxine 50 mcg PO DAILY metformin ER 1,000 mg (2 x 500 mg) PO BID 90 days metoprolol succinate ER 25 mg PO DAILY miscellaneous medical supply 1 large blood pressure cuff and monitor omeprazole 40 mg (2 x 20 mg) PO DAILY semaglutide (Ozempic) 1 mg (0.75 mL) subcut QWEEK 30 days valsartan-hydrochlorothiazide 320-25 mg 1 tab PO DAILY Nursing Note Per PCP request administered 0.1 mg clonidine PO to patient at 11:37 AM. BP check at 11:52 AM 140/70 with HR 90. Reported to PCP Results AMB Hemoglobin A1c AMB Hemoglobin A1c 5.4 % Last Edit by MELY Evans on 03/08/25 11:34 Assessment & Plan Assessment & Plan (1) Hypertension: Code(s): I10 - Essential (primary) hypertension Category: Medical (2) Type II diabetes mellitus: Code(s): E11.9 - Type 2 diabetes mellitus without complications Category: Medical (3) Anxiety and depression: Code(s): F41.9 - Anxiety disorder, unspecified; F32.A - Depression, unspecified Category: Medical Orders: Orders AMB Hemoglobin A1c Today Z13.9 - Encounter for screening, unspecified AMB Clonidine Today I10 - Essential (primary) hypertension Coding Diagnoses Hypertension I10 Type II diabetes mellitus E11.9 Anxiety and depression F41.9; F32.A
== END 2025-03-08 12:17 | disposition home or self-care (01) ==
LOC: HO.HMCFM 10:51
PROVIDERS: PCP Nurse Practitioner Family; Visit Provider Nurse Practitioner Family
DX: I10 Essential (primary) hypertension (principal); E11.9 Type 2 diabetes mellitus without complications; F41.1 Generalized anxiety disorder; F32.9 Major depressive disorder, single episode, unspecified; Z13.9 Encounter for screening, unspecified

== ENCOUNTER → 2025-03-08 10:51 | Outpatient (BNVA) | payer MEDICARE, SELFPAY | PROVIDERS: PCP Nurse Practitioner Family; Visit Provider Nurse Practitioner Family | DX: I10 Essential (primary) hypertension (principal); E11.9 Type 2 diabetes mellitus without complications; F41.1 Generalized anxiety disorder; F32.9 Major depressive disorder, single episode, unspecified; Z13.31 Encounter for screening for depression; Z13.39 Encounter for screening examination for other mental health and behavioral disorders | CPT/HCPCS: 83036; 96127; 99212 ==

== ENCOUNTER 2025-03-21 15:07 | Outpatient (REF) | payer MEDICARE, SELFPAY ==
--- NOTE | ~2025-03-21 | MM_ITS ---
EXAMINATION: MM SCREENING DIGITAL BREAST TOMOSYNTHESIS, BILATERAL CLINICAL INFORMATION: Screening. Asymptomatic. COMPARISON: Mammography: Comparison is made with available priors TECHNIQUE: Digital breast mammography with tomosynthesis is performed in both the craniocaudal and mediolateral oblique views along with computer-aided detection (CAD). FINDINGS: There are scattered areas of fibroglandular density. There are no significant masses, abnormal calcifications, or other abnormalities. MM/MM tomosynthesis screening BI IMPRESSION: No mammographic evidence of malignancy. ASSESSMENT: BI-RADS Category 1: Negative RECOMMENDATION: Routine annual mammography screening. 1 year F/U This examination should not preclude the clinical evaluation of a suspicious palpable abnormality. This patient's information was entered into a reminder system with a target due date for their next mammogram. Electronically signed by: Paulette Ramsey DO 03/22/2025 01:05 PM MICHAEL
--- OUTSIDE RECORDS SUMMARY | 2025-03-21 19:10 | XMS_ITS | Clinical Summary ---
Author Organization [facility] Address [address] [place] [address] Care Team Providers Care Court Reporter Name Role Phone Milana Ha MD Primary Care Provider Surgical History Surgery Date Site/Laterality Comments HYSTERECTOMY PROCEDURE: HISTORICAL HYSTERECTOMY SALPINGOOPHORECTOMY PROCEDURE: AR LAPAROSCOPY W/RMVL ADNEXAL STRUCTURES CARDIAC CATHETERIZATION 2002 PROCEDURE: HISTORICAL CARDIAC CATH; COMMENT: negative CHOLECYSTECTOMY 05/16/2016 PROCEDURE: HISTORICAL CHOLECYSTECTOMY; COMMENT: laparoscopic Pee Gutierrez UPPER GASTROINTESTINAL ENDOSCOPY 11/25/2011 PROCEDURE: AR UPPER GI ENDOSCOPY PERFORMED; COMMENT: small HH; no esophagitis on PPI rx COLONOSCOPY 2007 PROCEDURE: HISTORICAL COLONOSCOPY; COMMENT: [facility]; date approx.; negative COLONOSCOPY 08/06/2020 PROCEDURE: HISTORICAL COLONOSCOPY; COMMENT: 1 cm polyps x2 and diverticulosis: Tubular adenomas x2. Repeat colonoscopy in 3 years. Medical History Medical History Date Comments DM (diabetes mellitus) ([facility] V24, [facility] V28) DX:DM (diabetes mellitus) (H [...] type 2 (diabetes mellitus , type 2) ([facility] V24, [facility] V28) 07/09/2013 DX:DM type 2 (diabetes marcelino itus, type 2) ([facility]) Family History Medical History Relation Name Comments Diabetes Brother 1 Diabetes Brother 2 CABG Father CABG Mother Diabetes Mother Parkinson's Disease Mother Colon cancer Neg Hx Relation Name Status Comments Brother 1 Brother 2 Brother 3 [place] Father (Age 59) stroke Mother Social History [...] age to complete this topic Care Teams Court Reporter Relationship Specialty Start Date End Date Milana Ha MD PCP - General Internal Medicine 05/02/19
--- OUTSIDE RECORDS SUMMARY | 2025-03-21 19:10 | XMS_ITS | Encounter Summary ---
Author Organization [facility] Address [address] [place] [address] Phone Care Team Providers Care Music Professor Name Role Phone Milana Ha MD Primary Care Provid er Encounter Details Date Type Department Care Team (Late st Contact Info) Description 08/03/2017 Procedure Pass [facility], [address] [address] Social History Tobacco Use Types Packs/Day Years [...] on filedocumented in this encounter Care Teams Music Professor Relationship Specialty Start Date End Date Milana Ha MD [address] [address] PCP - General Internal Medicine 08/03/17 documented as of this encounter Additional Source Comments The information contained in this document represents components of the legal health record. It is not the complete legal health record.[facility]
--- OUTSIDE RECORDS SUMMARY | 2025-03-21 19:10 | XMS_ITS | Encounter Summary ---
Author Organization [facility] Address [address] [facility] [place] [address] Phone Care Team Providers Care Floorhand Name Role Phone Milana Ha MD Primary Care Provid er Encounter Details Date Type Department Care Team ([facility] Contact Info) Description 11/01/2024 Procedure Pass [place] [facility] [address] [place] [address] Social History Tobacco Use Types Packs/Day Years [...] on filedocumented in this encounter Care Teams Floorhand Relationship Specialty Start Date End Date Milana Ha MD [address] [id number] PCP - General Internal Medicine 08/03/17 documented as of this encounter Additional Source Comments The information contained in this document represents components of the legal health record. It is not the complete legal health record.[facility]
--- OUTSIDE RECORDS SUMMARY | 2025-03-21 19:10 | XMS_ITS | Data Portability ---
Author Organization [place] [facility], Allergy Address [address] [place] [address] Care Team Providers Care Film Process Operator Name Role Phone ALDO ASHER MD [...] INTERNAL AUDITORY CANAL, W/WO CONTRAST 2023 024 [facility], [address] [place] [address], [address], 10:57:28 Medication Orders None recorded. Patient TargetsNo targets recorded. Patient InstructionsNo instructions recorded. Reason for Referral None Reported. Results Created Date Observation Date Name Description Value Unit Range Abnormal Flag Note LastModifiedBy Organization Detail LastModifiedTime 01/27/20 24 audio gram No observ ation record ed. [email or web address] Not Available 01/03 11:00:41 03/09/20 24 03/07/2024 MRI, brain + inter nal audit ory canal , w/wo contr ast No observ ation record ed[email or web address] [address] [place], [address], 03/16/2024 09:57:52 Result Notes None recorded. 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; Note: Date Diagnosed : 04/26/2016 9:45 AM (D33.3) , right sided acoustic neuroma 6 x 8 x 6mm Not Available [facility] 4 02:12:59 Sensorine ural hearing loss of bilateral ears 067636969 Active 2016 Sensorine ural hearing loss, bilateral ; Note: Date Diagnosed : 04/26/2016 9:36 AM (H90.3) Not Available [facility] 4 02:12:59 Pain of right temporoma ndibular joint 49050191045 483163 Active 2017 Arthralgi a of right temporoma ndibular joint; Note: Date Diagnosed : 08/22/2017 11:54 AM (M26.621) Not Available [facility] 4 02:13:27 Impacted cerumen in right ear 97317049134 42002 Active 2023 TASHA FYLNN MD [address] [place] [address], [facility] [place], [address] , [facility] 4 15:37:11 Acoustic neuroma 552035138 Active 2023 TASHA FLYNN MD [address] [place] [address], [place], [address] , [facility] 4 15:37:46 Problem Notes None recorded. Procedures Surgical History Date Name Laterality Status Provider Name and Address Organization Details Recorded Time 4 Cerumen removal without microscope right completed TASHA FLYNN MD [address] [place] [address], [place], [address], [facility] - [facility] 01/25/2024 15:37:32 4 Air & Speech Audio with Tymps - 92694, 69930 & 68921 completed SHELBIE MARKS [address] [place] [address],[address], [address], [facility] - [facility] 01/25/2024 14:51:01 Imaging Results None recorded. Procedure Notes None recorded. Medical Equipment None Reported. Medications Name Sig Start Date Stop Date Status Note LastModified by Organization Details LastModified Time atorvastat in 80 mg tablet TAKE 1 TABLET BY MOUTH EVERY DAY active Not Available Not Available No t Available valacyclov ir 1 gram tablet 2017 active Medicatio n ID: [id number] Du ration Value: 7 Brand Name: teddy alonso Send Method: E-Prescri bed Subs Allowed: subs [facility] Not Available Not [...] mg capsule 2017 active Medicatio n ID: [id number] Du ration Value: 30 Brand Name: gabapenti n Send Method: E-Prescri bed Subs Allowed: subs [facility] icName: gabapenti n Not Available [...] tablet 01/23/ 2017 active Medicatio n ID: [id number] Br and Name: iron Send Method: E-Prescri [...] Not Available Not Available No t Available [facility] spacer USE DIRECTED WITH INHALER [...] Updated DateTime 01/25/2024 165.1 cm 26.3 kg/m2 92443.59 g Keven Wyman [place] - [facility] 01/25/2024 15:07:24 Social History None recorded. Functional Status None recorded. Mental Status None recorded. Family History Nothing Reported. Medical History No medical history recorded. Gynecological HistoryNo gynecological history recorded. Obstetrics History GPAL:G 0 P 0 0 0 0 Past Encounters Encounter ID Performer Location Encounter Start Date Encounter Closed Date Diagnosis/Indication Diagnosis SNOMED-CT Code Diagnosis ICD10 Code Diagnosis IMO Codes Diagnosis Note [id number] TASHA FLYNN MD [facility] [address] [address] 01/25/2024 14:09:52 01/25/2024 15:37:36 Sensorineural hearing loss of bilateral ears 713844265 H90.3 Right Ear:Mild sloping to a profound SNHL with good speech discrimina tion.Type A tympanogra m.Left Ear:Mild sloping to a severe SNHL with excellent speech discrimina tion.Type A tympanogra m. Impacted c erumen in right ear 4290062386 919731 H61.21 Recurrent Cerumen Impactions : Ears were meticulous ly cleaned bilaterall y today with a curette and suction. The patient tolerated this well and will follow up for repeat debridemen t per routine. Acoustic neuroma 0305856 07 D33.3 has been 5 years since [...] Pablo Member ID Guarantor Name 01/25/2024 1 [facility] (MEDICARE REPLACEMENT/A DVANTAGE - PPO) [id number] aCrmelita Whitaker [id number] Carmelita Whitaker Notes Date Note Type Note [...] to last tested (09/2018). TASHA FLYNN MD [address] [place] [address], [address], [place] - [facility] 01/25/2024 15:39:51 OBGyn Episode No OBEpisode recorded.
--- OUTSIDE RECORDS SUMMARY | 2025-03-21 19:10 | XMS_ITS | Encounter Summary ---
Author Organization [facility] Address [address] [place] [address] Phone Care Team Providers Care Furnace Helper Name Role Phone Milana Ha MD Primary Care Provid er Encounter Details Date Type Department Care Team (Late st Contact Info) Description 01/25/2024 Procedure Pass [facility], [address] [address] Social History Tobacco Use Types Packs/Day Years [...] on filedocumented in this encounter Care Teams Furnace Helper Relationship Specialty Start Date End Date Milana Ha MD [address] [phone] PCP - General Internal Medicine 08/03/17 documented as of this encounter Additional Source Comments The information contained in this document represents components of the legal health record. It is not the complete legal health record.[facility]
--- OUTSIDE RECORDS SUMMARY | 2025-03-21 19:10 | XMS_ITS | Clinical Summary ---
Author Organization [facility] Address [address] [facility] 7 [place] [address] Care Team Providers Care Respiratory Therapist Assistant Name Role Phone Unavailable Primary Care Provider [...] Most Recently Relevant to Health Maintenance Insurance [place], [place] D[facility] - [facility] PPO * Guarantor: Carmelita Whitaker Account Type Relation to Patient Date of Phone Billing Address Personal/Family Self [place], [place] * Guarantor: Carmelita Whitaker Account Type Relation to Patient Date of Phone Billing Address Personal/Family Self [place]
--- OUTSIDE RECORDS SUMMARY | 2025-03-21 19:10 | XMS_ITS | Encounter Summary ---
Author Organization [facility] Address [address] [place] [address] Phone Care Team Providers Care Manager Of Learning Name Role Phone Milana Ha MD Primary Care Provid er Encounter Details Date Type Department Care Team ([facility] Contact Info) Description 11/08/2024 Procedure Pass [place] [facility] [address] [place], [place] [id number] Social History Tobacco Use Types Packs/Day Years [...] on filedocumented in this encounter Care Teams Manager Of Learning Relationship Specialty Start Date End Date Milana Ha MD [address] [phone] PCP - General Internal Medicine 08/03/17 documented as of this encounter Additional Source Comments The information contained in this document represents components of the legal health record. It is not the complete legal health record.[facility]
--- OUTSIDE RECORDS SUMMARY | 2025-03-21 19:10 | XMS_ITS | Clinical Summary ---
Author Organization [facility] Address [address] [place] [address] Phone Care Team Providers Care Research Nutritionist Name Role Phone Milana Ha MD Primary [...] file Insurance MEDICARE PART A & B Member Subscriber Plan / Payer (Ef fective 2013-Present) Name:Carmelita Whitaker Member ID:[id number] Relation to Subscriber:Self Name:Carmelita Whitaker Subscriber ID:[id number] Payer ID:[id number] Group ID:Not on file Type:Medicare Address: [facility] [employer]Rep [facility] [address] [place] [address] [facility] MEDICARE REPLACEMENT MEDICARE PART A & [facility] MEDICARE REPLACEMENT [place] MEDICARE PART A & B [facility] MEDICARE REPLACEMENT MEDICARE PART A & B [facility] MEDICARE REPLACEMENT MEDICARE PART A & B [facility] MEDICARE REPLACEMENT MEDICARE PART A & B [facility] MEDICARE REPLACEMENT [place] Care Teams Research Nutritionist Relationship Specialty Start Date End Date Mil[facility] MD [facility] [address] [address] PCP - General Internal Medicine 08/03/17 Additional Source Comments The information contained in this document represents components of the legal health record. It is not the complete legal health record.[facility]
--- OUTSIDE RECORDS SUMMARY | 2025-03-21 19:10 | XMS_ITS | Encounter Summary ---
Author Organization [facility] Address [address] [place] [address] Phone Care Team Providers Care Vending Machine Attendant Name Role Phone Milana Ha MD Primary Care Provid er Encounter Details Date Type Department Care Team ([facility] Contact Info) Description 10/23/2024 Procedure Pass [place] [facility] [address] [place] [address] Social History Tobacco Use Types Packs/Day Years [...] on filedocumented in this encounter Care Teams Vending Machine Attendant Relationship Specialty Start Date End Date Milana Ha MD [address] [phone] PCP - General Internal Medicine 08/03/17 documented as of this encounter Additional Source Comments The information contained in this document represents components of the legal health record. It is not the complete legal health record.[facility]
--- OUTSIDE RECORDS SUMMARY | 2025-03-21 19:10 | XMS_ITS | Encounter Summary ---
Author Organization [facility] Address [address] [facility] [address] [facility] [address] [place] [address] Phone Care Team Providers Care Shop Estimator Name Role Phone Milana Ha MD Primary Care Provid er Encounter Details Date Type Department Care Team (Late st Contact Info) Description 06/02/2018 Ancillary Orders Virtual Department [address] [place] [address] Bryce Bui MD [address] [facility] [address] [place] [address] Disorder of kidney and ureter Social History [...] Renal shadow appears within normal limits. POS [id number] Narrative 06/26/2018 9:27 AM EDT COMPARISON: None [...] Renal shadow appears within normal limits. POS [id number] us Internal With Orders Referring - Referring IMG [facility] RENAL Final Result documented in this encounter Visit Diagnoses Diagnosis Disorder of kidney and ureter Unspecified disorder of kidney and ureter Disorder of kidney and ureter Unspecified disorder of kidney and ureter documented in this encounter Care Teams Shop Estimator Relationship Specialty Start Date End Date [facility] [address] [address] PCP - General Internal Medicine 08/03/17 documented as of this encounter Additional Source Comments The information contained in this document represents components of the legal health record. It is not the complete legal health record.[facility]
--- OUTSIDE RECORDS SUMMARY | 2025-03-21 19:10 | XMS_ITS | Clinical Summary ---
Author Organization [facility] Prior to 09/01/[address] [place] [address] Care Team Providers Care Branch Officer Name Role Phone Milana Ha MD Primary [...] age to complete this topic Care Teams Branch Officer Relationship Specialty Start Date End Date Milana Ha MD PCP - General Internal Medicine 05/02/19
--- OUTSIDE RECORDS SUMMARY | 2025-03-21 19:10 | XMS_ITS | Encounter Summary ---
Author Organization [facility] Address [address] [place] [address] Phone Care Team Providers Care Winder Contort Operator Name Role Phone Milana Ha MD Primary Care Provid er Encounter Details Date Type Department Care Team (Late st Contact Info) Description 08/08/2018 Procedure Pass [facility], [address] [address] Social History Tobacco Use Types Packs/Day Years [...] on filedocumented in this encounter Care Teams Winder Contort Operator Relationship Specialty Start Date End Date Milana Ha MD [address] [address] PCP - General Internal Medicine 08/03/17 documented as of this encounter Additional Source Comments The information contained in this document represents components of the legal health record. It is not the complete legal health record.[facility]
--- OUTSIDE RECORDS SUMMARY | 2025-03-21 19:10 | XMS_ITS | Encounter Summary ---
Author Organization [facility] Address [address] [place] [address] [place] [address] Phone Care Team Providers Care Forest Worker Name Role Phone Milana Ha MD Primary Care Provid er Reason for Referral * MRI/CAT Scan - Closed Specialty Diagnoses / Procedures Referred By Yolanda barnhart Referred To Contact Radiology Diagnoses SNHL (sensory-neural hearing loss), asymmetrical Procedures MRI Brain Shane Patel MD Phone: tel: fax: [email or web address] Referral ID Status Reason Start Date Expiration Date Visits Re quested Visits Authorized [id number] Closed 08/02/2017 09/30/2017 1 1 Encounter Details Date Type Department Care Team (Late st Contact Info) Description 08/03/2017 Ancillary Orders [facility] External Provider Virtual Department [address] [place] [address] Shane Patel MD [address] [place] [address] [address] [place] [address] [email or web address] SNHL (sensory-neural hearing loss), asymmetrical Social History [...] asymmetrical documented in this encounter Care Teams Forest Worker Relationship Specialty Start Date End Date Milana Ha MD [address] [address] PCP - General Internal Medicine 08/03/17 documented as of this encounter Additional Source Comments The information contained in this document represents components of the legal health record. It is not the complete legal health record.[facility]
--- OUTSIDE RECORDS SUMMARY | 2025-03-21 19:10 | XMS_ITS | Encounter Summary ---
Author Organization [employer] Address [address] [place] [address] 7 [place] [address] Care Team Providers Care Salesperson Sheet Music Name Role Phone Unavailable Primary Care Provider [...]
--- OUTSIDE RECORDS SUMMARY | 2025-03-21 19:10 | XMS_ITS | Encounter Summary ---
Author Organization [facility] Address [address] [place] [address] Phone Care Team Providers Care Support Merchandiser Name Role Phone Milana Ha MD Primary Care Provid er Reason for Referral * MRI/CAT Scan - Closed Specialty Diagnoses / Procedures Referred By Yolanda barnhart Referred To Contact Radiology Diagnoses Benign neoplasm of cranial nerves Procedures MRI Brain Meir Lara MD Phone: tel: fax: [email or web address] Referral ID Status Reason Start Date Expiration Date Visits Re quested Visits Authorized [id number] Closed 01/25/2024 01/24/2025 1 1 Encounter Details Date Type Department Care Team (Latest Contact Info) Description 01/25/2024 Transcribe Orders Virtual Department [address] [place] [address] Meir Lara MD [address] [facility] [place] [address] [email or web address] Benign neoplasm of cranial nerves (Primary Dx) [...] clinician's provided indication for this examination in [facility]: Outside Radiology Order; Benign neoplasm of cranial [...] clinician's provided indication for this examination in [facility]:Outside Radiology Order; Benign neoplasm of cranial nerves [...] asymptomatic finding. This is unchanged dating back [id number]. Ventricular System and Extra-Axial Spaces: There is [...] nerves documented in this encounter Care Teams Support Merchandiser Relationship Specialty Start Date End Date Milana Ha MD [address] [address] PCP - General Internal Medicine 08/03/17 documented as of this encounter Additional Source Comments The information contained in this document represents components of the legal health record. It is not the complete legal health record.[facility]
--- OUTSIDE RECORDS SUMMARY | 2025-03-21 19:10 | XMS_ITS | Encounter Summary ---
Author Organization [facility] Address [address] [place] [address] [place] [address] Phone Care Team Providers Care Customer Sales Distributor Name Role Phone Milana Ha MD Primary Care Provid er Reason for Referral * MRI/CAT Scan - Closed Specialty Diagnoses / Procedures Referred By Yolanda barnhart Referred To Contact Radiology Diagnoses Benign neoplasm of cranial nerves Sensory hearing loss, bilateral Arthralgia of right temporomandibular joint Procedures MRI Brain Shane Patel MD Phone: tel: fax: [email or web address] Referral ID Status Reason Start Date Expiration Date Visits Re quested Visits Authorized [id number] Closed 08/02/2018 09/30/2018 1 1 Encounter Details Date Type Department Care Team (Latest Contact Info) Description 08/08/2018 Ancillary Orders Virtual Department [address] [place] [address] Shane Patel MD 100 [facility] 100 [place] [address] [email or web address] Benign neoplasm of cranial nerves; Sensory hearing [...] present in the major vessels of the [place]. Although the study does not [...] present in the major vessels of the [place]. Although the study does not detail [...] joint documented in this encounter Care Teams Customer Sales Distributor Relationship Specialty Start Date End Date Milana Ha MD [address] [address] PCP - General Internal Medicine 08/03/17 documented as of this encounter Additional Source Comments The information contained in this document represents components of the legal health record. It is not the complete legal health record.[facility]
== END 2025-03-21 15:08 | disposition home or self-care (01) ==
LOC: HO.MAMMO 15:07
PROVIDERS: Visit Provider Nurse Practitioner Family
DX: Z12.31 Encounter for screening mammogram for malignant neoplasm of breast (principal)
CPT/HCPCS: 77063; 77067

== ENCOUNTER → 2025-03-21 16:15 | Outpatient (BNV) | payer MEDICARE, SELFPAY | PROVIDERS: Visit Provider Internal Medicine | DX: Z12.31 Encounter for screening mammogram for malignant neoplasm of breast (principal) | CPT/HCPCS: 77063; 77067 ==

== ENCOUNTER 2025-03-22 10:27 | Outpatient (AMB) | payer MEDICARE, SELFPAY ==
--- NOTE | 2025-03-22 10:29 | MHC.PC.OV ---
Vital Signs 03/22/25 10:35 03/22/25 11:03 Height 5 ft 5 in Weight 144 lb 2 oz BMI 24.0 BP 189/80 H 144/60 H Blood Pressure Location Lt brachial Rt brachial Position Sitting Sitting Respiration 16 Pulse 71 Pulse Source Pulse Oximeter Temp 97.4 F Temp Source Oral Pulse Oximetry (%) 99 Oxygen Delivery Method Room Air Intake Visit Reasons: 2 wks HTN, anxiety, depression Intake Note: patient here for 2 wks follow up on HTN, anxiety, depression Patient Relations Coordinator Required: No Is last menstrual period known: No Post menopausal: No Patient : No Allergies Seasonal Allergies Allergy (Intermediate, Verified 03/22/25 10:59) Cough zolpidem (From Ambien) Adverse Reaction (Severe, Verified 03/22/25 10:59) Hallucinations Medication List - Last Reconciled 03/22/25 by Nisha Garcia CNP acetaminophen (Tylenol Extra Strength) 500 mg PO Q6H PRN albuterol sulfate 90 mcg/actuation 2 puffs PO Q4-6H PRN amlodipine 10 mg PO DAILY apixaban (Eliquis) 5 mg PO BID atorvastatin 80 mg PO DAILY buspirone 10 mg PO TID 30 days cyanocobalamin (vitamin B-12) 1,000 mcg PO DAILY 30 days famotidine (Pepcid) 20 mg PO BEDTIME flash glucose scanning reader (Expert NetworksStyle Samantha 2 [place]) As directed flash glucose sensor (FreeStyle Samantha 2 Sensor kit) As directed fluoxetine TAKE 3 CAPSULES BY MOUTH EVERY DAY furosemide 20 mg PO DAILY Held on 08/28/24. Instructions: Doctor's Order inhalational spacing device (Aerochamber Plus Z Stat spacer) As directed levothyroxine 50 mcg PO DAILY lorazepam (Ativan) 0.5 mg PO BID PRN metformin ER 1,000 mg (2 x 500 mg) PO BID 90 days metoprolol succinate ER 25 mg PO DAILY miscellaneous medical supply 1 large blood pressure cuff and monitor omeprazole 40 mg (2 x 20 mg) PO DAILY semaglutide (Ozempic) 1 mg (0.75 mL) subcut QWEEK 30 days valsartan-hydrochlorothiazide 320-25 mg 1 tab PO DAILY Tobacco use date assessed: 03/22/25 Fall risk assessment: No Falls in past year Last assessed Fall Risk: 03/22/25 Dental Screening Dental Screen Date: 03/22/25 Did you have a dental visit in the last 12 months?: No Did you have a dental problem in the last 6 months where you did not have access to dental care?: No Was dental information given to patient?: Patient has dentist HPI HPI Comments History of Present Illness Details 75-year-old female presents for hypertension and anxiety follow-up. She admits to taking her medications as prescribed without adverse reactions. She notes that her anxiety and depression symptoms have improved since her last visit. She denies anxiety or depressive symptoms at this time. Her appetite is good. She has difficulty falling asleep and maintaining sleep; sleeps an average of 5-10 hours. She is unsure whether she snores. She had a sleep study several years ago and unsure of the result. She denies acute symptoms at this time. [facility] Medical History Essential tremor Seasonal allergies PND (post-nasal drip) Iron deficiency Arthritis Osteoarthritis Depression Hypertension Asthma Tremors of nervous system Type II diabetes mellitus Surgical History (Reviewed 11/28/24 @ 14:59 by Rhonda Mccann [facility]) Hx of cardiac cath Hx of LASIK History of esophagogastroduodenoscopy (EGD) H/O: hysterectomy History of cataract removal with insertion of prosthetic lens Hx laparoscopic cholecystectomy Family History (Reviewed 11/28/24 @ 14:59 by Rhonda Mccann [facility]) Mother Diabetes Parkinsons Panic disorder/agoraphobia, agoraphobic avoidnc/panc attck full remssn Father Stroke Heart attack Brother Congestive heart failure Brother Stroke Other Substance abuse Social History (Reviewed 11/28/24 @ 14:59 by Rhonda Mccann [facility]) Household Members: Family Household Members Other:: brother Both parents involved: No Caregiver staying overnight: No Housing: Other Housing Other:: mobile home Are you a primary rn patient care to a significant other at home: Yes (brother s/p CVA) Do you presently have visiting nurse or other home services: No (brother has services VNA,PT) Alcohol intake: never Patient Tobacco Use Status: Never used Tobacco e-Cigarette/Vaping Use: Never Used Second Hand Smoke Exposure: No Patient : No service: No Current occupational status: retired Current occupational exposures/hazards: Yes Cognitive needs: No Hearing needs: Yes Vision needs: No Questionnaire PHQ-9 Over the last 2 weeks, how often have you been bothered by any of the following problems? 1. Little interest or pleasure in doing things: several days 2. Feeling down, depressed, or hopeless: more than half the days 3. Trouble falling or staying asleep, or sleeping too much: nearly every day 4. Feeling tired or having little energy: nearly every day 5. Poor appetite or overeating: not at all 6. Feeling bad about yourself - or that you are a failure or have let yourself or your family down: more than half the days 7. Trouble concentrating on things, such as reading the newspaper or watching television: more than half the days 8. Moving or speaking so slowly that other people could have noticed. Or the opposite - being so fidgety or restless that you have been moving around a lot more than usual: several days 9. Thoughts that you would be better off or of hurting yourself in some way: not at all Total score: 14 Depression Screening Interpretation: Positive Depression Screening Done: Yes 41895 - PHQ-9 Billing: Yes Source: Developed by Drs. Meir Zarate, Elba Comer, Ethan Little and colleagues, with an educational leeanne from [employer]. Thrive Questionnaire Date Thrive assessed: 05/21/24 I am a: Patient What is your living situation today?: I have a steady place to live Within the past 12 months, did the food you bought not last and you didn't have the money to get more?: Never true Within the past 12 months, did you worry whether your food would run out before you got money to buy more?: Sometimes True Do you have trouble paying for medicines?: No Do you have trouble getting transportation to medical appointments?: No Do you have trouble paying your heating and electricity bill?: Yes Do you have trouble taking care of your child, family member or friend?: No Do you have trouble with day-to-day activities such as bathing, preparing meals, shopping, managing finances, etc.?: No Are you currently unemployed and looking for a job?: No Are you interested in more education?: No Currently or been in a relationship where the following occur: No concerns reported THRIVE Score: 2 SUSHANT-7 AMB Questionnaire SUSHANT-7 Date SUSHANT - 7 assessed: 03/22/25 Feeling nervous, anxious, or on edge: 2 = More than half the days Not being able to stop or control worryin = Nearly every day Worrying too much about different things: 3 = Nearly every day Trouble relaxin = Nearly every day Being so restless that it is hard to sit still: 2 = More than half the days Becoming easily annoyed or irritable: 2 = More than half the days Feeling afraid as if something awful might happen: 2 = More than half the days Total SUSHANT-7 score (0-4 normal; 5-9 mild; 10-14 moderate; 15-21 severe): 17 Source: Developed by Drs. Meir Zarate, Elba Comer, Ethan Little and colleagues, with an educational leeanne from [employer]. SUSHANT-7 Assessment Billing SUSHANT-7 Assessment Tool: SUSHANT-7 Assessment 30406 Review of Systems Const Details: Const Denies chills, Denies fatigue, Denies fever(s), Denies headache(s) and Denies weakness ENT Denies dizziness and Denies headache(s) Card Denies chest pain, Denies lightheadedness, Denies dyspnea and Denies other (Palpitations) Resp Denies cough, Denies dyspnea, Denies wheezing and Denies other ( shortness of breath) GI Denies abdominal pain, Denies melena, Denies hematochezia, Denies change in bowel habits, Denies dyspepsia and Denies nausea Denies hematuria and Denies dysuria Musc Denies abnormal gait, Denies myalgias, Denies arthralgias, Denies numbness and Denies tingling Skin/Breast Denies rash, Denies unusual bruising and Denies wounds Neuro Denies abnormal gait, Denies dizziness, Denies headache(s), Denies memory loss, Denies numbness, Denies Sensory deficit (Neuro), Denies tingling and Denies weakness Psych Denies anxiety, Denies depression, Denies memory loss Endo Denies cold intolerance, Denies fatigue, Denies heat intolerance, Denies polydipsia and Denies polyuria Aller/Immun Denies wheezing Physical exam (Primary Care) Vital Signs: Last Vital Signs Temp 97.4 F 03/22/25 10:35 Pulse 71 03/22/25 10:35 Resp 16 03/22/25 10:35 BP 144/60 H 03/22/25 11:03 Pulse Ox 99 03/22/25 10:35 Oxygen Delivery Method Room Air 03/22/25 10:35 BMI result Body Mass Index 24.0 Tobacco/Smoking Status: Tobacco use Status Tobacco use date assessed 03/22/25 03/22/25 10:40 Patient Tobacco Use Status Never used Tobacco 03/22/25 10:32 e-Cigarette/Vaping Use Never Used 03/22/25 10:32 Depression Screening Interpretation: Positive Thrive Assessment: Date of Thrive Assessment Date Thrive assessed 05/21/24 03/22/25 10:32 Currently or been in a relationship where the following occur: No concerns reported Const Other: General: no acute distress and well developed Nutritional Appearance: well nourished Orientation/consciousness: patient oriented x3 HENMT Head: Yes normocephalic and Yes atraumatic Eyes General: appearance normal, both eyes and all related structures Pupils: Equal, round and reactive pupils present EOM: EOMs intact bilaterally Resp Effort & Inspection: normal respiratory effort Auscultation: clear to auscultation bilaterally Cardio Rate: regular rate Rhythm: regular rhythm Heart sounds: S1 normal heart sound present, S2 normal heart sound present, no gallops, + murmurs and no rubs General: Yes no CVA tenderness Back/Spine/Pelvis Back: no CVA tenderness Cervical Spine: cervical ROM normal and No Cervical spine tenderness Thoracic/Lumbar Spine: thoraco-lumbar ROM normal, No pain with thoraco-lumbar ROM, No thoracic spinal tenderness and No lumbar spinal tenderness Extrem General: Yes normal to inspection, No edema and No calf tenderness Skin General: warm and dry. Normal skin color. Normal skin turgor Neuro General: patient oriented x3, gait normal and no focal neuro deficit Psych Appearance: grossly normal Mood: Better Affect: Mood congruent Attitude: cooperative Thought process: Normal thought process present Coding Level of Care Code Est Pt Level 4 (04943) Diagnoses Hypertension, essential I10 Generalized anxiety disorder F41.1 Major depressive disorder F32.9 Sleep disturbance G47.9 Additional Codes SUSHANT-7 Assessment Billing - SUSHANT-7 Assessment Tool: SUSHANT-7 Assessment 97592 ([id number]) PHQ-9 - 40582 - PHQ-9 Billing: Yes ([id number]) Assessment & Plan Assessment & Plan (1) Hypertension, essential: Code(s): I10 - Essential (primary) hypertension Category: Medical Plan: Resting blood pressure is 144/60, above goal of less than 130/80. Furosemide 20 mg daily has been held since August - will restart today. Continue current treatment regimen. Low-sodium diet encouraged. Follow-up as schedule for transfer of care in May. Return sooner with symptoms or concerns. Verbalized understanding and agreed with the plan. (2) Generalized anxiety disorder: Code(s): F41.1 - Generalized anxiety disorder Category: Medical Plan: She notes that her anxiety and depression symptoms have improved since her last visit. She denies anxiety or depressive symptoms at this time. Her appetite is good. She has difficulty falling asleep and maintaining sleep; sleeps an average of 5-10 hours. She is unsure whether she snores. She had a sleep study several years ago and unsure of the result. Trazodone 25 mg daily at bedtime as needed for sleep ordered; advised to take as prescribed. Instructed on the risks, benefits, and potential adverse reactions of the medication. Continue current treatment regimen. Referred to sleep medicine for a sleep study. Follow-up with PCP as planned or return sooner with worsening or new symptoms. Verbalized understanding and agreed with the plan. (3) Major depressive disorder: Code(s): F32.9 - Major depressive disorder, single episode, unspecified Category: Medical Plan: Plan as above. (4) Sleep disturbance: Code(s): G47.9 - Sleep disorder, unspecified Category: Medical Plan: Plan as above. Orders: Referrals Sleep Medicine Referral F32.9 - Major depressive disorder, single episode, unspecified, F41.1 - Generalized anxiety disorder, G47.9 - Sleep disorder, unspecified Medications: New trazodone 25 mg (1/2 x 50 mg) PO BEDTIME PRN 30 tabs 2RF sleep Resumed furosemide 20 mg PO DAILY 90 tabs 2RF
[2025-03-22 10:35] VITALS: BP 189/80; PULSE 71; RESP 16; TEMP 36.3; O2SAT 99; BMI 24.0
[2025-03-22 11:03] VITALS: BP 144/60
--- OUTSIDE RECORDS SUMMARY | 2025-03-22 12:00 | XMS_ITS | Encounter Summary ---
Author Organization [facility] Address [address] [place] [address] Phone Care Team Providers Care Galley Worker Name Role Phone Milana Ha MD Primary Care Provid er Encounter Details Date Type Department Care Team (Late st Contact Info) Description 08/03/2017 Procedure Pass [facility], [address] [address] Social History Tobacco Use Types Packs/Day Years [...] on filedocumented in this encounter Care Teams Galley Worker Relationship Specialty Start Date End Date Milana Ha MD [address] [address] PCP - General Internal Medicine 08/03/17 documented as of this encounter Additional Source Comments The information contained in this document represents components of the legal health record. It is not the complete legal health record.[facility]
--- OUTSIDE RECORDS SUMMARY | 2025-03-22 12:00 | XMS_ITS | Encounter Summary ---
Author Organization [facility] Address [address] [place] [address] Phone Care Team Providers Care Pharmacy Picking Tech Name Role Phone Milana Ha MD Primary Care Provid er Encounter Details Date Type Department Care Team (Late st Contact Info) Description 08/08/2018 Procedure Pass [facility], [address] [address] Social History Tobacco Use Types Packs/Day Years [...] on filedocumented in this encounter Care Teams Pharmacy Picking Tech Relationship Specialty Start Date End Date Milana Ha MD [address] [address] PCP - General Internal Medicine 08/03/17 documented as of this encounter Additional Source Comments The information contained in this document represents components of the legal health record. It is not the complete legal health record.[facility]
--- OUTSIDE RECORDS SUMMARY | 2025-03-22 12:00 | XMS_ITS | Encounter Summary ---
Author Organization [facility] Address [address] [place] [address] Phone Care Team Providers Care Electrical/Instrument Technician Name Role Phone Milana Ha MD Primary Care Provid er Encounter Details Date Type Department Care Team ([facility] Contact Info) Description 10/23/2024 Procedure Pass [facility] [address] [place] [address] Social History Tobacco Use Types Packs/Day Years [...] on filedocumented in this encounter Care Teams Electrical/Instrument Technician Relationship Specialty Start Date End Date Milana Ha MD [address] [phone] PCP - General Internal Medicine 08/03/17 documented as of this encounter Additional Source Comments The information contained in this document represents components of the legal health record. It is not the complete legal health record.[facility]
--- OUTSIDE RECORDS SUMMARY | 2025-03-22 12:00 | XMS_ITS | Encounter Summary ---
Author Organization [facility] Address [address] [place] [address] Phone Care Team Providers Care Sales Operations Coordinator Name Role Phone Milana Ha MD Primary Care Provid er Encounter Details Date Type Department Care Team ([facility] Contact Info) Description 11/01/2024 Procedure Pass [facility] [address] [place], [place] [phone] Social History Tobacco Use Types Packs/Day Years [...] on filedocumented in this encounter Care Teams Sales Operations Coordinator Relationship Specialty Start Date End Date Milana Ha MD [address] [phone] PCP - General Internal Medicine 08/03/17 documented as of this encounter Additional Source Comments The information contained in this document represents components of the legal health record. It is not the complete legal health record.[facility]
--- OUTSIDE RECORDS SUMMARY | 2025-03-22 12:00 | XMS_ITS | Clinical Summary ---
Author Organization [facility] Prior to 09/01/[address] [place] [address] Care Team Providers Care Suture Winder Hand Name Role Phone Milana Ha MD Primary [...] age to complete this topic Care Teams Suture Winder Hand Relationship Specialty Start Date End Date Milana Ha MD PCP - General Internal Medicine 05/02/19
--- OUTSIDE RECORDS SUMMARY | 2025-03-22 12:00 | XMS_ITS | Clinical Summary ---
Author Organization [facility] Address [address] [place] [address] Phone Care Team Providers Care Promotion Manager Name Role Phone Milana Ha MD [...] Payer (Ef fective 2013-Present) Name:Carmelita Whitaker Member ID:[id number] Relation to Subscriber:Self Name:Carmelita Whitaker Subscriber ID:[id number] Payer ID:[id number] Group ID:Not on file Type:Medicare Address: [facility] [employer] [facility] [address] [place] [address] [facility] MEDIC[facility] REPLACEMENT MEDICARE PART A & B [facility] MEDIC[facility] REPLACEMENT [place], [place] MEDICARE PART A & B [facility] MEDIC[facility] REPLAC[facility] MEDICARE PART A & B [facility] MEDIC[facility]PL[facility] MEDICARE PART A & B [facility] MED[facility] RE[facility] MEDICARE PART A & B [facility] MEDIC[facility] REPLACEMENT [place] Care Teams Promotion Manager Relationship Specialty Start Date End Date [facility] [address] [address] PCP - General Internal Medicine 08/03/17 Additional Source Comments The information contained in this document represents components of the legal health record. It is not the complete legal health record.[facility]
--- OUTSIDE RECORDS SUMMARY | 2025-03-22 12:00 | XMS_ITS | Encounter Summary ---
Author Organization [facility] Address [address] [place] [address] Phone Care Team Providers Care Patch Machine Operator Name Role Phone Milana Ha MD Primary Care Provid er Encounter Details Date Type Department Care Team (Late st Contact Info) Description 01/25/2024 Procedure Pass [facility], [address] [address] Social History Tobacco Use Types Packs/Day Years [...] on filedocumented in this encounter Care Teams Patch Machine Operator Relationship Specialty Start Date End Date Milana Ha MD [address] [phone] PCP - General Internal Medicine 08/03/17 documented as of this encounter Additional Source Comments The information contained in this document represents components of the legal health record. It is not the complete legal health record.[facility]
--- OUTSIDE RECORDS SUMMARY | 2025-03-22 12:00 | XMS_ITS | Encounter Summary ---
Author Organization [facility] Address [address] [place] [address] Phone Care Team Providers Care Sensor Operator Name Role Phone Milana Ha MD Primary Care Provid er Encounter Details Date Type Department Care Team ([facility] Contact Info) Description 11/08/2024 Procedure Pass [facility] [facility] [address] [place], [place] [phone] Social History Tobacco Use Types Packs/Day Years [...] on filedocumented in this encounter Care Teams Sensor Operator Relationship Specialty Start Date End Date Milana Ha MD [address] [phone] PCP - General Internal Medicine 08/03/17 documented as of this encounter Additional Source Comments The information contained in this document represents components of the legal health record. It is not the complete legal health record.[facility]
--- OUTSIDE RECORDS SUMMARY | 2025-03-22 12:00 | XMS_ITS | Encounter Summary ---
Author Organization [facility] Address [address] [facility] [address] [place] [phone] Phone Care Team Providers Care Export Freight Specialist Name Role Phone Milana Ha MD Primary Care Provid er Encounter Details Date Type Department Care Team (Late st Contact Info) Description 06/02/2018 Ancillary Orders Virtual Department 30 [place] [address] Bryce Bui MD [address] [facility] [address] [place] [address] Disorder of kidney and ureter Social History [...] Renal shadow appears within normal limits. POS [id number] Narrative 06/26/2018 9:27 AM EDT COMPARISON: None [...] Renal shadow appears within normal limits. POS [id number] us Internal With Orders Referring - Referring IMG [facility] RENAL Final Result documented in this encounter Visit Diagnoses Diagnosis Disorder of kidney and ureter Unspecified disorder of kidney and ureter Disorder of kidney and ureter Unspecified disorder of kidney and ureter documented in this encounter Care Teams Export Freight Specialist Relationship Specialty Start Date End Date [facility] [address] [address] PCP - General Internal Medicine 08/03/17 documented as of this encounter Additional Source Comments The information contained in this document represents components of the legal health record. It is not the complete legal health record.[facility]
--- OUTSIDE RECORDS SUMMARY | 2025-03-22 12:00 | XMS_ITS | Encounter Summary ---
Author Organization [employer] Address [address] [place] [address] 7 [place] [address] Care Team Providers Care Pump And Still Operator Name Role Phone Unavailable Primary Care [...]
--- OUTSIDE RECORDS SUMMARY | 2025-03-22 12:00 | XMS_ITS | Clinical Summary ---
Author Organization [employer] Address [address] [facility] 7 [place] [address] Care Team Providers Care Hand Decorator Name Role Phone Unavailable Primary Care Provider [...] Most Recently Relevant to Health Maintenance Insurance [place], [place] DENTAL - [facility] PPO * Guarantor: Carmelita Whitaker Account Type Relation to Patient Date of Phone Billing Address Personal/Family Self [place], [place] * Guarantor: Carmelita Whitaker Account Type Relation to Patient Date of Phone Billing Address Personal/Family Self [place], [place]
--- OUTSIDE RECORDS SUMMARY | 2025-03-22 12:00 | XMS_ITS | Encounter Summary ---
Author Organization [facility] Address [address] [place] [address] Phone Care Team Providers Care Fire Supervisor Name Role Phone Milana Ha MD Primary Care Provid er Reason for Referral * MRI/CAT Scan - Closed Specialty Diagnoses / Procedures Referred By Yolanda barnhart Referred To Contact Radiology Diagnoses Benign neoplasm of cranial nerves Procedures MRI Brain Meir Lara MD Phone: tel: fax: mailto:[email or web address] Referral ID Status Reason Start Date Expiration Date Visits Re quested Visits Authorized [id number] Closed 01/25/2024 01/24/2025 1 1 Encounter Details Date Type Department Care Team (Latest Contact Info) Description 01/25/2024 Transcribe Orders Virtual Department [address] [place] [address] Meir Lara MD [address] [facility], [address] [place] [address] [email or web address] Benign neoplasm of cranial nerves (Primary Dx) [...] clinician's provided indication for this examination in [facility]: Outside Radiology Order; Benign neoplasm of [...] clinician's provided indication for this examination in [facility]:Outside Radiology Order; Benign neoplasm of cranial [...] asymptomatic finding. This is unchanged dating back [id number]. Ventricular System and Extra-Axial Spaces: There is [...] nerves documented in this encounter Care Teams Fire Supervisor Relationship Specialty Start Date End Date Milana Ha MD [address] [address] PCP - General Internal Medicine 08/03/17 documented as of this encounter Additional Source Comments The information contained in this document represents components of the legal health record. It is not the complete legal health record.[facility]
--- OUTSIDE RECORDS SUMMARY | 2025-03-22 12:00 | XMS_ITS | Encounter Summary ---
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, bilateral Arthralgia of right temporomandibular joint Procedures MRI Brain Shane Patel MD Phone: tel: fax: [email or web address] Referral ID Status Reason Start Date Expiration Date Visits Re quested Visits Authorized [id number] Closed 08/02/2018 09/30/2018 1 1 Encounter Details Date Type Department Care Team (Latest Contact Info) Description 08/08/2018 Ancillary Orders Virtual Department 30 [place] [address] Shane Patel MD 100 [facility] 100 [place] [address] [email or web address] Benign neoplasm of cranial nerves; Sensory hearing [...] present in the major vessels of the [place] of [place]. Although the study does not [...] present in the major vessels of the [place]. Although the study does not detail [...] joint documented in this encounter Care Teams Zinc Miner Relationship Specialty Start Date End Date Milana Ha MD [address] [address] PCP - General Internal Medicine 08/03/17 documented as of this encounter Additional Source Comments The information contained in this document represents components of the legal health record. It is not the complete legal health record.[facility]
--- OUTSIDE RECORDS SUMMARY | 2025-03-22 12:00 | XMS_ITS | Clinical Summary ---
Author Organization [facility] Address [address] [place] [address] Care Team Providers Care Ice Cream Freezer Helper Name Role Phone Milana Ha MD Primary Care Provider Surgical History Surgery Date Site/Laterality Comments HYSTERECTOMY PROCEDURE: HISTORICAL HYSTERECTOMY SALPINGOOPHORECTOMY PROCEDURE: [place] LAPAROSCOPY W/RMVL ADNEXAL STRUCTURES CARDIAC CATHETERIZATION 2002 PROCEDURE: HISTORICAL CARDIAC CATH; COMMENT: negative CHOLECYSTECTOMY 05/16/2016 PROCEDURE: HISTORICAL CHOLECYSTECTOMY; COMMENT: laparoscopic Pee Gutierrez UPPER GASTROINTESTINAL ENDOSCOPY 11/25/2011 PROCEDURE: NC UPPER GI ENDOSCOPY PERFORMED; COMMENT: small HH; no esophagitis on PPI rx COLONOSCOPY 2007 PROCEDURE: HISTORICAL COLONOSCOPY; COMMENT: [facility]; date approx.; negative COLONOSCOPY 08/06/2020 PROCEDURE: HISTORICAL COLONOSCOPY; COMMENT: 1 cm polyps x2 and diverticulosis: Tubular adenomas x2. Repeat colonoscopy in 3 years. Medical History Medical History Date Comments DM (diabetes mellitus) ([facility] V24, [facility] V28) DX:DM (diabetes mellitus) ([facility]) Sleep [...] , type 2) ([facility] V24, [facility] V28) 07/09/2013 DX:DM type 2 (diabetes marcelino itus, type 2) ([facility]) Family History Medical History Relation Name Comments [...] age to complete this topic Care Teams Ice Cream Freezer Helper Relationship Specialty Start Date End Date Milana Ha MD PCP - General Internal Medicine 05/02/19
--- OUTSIDE RECORDS SUMMARY | 2025-03-22 12:00 | XMS_ITS | Encounter Summary ---
Author Organization [facility] Address [address] [place] [address] [place] [phone] Phone Care Team Providers Care Water Plumber Name Role Phone Milana Ha MD Primary Care Provid er Reason for Referral * MRI/CAT Scan - Closed Specialty Diagnoses / Procedures Referred By Yolanda barnhart Referred To Contact Radiology Diagnoses SNHL (sensory-neural hearing loss), asymmetrical Procedures MRI Brain Shane Patel MD Phone: tel: fax: [email or web address] Referral ID Status Reason Start Date Expiration Date Visits Re quested Visits Authorized [id number] Closed 08/02/2017 09/30/2017 1 1 Encounter Details Date Type Department Care Team (Late st Contact Info) Description 08/03/2017 Ancillary Orders [facility] External Provider Virtual Department 30 [place] [address] Shane Patel MD [address] [place] [address] [address] [place] [address] [email or web address] SNHL (sensory-neural hearing loss), asymmetrical Social History [...] asymmetrical documented in this encounter Care Teams Water Plumber Relationship Specialty Start Date End Date Milana Ha MD [address] [address] PCP - General Internal Medicine 08/03/17 documented as of this encounter Additional Source Comments The information contained in this document represents components of the legal health record. It is not the complete legal health record.[facility]
== END 2025-03-22 11:18 | disposition home or self-care (01) ==
LOC: HO.HMCFM 10:27
PROVIDERS: PCP Nurse Practitioner Family; Visit Provider Nurse Practitioner Family
DX: I10 Essential (primary) hypertension (principal); F41.1 Generalized anxiety disorder; F32.9 Major depressive disorder, single episode, unspecified; G47.9 Sleep disorder, unspecified

== ENCOUNTER → 2025-03-22 10:27 | Outpatient (BNVA) | payer MEDICARE, SELFPAY | PROVIDERS: PCP Nurse Practitioner Family; Visit Provider Nurse Practitioner Family | DX: I10 Essential (primary) hypertension (principal); F41.1 Generalized anxiety disorder; F32.9 Major depressive disorder, single episode, unspecified; G47.9 Sleep disorder, unspecified; Z13.31 Encounter for screening for depression; Z13.39 Encounter for screening examination for other mental health and behavioral disorders; Z79.899 Other long term (current) drug therapy | CPT/HCPCS: 96127; 99212 ==